=== PATIENT | female | born 1940 | race Caucasian/White ===

== ENCOUNTER → 2016-08-19 | Outpatient (REF) | payer MEDICARE, BC ==
[~2016-08-19] MED LIST: /ADVA50050; /CLOT10TR; /MOXI40TA; ALBU17IN2; BABY81CH; MUCINEX; PREDPOW10; SING10TA31; SYNT75TA; ZOMI5TAB
[2016-08-19 13:08] LABS: BASO # 0.1 K/mm3 (0.0-0.2); BASO % 0.7 % (0.0-1.0); EOS # 0.4 K/mm3 (0.0-0.50); LARGE UNSTAINED CELL # 0.2 K/mm3 (0.0-0.4); LARGE UNSTAINED CELL % 2.7 % (0.0-4.0); LYMPH # 2.5 K/mm3 (1.5-4.5); LYMPH % 28.1 % (24.0-44.0); MEAN CORPUSCULAR HEMOGLOBIN 35.6 pg (27.0-33.0); MEAN CORPUSCULAR HGB CONC 32.9 g/dl (32.0-36.5); MEAN CORPUSCULAR VOLUME 108.3 fl (80.0-96.0); MONO # 0.7 K/mm3 (0.0-0.8); MONO % 7.4 % (0.0-5.0); NEUTROPHILS # 5.1 K/mm3 (1.8-7.7); NEUTROPHILS % 57.1 % (36.0-66.0); PLATELET COUNT, AUTOMATED 372 k/mm3 (150-450); RED CELL DISTRIBUTION WIDTH 13.3 % (11.5-14.5); WHITE BLOOD COUNT 8.9 K/mm3 (4.0-10.0)
[2016-08-19 13:44] LABS: ALBUMIN 3.6 GM/DL (3.2-5.2); ALBUMIN/GLOBULIN RATIO 1.09 (1.00-1.93); ALKALINE PHOSPHATASE 20 U/L (45-117); ALT/SGPT 18 U/L (12-78); ANION GAP 8 MEQ/L (8-16); AST/SGOT 14 U/L (15-37); BILIRUBIN,TOTAL 0.4 MG/DL (0.2-1.0); BLOOD UREA NITROGEN 16 MG/DL (7-18); CALCIUM LEVEL 9.6 MG/DL (8.8-10.2); CARBON DIOXIDE LEVEL 28 MEQ/L (21-32); CHLORIDE LEVEL 107 MEQ/L (98-107); FERRITIN 99 NG/ML (8-252); FREE T4 1.08 NG/DL (0.76-1.46); GLOMERULAR FILTRATION RATE > 60.0 (>39); GLUCOSE, FASTING 89 MG/DL (83-110); PERCENT SATURATION 49.2 % (13.2-37.4); POTASSIUM SERUM 4.7 MEQ/L (3.5-5.1); SODIUM LEVEL 143 MEQ/L (136-145); TOTAL IRON BINDING CAPACITY 319 UG/DL (250-450); TOTAL PROTEIN 6.9 GM/DL (6.4-8.2)
== END ==
LOC: M SFHCPLAZ 10:34
PROVIDERS: ATTEND Physician Assistant Medical
DX: G25.81 Restless legs syndrome (principal); E03.9 Hypothyroidism, unspecified; R73.01 Impaired fasting glucose; Z79.82 Long term (current) use of aspirin; Z79.899 Other long term (current) drug therapy
CPT/HCPCS: 80053; 82728; 83550; 84439; 84443; 85025; G0463

== ENCOUNTER → 2016-10-31 | Outpatient (CLI) | payer MEDICARE, BC ==
--- NOTE | 2016-11-01 07:45 | REP ---
LUMBAR SPINE SERIES: Two views. HISTORY: Bilateral hip and low back pain. FINDINGS: AP and lateral views are compared with the September 27, 2014 prior radiographs. The patient is status post umbilical hernia repair. There is a mild dextroconvex curvature and advanced diffuse degenerative disc disease is seen throughout the lumbar spine radiographically unchanged from the 2015 prior study. There is osteoarthritic facet sclerosis and hypertrophy and L4-5 and L5-S1 bilaterally also unchanged. No subluxation is seen. No fracture or collapse is noted. No bony destructive lesion seen. Sacrum SI joints are intact. IMPRESSION: Advanced degenerative spondylosis change. Mild dextroconvex curvature. No acute bony abnormality. Signed by Jim Echeverria MD 11/01/2016 08:12 A
--- NOTE | 2016-11-01 07:46 | REP ---
AP PELVIS BILATERAL HIP STUDY FIVE VIEWS: HISTORY: Bilateral hip pain. FINDINGS: AP view of the pelvis shows an intact bony pelvic ring. Sacrum and SI joints are intact. Hip joint spaces are preserved. There are mild tendon insertion site spurs on the greater trochanters bilaterally. Pelvic phleboliths are noted. No other abnormality. IMPRESSION: Tendon insertion site spurring on the greater trochanters bilaterally may reflect chronic tendonitis. No acute bony abnormality. Signed by Jim Echeverria MD 11/01/2016 08:12 A
== END ==
LOC: M WUC 17:49
PROVIDERS: ATTEND Physician Assistant Medical
DX: M47.816 Spondylosis without myelopathy or radiculopathy, lumbar region (principal)
CPT/HCPCS: 72100; 73521; G0463

== ENCOUNTER → 2016-12-27 | Outpatient (REF) | payer MEDICARE, BC ==
[2016-12-27 16:15] LABS: VITAMIN B12 LEVEL 359 PG/ML (247-911)
[2016-12-27 16:19] LABS: FREE T4 0.83 NG/DL (0.76-1.46); TOTAL PROTEIN 7.2 GM/DL (6.4-8.2)
[2016-12-30 12:11] LABS: ALBUMIN 4.03 GM/DL (3.29-5.55); GAMMA GLOBULIN % 16.9 % (11.1-18.8)
[2016-12-31 10:23] LABS: PRETREATED FOLATE FOR RBCFOL 8.7 NG/ML
== END ==
LOC: M SFHCPLAZ 13:18
PROVIDERS: ATTEND Family Medicine
DX: E03.9 Hypothyroidism, unspecified (principal); R73.01 Impaired fasting glucose; E55.9 Vitamin D deficiency, unspecified; D75.89 Other specified diseases of blood and blood-forming organs

== ENCOUNTER 2017-07-06 14:00 | Inpatient (IN) | payer MEDICARE, BC ==
[2017-07-06 13:47] LABS: BASO # 0.1 10^3/uL (0.0-0.2); BASO % 0.5 % (0.0-1.0); EOS # 0.6 10^3/uL (0.0-0.50); EOS % 5.4 % (0.0-3.0); HEMATOCRIT 39.3 % (36.0-47.0); HEMOGLOBIN 12.9 g/dl (12.0-16.0); IMMATURE GRANULOCYTE % 0.3 % (0-3.0); LYMPH % 29.6 % (24.0-44.0); MEAN CORPUSCULAR HEMOGLOBIN 34.2 pg (27.0-33.0); MEAN CORPUSCULAR HGB CONC 32.8 g/dl (32.0-36.5); MEAN CORPUSCULAR VOLUME 104.2 fl (80.0-96.0); MONO # 1.1 10^3/uL (0.0-0.8); MONO % 10.8 % (0.0-5.0); NEUTROPHILS # 5.5 10^3/uL (1.8-7.7); NEUTROPHILS % 53.4 % (36.0-66.0); PLATELET COUNT, AUTOMATED 316 10^3/uL (150-450); RED BLOOD COUNT 3.77 10^6/uL (4.00-5.40); WHITE BLOOD COUNT 10.2 10^3/uL (4.0-10.0)
[2017-07-06 13:50] LABS: BEDSIDE GLUCOSE 91 MG/DL (83-110)
[2017-07-06 13:57] LABS: INR 0.94; PARTIAL THROMBOPLASTIN TIME 30.3 SECONDS (26.8-37.9); PROTHROMBIN TIME 12.6 SECONDS (12.4-14.5)
[~2017-07-06 14:00] MED LIST changes: -/ADVA50050; -/CLOT10TR; -/MOXI40TA; -ALBU17IN2; -BABY81CH; -MUCINEX; -PREDPOW10; -SING10TA31; -SYNT75TA; -ZOMI5TAB; +hydrALAZINE INJ 20 MG/ML VIAL As Ordered
[2017-07-06] MEDS ORDERED: ALTEPLASE 100MG INJ (J2997) As Ordered (14:09)
[2017-07-06] MEDS: hydrALAZINE INJ 20 MG/ML VIAL IV (14:11)
[2017-07-06 14:19] LABS: ANION GAP 6 MEQ/L (8-16); BLOOD UREA NITROGEN 17 MG/DL (7-18); CALCIUM LEVEL 9.5 MG/DL (8.8-10.2); CARBON DIOXIDE LEVEL 28 MEQ/L (21-32); CHLORIDE LEVEL 108 MEQ/L (98-107); CK-MB VALUE MASS < 1.0 NG/ML (<3.6); CPK CREATINE PHOSPHOKINASE 66 U/L (26-192); CREATININE FOR GFR 0.77 MG/DL (0.55-1.30); GLOMERULAR FILTRATION RATE > 60.0 (>39); GLUCOSE, FASTING 95 MG/DL (70-100); MB/CK RELATIVE INDEX 1.51 (< OR =4); SODIUM LEVEL 142 MEQ/L (136-145); TROPONIN I < 0.02 NG/ML (< 0.10)
[2017-07-06] MEDS: ALTEPLASE 100MG INJ (J2997) IV (14:19)
[2017-07-06] MEDS: DILUENT IV (14:23)
[2017-07-06] MEDS: ALTEPLASE RECOMBINANT IV (14:23)
[2017-07-06] MEDS ORDERED: ISOVUE-370 76% 100ML VIAL (Q9967) As Ordered (14:23)
[2017-07-06] MEDS: NS 1,000 ML IV ×2 (14:54→23:50)
[2017-07-06] MEDS ORDERED: LABETALOL HCL 100 MG/20 ML VIAL IV (17:30)
[2017-07-06] MEDS ORDERED: ADVAIR HFA 115/21MCG INHALER INH (17:30)
[2017-07-06] MEDS: ONDANSETRON 4MG/2ML VIAL (J2405) IV (18:00)
[2017-07-06] MEDS ORDERED: METOCLOPRAMIDE INJ 10MG/2ML VIAL (J2765) As Ordered (18:25)
[2017-07-06] MEDS: METOCLOPRAMIDE INJ 10MG/2ML VIAL (J2765) IV (18:30)
[2017-07-06] MEDS: ERYTHROMYCIN OPHTH OINT OD (21:06)
[2017-07-06] MEDS: ATORVASTATIN 20 MG TAB PO (21:10)
[2017-07-06] MEDS: LEVOTHYROXINE 50MCG TABLET (0.05MG) PO (21:10)
[2017-07-06] MEDS: MONTELUKAST 10 MG TAB PO (21:15)
[2017-07-06] MEDS: ACETAMINOPHEN TAB 650MG DOSE (2X325MG) PO (23:50)
[2017-07-07 00:41] LABS: CK-MB VALUE MASS < 1.0 NG/ML (<3.6); CPK CREATINE PHOSPHOKINASE 57 U/L (26-192); MB/CK RELATIVE INDEX 1.75 (< OR =4); TROPONIN I < 0.02 NG/ML (< 0.10)
[2017-07-07 04:26] LABS: HEMATOCRIT 37.1 % (36.0-47.0); HEMOGLOBIN 12.4 g/dl (12.0-16.0); MEAN CORPUSCULAR HEMOGLOBIN 33.7 pg (27.0-33.0); MEAN CORPUSCULAR HGB CONC 33.4 g/dl (32.0-36.5); MEAN CORPUSCULAR VOLUME 100.8 fl (80.0-96.0); PLATELET COUNT, AUTOMATED 318 10^3/uL (150-450); RED BLOOD COUNT 3.68 10^6/uL (4.00-5.40); RED CELL DISTRIBUTION WIDTH 12.9 % (11.5-14.5); WHITE BLOOD COUNT 9.9 10^3/uL (4.0-10.0)
[2017-07-07 04:43] LABS: ANION GAP 8 MEQ/L (8-16); BLOOD UREA NITROGEN 16 MG/DL (7-18); CALCIUM LEVEL 8.9 MG/DL (8.8-10.2); CARBON DIOXIDE LEVEL 23 MEQ/L (21-32); CHLORIDE LEVEL 112 MEQ/L (98-107); CREATININE FOR GFR 0.71 MG/DL (0.55-1.30); GLOMERULAR FILTRATION RATE > 60.0 (>39); GLUCOSE, FASTING 104 MG/DL (70-100); SODIUM LEVEL 143 MEQ/L (136-145)
[2017-07-07 09:58] LABS: CK-MB VALUE MASS < 1.0 NG/ML (<3.6); CPK CREATINE PHOSPHOKINASE 68 U/L (26-192); MB/CK RELATIVE INDEX 1.47 (< OR =4); TROPONIN I < 0.02 NG/ML (< 0.10)
[2017-07-07] MEDS: NS 1,000 ML IV ×2 (11:15→19:19)
[2017-07-07] MEDS: ACETAMINOPHEN TAB 650MG DOSE (2X325MG) PO (11:47)
[2017-07-07] MEDS: ONDANSETRON 4MG/2ML VIAL (J2405) IV ×2 (16:23→21:16)
[2017-07-07] MEDS ORDERED: traMADol 50 MG TAB PO (16:30)
[2017-07-07] MEDS: METOCLOPRAMIDE INJ 10MG/2ML VIAL (J2765) IV (17:08)
[2017-07-07] MEDS: traMADol 50 MG TAB PO (17:41)
[2017-07-07] MEDS ORDERED: NORCO, ANEXSIA 5/325MG TABLET (HYDROcodone/ACETAMINOPHEN) PO (20:30)
[2017-07-07] MEDS ORDERED: ASPIRIN 81 MG ENTERIC TAB PO (20:30)
[2017-07-07] MEDS: ZOLMitriptan TABLET 2.5MG PO (21:15)
[2017-07-07] MEDS: ATORVASTATIN 20 MG TAB PO (21:15)
[2017-07-07] MEDS: MONTELUKAST 10 MG TAB PO (21:15)
[2017-07-07] MEDS: LEVOTHYROXINE 50MCG TABLET (0.05MG) PO (21:15)
[2017-07-07] MEDS: diphenhydrAMINE INJ 50MG/ML VIAL (J1200) IV (21:16)
[2017-07-07] MEDS: ERYTHROMYCIN OPHTH OINT OD (21:17)
[2017-07-07] MEDS: MAG SULF 1GM/100ML (MAG RUN) 1 GM in APPROPRIATE DILUENT 1 EA IV (21:17)
[2017-07-07] MEDS: ASPIRIN ENTERIC 325 MG TAB PO (21:33)
[2017-07-08] MEDS: NS 1,000 ML IV (04:17)
[2017-07-08 04:43] LABS: HEMATOCRIT 36.6 % (36.0-47.0); HEMOGLOBIN 11.9 g/dl (12.0-16.0); MEAN CORPUSCULAR HEMOGLOBIN 33.8 pg (27.0-33.0); MEAN CORPUSCULAR HGB CONC 32.5 g/dl (32.0-36.5); PLATELET COUNT, AUTOMATED 279 10^3/uL (150-450); RED BLOOD COUNT 3.52 10^6/uL (4.00-5.40); RED CELL DISTRIBUTION WIDTH 13.2 % (11.5-14.5); WHITE BLOOD COUNT 9.7 10^3/uL (4.0-10.0)
[2017-07-08 05:18] LABS: ANION GAP 2 MEQ/L (8-16); BLOOD UREA NITROGEN 10 MG/DL (7-18); CALCIUM LEVEL 8.8 MG/DL (8.8-10.2); CARBON DIOXIDE LEVEL 27 MEQ/L (21-32); CHLORIDE LEVEL 115 MEQ/L (98-107); CREATININE FOR GFR 0.72 MG/DL (0.55-1.30); GLOMERULAR FILTRATION RATE > 60.0 (>39); GLUCOSE, FASTING 86 MG/DL (70-100); POTASSIUM SERUM 3.8 MEQ/L (3.5-5.1); SODIUM LEVEL 144 MEQ/L (136-145)
[2017-07-08] MEDS: ASPIRIN ENTERIC 325 MG TAB PO (08:37)
[2017-07-08] MEDS ORDERED: ASPIRIN 81 MG ENTERIC TAB PO (09:00)
== END 2017-07-08 16:47 | disposition home or self-care (01) | DRG 63 ==
LOC: M ED 14:00 → M ED INP 17:22 → M ICU 19:30
PROC: 3E03317 Introduction of Other Thrombolytic into Peripheral Vein, Percutaneous Approach (ICD-10-PCS; principal; 2017-07-06)
DX: I66.9 Occlusion and stenosis of unspecified cerebral artery (principal); E03.9 Hypothyroidism, unspecified; J44.9 Chronic obstructive pulmonary disease, unspecified; G43.909 Migraine, unspecified, not intractable, without status migrainosus; Z87.891 Personal history of nicotine dependence; Z79.82 Long term (current) use of aspirin; Z96.661 Presence of right artificial ankle joint; Z88.8 Allergy status to other drugs, medicaments and biological substances

== ENCOUNTER → 2017-08-08 | Outpatient (CLI) | payer MEDICARE, BC | LOC: M WUC 15:51 | DX: J18.9 Pneumonia, unspecified organism (principal) | CPT/HCPCS: 71046 ==

== ENCOUNTER → 2017-08-26 | Outpatient (REF) | payer MEDICARE, BC ==
[2017-08-26 11:48] LABS: BASO # 0.1 10^3/uL (0.0-0.2); BASO % 1.1 % (0.0-1.0); EOS # 0.7 10^3/uL (0.0-0.50); EOS % 9.5 % (0.0-3.0); HEMOGLOBIN 12.4 g/dl (12.0-15.5); IMMATURE GRANULOCYTE % 0.3 % (0-3.0); LYMPH # 2.5 10^3/uL (1.5-4.5); LYMPH % 34.3 % (24.0-44.0); MEAN CORPUSCULAR HEMOGLOBIN 34.3 pg (27.0-33.0); MEAN CORPUSCULAR HGB CONC 32.6 g/dl (32.0-36.5); MONO # 0.9 10^3/uL (0.0-0.8); MONO % 11.6 % (0.0-5.0); NEUTROPHILS # 3.2 10^3/uL (1.8-7.7); NEUTROPHILS % 43.2 % (36.0-66.0); PLATELET COUNT, AUTOMATED 319 10^3/uL (150-450); RED BLOOD COUNT 3.62 10^6/uL (4.00-5.40); WHITE BLOOD COUNT 7.4 10^3/uL (4.0-10.0)
[2017-08-26 12:08] LABS: VITAMIN B12 LEVEL 356 PG/ML (247-911)
[2017-08-26 12:10] LABS: ALBUMIN 3.5 GM/DL (3.2-5.2); ALBUMIN/GLOBULIN RATIO 0.97 (1.00-1.93); ALKALINE PHOSPHATASE 26 U/L (45-117); ALT/SGPT 15 U/L (12-78); ANION GAP 6 MEQ/L (8-16); AST/SGOT 14 U/L (7-37); BILIRUBIN,TOTAL 0.4 MG/DL (0.2-1.0); BLOOD UREA NITROGEN 21 MG/DL (7-18); C REACTIVE PROTEIN QUANTITATIV < 0.30 MG/DL (0.00-0.30); CALCIUM LEVEL 9.6 MG/DL (8.8-10.2); CARBON DIOXIDE LEVEL 28 MEQ/L (21-32); CHLORIDE LEVEL 110 MEQ/L (98-107); CHOLESTEROL LEVEL 136 MG/DL (<200); CHOLESTEROL RISK RATIO 2.428 (<5); CPK CREATINE PHOSPHOKINASE 48 U/L (26-192); CREATININE FOR GFR 0.82 MG/DL (0.55-1.30); FREE T4 0.82 NG/DL (0.76-1.46); GLOMERULAR FILTRATION RATE > 60.0 (>39); GLUCOSE, FASTING 87 MG/DL (70-100); HDL CHOLESTEROL 56 MG/DL (>40); LDL CHOLESTEROL 60.8 MG/DL (<100); NON-HDL-C 80 MG/DL; POTASSIUM SERUM 4.5 MEQ/L (3.5-5.1); SODIUM LEVEL 144 MEQ/L (136-145); TOTAL PROTEIN 7.1 GM/DL (6.4-8.2); TRIGLYCERIDES LEVEL 96 MG/DL (<150)
[2017-08-26 13:33] LABS: CONTROL LINE HPYORI INT CTR LINE PRESENT; H PYLORI QUALITATIVE IgG NEGATIVE (NEGATIVE)
== END ==
LOC: M SFHCPLAZ 08:53
DX: D75.89 Other specified diseases of blood and blood-forming organs (principal); R73.01 Impaired fasting glucose; E03.9 Hypothyroidism, unspecified; M47.816 Spondylosis without myelopathy or radiculopathy, lumbar region
CPT/HCPCS: 82550

== ENCOUNTER → 2017-09-16 | Outpatient (CLI) | payer MEDICARE, BC | LOC: M SMT 12:13 | DX: R91.8 Other nonspecific abnormal finding of lung field (principal) ==

== ENCOUNTER 2017-09-17 21:20 | Inpatient (IN) | payer MEDICARE, BC ==
[2017-09-17] MEDS: METOCLOPRAMIDE INJ 10MG/2ML VIAL (J2765) IV (22:15)
[2017-09-17] MEDS: IPRATROPIUM 0.5MG/ALBUTEROL 2.5MG INH SOL UD 3ML (DUONEB)(J7620) NEB ×3 (22:42→23:30)
[2017-09-17 23:29] LABS: BASO % 0.3 % (0.0-1.0); EOS % 0.1 % (0.0-3.0); HEMATOCRIT 40.5 % (36.0-47.0); HEMOGLOBIN 13.4 g/dl (12.0-15.5); IMMATURE GRANULOCYTE % 0.3 % (0-3.0); LYMPH % 27.7 % (24.0-44.0); MEAN CORPUSCULAR HEMOGLOBIN 33.8 pg (27.0-33.0); MEAN CORPUSCULAR HGB CONC 33.1 g/dl (32.0-36.5); MEAN CORPUSCULAR VOLUME 102.3 fl (80.0-96.0); MONO # 0.8 10^3/uL (0.0-0.8); NEUTROPHILS # 7.1 10^3/uL (1.8-7.7); NEUTROPHILS % 64.6 % (36.0-66.0); PLATELET COUNT, AUTOMATED 349 10^3/uL (150-450); RED BLOOD COUNT 3.96 10^6/uL (4.00-5.40); RED CELL DISTRIBUTION WIDTH 14.3 % (11.5-14.5); WHITE BLOOD COUNT 10.9 10^3/uL (4.0-10.0)
[2017-09-17 23:59] LABS: ANION GAP 9 MEQ/L (8-16); BLOOD UREA NITROGEN 14 MG/DL (7-18); CALCIUM LEVEL 9.4 MG/DL (8.8-10.2); CARBON DIOXIDE LEVEL 24 MEQ/L (21-32); CHLORIDE LEVEL 106 MEQ/L (98-107); CREATININE FOR GFR 0.83 MG/DL (0.55-1.30); GLOMERULAR FILTRATION RATE > 60.0 (>39); GLUCOSE, FASTING 153 MG/DL (70-100); POTASSIUM SERUM 3.2 MEQ/L (3.5-5.1); SODIUM LEVEL 139 MEQ/L (136-145)
[2017-09-18] MEDS: KETOROLAC 30 MG/ML VIAL (J1885) IV (00:05)
[2017-09-18] MEDS: POTASSIUM CHLORIDE 10 MEQ SR TABLET PO (00:56)
[2017-09-18 01:04] LABS: CK-MB VALUE MASS < 1.0 NG/ML (<3.6); CPK CREATINE PHOSPHOKINASE 40 U/L (26-192); TROPONIN I < 0.02 NG/ML (< 0.10)
[2017-09-18] MEDS: PIPERACILLIN/TAZOBACTAM SOD 3.375 GM in D5W MINI-BAG PLUS 50 ML IV (02:13)
[2017-09-18] MEDS: NS 1,000 ML IV (03:12)
[2017-09-18] MEDS: methylPREDNISolone INJ 125 MG/2 ML VIAL (J2930) IV ×2 (03:12→09:07)
[2017-09-18] MEDS: IPRATROPIUM 0.5MG/ALBUTEROL 2.5MG INH SOL UD 3ML (DUONEB)(J7620) NEB ×6 (03:15→22:49)
[2017-09-18] MEDS: ASPIRIN 325 MG TAB PO ×2 (03:46→21:11)
[2017-09-18] MEDS: NORTRIPTYLINE 25 MG CAP PO ×2 (03:47→21:10)
[2017-09-18] MEDS: MONTELUKAST 10 MG TAB PO ×2 (03:47→21:11)
[2017-09-18] MEDS: LEVOTHYROXINE 50MCG TABLET (0.05MG) PO ×2 (03:47→21:11)
[2017-09-18] MEDS: ATORVASTATIN 20 MG TAB PO ×2 (03:47→21:10)
[2017-09-18] MEDS: LevoFLOXacin IV 750 MG in APPROPRIATE DILUENT 1 EA IV (03:51)
[2017-09-18] MEDS: VITAMIN D 1,000 INTERNATIONAL UNITS TABLET PO (09:06)
[2017-09-18] MEDS: GABAPENTIN 300 MG CAP PO ×2 (09:06→21:11)
[2017-09-18] MEDS: PROPRANOLOL 10 MG TAB PO (09:06)
[2017-09-18] MEDS: PANTOPRAZOLE 40MG TAB (PROTONIX) PO (09:06)
[2017-09-18] MEDS: ENOXAPARIN 40 MG/0.4 ML SYRINGE (J1650) SC (09:07)
[2017-09-18] MEDS: ACETAMINOPHEN TAB 650MG DOSE (2X325MG) PO ×3 (09:08→21:18)
[2017-09-18 11:35] LABS: HEMATOCRIT 35.7 % (36.0-47.0); IMMATURE GRANULOCYTE % 0.3 % (0-3.0); LYMPH # 0.8 10^3/uL (1.5-4.5); LYMPH % 11.1 % (24.0-44.0); MEAN CORPUSCULAR HGB CONC 33.6 g/dl (32.0-36.5); MEAN CORPUSCULAR VOLUME 101.1 fl (80.0-96.0); MONO # 0.2 10^3/uL (0.0-0.8); NEUTROPHILS # 6.4 10^3/uL (1.8-7.7); NEUTROPHILS % 86.6 % (36.0-66.0); PLATELET COUNT, AUTOMATED 330 10^3/uL (150-450); RED BLOOD COUNT 3.53 10^6/uL (4.00-5.40); RED CELL DISTRIBUTION WIDTH 14.4 % (11.5-14.5); WHITE BLOOD COUNT 7.4 10^3/uL (4.0-10.0)
[2017-09-18 12:06] LABS: ALBUMIN 3.2 GM/DL (3.2-5.2); ALBUMIN/GLOBULIN RATIO 0.89 (1.00-1.93); ALKALINE PHOSPHATASE 17 U/L (45-117); ALT/SGPT 22 U/L (12-78); ANION GAP 6 MEQ/L (8-16); AST/SGOT 13 U/L (7-37); BILIRUBIN,TOTAL 0.2 MG/DL (0.2-1.0); BLOOD UREA NITROGEN 19 MG/DL (7-18); CALCIUM LEVEL 9.3 MG/DL (8.8-10.2); CARBON DIOXIDE LEVEL 25 MEQ/L (21-32); CHLORIDE LEVEL 110 MEQ/L (98-107); CREATININE FOR GFR 0.81 MG/DL (0.55-1.30); GLOMERULAR FILTRATION RATE > 60.0 (>39); GLUCOSE, FASTING 127 MG/DL (70-100); SODIUM LEVEL 141 MEQ/L (136-145); TOTAL PROTEIN 6.8 GM/DL (6.4-8.2)
[2017-09-18 12:12] LABS: POTASSIUM SERUM 5.2 MEQ/L (3.5-5.1)
[2017-09-18] MEDS ORDERED: methylPREDNISolone INJ 125 MG/2 ML VIAL (J2930) IV (17:00)
[2017-09-18] MEDS: methylPREDNISolone INJ 40 MG/1 ML VIAL (J2920) IV (21:10)
[2017-09-19 06:54] LABS: HEMATOCRIT 41.4 % (36.0-47.0); HEMOGLOBIN 13.6 g/dl (12.0-15.5); MEAN CORPUSCULAR HGB CONC 32.9 g/dl (32.0-36.5); MEAN CORPUSCULAR VOLUME 103.5 fl (80.0-96.0); PLATELET COUNT, AUTOMATED 378 10^3/uL (150-450); RED CELL DISTRIBUTION WIDTH 14.6 % (11.5-14.5); WHITE BLOOD COUNT 12.1 10^3/uL (4.0-10.0)
[2017-09-19] MEDS: IPRATROPIUM 0.5MG/ALBUTEROL 2.5MG INH SOL UD 3ML (DUONEB)(J7620) NEB ×5 (07:15→23:09)
[2017-09-19 07:22] LABS: ALBUMIN 3.6 GM/DL (3.2-5.2); ALBUMIN/GLOBULIN RATIO 0.78 (1.00-1.93); ALKALINE PHOSPHATASE 23 U/L (45-117); ALT/SGPT 23 U/L (12-78); ANION GAP 6 MEQ/L (8-16); AST/SGOT 17 U/L (7-37); BILIRUBIN,TOTAL 0.2 MG/DL (0.2-1.0); BLOOD UREA NITROGEN 22 MG/DL (7-18); CALCIUM LEVEL 9.9 MG/DL (8.8-10.2); CARBON DIOXIDE LEVEL 25 MEQ/L (21-32); CHLORIDE LEVEL 110 MEQ/L (98-107); GLOMERULAR FILTRATION RATE > 60.0 (>39); GLUCOSE, FASTING 125 MG/DL (70-100); SODIUM LEVEL 141 MEQ/L (136-145); TOTAL PROTEIN 8.2 GM/DL (6.4-8.2)
[2017-09-19 07:24] LABS: POTASSIUM SERUM 5.2 MEQ/L (3.5-5.1)
[2017-09-19] MEDS: PANTOPRAZOLE 40MG TAB (PROTONIX) PO (08:44)
[2017-09-19] MEDS: methylPREDNISolone INJ 40 MG/1 ML VIAL (J2920) IV ×2 (08:46→22:24)
[2017-09-19] MEDS: VITAMIN D 1,000 INTERNATIONAL UNITS TABLET PO (08:46)
[2017-09-19] MEDS: PROPRANOLOL 10 MG TAB PO (08:46)
[2017-09-19] MEDS: GABAPENTIN 300 MG CAP PO ×2 (08:46→22:23)
[2017-09-19] MEDS: ENOXAPARIN 40 MG/0.4 ML SYRINGE (J1650) SC (08:47)
[2017-09-19] MEDS: LevoFLOXacin IV 750 MG in APPROPRIATE DILUENT 1 EA IV (17:00)
[2017-09-19] MEDS: LEVOTHYROXINE 50MCG TABLET (0.05MG) PO (22:22)
[2017-09-19] MEDS: ASPIRIN 325 MG TAB PO (22:23)
[2017-09-19] MEDS: ATORVASTATIN 20 MG TAB PO (22:23)
[2017-09-19] MEDS: NORTRIPTYLINE 25 MG CAP PO (22:24)
[2017-09-19] MEDS: MONTELUKAST 10 MG TAB PO (22:24)
[2017-09-19] MEDS: ACETAMINOPHEN TAB 650MG DOSE (2X325MG) PO (22:38)
[2017-09-20] MEDS: IPRATROPIUM 0.5MG/ALBUTEROL 2.5MG INH SOL UD 3ML (DUONEB)(J7620) NEB ×5 (03:08→19:39)
[2017-09-20 06:30] LABS: HEMATOCRIT 36.3 % (36.0-47.0); HEMOGLOBIN 11.8 g/dl (12.0-15.5); MEAN CORPUSCULAR HEMOGLOBIN 33.6 pg (27.0-33.0); MEAN CORPUSCULAR HGB CONC 32.5 g/dl (32.0-36.5); MEAN CORPUSCULAR VOLUME 103.4 fl (80.0-96.0); PLATELET COUNT, AUTOMATED 338 10^3/uL (150-450); RED BLOOD COUNT 3.51 10^6/uL (4.00-5.40); RED CELL DISTRIBUTION WIDTH 14.5 % (11.5-14.5); WHITE BLOOD COUNT 7.7 10^3/uL (4.0-10.0)
[2017-09-20 06:37] LABS: ANION GAP 5 MEQ/L (8-16); BLOOD UREA NITROGEN 24 MG/DL (7-18); CALCIUM LEVEL 9.3 MG/DL (8.8-10.2); CARBON DIOXIDE LEVEL 26 MEQ/L (21-32); CHLORIDE LEVEL 112 MEQ/L (98-107); CREATININE FOR GFR 0.82 MG/DL (0.55-1.30); GLOMERULAR FILTRATION RATE > 60.0 (>39); GLUCOSE, FASTING 130 MG/DL (70-100); POTASSIUM SERUM 4.5 MEQ/L (3.5-5.1); SODIUM LEVEL 143 MEQ/L (136-145)
[2017-09-20] MEDS: PANTOPRAZOLE 40MG TAB (PROTONIX) PO (08:56)
[2017-09-20] MEDS: VITAMIN D 1,000 INTERNATIONAL UNITS TABLET PO (08:56)
[2017-09-20] MEDS: ENOXAPARIN 40 MG/0.4 ML SYRINGE (J1650) SC (08:57)
[2017-09-20] MEDS: methylPREDNISolone INJ 40 MG/1 ML VIAL (J2920) IV (08:57)
[2017-09-20] MEDS: PROPRANOLOL 10 MG TAB PO (08:57)
[2017-09-20] MEDS: GABAPENTIN 300 MG CAP PO ×2 (08:57→20:15)
[2017-09-20] MEDS: LevoFLOXacin 750 MG TABLET PO (17:32)
[2017-09-20] MEDS: ATORVASTATIN 20 MG TAB PO (20:15)
[2017-09-20] MEDS: MONTELUKAST 10 MG TAB PO (20:15)
[2017-09-20] MEDS: predniSONE 20 MG TAB PO (20:15)
[2017-09-20] MEDS: ASPIRIN 325 MG TAB PO (20:15)
[2017-09-20] MEDS: LEVOTHYROXINE 50MCG TABLET (0.05MG) PO (20:15)
[2017-09-20] MEDS: NORTRIPTYLINE 25 MG CAP PO (20:15)
[2017-09-20] MEDS: zolPIDEM TARTRATE 10MG TAB PO (23:41)
[2017-09-21] MEDS: IPRATROPIUM 0.5MG/ALBUTEROL 2.5MG INH SOL UD 3ML (DUONEB)(J7620) NEB ×7 (00:11→22:13)
[2017-09-21] MEDS: LevoFLOXacin 750 MG TABLET PO (05:28)
[2017-09-21 06:22] LABS: HEMATOCRIT 37.3 % (36.0-47.0); HEMOGLOBIN 12.4 g/dl (12.0-15.5); MEAN CORPUSCULAR HGB CONC 33.2 g/dl (32.0-36.5); MEAN CORPUSCULAR VOLUME 102.2 fl (80.0-96.0); PLATELET COUNT, AUTOMATED 355 10^3/uL (150-450); RED BLOOD COUNT 3.65 10^6/uL (4.00-5.40); RED CELL DISTRIBUTION WIDTH 14.3 % (11.5-14.5); WHITE BLOOD COUNT 8.1 10^3/uL (4.0-10.0)
[2017-09-21 06:42] LABS: ANION GAP 7 MEQ/L (8-16); BLOOD UREA NITROGEN 21 MG/DL (7-18); CALCIUM LEVEL 9.3 MG/DL (8.8-10.2); CARBON DIOXIDE LEVEL 25 MEQ/L (21-32); CHLORIDE LEVEL 109 MEQ/L (98-107); CREATININE FOR GFR 0.88 MG/DL (0.55-1.30); GLOMERULAR FILTRATION RATE > 60.0 (>39); GLUCOSE, FASTING 143 MG/DL (70-100); POTASSIUM SERUM 4.3 MEQ/L (3.5-5.1); SODIUM LEVEL 141 MEQ/L (136-145)
[2017-09-21] MEDS: VITAMIN D 1,000 INTERNATIONAL UNITS TABLET PO (08:45)
[2017-09-21] MEDS: PANTOPRAZOLE 40MG TAB (PROTONIX) PO (08:45)
[2017-09-21] MEDS: GABAPENTIN 300 MG CAP PO ×2 (08:46→20:08)
[2017-09-21] MEDS: predniSONE 20 MG TAB PO (08:46)
[2017-09-21] MEDS: PROPRANOLOL 10 MG TAB PO (08:46)
[2017-09-21] MEDS: ENOXAPARIN 40 MG/0.4 ML SYRINGE (J1650) SC (08:46)
[2017-09-21] MEDS: ASPIRIN 325 MG TAB PO (20:07)
[2017-09-21] MEDS: MONTELUKAST 10 MG TAB PO (20:08)
[2017-09-21] MEDS: ATORVASTATIN 20 MG TAB PO (20:08)
[2017-09-21] MEDS: NORTRIPTYLINE 25 MG CAP PO (20:08)
[2017-09-21] MEDS: LEVOTHYROXINE 50MCG TABLET (0.05MG) PO (20:08)
[2017-09-22] MEDS: zolPIDEM TARTRATE 10MG TAB PO (00:22)
[2017-09-22] MEDS: LevoFLOXacin 750 MG TABLET PO (05:55)
[2017-09-22 06:09] LABS: HEMOGLOBIN 12.4 g/dl (12.0-15.5); MEAN CORPUSCULAR HEMOGLOBIN 34.3 pg (27.0-33.0); MEAN CORPUSCULAR HGB CONC 33.5 g/dl (32.0-36.5); MEAN CORPUSCULAR VOLUME 102.2 fl (80.0-96.0); PLATELET COUNT, AUTOMATED 357 10^3/uL (150-450); RED BLOOD COUNT 3.62 10^6/uL (4.00-5.40); RED CELL DISTRIBUTION WIDTH 14.3 % (11.5-14.5); WHITE BLOOD COUNT 11.8 10^3/uL (4.0-10.0)
[2017-09-22 06:23] LABS: ANION GAP 3 MEQ/L (8-16); BLOOD UREA NITROGEN 24 MG/DL (7-18); CALCIUM LEVEL 9.2 MG/DL (8.8-10.2); CARBON DIOXIDE LEVEL 29 MEQ/L (21-32); CHLORIDE LEVEL 112 MEQ/L (98-107); CREATININE FOR GFR 0.88 MG/DL (0.55-1.30); GLOMERULAR FILTRATION RATE > 60.0 (>39); GLUCOSE, FASTING 109 MG/DL (70-100); POTASSIUM SERUM 3.9 MEQ/L (3.5-5.1); SODIUM LEVEL 144 MEQ/L (136-145)
[2017-09-22] MEDS: IPRATROPIUM 0.5MG/ALBUTEROL 2.5MG INH SOL UD 3ML (DUONEB)(J7620) NEB ×2 (07:28→11:25)
[2017-09-22] MEDS: GABAPENTIN 300 MG CAP PO (09:16)
[2017-09-22] MEDS: PROPRANOLOL 10 MG TAB PO (09:16)
[2017-09-22] MEDS: PANTOPRAZOLE 40MG TAB (PROTONIX) PO (09:16)
[2017-09-22] MEDS: predniSONE 20 MG TAB PO (09:16)
[2017-09-22] MEDS: VITAMIN D 1,000 INTERNATIONAL UNITS TABLET PO (09:17)
[2017-09-22] MEDS: ENOXAPARIN 40 MG/0.4 ML SYRINGE (J1650) SC (09:17)
== END 2017-09-22 12:40 | disposition home or self-care (01) | DRG 203 ==
LOC: M ED 21:20 → M ED INP 09-18 02:19 → M MSPAV 09-18 15:50
DX: J45.901 Unspecified asthma with (acute) exacerbation (principal); R09.02 Hypoxemia; E87.6 Hypokalemia; E78.5 Hyperlipidemia, unspecified; G43.909 Migraine, unspecified, not intractable, without status migrainosus; G47.33 Obstructive sleep apnea (adult) (pediatric); I10 Essential (primary) hypertension; G25.81 Restless legs syndrome; E03.9 Hypothyroidism, unspecified; Z86.73 Personal history of transient ischemic attack (TIA), and cerebral infarction without residual deficits; Z79.899 Other long term (current) drug therapy; Z88.8 Allergy status to other drugs, medicaments and biological substances; Z87.891 Personal history of nicotine dependence; Z96.669 Presence of unspecified artificial ankle joint; Z90.710 Acquired absence of both cervix and uterus; Z99.89 Dependence on other enabling machines and devices

== ENCOUNTER → 2017-09-29 | Outpatient (REF) | payer MEDICARE, BC ==
[2017-09-29 15:56] LABS: BASO % 0.2 % (0.0-1.0); EOS # 0.1 10^3/uL (0.0-0.50); EOS % 0.7 % (0.0-3.0); HEMATOCRIT 39.9 % (36.0-47.0); HEMOGLOBIN 13.2 g/dl (12.0-15.5); IMMATURE GRANULOCYTE % 1.2 % (0-3.0); LYMPH # 4.1 10^3/uL (1.5-4.5); LYMPH % 21.4 % (24.0-44.0); MEAN CORPUSCULAR HEMOGLOBIN 34.1 pg (27.0-33.0); MEAN CORPUSCULAR HGB CONC 33.1 g/dl (32.0-36.5); MEAN CORPUSCULAR VOLUME 103.1 fl (80.0-96.0); MONO # 1.7 10^3/uL (0.0-0.8); NEUTROPHILS # 13.1 10^3/uL (1.8-7.7); NEUTROPHILS % 67.5 % (36.0-66.0); PLATELET COUNT, AUTOMATED 432 10^3/uL (150-450); RED BLOOD COUNT 3.87 10^6/uL (4.00-5.40); RED CELL DISTRIBUTION WIDTH 14.9 % (11.5-14.5); WHITE BLOOD COUNT 19.3 10^3/uL (4.0-10.0)
[2017-09-29 16:21] LABS: ALBUMIN 3.1 GM/DL (3.2-5.2); ALBUMIN/GLOBULIN RATIO 0.91 (1.00-1.93); ALKALINE PHOSPHATASE 36 U/L (45-117); ALT/SGPT 21 U/L (12-78); ANION GAP 10 MEQ/L (8-16); AST/SGOT 7 U/L (7-37); BILIRUBIN,TOTAL 0.4 MG/DL (0.2-1.0); BLOOD UREA NITROGEN 27 MG/DL (7-18); CALCIUM LEVEL 9.2 MG/DL (8.8-10.2); CARBON DIOXIDE LEVEL 28 MEQ/L (21-32); CHLORIDE LEVEL 106 MEQ/L (98-107); CREATININE FOR GFR 0.97 MG/DL (0.55-1.30); GLOMERULAR FILTRATION RATE 59.1 (>39); GLUCOSE, FASTING 115 MG/DL (70-100); MAGNESIUM LEVEL 2.8 MG/DL (1.8-2.4); SODIUM LEVEL 144 MEQ/L (136-145); TOTAL PROTEIN 6.5 GM/DL (6.4-8.2)
[2017-09-29 16:27] LABS: ESTIMATED AVERAGE GLUCOSE 117 MG/DL (60-110); HEMOGLOBIN A1c 5.7 %; VITAMIN B12 LEVEL 570 PG/ML (247-911)
== END ==
LOC: M SFHCPLAZ 13:08
DX: D75.89 Other specified diseases of blood and blood-forming organs (principal); R73.01 Impaired fasting glucose
CPT/HCPCS: 83525

== ENCOUNTER → 2017-10-06 | Outpatient (REF) | payer MEDICARE, BC ==
[2017-10-06 13:31] LABS: BASO % 0.2 % (0.0-1.0); EOS # 0.4 10^3/uL (0.0-0.50); EOS % 3.4 % (0.0-3.0); HEMOGLOBIN 12.4 g/dl (12.0-15.5); IMMATURE GRANULOCYTE % 0.5 % (0-3.0); LYMPH # 3.1 10^3/uL (1.5-4.5); LYMPH % 27.9 % (24.0-44.0); MEAN CORPUSCULAR HEMOGLOBIN 34.2 pg (27.0-33.0); MEAN CORPUSCULAR HGB CONC 32.6 g/dl (32.0-36.5); MEAN CORPUSCULAR VOLUME 104.7 fl (80.0-96.0); MONO # 1.1 10^3/uL (0.0-0.8); MONO % 9.7 % (0.0-5.0); NEUTROPHILS # 6.4 10^3/uL (1.8-7.7); NEUTROPHILS % 58.3 % (36.0-66.0); PLATELET COUNT, AUTOMATED 349 10^3/uL (150-450); RED BLOOD COUNT 3.63 10^6/uL (4.00-5.40); RED CELL DISTRIBUTION WIDTH 15.9 % (11.5-14.5); WHITE BLOOD COUNT 10.9 10^3/uL (4.0-10.0)
== END ==
LOC: M SFHCPLAZ 12:13
DX: J44.1 Chronic obstructive pulmonary disease with (acute) exacerbation (principal)
CPT/HCPCS: 85025

== ENCOUNTER → 2018-01-14 | Outpatient (CLI) | payer MEDICARE, BC | LOC: M SMT 08:54 | DX: M50.31 Other cervical disc degeneration, high cervical region (principal); M50.322 Other cervical disc degeneration at C5-C6 level; M50.323 Other cervical disc degeneration at C6-C7 level; M50.33 Other cervical disc degeneration, cervicothoracic region | CPT/HCPCS: 72052 ==

== ENCOUNTER → 2018-01-15 | Outpatient (REF) | payer MEDICARE, BC ==
[2018-01-15 16:36] LABS: GLOMERULAR FILTRATION RATE > 60.0 (>39)
[2018-01-15 16:36] LABS: BLOOD UREA NITROGEN 21 MG/DL (7-18)
== END ==
LOC: M LABDRAWP 16:11
DX: N18.9 Chronic kidney disease, unspecified (principal)
CPT/HCPCS: 82565

== ENCOUNTER 2018-01-23 21:44 | Emergency (ER) | payer MEDICARE, BC ==
[2018-01-23] MEDS: NORCO, ANEXSIA 5/325MG TABLET (HYDROcodone/ACETAMINOPHEN) PO (22:37)
== END 2018-01-24 00:03 | disposition home or self-care (01) ==
LOC: M ED 01-24 00:03
DX: S16.1XXA Strain of muscle, fascia and tendon at neck level, initial encounter (principal); M47.812 Spondylosis without myelopathy or radiculopathy, cervical region; X58.XXXA Exposure to other specified factors, initial encounter; Y92.89 Other specified places as the place of occurrence of the external cause; E78.9 Disorder of lipoprotein metabolism, unspecified; G47.33 Obstructive sleep apnea (adult) (pediatric); E07.9 Disorder of thyroid, unspecified; Z86.73 Personal history of transient ischemic attack (TIA), and cerebral infarction without residual deficits; Z88.8 Allergy status to other drugs, medicaments and biological substances; Z79.899 Other long term (current) drug therapy
CPT/HCPCS: 70450

== ENCOUNTER → 2018-02-02 | Outpatient (CLI) | payer MEDICARE, BC | LOC: M RAD 08:14 | DX: E04.2 Nontoxic multinodular goiter (principal) | CPT/HCPCS: 76536 ==

== ENCOUNTER → 2018-02-06 | Outpatient (CLI) | payer MEDICARE, BC | LOC: M RAD 16:16 | DX: M54.2 Cervicalgia (principal) | CPT/HCPCS: 72141 ==

== ENCOUNTER 2018-10-05 09:30 | Emergency (ER) | payer MEDICARE, BC ==
[~2018-10-05] VITALS: Ht 157.5 cm; Wt 60.9 kg
[~2018-10-05 09:30] MED LIST changes: +/CLOT10TR; +ADV250INH INH; +ADVA1AER2; +ALBU17IN2 INH; +ALBU83IN INH; +AMOX500C PO; +AMOX500T2 PO; +ASPI-1 PO; +ASPI-222 PO; +ASPI81TA26 PO; +ATOR1TAB21 PO; +ATOR40TA75 PO; +AUGM875T28 PO; +AVEL1TAB2; +BABY81CH; +ERYT1OIN26 OD; +FLUO0.0114 EXT; +GABA-843 PO; +HYDR-3715 PO; +IBUP1TAB7 PO; +KETO2SHA9 TOP; +LEVA750T7 PO; +MELO7.5T7; +MUCINEX; +NATU400T PO; +NORT25CA2 PO; +OLOP0.2S OU; +PANT40TA3 PO; +PRED20TA PO; +PREDPOW10; +PROP10TA56 PO; +REST0.05 OU; +SING10TA31 PO; +SYNT50TA PO; +SYNT75TA; +VITA-121 PO; +ZOLM2.5T PO; +ZOLP10TA2 PO; +ZOMI5TAB; -hydrALAZINE INJ 20 MG/ML VIAL As Ordered
--- NOTE | 2018-10-05 10:51 | REP ---
Clinical: Trauma. Fall. Technique: Frontal view of the pelvis with neutral and frog lateral views of the bilateral hips. Findings: Moderate generalized age-related arthritic changes to the pelvis and bilateral hips noted. No acute fracture or dislocation. Impression: Arthritic changes. No acute fracture or dislocation. Electronically Signed by Herminio Graf MD 10/05/2018 10:43 A
--- NOTE | 2018-10-05 10:58 | REP ---
Left elbow two views : There is no fracture or dislocation. Mineralization and joint spaces are normal. There are no calcifications or foreign bodies. Impression: Negative left elbow . Electronically Signed by Leonard Krishnan MD 10/05/2018 10:50 A
--- NOTE | 2018-10-05 10:58 | REP ---
Clinical: Trauma. Fall. Technique: Three views of the sacrum and coccyx. Findings: Age-related degenerative changes are appreciated. Sacrum and coccyx appear intact without acute fracture or injury. Impression: No acute sacrococcygeal injury appreciated. Electronically Signed by Herminio Graf MD 10/05/2018 10:49 A
[2018-10-05 11:22] VITALS: BP 124/66
== END 2018-10-05 11:24 | disposition home or self-care (01) ==
LOC: M ED 09:30
DX: S50.02XA Contusion of left elbow, initial encounter (principal); S30.0XXA Contusion of lower back and pelvis, initial encounter; W10.8XXA Fall (on) (from) other stairs and steps, initial encounter; Y92.098 Other place in other non-institutional residence as the place of occurrence of the external cause; I10 Essential (primary) hypertension; E78.5 Hyperlipidemia, unspecified; J44.9 Chronic obstructive pulmonary disease, unspecified; J45.909 Unspecified asthma, uncomplicated; M54.9 Dorsalgia, unspecified; E03.9 Hypothyroidism, unspecified; G43.909 Migraine, unspecified, not intractable, without status migrainosus; Z86.73 Personal history of transient ischemic attack (TIA), and cerebral infarction without residual deficits; Z79.02 Long term (current) use of antithrombotics/antiplatelets

== ENCOUNTER 2018-11-18 06:31 | Emergency (ER) | payer MEDICARE, BC ==
[~2018-11-18] VITALS: Ht 157.5 cm; Wt 61.4 kg
[2018-11-18] MEDS ORDERED: ADACEL/BOOSTRIX VACCINE (DIPHTH/PERTUSS/ACELL/TETANUS)0.5ML SYR (90715) IM ONE (07:30)
--- NOTE | 2018-11-18 07:37 | REPVR ---
EXAM: CT Head Without Contrast EXAM DATE/TIME: 11/18/2018 6:42 AM CLINICAL HISTORY: 78 years old, female; Injury or trauma; Fall; Initial encounter; Concussion / head injury; Additional info: Fall on blood thinners TECHNIQUE: Imaging protocol: Computed tomography images of the head without contrast. Radiation optimization: All CT scans at this facility use at least one of these dose optimization techniques: automated exposure control; mA and/or kV adjustment per patient size (includes targeted exams where dose is matched to clinical indication); or iterative reconstruction. COMPARISON: CT Head without contrast 01/23/2018 10:34 PM FINDINGS: Brain: See Ventricles Finding. Ventricles: There is age related cerebral atrophy with secondary ventricular dilatation. Again seen is a 1.1 cm extra-axial calcific density at the vertex stable since the prior exam. Small focal chronic encephalomalacia seen in the right cerebellum, unchanged since the prior exam. There is mild patchy white matter hypoattenuation without mass effect. Bones/joints: Unremarkable. No acute fracture. Sinuses: Visualized sinuses are unremarkable. No fluid levels. Mastoid air cells: Visualized mastoid air cells are well aerated. No mastoid effusion. Soft tissues: Unremarkable. IMPRESSION: 1. No CT evidence of intracranial hemorrhage, mass effect or midline shift. 2. Grossly unchanged since the prior study of 01/23/2018. Electronically signed by: Jovanni Murillo On 11/18/2018 07:37:22 AM
--- NOTE | 2018-11-18 07:43 | REPVR ---
EXAM: CT Cervical Spine Without Contrast EXAM DATE/TIME: 11/18/2018 6:45 AM CLINICAL HISTORY: 78 years old, female; Injury or trauma; Fall; Initial encounter; Concussion /head injury; Additional info: Fall, neck pain TECHNIQUE: Imaging protocol: Computed tomography images of the cervical spine without contrast. Coronal and sagittal reformatted images were created and reviewed. Radiation optimization: All CT scans at this facility use at least one of these dose optimization techniques: automated exposure control; mA and/or kV adjustment per patient size (includes targeted exams where dose is matched to clinical indication); or iterative reconstruction. COMPARISON: CT Spine,cervical w/o contrast 01/23/2018 10:34 PM FINDINGS: Vertebrae: There are erosive changes of the base of the dens on the left best appreciated on coronal image 20. Discs/Spinal canal/Neural foramina: There is multilevel cervical spine facet arthrosis. Soft tissues: Unremarkable. Lungs: Lung apices are normal. Other findings: There is atlantodens productive changes. IMPRESSION: 1. No CT evidence of traumatic cervical spine injury. 2. Atlantodens productive changes with erosive changes at the base of the odontoid process on the left with minimal widening of the atlantodens interval. This is a new finding since the prior exam. Findings could be secondary to pannus formation however of underlying etiologies cannot be excluded. Findings are unlikely to be secondary to trauma. Correlation with MRI with contrast may be obtained for further evaluation. Electronically signed by: Jovanni Murillo On 11/18/2018 07:43:28 AM
[2018-11-18 09:11] VITALS: BP 142/89
--- NOTE | 2018-11-18 12:34 | ED PDOC ---
Post-Departure Follow-Up dr ortega faxed formal report of ct spine for fu Stanislav Peralta MD Nov 18, 2018 12:34
== END 2018-11-18 09:12 | disposition home or self-care (01) ==
LOC: M ED 06:31
DX: S01.01XA Laceration without foreign body of scalp, initial encounter (principal); W19.XXXA Unspecified fall, initial encounter; Y92.098 Other place in other non-institutional residence as the place of occurrence of the external cause; J44.9 Chronic obstructive pulmonary disease, unspecified; E78.5 Hyperlipidemia, unspecified; E07.9 Disorder of thyroid, unspecified; Z86.73 Personal history of transient ischemic attack (TIA), and cerebral infarction without residual deficits; Z87.891 Personal history of nicotine dependence; Z88.8 Allergy status to other drugs, medicaments and biological substances; Z79.899 Other long term (current) drug therapy; Z79.51 Long term (current) use of inhaled steroids; Z79.82 Long term (current) use of aspirin

== ENCOUNTER → 2018-11-30 | Outpatient (CLI) | payer MEDICARE, BC ==
[~2018-11-30] MED LIST changes: -ASPI-222 PO; +ASPI-527 PO; +COLA100C5 PO; +D3 A1000 PO; +DULC10SU2 PR; +MIRA3350 PO; +MONT10TA2 PO; +PLAV1TAB2 PO; +PROV108A INH; +VITA400C53 PO; -ZOLM2.5T PO; +ZOLM2.5T20 PO
[2018-11-30 13:39] LABS: BASO # 0.1 10^3/uL (0.0-0.2); BASO % 0.5 % (0.0-1.0); EOS # 0.6 10^3/uL (0.0-0.50); HEMATOCRIT 39.3 % (36.0-47.0); HEMOGLOBIN 12.7 g/dl (12.0-15.5); LYMPH # 2.1 10^3/uL (1.5-4.5); MEAN CORPUSCULAR HEMOGLOBIN 34.5 pg (27.0-33.0); MEAN CORPUSCULAR HGB CONC 32.3 g/dl (32.0-36.5); MEAN CORPUSCULAR VOLUME 106.8 fl (80.0-96.0); MONO # 1.2 10^3/uL (0.0-0.8); NEUTROPHILS # 7.1 10^3/uL (1.8-7.7); NEUTROPHILS % 64.2 % (36.0-66.0); PLATELET COUNT, AUTOMATED 454 10^3/uL (150-450); RED BLOOD COUNT 3.68 10^6/uL (4.00-5.40)
[2018-11-30 13:49] LABS: ALBUMIN 3.7 GM/DL (3.2-5.2); ALT/SGPT 17 U/L (12-78); BILIRUBIN,TOTAL 0.6 MG/DL (0.2-1.0); BLOOD UREA NITROGEN 17 MG/DL (7-18); CALCIUM LEVEL 10.8 MG/DL (8.8-10.2); CARBON DIOXIDE LEVEL 28 MEQ/L (21-32); CHLORIDE LEVEL 108 MEQ/L (98-107); CREATININE FOR GFR 0.82 MG/DL (0.55-1.30); GLOMERULAR FILTRATION RATE > 60.0 (>39); GLUCOSE, FASTING 101 MG/DL (70-100); POTASSIUM SERUM 4.9 MEQ/L (3.5-5.1); SODIUM LEVEL 142 MEQ/L (136-145); TOTAL PROTEIN 7.6 GM/DL (6.4-8.2)
--- NOTE | 2018-11-30 18:32 | REP ---
REASON: History of bronchitis. COMPARISON: 09/16/2017. Mild basilar fibrotic changes are status quo. The heart is not enlarged. No definite acute patchy parenchymal opacities or pleural effusions have developed. The pleural angles are again seen to be sharp. Chronic changes are seen involving the imaged spine status quo. IMPRESSION:Stable appearing chronic changes. Electronically Signed by Yovani Martinez DO 12/01/2018 11:23 A
== END ==
LOC: M SMT 10:44
PROVIDERS: ATTEND Physician Assistant Medical
DX: J40 Bronchitis, not specified as acute or chronic (principal)
CPT/HCPCS: 36415; 71046; 80053; 85025; G0463

== ENCOUNTER → 2018-12-07 | Outpatient (CLI) | payer MEDICARE, BC ==
[~2018-12-07] MED LIST changes: -COLA100C5 PO; -D3 A1000 PO; -DULC10SU2 PR; -MIRA3350 PO; -MONT10TA2 PO; -PLAV1TAB2 PO; -PROV108A INH; -VITA400C53 PO; +ZOLM2.5T PO; -ZOLM2.5T20 PO
--- NOTE | 2018-12-08 12:12 | REP ---
AP pelvis: The pelvis is slightly oblique. No pelvic fractures are identified. Sacroiliac and hip articulations are unremarkable. There are calcifications in the pelvis inferiorly, nonspecific, ureteral versus phleboliths. There are tears in the visualized lower abdomen compatible with abdominal wall mesh. Impression: No pelvic fracture. Right hip two views : There is no fracture or dislocation. Mineralization and joint spaces are normal. There are no calcifications or foreign bodies. Impression: Negative right hip. Left hip two views : There is no fracture or dislocation. Mineralization and joint spaces are normal. There are no calcifications or foreign bodies. Impression: Negative Left hip . Electronically Signed by Leonard Krishnan MD 12/07/2018 11:31 A
== END ==
LOC: M SMT 10:29
PROVIDERS: ATTEND Physician Assistant Medical
DX: T14.8XXA Other injury of unspecified body region, initial encounter (principal); Y92.9 Unspecified place or not applicable
CPT/HCPCS: 73502; G0463

== ENCOUNTER → 2018-12-18 | Outpatient (CLI) | payer MEDICARE, BC ==
--- NOTE | 2018-12-18 16:34 | REP ---
MRI brain without and with IV contrast: History: Patient with history of falls. Comparison CT study is from November 18, 2018. Technique: Axial and sagittal imaging planes are utilized for T1 and T2-weighted scans. Sequences include spin-echo, fast spin echo, FLAIR, and diffusion weighted sequences. MRI findings: There is generalized volume loss as seen on CT. There is evidence of an old lacunar infarct in the right inferior cerebellar hemisphere, unchanged. There are small vessel atherosclerotic changes in the periventricular white matter bilaterally. There is no evidence to suggest acute ischemia on diffusion weighted scans. No extra-axial fluid collection, mass or midline shift is observed. Craniocervical junction and upper cervical cord are normal in appearance. There is no MR evidence of significant paranasal sinus disease. No intraorbital abnormality is seen. Impression: Generalized volume loss. Old right cerebellar lacunar infarct. Small vessel atherosclerotic changes. No acute intracranial lesion. Electronically Signed by Jim Echeverria MD 12/18/2018 04:46 P
--- NOTE | 2018-12-18 16:55 | REP ---
MRI cervical spine without and with IV contrast: History: Falls. Comparison cervical spine CT study November 18, 2018. Technique: Sagittal and axial T1 and T2-weighted scans are acquired in the usual fashion with and without fat saturation. Sequences include spin echo, turbo spin-echo, and STIR imaging sequences. The contrast enhancement dose is 12 ml of intravenous ProHance. MRI findings: Cervical vertebral body heights are preserved. Alignment is normal. There is some contrast enhancement in and about the atlantoaxial articulation anteriorly where CT study showed erosion of the dens and the adjacent left anterior arch of C1. The erosions themselves are less optimally visualized with MR than CT, but there is enhancing and edematous tissue here consistent with an inflammatory process. There is narrowing of the left-sided C1-C2 facet joint associated with this and this may be inflammatory arthropathy affecting the facet. There is abnormal signal intensity on either side of this narrowed facet. There is contrast enhancement associated with this site of the facet joint as well. There is no evidence of compression of the spinal medullary junction. Craniocervical junction is unremarkable without spinal stenosis. Axial and sagittal images at the C2-3 level demonstrate minimal central disc bulging. At C3-C4, there is mild diffuse disc bulging effacing the ventral subarachnoid space. There is mild ligamentum flavum hypertrophy. Canal size is mildly narrowed. Uncovertebral spurring is present bilaterally, mild in degree. At C4-C5, there is mild diffuse disc bulging. Facet hypertrophy is present, left greater than right. No central canal stenosis is seen. No neural foraminal encroachment. At C5-C6, there is mild facet hypertrophy. No other significant finding. At C6-C7, there is mild central disc bulging. The C7-T1 level shows mild central disc bulging. 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 Erosive changes are seen here as noted on CT. No spinal cord compression is seen at this level. There is mild central canal stenosis at C3-4. Electronically Signed by Jim Echeverria MD 12/21/2018 07:53 A
== END ==
LOC: M PLARAD 13:23
PROVIDERS: ATTEND Physician Assistant Medical
DX: Z91.81 History of falling (principal); M50.221 Other cervical disc displacement at C4-C5 level; M50.223 Other cervical disc displacement at C6-C7 level; M50.23 Other cervical disc displacement, cervicothoracic region; M48.02 Spinal stenosis, cervical region; Z86.73 Personal history of transient ischemic attack (TIA), and cerebral infarction without residual deficits; I67.2 Cerebral atherosclerosis

== ENCOUNTER 2019-01-07 13:20 | Outpatient (RCR) | payer MEDICARE, BC | END 2019-01-11 | disposition home or self-care (01) | LOC: M PT 13:20 | PROVIDERS: ATTEND Physician Assistant Medical | DX: Z51.89 Encounter for other specified aftercare (principal); R27.0 Ataxia, unspecified; M50.30 Other cervical disc degeneration, unspecified cervical region ==

== ENCOUNTER → 2019-02-11 | Outpatient (RCR) | payer MEDICARE, BC ==
[~2019-02-11] MED LIST changes: -ZOLM2.5T PO; +ZOLM2.5T20 PO
== END ==
LOC: M PT 01-13 11:31
PROVIDERS: ATTEND Physician Assistant Medical
DX: Z51.89 Encounter for other specified aftercare (principal); R27.0 Ataxia, unspecified; M50.30 Other cervical disc degeneration, unspecified cervical region

== ENCOUNTER → 2019-02-18 | Outpatient (REF) | payer MEDICARE, BC ==
[~2019-02-18] MED LIST changes: +PLAV1TAB2 PO
[2019-02-18 13:42] LABS: BASO # 0.1 10^3/uL (0.0-0.2); BASO % 0.7 % (0.0-1.0); EOS # 0.5 10^3/uL (0.0-0.5); EOS % 4.8 % (0.0-3.0); HEMATOCRIT 42.9 % (36.0-47.0); HEMOGLOBIN 13.8 g/dl (12.0-15.5); LYMPH # 2.4 10^3/uL (1.5-5.0); LYMPH % 24.1 % (24.0-44.0); MEAN CORPUSCULAR HEMOGLOBIN 34.8 pg (27.0-33.0); MEAN CORPUSCULAR HGB CONC 32.2 g/dl (32.0-36.5); MEAN CORPUSCULAR VOLUME 108.1 fl (80.0-96.0); MONO # 0.9 10^3/uL (0.0-0.8); MONO % 8.7 % (0.0-5.0); NEUTROPHILS # 6.1 10^3/uL (1.5-8.5); NEUTROPHILS % 61.5 % (36.0-66.0); PLATELET COUNT, AUTOMATED 365 10^3/uL (150-450); RED BLOOD COUNT 3.97 10^6/uL (4.00-5.40); WHITE BLOOD COUNT 9.9 10^3/uL (4.0-10.0)
[2019-02-18 14:03] LABS: HEMOGLOBIN A1c 5.6 %
[2019-02-18 14:14] LABS: ALBUMIN 3.6 GM/DL (3.2-5.2); ALT/SGPT 15 U/L (12-78); BILIRUBIN,TOTAL 0.5 MG/DL (0.2-1.0); BLOOD UREA NITROGEN 24 MG/DL (7-18); C REACTIVE PROTEIN QUANTITATIV < 0.30 MG/DL (0.00-0.30); CARBON DIOXIDE LEVEL 27 MEQ/L (21-32); CHLORIDE LEVEL 110 MEQ/L (98-107); CHOLESTEROL LEVEL 121 MG/DL (<200); CHOLESTEROL RISK RATIO 1.779 (<5); CREATININE FOR GFR 0.84 MG/DL (0.55-1.30); FREE T4 0.97 NG/DL (0.76-1.46); GLOMERULAR FILTRATION RATE > 60.0 (>32); GLUCOSE, FASTING 92 MG/DL (70-100); HDL CHOLESTEROL 68 MG/DL (>40); LDL CHOLESTEROL 40 MG/DL (<100); NON-HDL-C 53 MG/DL; POTASSIUM SERUM 4.6 MEQ/L (3.5-5.1); RHEUMATOID FACTOR QUANT 41.9 IU/ML (<15.0); SODIUM LEVEL 142 MEQ/L (136-145); TOTAL PROTEIN 7.3 GM/DL (6.4-8.2); TRIGLYCERIDES LEVEL 66 MG/DL (<150)
[2019-02-18 14:15] LABS: TOTAL 25(OH) VITAMIN D 48.2 NG/ML (30.0-100.0)
[2019-02-18 14:21] LABS: VITAMIN B12 LEVEL 1661 PG/ML (247-911)
[2019-02-18 14:22] LABS: ERYTHROCYTE SEDIMENTATION RATE 14 mm/hr (0-30)
[2019-02-19 11:25] LABS: PTH INTACT 50.3 PG/ML (18.5-88.0)
[2019-02-20 00:08] LABS: ANA (HEP2) Negative (.); CYCLIC CITRULLINATED PEPTIDE > 250 units (0-19)
[2019-02-22 13:07] LABS: ALBUMIN 4.12 GM/DL (3.29-5.55); ALBUMIN % 56.4 % (55.8-66.1); ALPHA-1-GLOBULIN % 3.7 % (2.9-4.9); ALPHA-1-GLOBULINS 0.27 GM/DL (0.17-0.41); BETA-1-GLOBULINS % 6.7 % (4.7-7.2); BETA-2-GLOBULINS % 6.2 % (3.2-6.5)
[2019-02-22 13:08] LABS: ALPHA-2-GLOBULINS 0.73 GM/DL (0.42-0.99); BETA-1-GLOBULINS 0.49 GM/DL (0.28-0.60); BETA-2-GLOBULINS 0.45 GM/DL (0.19-0.55); GAMMA GLOBULINS 1.24 GM/DL (0.65-1.58)
== END ==
LOC: M SFHCPLAZ 11:51
PROVIDERS: ATTEND Family Medicine
DX: E03.9 Hypothyroidism, unspecified (principal); E55.9 Vitamin D deficiency, unspecified; R73.01 Impaired fasting glucose; E53.8 Deficiency of other specified B group vitamins; E78.2 Mixed hyperlipidemia; M47.22 Other spondylosis with radiculopathy, cervical region
CPT/HCPCS: 36415; 80053; 80061; 82306; 82607; 83036; 83970; 84165; 84439; 84443; 85025; 85046; 85652; 86038; 86140; 86200; 86431; 90682; G0008; G0463

== ENCOUNTER 2019-02-19 07:04 | Emergency (ER) | payer MEDICARE, BC ==
[~2019-02-19] VITALS: Ht 157.5 cm; Wt 63.6 kg
[~2019-02-19 07:04] MED LIST changes: -PLAV1TAB2 PO
--- NOTE | 2019-02-19 07:35 | REPVR ---
PROCEDURE INFORMATION: Exam: CT Head Without Contrast Exam date and time: 02/19/2019 7:10 AM Clinical history: 79 years old, female; Injury or trauma; Fall; Initial encounter; Concussion / head injury; Consciousness not specified TECHNIQUE: Imaging protocol: Computed tomography of the head without contrast. Radiation optimization: All CT scans at this facility use at least one of these dose optimization techniques: automated exposure control; mA and/or kV adjustment per patient size (includes targeted exams where dose is matched to clinical indication); or iterative reconstruction. COMPARISON: CT Head without contrast 11/18/2018 6:47 AM FINDINGS: Brain: There is mild patchy white matter hypoattenuation with no mass effect. Ventricles: There is mild age-related cerebral atrophy with secondary ventricular dilatation. There is a small area of encephalomalacia in the right cerebellum. Bones/joints: There is right vertex soft tissue swelling with no underlying skull fracture. Sinuses: Visualized sinuses are unremarkable. No fluid levels. Mastoid air cells: Visualized mastoid air cells are well aerated. Soft tissues: Unremarkable. IMPRESSION: 1. High right frontal/right vertex soft tissue swelling with no underlying skull fracture, intracranial hemorrhage, mass effect or midline shift. 2. Mild age-related cerebral atrophy with mild chronic microangiopathic changes. Small focal encephalomalacia in the right cerebellum, unchanged. Electronically signed by: Jovanni Murillo On 02/19/2019 07:34:52 AM
[2019-02-19] MEDS ORDERED: ACETAMINOPHEN 325 MG TAB PO ONE (08:00)
[2019-02-19 08:56] VITALS: BP 146/86
[2019-02-20] MEDS ORDERED: PLAV1TAB2 PO (15:43)
== END 2019-02-19 09:09 | disposition home or self-care (01) ==
LOC: M ED 07:04
DX: S09.90XA Unspecified injury of head, initial encounter (principal); S00.03XA Contusion of scalp, initial encounter; W01.10XA Fall on same level from slipping, tripping and stumbling with subsequent striking against unspecified object, initial encounter; Y92.238 Other place in hospital as the place of occurrence of the external cause; Y93.9 Activity, unspecified; Y99.9 Unspecified external cause status; M47.22 Other spondylosis with radiculopathy, cervical region; R27.0 Ataxia, unspecified; Z87.891 Personal history of nicotine dependence; I10 Essential (primary) hypertension; E78.00 Pure hypercholesterolemia, unspecified; J45.909 Unspecified asthma, uncomplicated; G47.30 Sleep apnea, unspecified; E03.9 Hypothyroidism, unspecified; M54.9 Dorsalgia, unspecified; Z79.899 Other long term (current) drug therapy; Z88.8 Allergy status to other drugs, medicaments and biological substances

== ENCOUNTER → 2019-02-19 | Outpatient (CLI) | payer MEDICARE, BC ==
--- NOTE | 2019-02-19 10:11 | REP ---
CT cervical spine: 02/19/2019. Indication: Neck pain. Ataxia. Comparison: 11/18/2018. Technique: Unenhanced axial images of the cervical spine were obtained with coronal and sagittal reconstructions provided. Findings: There is no acute fracture, subluxation or dislocation. There is straightening of the cervical lordosis. No erosive osseous lesions are present except for arthritic sequelae of the atlantoaxial joint. There are no areas of severe spinal canal narrowing. Left TMJ arthritic sequelae are redemonstrated. Multilevel spondylosis is present without significant neural foraminal narrowing detected. Impression: No acute osseous injury of the cervical spine. Electronically Signed by Cleveland Hayes DO 02/19/2019 10:02 A
--- NOTE | 2019-02-19 10:12 | REP ---
Seven views cervical spine: 02/19/2019. Indication: Neck pain. Ataxia. Comparison: CT spine complete of the same day. Findings: There is no instability demonstrated on the flexion/extension views. No additional information is obtained by this technique compared to the CT study. Impression: No instability. Electronically Signed by Cleveland Hayes DO 02/19/2019 10:04 A
== END ==
LOC: M RAD 09:17
PROVIDERS: ATTEND Family Medicine
DX: M47.22 Other spondylosis with radiculopathy, cervical region (principal); R27.0 Ataxia, unspecified

== ENCOUNTER 2019-02-20 15:33 | Emergency (ER) | payer MEDICARE, BC ==
[~2019-02-20] VITALS: Ht 157.5 cm; Wt 65.2 kg
[2019-02-20] MEDS ORDERED: PLAV1TAB2 PO (15:43)
[2019-02-20] MEDS ORDERED: ONDANSETRON 4MG/2ML VIAL (J2405) IV ONE (16:30)
--- NOTE | 2019-02-20 17:16 | REP ---
CT of the brain without IV contrast: Comparisons are 02/19/2019, 11/18/2018 and 07/22/2017. There is no subdural or epidural hematoma. There is no intraparenchymal or subarachnoid hemorrhage. There is no edema, mass effect or midline shift. The scalp contusion at the vertex on the right identified on 02/19/2019 has significantly improved. The visualized paranasal sinuses and mastoid air cells are clear. There is a small chronic infarct in the right cerebellar hemisphere, unchanged from all prior studies. Impression: There is no hemorrhage, acute infarct or mass. There is a chronic small infarct in the right cerebellar hemisphere, unchanged from all prior studies. The scalp contusion at the vertex on the right has significantly improved from 02/19/2017. Electronically Signed by Leonadr Krishnan MD 02/20/2019 05:07 P
[2019-02-20] MEDS ORDERED: METOCLOPRAMIDE INJ 10MG/2ML VIAL (J2765) IV ONE (17:45)
[2019-02-20] MEDS ORDERED: ACETAMINOPHEN 500 MG TAB PO ONE (17:45)
[2019-02-20 18:41] VITALS: BP 138/94
[2019-02-20] MEDS ORDERED: MORPHINE 2 MG/ML 1ML VIAL (J2270) IV ONE (18:45)
== END 2019-02-20 20:10 | disposition home or self-care (01) ==
LOC: M ED 15:33
DX: F07.81 Postconcussional syndrome (principal); I10 Essential (primary) hypertension; R27.0 Ataxia, unspecified; G47.30 Sleep apnea, unspecified; J45.909 Unspecified asthma, uncomplicated; J44.9 Chronic obstructive pulmonary disease, unspecified; Z86.73 Personal history of transient ischemic attack (TIA), and cerebral infarction without residual deficits; E07.9 Disorder of thyroid, unspecified; Z79.02 Long term (current) use of antithrombotics/antiplatelets; Z79.899 Other long term (current) drug therapy; Z88.8 Allergy status to other drugs, medicaments and biological substances
CPT/HCPCS: 70450; 96374; 96375; 99284; J2270; J2405; J2765

== ENCOUNTER 2019-03-21 22:24 | Observation (INO) | payer MEDICARE, BC ==
[~2019-03-21] VITALS: Ht 157.5 cm; Wt 66.0 kg
[~2019-03-21 22:24] MED LIST changes: +PLAV1TAB2 PO
[2019-03-21] MEDS ORDERED: NS 500 ML IV ONE (23:00)
[2019-03-21] MEDS ORDERED: MORPHINE 4 MG/ML 1ML VIAL/SYRINGE (J2270) IV ONE (23:00)
[2019-03-21] MEDS ORDERED: NS 1,000 ML IV ONE (23:00)
[2019-03-21 23:18] LABS: BASO % 0.6 % (0.0-1.0); EOS # 0.3 10^3/uL (0.0-0.5); HEMATOCRIT 40.8 % (36.0-47.0); HEMOGLOBIN 13.2 g/dl (12.0-15.5); LYMPH # 2.4 10^3/uL (1.5-5.0); LYMPH % 35.1 % (24.0-44.0); MEAN CORPUSCULAR HEMOGLOBIN 34.4 pg (27.0-33.0); MEAN CORPUSCULAR HGB CONC 32.4 g/dl (32.0-36.5); MEAN CORPUSCULAR VOLUME 106.3 fl (80.0-96.0); MONO # 0.9 10^3/uL (0.0-0.8); MONO % 13.1 % (0.0-5.0); NEUTROPHILS # 3.1 10^3/uL (1.5-8.5); NEUTROPHILS % 46.1 % (36.0-66.0); PLATELET COUNT, AUTOMATED 323 10^3/uL (150-450); RED BLOOD COUNT 3.84 10^6/uL (4.00-5.40); WHITE BLOOD COUNT 6.8 10^3/uL (4.0-10.0)
[2019-03-21] MEDS ORDERED: VITA400C53 PO (23:21)
[2019-03-21] MEDS ORDERED: PROV108A INH (23:21)
[2019-03-21] MEDS ORDERED: MONT10TA2 PO (23:21)
[2019-03-21] MEDS ORDERED: D3 A1000 PO (23:23)
--- NOTE | 2019-03-21 23:26 | REPVR ---
PROCEDURE INFORMATION: Exam: CT Head Without Contrast Exam date and time: 03/21/2019 10:36 PM Age: 79 years old Clinical history: Injury or trauma; Fall; Initial encounter; Concussion / head injury; Additional info: Neuro symptoms TECHNIQUE: Imaging protocol: Computed tomography of the head without contrast. Radiation optimization: All CT scans at this facility use at least one of these dose optimization techniques: automated exposure control; mA and/or kV adjustment per patient size (includes targeted exams where dose is matched to clinical indication); or iterative reconstruction. COMPARISON: CT Head without contrast 2019-02-20 16:13 FINDINGS: Brain: Multiple chronic basal ganglia lacunar infarcts. Diffuse moderate cerebral age related volume loss. Moderate patchy low attenuation in the white matter compatible with moderate chronic small vessel ischemic disease. No midline shift, mass, fluid collection, or evidence of hemorrhage. Small right frontal cortical infarct. Multiple chronic cerebellar lacunar infarcts. Ventricles: Ventricular enlargement proportional to volume loss. Bones/joints: Unremarkable. No acute fracture. Sinuses: Visualized sinuses are unremarkable. No fluid levels. Mastoid air cells: Visualized mastoid air cells are well aerated. Soft tissues: Unremarkable. IMPRESSION: Moderate involutional changes, no acute intracranial abnormality. Electronically signed by: Drew Aguilar On 03/21/2019 23:26:32 PM
--- NOTE | 2019-03-21 23:28 | REPVR ---
PROCEDURE INFORMATION: Exam: CT Cervical Spine Without Contrast Exam date and time: 03/21/2019 10:36 PM Age: 79 years old Clinical history: Injury or trauma; Fall; Initial encounter; Blunt trauma; Additional info: Fall, on blood thinner TECHNIQUE: Imaging protocol: Computed tomography images of the cervical spine without contrast. Radiation optimization: All CT scans at this facility use at least one of these dose optimization techniques: automated exposure control; mA and/or kV adjustment per patient size (includes targeted exams where dose is matched to clinical indication); or iterative reconstruction. COMPARISON: CT Spine,cervical w/o contrast 2019-02-19 09:36 FINDINGS: Vertebrae: Severe left C1-C2 facet joint arthropathy. Straightening of the normal cervical lordotic curvature. Normal vertebral body heights and alignments. No fractures. Discs/Spinal canal/Neural foramina: Diffuse degenerative disc space loss with degenerative disc osteophyte complexes, facet arthropathy, and ligamentum flavum thickening causes up to moderate spinal and foraminal stenosis greatest at C3-C5. Soft tissues: Unremarkable. Lungs: Lung apices are normal. IMPRESSION: No acute fracture/subluxation. Electronically signed by: Drew Aguilar On 03/21/2019 23:28:08 PM
[2019-03-21 23:47] LABS: CALCIUM LEVEL 9.4 MG/DL (8.8-10.2); CREATININE FOR GFR 1.03 MG/DL (0.55-1.30); GLOMERULAR FILTRATION RATE 54.9 (>32); POTASSIUM SERUM 4.4 MEQ/L (3.5-5.1)
--- NOTE | 2019-03-22 00:39 | HPEPDOC ---
General Date of Admission 03/21/19 Date of Service: Mar 21, 2019 Primary Care Physician: Steven Santos M.D. Attending Physician: Andrew Higgins MD Chief Complaint The patient is a 79-year-old female admitted with a reason for visit of S/S Stroke. Exam Limitations: Clinical conditions Timing/Duration: This evening Severity: Mild Associated Symptoms: Mechanical fall, Other (vision changed, room was orange directly followng her fall) History of Present Illness 79 year- old elderly female arrives to [facility] ED via EMS with her with complaints of vision changes following her fall in her this evening at approximately 1730 while she was busy in her kitchen. Patient cannot remember entirely how she fell down but suspects she may have tripped over her rug in the kitchen, however she reports remembering the room looked like it was painted orange. She has significant medical history bilateral cataracts with extractions, corneal scratch, migraine headaches, obstructive sleep apnea, reporting she does not currently use BiPAP, CPAP or supplement oxygen at home, osteoarthritis, essential hypertension, chronic constipation, hypothyroidism, chronic anemia, urinary stress incontinence, hyperlipidemia, asthma, intermittent, past medical history of pneumonia, CVA June 2017, hernia repair, right knee replacement, and right ankle fracture with repair. . Home Medications Scheduled Aspirin (Aspirin EC) 325 Mg Tablet.dr, 325 MG PO DAILY Atorvastatin Calcium (Atorvastatin Calcium) 40 Mg Tab, 40 MG PO QHS, (Reported) Cholecalciferol (Vitamin D3) (Vitamin D3) 1,000 Unit Tab.chew, 1,000 UNIT PO DAILY, (Reported) Clopidogrel Bisulfate (Plavix) 75 Mg Tablet, 75 MG PO QHS, (Reported) Levothyroxine Sodium (Synthroid) 50 Mcg Tab, 50 MCG PO QHS, (Reported) Montelukast Sodium (Montelukast Sodium) 10 Mg Tablet, 10 MG PO QHS, (Reported) Nortriptyline HCl (Nortriptyline HCl) 25 Mg Cap, 25 MG PO QHS, (Reported) Propranolol HCl (Propranolol HCl) 10 Mg Tab, 10 MG PO DAILY, (Reported) Vitamin E (Vitamin E) 400 Unit Capsule, 400 UNIT PO DAILY, (Reported) Scheduled PRN Albuterol Sulfate (Proventil Hfa) 6.7 Gm Hfa.aer.ad, 2 PUFF INH QID PRN for WHEEZING, (Reported) Allergies Coded Allergies: prednisone (Verified Allergy, Unknown, 10/05/18) ropinirole (Verified Allergy, Unknown, 10/05/18) Past Medical History Medical History See HPI Surgical History Hysterectomy, hernia repairs, right total knee replacement Family History Significant Family History: Hypertension Social History * Smoker: Denies Alcohol: Denies Drugs: prescription drugs Recent Travel/Sick Contacts: Denies: Recent travel, Recent sick contacts Psychosocial History: No pertinent psych hx A-FIB/CHADSVASC A-FIB History Current/History of A-Fib/PAF?: No Review of Systems Constitutional: Reports: Weakness Eyes: Reports: Vision change ENT: Reports: Head Aches Endocrine: Reports: Other Endocrine Sx (thyroid); Denies: Polydipsia, Polyphagia, Polyuria, Heat Intolerance, Cold Intolerance Musculoskeletal: Reports: Neck Pain, Back Pain Neurological: Reports: Confusion Psych: Reports: Other Psych Physical Examination General Exam: Positive: Alert, Cooperative, Mild Distress Eye Exam: Positive: PERRLA, Conjunctiva & lids normal ENT Exam: Positive: Atraumatic, Mucous membr. moist/pink, Pharynx Normal, Tongue Midline, Nares Patent Neck Exam: Positive: Supple, +2 carotid pulse wo bruit Chest Exam: Positive: Clear to auscultation, Normal air movement Heart Exam: Positive: Rate Normal, Regular Rhythm, Normal S1, Normal S2 Telemetry: Positive: No significant arrhythmia Abdomen Exam: Positive: Normal bowel sounds, Soft Extremity Exam: Positive: Edema (right elbow and knee), Tenderness (right elbow and knee) Skin Exam: Positive: Other skin issue (abrasion, right elbow with dry blood under Band-Aid) Neuro Exam: Positive: Other (oriented 3, with intermittent confusion; bilateral lower leg strength 4 out of 5 against resistance. Speech slurred, minimally no facial drooping,) Psych Exam: Positive: Other (anxious, worried with labile mood, flat affect) Vital Signs Vital Signs Date Time Temp Pulse Resp B/P (MAP) Pulse Ox O2 Delivery O2 Flow Rate FiO2 03/21/19 22:25 98.1 78 18 158/94 (115) 93 Room Air Laboratory Data Labs 24H Laboratory Tests 2 03/21/19 23:12: Immature Granulocyte % (Auto) 0.1, Neutrophils (%) (Auto) 46.1, Lymphocytes (%) (Auto) 35.1, Monocytes (%) (Auto) 13.1H, Eosinophils (%) (Auto) 5.0H, Basophils (%) (Auto) 0.6, Neutrophils # (Auto) 3.1, Lymphocytes # (Auto) 2.4, Monocytes # (Auto) 0.9H, Eosinophils # (Auto) 0.3, Basophils # (Auto) 0.0, Nucleated Red Blood Cells % (auto) 0.0 CBC/BMP Laboratory Tests 03/21/19 23:12 RAD Interpretation STUDY: CT head without contrast Rad Actions: Report Reviewed (Brain: Multiple chronic basal ganglia lacunar infarcts. Moderate involutional changes, no acute intracranial abnormality.), Wet Read Reviewed, Films Reviewed Problems (1) TIA (transient ischemic attack) Status: Acute Response to Treatment: Uncontrolled Discussed With: Nurse, Patient Problem Specific Plan: Repeat Labs Problem Text: 79 year- old elderly female arrives to [facility] ED via EMS with her with complaints of vision changes following her fall in her this evening at approximately 1730 while she was busy in her kitchen. Patient cannot remember entirely how she fell down but suspects she may have tripped over her rug in the kitchen, however she reports remembering the room looked like it was painted orange. TIAacute Admit to [facility] observation unit. Frequent neuro checks every 4 hours Baseline EKG and chest x-ray. Recheck labs: CBC with differential, CMP, PT/INR, and troponin, hemoglobin A1c IV hydration with normal saline 80 mL an hour. Stroke workup: ASA 325 mg EC x [address] head without IV contrast: Small right frontal cortical infarct, no acute intracranial abnormality. Multiple chronic basal ganglia lacunar infarcts with diffuse cerebral H volume loss. No midline shift, mass, fluid collection or hemorrhage. Personally review, but [employer] hospitalist: CT cervical spine without IV contrast completed: Diffuse degenerative disc space loss; no acute fracture or subluxation Continuous pulse ox with telemetry. (Monitor patient for arrhythmia, rule out A. fib as cause of event). Aspirin 325 mg daily. TTE-? Aspiration precautions-swallow fluids without choking at bedside Fall precautions Head of bed > 30 degrees for aspiration prevention and aspiration precautions PT, OT consult manage needed. Social work consult manage placed CVA, oldchronic Patient on Plavix 75 mg by mouth daily home medication. Hold Essential hypertensionchronic Continue taking propranolol 10 mg by mouth twice a day. Systolic blood pressure goal range 142-160, diastolic 90-96 (Initial BP's 158/94 and 154/106 do not drop SBP more than 10% in 24-48 hours of event-permissive HTN .). Dyslipidemia.Chronic Check fasting lipid panel Continue atorvastatin 40 mg by mouth daily at bedtime Hypothyroidismchronic Check TSH. Continue home medication with thyroxine 50 g by mouth daily on empty stomach. Anemia of chronic diseasechronic Continue vitamin D 400 mg daily by mouth, vitamin D3 1000 IUs daily by mouth Migrainechronic Continue taking nortriptyline 25 mg by mouth daily at bedtime Asthma, intermittent with seasonal allergiesChronic Continue albuterol sulfate inhaler 2 puffs as needed every 4-6 hours for shortness of breath, wheezing, cough Continue Singulair 10 mg by mouth daily at bedtime PPT:Protonix DR 40 mg twice a day Prognosis: Good. DVT prophylaxis: SCDs bilateral lower extremities/JANINE Hose, heparin 5000 IUs every 8 hourshold for 24 hours due to TIA and history of CVA. Discharge: Pending Plan / VTE VTE Prophylaxis Ordered?: Yes VTE Exclusion Mechanical Proph: N/A:VTE Prophy Ordered VTE Exclusion Pharmacological: Bleeding Risk Plan IVF: Initiate Diet: Make NPO Activity: Bedrest Diagnostics: Check Labs, Repeat Labs in AM, CT, Repeat EKG Anticipated Discharge: Home (Pending) SHAKIR BRUNNER Mar 21, 2019 23:52 STEPHEN SMITH MD Mar 22, 2019 06:33
[2019-03-22] MEDS ORDERED: ALBUTEROL 90 MCG/ACT 8GM HFA INHALER INH PRN (00:45)
[2019-03-22] MEDS ORDERED: ISOVUE-370 76% 100ML VIAL (Q9967) As Ordered ONE (01:15)
--- NOTE | 2019-03-22 02:19 | REPVR ---
PROCEDURE INFORMATION: Exam: CT Angiography Neck With Contrast Exam date and time: 03/22/2019 1:25 AM Age: 79 years old Clinical history: Dizziness and giddiness; Additional info: TIA TECHNIQUE: Imaging protocol: Computed tomography angiography of the neck with intravenous contrast. 3D rendering: MIP and 3D reconstructed images were created and reviewed. Radiation optimization: All CT scans at this facility use at least one of these dose optimization techniques: automated exposure control; mA and/or kV adjustment per patient size (includes targeted exams where dose is matched to clinical indication); or iterative reconstruction. Contrast material: ISOVUE 370; Contrast volume: 100 ml; Contrast route: IV; COMPARISON: CT ANGIO NECK 07/06/2017 3:32 PM FINDINGS: VASCULATURE: Right common carotid artery: Unremarkable. No stenosis. No dissection or occlusion. Right internal carotid artery: Unremarkable extracranial segment. No stenosis. No dissection or occlusion. Right external carotid artery: Unremarkable. No occlusion or stenosis of the origin. Right vertebral artery: Unremarkable. No stenosis. No dissection or occlusion. Left common carotid artery: Unremarkable. No stenosis. No dissection or occlusion. Left internal carotid artery: Unremarkable extracranial segment. No stenosis. No dissection or occlusion. Left external carotid artery: Unremarkable. No occlusion or stenosis of the origin. Left vertebral artery: Unremarkable. No stenosis. No dissection or occlusion. NECK: Bones/joints: Advanced degenerative spondylosis in the cervical spine. Soft tissues: Normal. No significant soft tissue swelling. IMPRESSION: 1. Normal CTA. No significant stenosis, aneurysm, or vascular occlusion. 2. Advanced degenerative spondylosis in the cervical spine. COMMENT: Reference per NASCET criteria for degree of stenosis: Mild: less than 50% stenosis. Moderate: 50-69% stenosis. Severe: 70-94% stenosis. Near occlusion: 95-99% stenosis. Electronically signed by: Sriram Portillo On 03/22/2019 02:19:26 AM
--- NOTE | 2019-03-22 02:24 | REPVR ---
PROCEDURE INFORMATION: Exam: CT Angiography Head With Contrast Exam date and time: 03/22/2019 1:25 AM Age: 79 years old Clinical history: Dizziness and giddiness; Additional info: TIA TECHNIQUE: Imaging protocol: Computed tomography angiography of the head with intravenous contrast. 3D rendering: MIP and 3D reconstructed images were created and reviewed. Radiation optimization: All CT scans at this facility use at least one of these dose optimization techniques: automated exposure control; mA and/or kV adjustment per patient size (includes targeted exams where dose is matched to clinical indication); or iterative reconstruction. Contrast material: ISOVUE 370; Contrast volume: 100 ml; Contrast route: IV; COMPARISON: CT ANGIO HEAD 07/06/2017 3:32 PM FINDINGS: Right internal carotid artery: Unremarkable. Intracranial segment is patent with no significant stenosis. No aneurysm. Right anterior cerebral artery: Unremarkable. No occlusion or significant stenosis. No aneurysm. Right middle cerebral artery: Unremarkable. No occlusion or significant stenosis. No aneurysm. Right posterior cerebral artery: Unremarkable. No occlusion or significant stenosis. No aneurysm. Right vertebral artery: Unremarkable. No occlusion or significant stenosis. No aneurysm. Left internal carotid artery: Unremarkable. Intracranial segment is patent with no significant stenosis. No aneurysm. Left anterior cerebral artery: Unremarkable. No occlusion or significant stenosis. No aneurysm. Left middle cerebral artery: Unremarkable. No occlusion or significant stenosis. No aneurysm. Left posterior cerebral artery: Unremarkable. No occlusion or significant stenosis. No aneurysm. Left vertebral artery: Unremarkable. No occlusion or significant stenosis. No aneurysm. Basilar artery: Unremarkable. No occlusion or significant stenosis. No aneurysm. IMPRESSION: No acute findings. Normal CTA. No significant stenosis, aneurysm, or vascular occlusion. Electronically signed by: Sriram Portillo On 03/22/2019 02:24:32 AM
[2019-03-22] MEDS: ASPIRIN ENTERIC 325 MG TAB PO SCH (03:15)
[2019-03-22 03:52] LABS: BASO # 0.1 10^3/uL (0.0-0.2); BASO % 0.8 % (0.0-1.0); EOS # 0.3 10^3/uL (0.0-0.5); EOS % 5.5 % (0.0-3.0); HEMOGLOBIN 12.6 g/dl (12.0-15.5); LYMPH # 2.4 10^3/uL (1.5-5.0); MEAN CORPUSCULAR HEMOGLOBIN 34.5 pg (27.0-33.0); MEAN CORPUSCULAR HGB CONC 32.3 g/dl (32.0-36.5); MEAN CORPUSCULAR VOLUME 106.8 fl (80.0-96.0); MONO # 0.8 10^3/uL (0.0-0.8); MONO % 12.5 % (0.0-5.0); NEUTROPHILS # 2.7 10^3/uL (1.5-8.5); PLATELET COUNT, AUTOMATED 302 10^3/uL (150-450); RED BLOOD COUNT 3.65 10^6/uL (4.00-5.40); WHITE BLOOD COUNT 6.2 10^3/uL (4.0-10.0)
[2019-03-22 04:03] LABS: INR 1.05; PROTHROMBIN TIME 13.4 SECONDS (11.8-14.0)
[2019-03-22 04:05] LABS: D-DIMER QUANT 870.18 ng/ml (<500)
[2019-03-22 04:07] LABS: CHOLESTEROL RISK RATIO 2.118 (<5); THYROID STIMULATING HORMONE 6.8 uIU/ML (0.358-3.740)
[2019-03-22 04:10] LABS: HEMOGLOBIN A1c 6.1 %
[2019-03-22 04:21] LABS: CHOLESTEROL LEVEL 118 MG/DL (<200); HDL CHOLESTEROL 57 MG/DL (>40); LDL CHOLESTEROL 50 MG/DL (<100); NON-HDL-C 61 MG/DL; TRIGLYCERIDES LEVEL 57 MG/DL (<150); TROPONIN I < 0.02 NG/ML (< 0.10)
[2019-03-22 06:00] VITALS: BP 120/80
[2019-03-22] MEDS: HEPARIN SOD (PORCINE) 5000 UNITS/ML VIAL SC SCH ×3 (06:53→20:35)
[2019-03-22] MEDS: NS 1,000 ML IV SCH ×2 (06:53→20:27)
[2019-03-22] MEDS: VITAMIN E 400 INTERNATIONAL UNITS CAP PO SCH (08:43)
[2019-03-22] MEDS: VITAMIN D 1,000 INTERNATIONAL UNITS TABLET PO SCH (08:43)
[2019-03-22] MEDS: PANTOPRAZOLE 40MG TAB (PROTONIX) PO SCH ×2 (08:43→20:32)
[2019-03-22] MEDS: PROPRANOLOL 10 MG TAB PO SCH (08:46)
--- NOTE | 2019-03-22 10:14 | IPNPDOC ---
Subjective Date Seen The patient was seen on 03/22/19. Subjective Chief Complaint/HPI fall Events since last encounter Admitted for fall at home. W/u negative. PT eval is pending. Tele unremarkable. Patient admits to balance difficulty at home and uses walker. Was not using walker when she fell. no LOC. Constitutional: Denies: Chills, Fever, Night Sweats Skin: Denies: Rash, Lesions, Breakdown Pulmonary: Denies: Dyspnea, Cough Cardiovascular: Denies: Chest Pain, Palpitations, Orthopnea, Paroxysmal Noc. Dyspnea, Lt Headedness Gastrointestinal: Denies: Nausea, Vomiting, Abdominal Pain, Diarrhea, C onstipation Genitourinary: Denies: Dysuria, Frequency, Incontinence, Retention Neurological: Denies: Weakness, Numbness, Change in speech, Confusion Psych: Reports: Mood Normal; Denies: Depression, Memory Issues Objective Physical Examination General Exam: Positive: Alert, Cooperative, Mild Distress Eye Exam: Positive: PERRLA, Conjunctiva & lids normal, EOMI ENT Exam: Positive: Atraumatic, Mucous membr. moist/pink, Pharynx Normal, Tongue Midline, Nares Patent Neck Exam: Positive: Supple, +2 carotid pulse wo bruit Chest Exam: Positive: Clear to auscultation, Normal air movement Heart Exam: Positive: Rate Normal, Regular Rhythm, Normal S1, Normal S2 Telemetry: Positive: No significant arrhythmia Abdomen Exam: Positive: Normal bowel sounds, Soft Extremity Exam: Positive: Tenderness (right elbow and knee) Skin Exam: Positive: Other skin issue (abrasion, right elbow with dry blood under Band-Aid) Neuro Exam: Positive: Normal Speech, Sensation Intact Psych Exam: Positive: Other (anxious, worried with labile mood, flat affect) Assessment /Plan Problems (1) Non-hemorrhagic cerebrovascular accident (CVA) Status: Acute Response to Treatment: Progressing Discussed With: Nurse, Patient Problem Specific Plan: Monitor Clinically, Repeat Labs Problem Text: prior hx of CVA. Resume home dosing of plavix. monitor. PT eval. (2) Atlanto-axial instability Status: Chronic Problem Text: patient has collars to use for comfort. Neurosurgery consult placed by PCP. (3) Ataxia Status: Chronic Problem Text: chronic problem. has walker at home. Hx of recurrent falls at home. PT eval today. (4) HTN (hypertension) Status: Chronic (5) FIDEL treated with BiPAP Status: Chronic (6) Stroke aborted by administration of thrombolytic agent Status: Chronic (7) Hypothyroid Status: Chronic (8) RLS (restless legs syndrome) Status: Chronic (9) Asthma Status: Chronic Plan/VTE VTE Prophylaxis Ordered?: Yes VTE Exclusion Mechanical Proph: N/A:VTE Prophy Ordered Plan IVF: Initiate Diet: Make NPO Activity: Bedrest Diagnostics: Check Labs, Repeat Labs in AM, CT, Repeat EKG Anticipated Discharge: Home (Pending) VS, I&O, 24H, Fishbone Vital Signs/I&O Vital Signs Date Time Temp Pulse Resp B/P (MAP) Pulse Ox O2 Delivery O2 Flow Rate FiO2 03/22/19 08:46 93 116/81 03/22/19 06:05 18 95 03/22/19 06:00 98.6 Room Air I&O- Last 24 Hours up to 6 AM 03/22/19 06:00 Intake Total 500 ml Output Total 0 ml Balance 500 ml Laboratory Data 24H LABS Laboratory Tests 2 03/21/19 23:12: Immature Granulocyte % (Auto) 0.1, Neutrophils (%) (Auto) 46.1, Lymphocytes (%) (Auto) 35.1, Monocytes (%) (Auto) 13.1H, Eosinophils (%) (Auto) 5.0H, Basophils (%) (Auto) 0.6, Neutrophils # (Auto) 3.1, Lymphocytes # (Auto) 2.4, Monocytes # (Auto) 0.9H, Eosinophils # (Auto) 0.3, Basophils # (Auto) 0.0, Nucleated Red Blood Cells % (auto) 0.0, Anion Gap 5L, Glomerular Filtration Rate 54.9, Calcium Level 9.4, Triglycerides Level 81, Total Cholesterol 125, LDL Cholesterol 50, Non-HDL Cholesterol (LDL + VLDL) 66, Total HDL Cholesterol 59, Cholesterol/HDL Ratio 2.118, Thyroid Stimulating Hormone (TSH) 6.800H 03/22/19 03:40: Immature Granulocyte % (Auto) 0.2, Neutrophils (%) (Auto) 43.0, Lymphocytes (%) (Auto) 38.0, Monocytes (%) (Auto) 12.5H, Eosinophils (%) (Auto) 5.5H, Basophils (%) (Auto) 0.8, Neutrophils # (Auto) 2.7, Lymphocytes # (Auto) 2.4, Monocytes # (Auto) 0.8, Eosinophils # (Auto) 0.3, Basophils # (Auto) 0.1, Nucleated Red Blood Cells % (auto) 0.0, Triglycerides Level 57, Total Cholesterol 118, LDL Cholesterol 50, Non-HDL Cholesterol (LDL + VLDL) 61, Total HDL Cholesterol 57, Cholesterol/HDL Ratio 2.070, Thyroid Stimulating Hormone (TSH) 4.660H, Prothrombin Time 13.4, Prothromb Time International Ratio 1.05, D-Dimer, Quantitative 870.18H, Estimated Mean Plasma Glucose 128H, Hemoglobin A1c 6.1, Troponin I < 0.02 CBC/BMP Laboratory Tests 03/21/19 23:12 03/22/19 03:40 Marilu Joyce [facility] Mar 22, 2019 10:14
--- NOTE | 2019-03-22 13:33 | REP ---
MRI brain: New 03/22/2019. Indication: Stroke. Comparison: 07/23/2017. Technique: Multiplanar short and long TR sequences of the brain were obtained without IV Gadolinium. Findings: There are no areas of restricted diffusion to suggest an acute infarction. There is no intracranial mass effect, hydrocephalus or significant hemorrhage. Image quality is degraded by patient motion. There are multiple areas of elevated white matter T2 signal throughout the cerebral hemispheres bilaterally. Small right greater than left chronic cerebellar infarctions are present. The large intracranial flow voids are unremarkable. The midline structures, and craniocervical junction are also unremarkable. Impression: No acute intracranial process. Small chronic cerebellar infarctions. Volume loss and sequelae of chronic microangiopathic ischemic disease. Electronically Signed by Cleveland Hayes DO 03/22/2019 01:25 P
[2019-03-22 14:00] VITALS: BP 143/92
--- NOTE | 2019-03-22 16:46 | ECGEPIP ---
[facility] - ED Test Date: 2019-03-21 Pat Name: PRISCILA MASON Department: Room: [place] [address] Gender: Female Designated Broker: edy : [id number] Requested By: ANUJ WILLOUGHBY Order Number: [id number] Reading MD: Nancy Brock Measurements Intervals [place] Rate: 64 P: 42 IN: 172 QRS: -10 QRSD: 97 T: 114 QT: 342 QTc: 353 Interpretive Statements SINUS RHYTHM NONSPECIFIC ST & T-WAVE ABNORMALITY Electronically Signed on 03-22-2019 16:46:12 EST by Nancy Brock
[2019-03-22] MEDS ORDERED: ATORVASTATIN 20 MG TAB PO SCH (21:00)
[2019-03-22] MEDS ORDERED: ACETAMINOPHEN TAB 650MG DOSE (2X325MG) PO PRN (21:00)
[2019-03-22] MEDS ORDERED: MONTELUKAST 10 MG TAB PO SCH (21:00)
[2019-03-22] MEDS ORDERED: CLOPIDOGREL 75 MG TAB PO SCH (21:00)
[2019-03-22] MEDS ORDERED: LEVOTHYROXINE 50MCG TABLET (0.05MG) PO SCH (21:00)
[2019-03-22] MEDS ORDERED: NORTRIPTYLINE 25 MG CAP PO SCH (21:00)
[2019-03-22 22:00] VITALS: BP 122/85
[2019-03-23] MEDS: HEPARIN SOD (PORCINE) 5000 UNITS/ML VIAL SC SCH ×2 (05:26→14:00)
[2019-03-23 06:00] VITALS: BP 118/84
[2019-03-23 06:23] LABS: HEMATOCRIT 36.4 % (36.0-47.0); HEMOGLOBIN 11.7 g/dl (12.0-15.5); MEAN CORPUSCULAR HEMOGLOBIN 34.7 pg (27.0-33.0); MEAN CORPUSCULAR HGB CONC 32.1 g/dl (32.0-36.5); PLATELET COUNT, AUTOMATED 274 10^3/uL (150-450); RED BLOOD COUNT 3.37 10^6/uL (4.00-5.40); WHITE BLOOD COUNT 6.8 10^3/uL (4.0-10.0)
[2019-03-23 06:43] LABS: BLOOD UREA NITROGEN 16 MG/DL (7-18); CALCIUM LEVEL 8.8 MG/DL (8.8-10.2); CARBON DIOXIDE LEVEL 26 MEQ/L (21-32); CHLORIDE LEVEL 114 MEQ/L (98-107); CREATININE FOR GFR 0.79 MG/DL (0.55-1.30); GLOMERULAR FILTRATION RATE > 60.0 (>32); GLUCOSE, FASTING 95 MG/DL (70-100); MAGNESIUM LEVEL 2.1 MG/DL (1.8-2.4); SODIUM LEVEL 144 MEQ/L (136-145)
[2019-03-23] MEDS: NS 1,000 ML IV SCH (07:56)
[2019-03-23] MEDS: VITAMIN E 400 INTERNATIONAL UNITS CAP PO SCH (07:58)
[2019-03-23] MEDS: ASPIRIN ENTERIC 325 MG TAB PO SCH (07:58)
[2019-03-23] MEDS: VITAMIN D 1,000 INTERNATIONAL UNITS TABLET PO SCH (07:58)
[2019-03-23 08:00] VITALS: BP 159/97
[2019-03-23] MEDS: PROPRANOLOL 10 MG TAB PO SCH (08:00)
[2019-03-23] MEDS: PANTOPRAZOLE 40MG TAB (PROTONIX) PO SCH (08:01)
[2019-03-23 09:30] VITALS: BP 144/91
[2019-03-23] MEDS ORDERED: ASPI-527 PO (11:56)
--- NOTE | 2019-03-23 11:58 | IPNPDOC ---
Subjective Date Seen The patient was seen on 03/23/19. Subjective Chief Complaint/HPI Feels well. No further visual disturbances No focal deficits Passed PT - needs outpatient PT Constitutional: Denies: Chills, Fever Pulmonary: Denies: Dyspnea, Cough Cardiovascular: Denies: Chest Pain, Palpitations Gastrointestinal: Denies: Nausea, Vomiting, Abdominal Pain, Diarrhea, Constipation Neurological: Denies: Weakness, Numbness, Change in speech, Confusion, Seizures, Other Symptoms Objective Physical Examination General Exam: Positive: Alert, Cooperative, No Acute Distress Eye Exam: Positive: PERRLA, EOMI ENT Exam: Positive: Atraumatic, Mucous membr. moist/pink, Pharynx Normal, Tongue Midline, Nares Patent Neck Exam: Positive: Supple Chest Exam: Positive: Clear to auscultation, Normal air movement Heart Exam: Positive: Rate Normal, Regular Rhythm Telemetry: Positive: No significant arrhythmia Abdomen Exam: Positive: Normal bowel sounds, Soft Extremity Exam: Positive: Tenderness (right elbow and knee) Skin Exam: Positive: Other skin issue Neuro Exam: Positive: Normal Speech, Strength at 5/5 X4 ext, Sensation Intact, Other (Finger to nose intact) Psych Exam: Positive: Mental status NL, Mood NL, Oriented x 3 Assessment /Plan Problems (1) Non-hemorrhagic cerebrovascular accident (CVA) Status: Acute Response to Treatment: Progressing Discussed With: Nurse, Patient Problem Specific Plan: Monitor Clinically, Repeat Labs Problem Text: 03/23 - No acute findings on imaging Has prior h/o CVA cont Plavix ASA 325 mg added MRI brain - No acute intracranial process Small chronic cerebellar infarctions. Volume loss and sequelae of chronic microangiopathic ischemic disease. CT angio brain: No acute findings. Normal CTA. No significant stenosis, aneurysm, or vascular occlusion. CTA neck: Normal CTA. No significant stenosis, aneurysm, or vascular occlusion. 2. Advanced degenerative spondylosis in the cervical spine. . (2) Atlanto-axial instability Status: Chronic Problem Text: patient has collars to use for comfort. Await Neurosurgery as outpatient Outpatient PT ordered Rolling Walker script given (3) Ataxia Status: Chronic Problem Text: chronic problem. has walker at home. Hx of recurrent falls at home. PT eval today. (4) HTN (hypertension) Status: Chronic Response to Treatment: Stable (5) FIDEL treated with BiPAP Status: Chronic (6) Stroke aborted by administration of thrombolytic agent Status: Chronic (7) Hypothyroid Status: Chronic (8) RLS (restless legs syndrome) Status: Chronic (9) Asthma Status: Chronic Plan/VTE VTE Prophylaxis Ordered?: Yes VTE Exclusion Mechanical Proph: N/A:VTE Prophy Ordered Plan IVF: Initiate Diet: Make NPO Activity: Bedrest Diagnostics: Check Labs, Repeat Labs in AM, CT, Repeat EKG Anticipated Discharge: Home (Pending) Disposition safe for d/c home per PT VS, I&O, 24H, Fishbone Vital Signs/I&O Vital Signs Date Time Temp Pulse Resp B/P (MAP) Pulse Ox O2 Delivery O2 Flow Rate FiO2 03/23/19 09:30 98.7 68 16 144/91 (108) 95 Room Air I&O- Last 24 Hours up to 6 AM 03/23/19 05:59 Intake Total 2900 ml Output Total 0 ml Balance 2900 ml Laboratory Data 24H LABS Laboratory Tests 2 03/23/19 06:07: Nucleated Red Blood Cells % (auto) 0.0, Anion Gap 4L, Glomerular Filtration Rate > 60.0, Calcium Level 8.8, Magnesium Level 2.1 CBC/BMP Laboratory Tests 03/23/19 06:07 FIGUEROA CASTRO PA-C Mar 23, 2019 11:58
== END 2019-03-23 15:06 | disposition home or self-care (01) ==
LOC: M ED 22:24 → M ED INP 22:25 → M MSPAV 03-22 06:16
PROVIDERS: ADMIT Internal Medicine; ATTEND Family Medicine
DX: I61.9 Nontraumatic intracerebral hemorrhage, unspecified (principal); M53.2X1 Spinal instabilities, occipito-atlanto-axial region; I10 Essential (primary) hypertension; G47.33 Obstructive sleep apnea (adult) (pediatric); E03.9 Hypothyroidism, unspecified; G25.81 Restless legs syndrome; J45.909 Unspecified asthma, uncomplicated; E78.49 Other hyperlipidemia; Z79.82 Long term (current) use of aspirin; Z79.899 Other long term (current) drug therapy; Z88.8 Allergy status to other drugs, medicaments and biological substances
CPT/HCPCS: 36415; 70450; 70496; 70498; 70551; 72125; 80048; 80061; 83036; 83735; 84443; 84484; 85025; 85027; 85379; 85610; 92610; 93005; 96360; 96361; 97116; 97161; 97530; 99285; G0378; Q9967

== ENCOUNTER 2019-04-29 10:16 | Emergency (ER) | payer MEDICARE, BC ==
[~2019-04-29] VITALS: Ht 157.5 cm; Wt 66.5 kg
[~2019-04-29 10:16] MED LIST changes: +D3 A1000 PO; +MONT10TA2 PO; +PROV108A INH; +VITA400C53 PO
[2019-04-29] MEDS ORDERED: ACETAMINOPHEN 325 MG TAB PO ONE (10:45)
[2019-04-29 11:12] LABS: BASO # 0.1 10^3/uL (0.0-0.2); BASO % 0.5 % (0.0-1.0); EOS # 0.2 10^3/uL (0.0-0.5); HEMATOCRIT 43.6 % (36.0-47.0); HEMOGLOBIN 13.8 g/dl (12.0-15.5); LYMPH # 1.7 10^3/uL (1.5-5.0); LYMPH % 16.3 % (24.0-44.0); MEAN CORPUSCULAR HEMOGLOBIN 33.5 pg (27.0-33.0); MEAN CORPUSCULAR HGB CONC 31.7 g/dl (32.0-36.5); MEAN CORPUSCULAR VOLUME 105.8 fl (80.0-96.0); MONO # 0.8 10^3/uL (0.0-0.8); MONO % 7.4 % (0.0-5.0); NEUTROPHILS # 7.4 10^3/uL (1.5-8.5); NEUTROPHILS % 73.5 % (36.0-66.0); PLATELET COUNT, AUTOMATED 375 10^3/uL (150-450); RED BLOOD COUNT 4.12 10^6/uL (4.00-5.40); WHITE BLOOD COUNT 10.1 10^3/uL (4.0-10.0)
--- NOTE | 2019-04-29 11:14 | REP ---
KUB: Single view. History: Constipation. Findings: Supine abdomen view demonstrates ventral hernia repair sutures in the central abdomen. Bowel gas pattern is normal. There are degenerative spondylosis changes in the lumbar spine. Phleboliths are noted in the pelvis. There is a well-circumscribed rounded density in the right upper quadrant which may be a renal cyst. A 4.7 cm cyst was described in the upper pole of the right kidney on ultrasound from December 11, 2017. Psoas margins and flank stripes are intact. No mass organomegaly is seen. Impression: Normal bowel gas pattern. Hernia repair clips. Degenerative spondylosis. Electronically Signed by Jim Echeverria MD 04/29/2019 11:06 A
[2019-04-29 11:33] LABS: BLOOD UREA NITROGEN 16 MG/DL (7-18); CALCIUM LEVEL 9.8 MG/DL (8.8-10.2); CARBON DIOXIDE LEVEL 27 MEQ/L (21-32); CHLORIDE LEVEL 109 MEQ/L (98-107); CREATININE FOR GFR 0.78 MG/DL (0.55-1.30); GLOMERULAR FILTRATION RATE > 60.0 (>32); GLUCOSE, FASTING 100 MG/DL (70-100); POTASSIUM SERUM 4.2 MEQ/L (3.5-5.1); SODIUM LEVEL 142 MEQ/L (136-145)
[2019-04-29] MEDS ORDERED: BISACODYL 10 MG SUPP PR ONE (11:45)
[2019-04-29 12:20] LABS: BILIRUBIN, URINE MANUAL NEGATIVE (NEGATIVE); GLUCOSE, URINE (UA) MANUAL NEGATIVE (NEGATIVE); KETONE, URINE MANUAL NEGATIVE (NEGATIVE); UROBILINOGEN, URINE MANUAL NORMAL (NORMAL)
[2019-04-29 12:28] LABS: RBC, URINE NONE SEEN /hpf (0-3); SQUAMOUS EPITHELIAL CELL URINE 0 /hpf (SMALL AMT)
[2019-04-29] MEDS ORDERED: DULC10SU2 PR (12:28)
[2019-04-29] MEDS ORDERED: MIRA3350 PO (12:28)
[2019-04-29] MEDS ORDERED: COLA100C5 PO (12:28)
[2019-04-29 12:29] LABS: BACTERIA, URINE LARGE AMOUNT; HYALINE CAST, URINE NONE SEEN /lpf (0-1)
[2019-04-29 12:46] VITALS: BP 140/89
== END 2019-04-29 12:48 | disposition home or self-care (01) ==
LOC: M ED 10:16
DX: K59.00 Constipation, unspecified (principal); R51 Headache; E86.0 Dehydration; Z86.73 Personal history of transient ischemic attack (TIA), and cerebral infarction without residual deficits; E78.00 Pure hypercholesterolemia, unspecified; I10 Essential (primary) hypertension; J45.909 Unspecified asthma, uncomplicated; G47.30 Sleep apnea, unspecified; Z87.01 Personal history of pneumonia (recurrent); E03.9 Hypothyroidism, unspecified; M54.9 Dorsalgia, unspecified; D75.9 Disease of blood and blood-forming organs, unspecified; M47.9 Spondylosis, unspecified; Z79.82 Long term (current) use of aspirin; Z79.899 Other long term (current) drug therapy; Z88.8 Allergy status to other drugs, medicaments and biological substances

== ENCOUNTER → 2020-01-28 | Outpatient (CLI) | payer MEDICARE, BC ==
[~2020-01-28] MED LIST changes: +COLA100C5 PO; +DULC10SU2 PR; -ERYT1OIN26 OD; +ERYT5OIN25 OD; +KETO2SHA8 TOP; -KETO2SHA9 TOP; +MIRA3350 PO; -MONT10TA2 PO; +MONT10TA4 PO; +PANT40TA29 PO; -PANT40TA3 PO
--- NOTE | 2020-01-28 13:39 | REPPI ---
INDICATION: M25.559 HIP PAIN. Right hip pain. COMPARISON: Comparison radiographs are from December 07, 2018.. TECHNIQUE: AP view of the pelvis and AP and frogleg views of the right hip were obtained. FINDINGS: There are surgical sutures in the anterior abdominal wall. Bowel gas pattern is unremarkable with moderate stool. Bony pelvic ring is intact. There is mild diffuse osteopenia. Sacrum and SI joints are intact. There is minimal spurring at the symphysis pubis. There is mild bilateral superior acetabular spurring. Greater trochanteric spurring is noted bilaterally as well unchanged from December 07, 2018. No erosive changes are seen. Periarticular soft tissues are unremarkable. IMPRESSION: Diffuse osteopenia. Mild osteoarthritis. Trauma tendon insertion sites spurring on the greater trochanter. Findings unchanged from December 07, 2018. <Electronically signed by Oswaldo Echeverria > 01/28/20 [id number]
--- NOTE | 2020-01-28 13:47 | REPPI ---
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 FINDINGS: Early advanced facet arthropathy at the C1-C2 articulation includes elements of osteophytosis, chondrocalcinosis, subchondral heterogeneity and joint space narrowing. Moderate to early advanced degenerative changes noted throughout the remainder of the cervical spine primarily involving C6-7 and C7-T1 including endplate sclerosis, marginal spurring, and disc space narrowing. Alignment and lordosis maintained. No acute fracture/compression injury or subluxation. Posterior elements and spinous processes are intact. Neural foramen are grossly patent. IMPRESSION: Moderate multilevel degenerative spondylosis with focal early advanced degenerative changes at C1-C2 and C6-T1. <Electronically signed by Herminio Graf > 01/28/20 [id number]
--- NOTE | 2020-01-28 13:49 | REPPI ---
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 COMPARISON: None. TECHNIQUE: Two frontal radiographs of the thoracic and lumbar spine FINDINGS: Advanced multilevel degenerative changes are suggested throughout the thoracic and lumbosacral spine including osteophytosis, endplate sclerosis/heterogeneity, and disc space narrowing. 13 degrees of chronic dextroconvex scoliosis through the lumbar spine centered at L2-3 is suggested based on current exam although evaluation is somewhat limited due to positioning and technique. IMPRESSION: Cannot exclude chronic dextroconvex scoliosis through the lumbar spine. Advanced multilevel degenerative spondylosis of the thoracic and lumbosacral spine. <Electronically signed by Herminio Graf > 01/28/20 [id number]
--- NOTE | 2020-01-28 13:53 | REPPI ---
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 TECHNIQUE: AP, lateral, bilateral oblique, and coned-down views. FINDINGS: Advanced multilevel degenerative disc osteophyte complexes are appreciated including chronic dextroconvex scoliosis. No acute fracture/compression injury or subluxation. IMPRESSION: Advanced multilevel degenerative spondylosis. No acute fracture/compression injury or subluxation. <Electronically signed by Herminio Graf > 01/28/20 [id number]
== END ==
LOC: M PLAIMG 12:51
PROVIDERS: ATTEND Physician Assistant Medical
DX: M85.88 Other specified disorders of bone density and structure, other site (principal); M16.11 Unilateral primary osteoarthritis, right hip; M47.22 Other spondylosis with radiculopathy, cervical region; M51.34 Other intervertebral disc degeneration, thoracic region; M51.37 Other intervertebral disc degeneration, lumbosacral region; M50.323 Other cervical disc degeneration at C6-C7 level; M50.33 Other cervical disc degeneration, cervicothoracic region; M25.551 Pain in right hip

== ENCOUNTER 2020-02-09 13:05 | Outpatient (RCR) | payer MEDICARE, BC | END 2020-02-12 | LOC: M PT 13:05 | PROVIDERS: ATTEND Physician Assistant Medical | DX: M54.5 Low back pain (principal); M25.559 Pain in unspecified hip; M47.816 Spondylosis without myelopathy or radiculopathy, lumbar region ==

== ENCOUNTER 2020-03-06 13:45 | Outpatient (RCR) | payer MEDICARE, BC ==
[~2020-03-06 13:45] MED LIST changes: -MONT10TA4 PO; +MONT5TAB2 PO
== END 2020-03-13 ==
LOC: M PT 13:45
PROVIDERS: ATTEND Physician Assistant Medical
DX: M54.5 Low back pain (principal); M25.559 Pain in unspecified hip; M47.816 Spondylosis without myelopathy or radiculopathy, lumbar region

== ENCOUNTER → 2020-03-20 | Outpatient (REF) | payer MEDICARE, BC | LOC: M SFHCPLAZ 09:48 | PROVIDERS: ATTEND Physician Assistant | DX: M54.5 Low back pain (principal); Z79.899 Other long term (current) drug therapy ==

== ENCOUNTER → 2020-03-28 | Outpatient (REF) | payer MEDICARE, BC ==
[2020-03-28 17:39] LABS: BASO # 0.1 10^3/uL (0.0-0.2); BASO % 0.5 % (0.0-1.0); EOS # 0.3 10^3/uL (0.0-0.5); EOS % 3.2 % (0.0-3.0); HEMATOCRIT 42.1 % (36.0-47.0); HEMOGLOBIN 13.4 g/dl (12.0-15.5); LYMPH # 3.2 10^3/uL (1.5-5.0); LYMPH % 33.2 % (24.0-44.0); MEAN CORPUSCULAR HEMOGLOBIN 32.8 pg (27.0-33.0); MEAN CORPUSCULAR HGB CONC 31.8 g/dl (32.0-36.5); MEAN CORPUSCULAR VOLUME 103.2 fl (80.0-96.0); MONO # 0.8 10^3/uL (0.0-0.8); MONO % 8.9 % (0.0-5.0); NEUTROPHILS # 5.1 10^3/uL (1.5-8.5); PLATELET COUNT, AUTOMATED 346 10^3/uL (150-450); RED BLOOD COUNT 4.08 10^6/uL (4.00-5.40); WHITE BLOOD COUNT 9.5 10^3/uL (4.0-10.0)
[2020-03-28 17:58] LABS: CREATININE,RANDOM URINE 56.1 MG/DL
[2020-03-28 18:07] LABS: ALBUMIN 3.8 GM/DL (3.2-5.2); ALT/SGPT 34 U/L (12-78); BILIRUBIN,TOTAL 0.4 MG/DL (0.2-1.0); BLOOD UREA NITROGEN 15 MG/DL (7-18); CALCIUM LEVEL 10.9 MG/DL (8.8-10.2); CARBON DIOXIDE LEVEL 30 MEQ/L (21-32); CHLORIDE LEVEL 108 MEQ/L (98-107); CHOLESTEROL LEVEL 134 MG/DL (<200); CHOLESTEROL RISK RATIO 2.061 (<5); CREATININE FOR GFR 0.76 MG/DL (0.55-1.30); FREE T4 0.99 NG/DL (0.76-1.46); GLOMERULAR FILTRATION RATE > 60.0 (>32); GLUCOSE, FASTING 86 MG/DL (70-100); HDL CHOLESTEROL 65 MG/DL (>40); LDL CHOLESTEROL 51 MG/DL (<100); NON-HDL-C 69 MG/DL; PTH INTACT 40.3 PG/ML (18.5-88.0); SODIUM LEVEL 141 MEQ/L (136-145); TOTAL PROTEIN 7.6 GM/DL (6.4-8.2); TRIGLYCERIDES LEVEL 89 MG/DL (<150)
[2020-03-28 18:11] LABS: ERYTHROCYTE SEDIMENTATION RATE 10 mm/hr (0-30)
[2020-03-28 18:39] LABS: HEMOGLOBIN A1c 5.5 %
== END ==
LOC: M SFHCPLAZ 14:42
PROVIDERS: ATTEND Family Medicine
DX: M06.9 Rheumatoid arthritis, unspecified (principal); E03.9 Hypothyroidism, unspecified; E55.9 Vitamin D deficiency, unspecified; R73.01 Impaired fasting glucose
CPT/HCPCS: 36415; 80053; 80061; 82306; 82570; 83036; 83525; 83970; 84156; 84439; 84443; 85025; 85652; 86140; 96372; G0463; J1040

== ENCOUNTER → 2020-04-05 | Outpatient (CLI) | payer MEDICARE, BC ==
--- NOTE | 2020-04-05 11:40 | REPMRS ---
Patient History The patient states she has not had a clinical breast exam in over a year. Family history of breast cancer at age 65 in sister. Taking unspecified hormones for 6 months. 3D TOMOSYNTHESIS WAS PERFORMED. [facility] lifetime risk for breast cancer is 1.8%. Volpara breast density b. Digital Woman Screen Mammo: April 05, 2020 - Exam #: [id number] Bilateral CC and MLO view(s) were taken. Technologist: Argelia Roberts, Technologist Prior study comparison: February 07, 2017, digital woman screen mammo performed at [facility]. February 09, 2010, digital bilateral screening mammo performed at [facility]. FINDINGS: There are scattered fibroglandular densities. There has been no change in the appearance of the mammogram from the prior studies. There is a mild amount of residual fibroglandular tissue which is fairly symmetric. There is no interval development of dominant mass, architectural distortion, or clustered microcalcification suggestive of malignancy. Assessment: BI-RADS/ACR category 1 mammogram. Negative Mammogram. Recommendation Routine screening mammogram in 1 year (for women over age 40). This mammogram was interpreted with the aid of an FDA-approved computer-aided dectection system. Electronically Signed By: Leonard Maciel MD 04/05/20 0639
== END ==
LOC: M WHC 09:08
PROVIDERS: ATTEND Family Medicine
DX: Z12.31 Encounter for screening mammogram for malignant neoplasm of breast (principal); Z80.3 Family history of malignant neoplasm of breast; Z92.29 Personal history of other drug therapy

== ENCOUNTER → 2020-04-18 | Outpatient (CLI) | payer MEDICARE, BC ==
--- NOTE | 2020-04-18 12:31 | REP ---
INDICATION: RENAL CYST. COMPARISON: 12/11/2017. TECHNIQUE: Real-time sonographic evaluation of the kidneys is performed. FINDINGS: Renal cortical echogenicity pattern is normal bilaterally and contours are smooth. There is no hydronephrosis bilaterally. Multiple bilateral cysts are again noted. A cyst in the upper pole the right kidney has mildly increased in size currently measuring 5.3 x 5.7 x 5.1 cm. Two dominant cysts in the right lower pole measure 4.5 x 2.9 x 3.8 cm and 2.4 x 1.9 x 2.5 cm. A cyst in the mid left kidney has slightly increased in size measuring 1.9 cm in diameter. Two new cysts are seen, 1 in the upper pole measuring 1.9 x 1.7 x 2.1 cm and in the lower pole 2.2 x 2.0 x 2.1 cm. The right kidney measures 11.6 x 4.7 x 5.6 cm. Left renal dimensions are 10.4 x 4.1 x 5.4 cm. Urinary bladder is empty and is not evaluated. IMPRESSION: Bilateral renal cysts. <Electronically signed by Leonard Maciel > 04/18/20 [id number]
== END ==
LOC: M RAD 11:20
PROVIDERS: ATTEND Family Medicine
DX: N28.1 Cyst of kidney, acquired (principal)

== ENCOUNTER 2020-05-11 12:57 | Outpatient (RCR) | payer MEDICARE, BC ==
[~2020-05-11 12:57] MED LIST changes: +GABA-282 PO; -GABA-843 PO
== END 2020-05-14 ==
LOC: M PT 12:57
PROVIDERS: ATTEND Nurse Practitioner Family
DX: M47.816 Spondylosis without myelopathy or radiculopathy, lumbar region (principal)

== ENCOUNTER 2020-06-08 13:00 | Outpatient (RCR) | payer MEDICARE, BC ==
[~2020-06-08 13:00] MED LIST changes: +MONT10TA10 PO; -MONT5TAB2 PO
== END 2020-06-11 ==
LOC: M PT 13:00
PROVIDERS: ATTEND Nurse Practitioner Family
DX: M47.816 Spondylosis without myelopathy or radiculopathy, lumbar region (principal)

== ENCOUNTER 2020-07-11 12:57 | Outpatient (RCR) | payer MEDICARE, BC | END 2020-07-12 | LOC: M PT 12:57 | PROVIDERS: ATTEND Family Medicine | DX: R27.0 Ataxia, unspecified (principal) ==

== ENCOUNTER 2020-08-08 13:00 | Outpatient (RCR) | payer MEDICARE, BC ==
[2020-08-09] MEDS ORDERED: OMEP40CA97 PO (14:09)
[2020-08-09] MEDS ORDERED: SUCR1TA PO (14:09)
== END 2020-08-11 ==
LOC: M PT 13:00
PROVIDERS: ATTEND Family Medicine
DX: R27.0 Ataxia, unspecified (principal)

== ENCOUNTER 2020-08-16 11:53 | Outpatient (RCR) | payer MEDICARE, BC ==
[~2020-08-16 11:53] MED LIST changes: +OMEP40CA97 PO; +SUCR1TA PO
== END 2020-09-11 ==
LOC: M PT 11:53
PROVIDERS: ATTEND Family Medicine
DX: R27.0 Ataxia, unspecified (principal)

== ENCOUNTER → 2020-08-21 | Outpatient (CLI) | payer MEDICARE, BC ==
--- NOTE | 2020-08-21 16:54 | REPPI ---
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 COMPARISON: None TECHNIQUE: Five views FINDINGS: There is no evidence of an acute fracture or destructive osseous lesion, however, the bones are demineralized degenerative changes seen involving the left shoulder IMPRESSION: No acute abnormality is identified. The exam is limited. <Electronically signed by Yovani Martinez > 08/21/20 1638
--- NOTE | 2020-08-21 17:01 | REPPI ---
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 COMPARISON: Multiple the latest PA and lateral exam of 11/30/2018 TECHNIQUE: PA and lateral FINDINGS: The superior mediastinal structures are midline. The cardiac silhouette is unremarkable in size, shape, and position. There are bibasilar opacities suggestive of basilar fibrotic change increased slightly from the prior PA view of the chest of 11/30/2018. Lung huber are otherwise clear. The osseous structures stable. IMPRESSION: Findings in the lung bases as described above. There is no definite evidence of acute cardiopulmonary disease. <Electronically signed by Yovani Martinez > 08/21/20 2343
== END ==
LOC: M PLAIMG 15:55
PROVIDERS: ATTEND Family Medicine
DX: G58.0 Intercostal neuropathy (principal)

== ENCOUNTER → 2020-08-28 | Outpatient (REF) | payer MEDICARE, BC ==
[2020-08-28 15:59] LABS: HEMOGLOBIN A1c 5.7 %
[2020-08-28 16:11] LABS: ALBUMIN 3.6 GM/DL (3.2-5.2); BLOOD UREA NITROGEN 15 MG/DL (7-18); CALCIUM LEVEL 10.5 MG/DL (8.8-10.2); CARBON DIOXIDE LEVEL 30 MEQ/L (21-32); CHLORIDE LEVEL 109 MEQ/L (98-107); CHOLESTEROL LEVEL 120 MG/DL (<200); CHOLESTEROL RISK RATIO 1.967 (<5); CREATININE FOR GFR 0.94 MG/DL (0.55-1.30); GLOMERULAR FILTRATION RATE > 60.0 (>32); GLUCOSE, FASTING 124 MG/DL (70-100); HDL CHOLESTEROL 61 MG/DL (>40); LDL CHOLESTEROL 46 MG/DL (<100); NON-HDL-C 59 MG/DL; PHOSPHORUS LEVEL 3.8 MG/DL (2.5-4.9); POTASSIUM SERUM 3.8 MEQ/L (3.5-5.1); SODIUM LEVEL 143 MEQ/L (136-145); TOTAL PROTEIN 7.1 GM/DL (6.4-8.2); TRIGLYCERIDES LEVEL 66 MG/DL (<150)
[2020-08-28 16:23] LABS: PTH INTACT 27.7 PG/ML (18.5-88.0); TOTAL 25(OH) VITAMIN D 44.7 NG/ML (30.0-100.0)
[2020-08-29 13:21] LABS: ALBUMIN % 55.8 % (55.8-66.1)
[2020-08-29 13:22] LABS: ALBUMIN 3.96 GM/DL (3.29-5.55); ALPHA-1-GLOBULIN % 3.9 % (2.9-4.9); ALPHA-1-GLOBULINS 0.28 GM/DL (0.17-0.41); ALPHA-2-GLOBULINS 0.79 GM/DL (0.42-0.99); ALPHA-2-GLOBULINS % 11.1 % (7.1-11.8); BETA-1-GLOBULINS 0.47 GM/DL (0.28-0.60); BETA-1-GLOBULINS % 6.6 % (4.7-7.2); BETA-2-GLOBULINS 0.45 GM/DL (0.19-0.55); BETA-2-GLOBULINS % 6.4 % (3.2-6.5); GAMMA GLOBULIN % 16.2 % (11.1-18.8); GAMMA GLOBULINS 1.15 GM/DL (0.65-1.58)
== END ==
LOC: M PLALAB 15:10
PROVIDERS: ATTEND Family Medicine
DX: E55.9 Vitamin D deficiency, unspecified (principal); R73.01 Impaired fasting glucose

== ENCOUNTER → 2020-09-21 | Outpatient (CLI) | payer MEDICARE, BC ==
[~2020-09-21] MED LIST changes: +PROHANCE 279.3MG/ML 15ML VIAL As Ordered ONE
--- NOTE | 2020-09-21 10:01 | REP ---
INDICATION: RENAL CYST. COMPARISON: CT 08/09/2020. TECHNIQUE: Multiple sequences obtained in the axial coronal planes prior to and following the intravenous administration of 13 mL ProHance. FINDINGS: There is layering sludge or stones in the dependent gallbladder. There is no gallbladder wall thickening or edema. Liver, spleen, adrenals and pancreas are unremarkable. There is no biliary duct or pancreatic duct dilatation. There are multiple benign bilateral renal cysts. The largest are in the right kidney, a nonenhancing cyst in the upper pole of the right kidney measures approximately 6.3 cm in maximum diameter. The dense cyst previously identified in the lower pole the left kidney on the prior CT scan is visualized. This shows no suspicious internal enhancement and is consistent with a mildly hemorrhagic or proteinaceous cyst. IMPRESSION: Benign bilateral renal cysts. No suspicious renal mass. <Electronically signed by Leonard Maciel > 09/21/20 0957
== END ==
LOC: M RAD 07:20
PROVIDERS: ATTEND Family Medicine
DX: N28.1 Cyst of kidney, acquired (principal)
CPT/HCPCS: 74183; A9576

== ENCOUNTER 2020-10-08 19:12 | Emergency (ER) | payer MEDICARE, BC ==
[~2020-10-08] VITALS: Ht 157.5 cm; Wt 65.0 kg
[~2020-10-08 19:12] MED LIST changes: -OLOP0.2S OU; +OLOP2.5D7 OU; +OMEP40CA4 PO; -OMEP40CA97 PO; -PROHANCE 279.3MG/ML 15ML VIAL As Ordered ONE
[2020-10-08] MEDS ORDERED: IRBE75TA4 PO (19:26)
[2020-10-08] MEDS ORDERED: ADV500INH INH (19:26)
--- NOTE | 2020-10-08 19:48 | REPVR ---
PROCEDURE INFORMATION: Exam: CT Head Without Contrast Exam date and time: 10/08/2020 7:27 PM Age: 80 years old Clinical indication: Injury or trauma; Fall; Blunt trauma (contusions or hematomas); Additional info: Head injury TECHNIQUE: Imaging protocol: Computed tomography of the head without contrast. Radiation optimization: All CT scans at this facility use at least one of these dose optimization techniques: automated exposure control; mA and/or kV adjustment per patient size (includes targeted exams where dose is matched to clinical indication); or iterative reconstruction. COMPARISON: MRI-Brain without Contrast 03/22/2019 12:34 PM FINDINGS: Brain: There is dtya-hs-grfvzrjo parenchymal volume loss. White matter changes are demonstrated in the subcortical, centrum semiovale and periventricular white matter consistent with chronic age related small vessel ischemic changes. Cerebral ventricles: The degree of ventricular dilatation is normal for age and/or degree of atrophy present. Paranasal sinuses: See "Nasal cavity" finding. Mastoid air cells: Visualized mastoid air cells are well aerated. Bones/joints: Unremarkable. No acute fracture. Soft tissues: Left posterior parietal soft tissue hematoma/laceration. Nasal cavity: Inflammatory changes demonstrated in the right nasal cavity. Inflammatory changes demonstrated in the right ethmoid sinus. IMPRESSION: 1. There is ymoi-es-tagpllzm parenchymal volume loss. White matter changes are demonstrated in the subcortical, centrum semiovale and periventricular white matter consistent with chronic age related small vessel ischemic changes. 2. The degree of ventricular dilatation is normal for age and/or degree of atrophy present. 3. Left posterior parietal soft tissue hematoma/laceration. No skull fracture. 4. No acute intracranial findings. Electronically signed by: Keith Alvarez On 10/08/2020 19:47:58 PM
--- NOTE | 2020-10-08 19:51 | REPVR ---
PROCEDURE INFORMATION: Exam: CT Cervical Spine Without Contrast Exam date and time: 10/08/2020 7:27 PM Age: 80 years old Clinical indication: Injury or trauma; Fall; Blunt trauma; Additional info: Head injury TECHNIQUE: Imaging protocol: Computed tomography images of the cervical spine without contrast. Radiation optimization: All CT scans at this facility use at least one of these dose optimization techniques: automated exposure control; mA and/or kV adjustment per patient size (includes targeted exams where dose is matched to clinical indication); or iterative reconstruction. COMPARISON: CT Spine,cervical w/o contrast 03/21/2019 10:29 PM FINDINGS: Bones/joints: No acute fracture. Normal alignment. Discs/Spinal canal/Neural foramina: There are degenerative changes demonstrated in the atlantoaxial joint at C1-C2 with osteophytes and joint space narrowing. The transverse ligament is normal. Moderate foraminal stenosis on the right at C2, severe foraminal stenosis on the right and mild foraminal stenosis on the left at C3, mild foraminal stenosis on the left at C4, multilevel bilateral facet joint arthropathy. Multilevel disc osteophyte complexes without cord impingement. Lungs: Lung apices are normal. Soft tissues: See "Discs/Spinal canal/Neural foramina" finding. IMPRESSION: Degenerative spondylosis. No acute findings. Electronically signed by: Keith Alvarez On 10/08/2020 19:51:17 PM
--- NOTE | 2020-10-08 19:54 | REPVR ---
PROCEDURE INFORMATION: Exam: CT Maxillofacial Without Contrast Exam date and time: 10/08/2020 7:27 PM Age: 80 years old Clinical indication: Injury or trauma; Fall; Blunt trauma (contusions or hematomas); Nose; Additional info: Head injury TECHNIQUE: Imaging protocol: Computed tomography images of the face without contrast. Radiation optimization: All CT scans at this facility use at least one of these dose optimization techniques: automated exposure control; mA and/or kV adjustment per patient size (includes targeted exams where dose is matched to clinical indication); or iterative reconstruction. COMPARISON: MRI-Brain without Contrast 03/22/2019 12:34 PM FINDINGS: Orbital cavity: Orbits are normal. Globes are unremarkable. Bones/joints: No acute fracture. Paranasal sinuses: Inflammatory changes in the right maxillary sinus. Soft tissues: Marked edema and hematomas of the upper lip likely posttraumatic. IMPRESSION: Marked edema and hematomas of the upper lip likely posttraumatic. No fracture. Electronically signed by: Keith Alvarez On 10/08/2020 19:53:39 PM
--- NOTE | 2020-10-08 19:58 | REP ---
INDICATION: trauma COMPARISON: None. TECHNIQUE: Single AP view of the pelvis. FINDINGS: Age-related osteopenia and moderate arthritic degenerative changes are appreciated. There is no evidence for acute fracture or dislocation. IMPRESSION: No evidence for acute fracture or dislocation. <Electronically signed by Herminio Graf > 10/08/201953
--- NOTE | 2020-10-08 19:59 | REP ---
INDICATION: trauma COMPARISON: 08/21/2020 TECHNIQUE: Portable AP view of the chest FINDINGS: The mediastinum and cardiac silhouette are stable and within normal limits for portable technique. The lung huber demonstrate chronic appearing changes without focal consolidation/contusion. Trace basilar atelectasis cannot be excluded. No pneumothorax. No obvious effusion. Skeletal structures are intact. IMPRESSION: No obvious consolidation/contusion or effusion. <Electronically signed by Herminio Graf > 10/08/201954
[2020-10-08] MEDS ORDERED: BOOSTRIX/ADACEL VACCINE (DIPHTH/PERTUSS/ACELL/TETANUS) 0.5ML SYR IM ONE (20:00)
[2020-10-08] MEDS ORDERED: MORPHINE 2 MG/ML 1ML VIAL (J2270) IV ONE (20:00)
--- NOTE | 2020-10-08 20:29 | REPVR ---
PROCEDURE INFORMATION: Exam: XR Left Hand Exam date and time: 10/08/2020 7:56 PM Age: 80 years old Clinical indication: Pain; Hand; Left; Additional info: Pain S/P fall TECHNIQUE: Imaging protocol: XR Left hand. Views: 3 or more views. COMPARISON: NM Elbow, Ap, Lat 10/05/2018 10:38 AM FINDINGS: Bones/joints: Marked degenerative changes in the interphalangeal joints, triscaphe joint, and radiocarpal joints. Osteoporosis. Soft tissues: Normal. IMPRESSION: No acute findings. Electronically signed by: Keith Alvarez On 10/08/2020 20:28:38 PM
[2020-10-08] MEDS ORDERED: BENZOIN TINCTURE 60ML BTL TOP ONE (20:45)
[2020-10-08] MEDS ORDERED: MORPHINE 4 MG/ML 1ML VIAL/SYRINGE (J2270) IV ONE (21:05)
[2020-10-08] MEDS ORDERED: ONDANSETRON 4MG/2ML VIAL IV ONE (21:35)
[2020-10-08] MEDS ORDERED: LIDOCAINE 1% MDV 20ML VIAL IM ONE (21:40)
[2020-10-09] VITALS: BP 137/79
== END 2020-10-09 00:14 | disposition home or self-care (01) ==
LOC: M ED 19:12
DX: S01.511A Laceration without foreign body of lip, initial encounter (principal); S61.412A Laceration without foreign body of left hand, initial encounter; W01.10XA Fall on same level from slipping, tripping and stumbling with subsequent striking against unspecified object, initial encounter; Y92.009 Unspecified place in unspecified non-institutional (private) residence as the place of occurrence of the external cause; Y93.89 Activity, other specified; Y99.9 Unspecified external cause status; Z86.73 Personal history of transient ischemic attack (TIA), and cerebral infarction without residual deficits; M47.812 Spondylosis without myelopathy or radiculopathy, cervical region; Z79.899 Other long term (current) drug therapy; Z88.8 Allergy status to other drugs, medicaments and biological substances
CPT/HCPCS: 12011; 70450; 70486; 71045; 72125; 72170; 73130; 90471; 90715; 96374; 96375; 96376; 99285; J2270; J2405

== ENCOUNTER → 2020-10-19 | Outpatient (CLI) | payer MEDICARE, BC ==
[~2020-10-19] MED LIST changes: +ADV500INH INH; +IRBE75TA4 PO
--- NOTE | 2020-10-19 11:45 | REP ---
INDICATION: M53.2X1 C SPINE INSTILBILITY W/ PAIN. History states and atlantoaxial instability. COMPARISON: Comparison CT study is from October 08, 2020. A more remote prior CT study of the cervical spine is reviewed from November 18, 2018.. TECHNIQUE: Helical scanning is acquired and overlapping 2 mm high resolution axial images were generated and reviewed at bone and soft tissue window settings. Coronal and sagittal multiplanar re-formations images are generated. FINDINGS: Cervical vertebral body heights are preserved. No bony destructive lesion is seen. No fracture or collapse is noted. There is minimal 1-2 mm anterior subluxation of 3 on 4 unchanged from prior studies. Alignment is otherwise normal. There is osteoarthritis in the articulation between the dens and anterior arch of C1. This is unchanged as well from multiple prior studies. There is osteoarthritic facet disease bilaterally in the mid cervical spine most pronounced on the left at C1-2 and on the right at C 2 3 and C3-4. There is a minimal levoconvex curve in the cervical spine on the coronal multiplanar re-formation images. Axial and sagittal images at C2-3 show no evidence of disc protrusion. Facet hypertrophy is noted bilaterally. There is mild right-sided C2-3 neural foraminal narrowing due to facet hypertrophy. At C3-4, there is posterior osteophytic ridging. Right-sided uncovertebral spurring and mild right-sided neural foraminal narrowing are noted unchanged from the comparison study. At C4-C5, there is moderate osteoarthritic facet hypertrophy left greater than right. No other finding. At C5-C6 there is facet hypertrophy noted bilaterally. No neural foraminal narrowing is seen. The C6-7 level is unremarkable except for some mild facet hypertrophy changes. C7-T1 level shows no abnormality. No extra vertebral abnormality is observed. IMPRESSION: Advanced diffuse osteoarthritic facet disease in the cervical spine. 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 Stable minimal 1-2 mm C3-4 degenerative anterolisthesis.. <Electronically signed by Oswaldo Echeverria > 10/19/20 1661
== END ==
LOC: M PLAIMG 10:19
PROVIDERS: ATTEND Physician Assistant Medical
DX: M53.2X1 Spinal instabilities, occipito-atlanto-axial region (principal); M47.812 Spondylosis without myelopathy or radiculopathy, cervical region; M50.31 Other cervical disc degeneration, high cervical region; M50.321 Other cervical disc degeneration at C4-C5 level; M50.322 Other cervical disc degeneration at C5-C6 level; M50.323 Other cervical disc degeneration at C6-C7 level

== ENCOUNTER → 2020-12-11 | Outpatient (CLI) | payer MEDICARE, BC ==
[2020-12-11 15:07] LABS: BASO # 0.1 10^3/uL (0.0-0.2); BASO % 0.8 % (0.0-1.0); EOS # 0.4 10^3/uL (0.0-0.5); EOS % 4.8 % (0.0-3.0); HEMATOCRIT 42.1 % (36.0-47.0); HEMOGLOBIN 13.9 g/dl (12.0-15.5); LYMPH # 2.6 10^3/uL (1.5-5.0); LYMPH % 33.6 % (24.0-44.0); MEAN CORPUSCULAR HEMOGLOBIN 33.7 pg (27.0-33.0); MEAN CORPUSCULAR VOLUME 102.2 fl (80.0-96.0); MONO # 0.9 10^3/uL (0.0-0.8); NEUTROPHILS # 3.9 10^3/uL (1.5-8.5); NEUTROPHILS % 49.7 % (36.0-66.0); PLATELET COUNT, AUTOMATED 368 10^3/uL (150-450); RED BLOOD COUNT 4.12 10^6/uL (4.00-5.40); WHITE BLOOD COUNT 7.8 10^3/uL (4.0-10.0)
[2020-12-11 15:48] LABS: ALBUMIN 3.5 GM/DL (3.2-5.2); ALT/SGPT 25 U/L (12-78); BILIRUBIN,TOTAL 0.5 MG/DL (0.2-1.0); BLOOD UREA NITROGEN 13 MG/DL (7-18); CALCIUM LEVEL 10.1 MG/DL (8.8-10.2); CARBON DIOXIDE LEVEL 26 MEQ/L (21-32); CHLORIDE LEVEL 108 MEQ/L (98-107); CREATININE FOR GFR 0.77 MG/DL (0.55-1.30); FREE T4 1.07 NG/DL (0.76-1.46); GLOMERULAR FILTRATION RATE > 60.0 (>32); GLUCOSE, FASTING 90 MG/DL (70-100); NT-PRO BNP 111 PG/ML (<450); POTASSIUM SERUM 4.7 MEQ/L (3.5-5.1); SODIUM LEVEL 140 MEQ/L (136-145); TOTAL 25(OH) VITAMIN D 49.4 NG/ML (30.0-100.0)
== END ==
LOC: M PLALAB 11:17
PROVIDERS: ATTEND Physician Assistant
DX: R73.01 Impaired fasting glucose (principal); E78.2 Mixed hyperlipidemia; I10 Essential (primary) hypertension

== ENCOUNTER → 2020-12-12 | Outpatient (CLI) | payer MEDICARE, BC ==
--- NOTE | 2020-12-12 14:28 | REP ---
INDICATION: SPONDYLOSIS W/O MYELOPATHY OR RADICULOPATHY, LUMBAR REGION. COMPARISON: 01/28/2020. TECHNIQUE: Six views lumbosacral spine. FINDINGS: There is no compression fracture. There is minor retrolisthesis of L1 on L2 and L2 on L3. There is moderate diffuse spurring. There is moderate disc space narrowing and subchondral sclerosis at L1-2 through L4-5. There is diffuse sclerosis and spurring at the posterior facet joints. The posterior elements are intact. There is slight curvature toward the right. IMPRESSION: Moderate diffuse degenerative changes. No compression fracture. <Electronically signed by Leonard Maciel > 12/12/20 [id number]
--- NOTE | 2020-12-12 14:29 | REP ---
INDICATION: SPONDYLOSIS W/O MYELOPATHY OR RADICULOPATHY, LUMBAR REGION. COMPARISON: None. TECHNIQUE: Three views sacroiliac joints. FINDINGS: I see no evidence of acute fracture or dislocation. I do not visualize significant arthritic change at the sacroiliac joints. IMPRESSION: Unremarkable exam sacroiliac joints. <Electronically signed by Leonard Maciel > 12/12/20 [id number]
== END ==
LOC: M PLAIMG 13:20
PROVIDERS: ATTEND Family Medicine
DX: M47.816 Spondylosis without myelopathy or radiculopathy, lumbar region (principal)
CPT/HCPCS: 72110; 72202; G0463

== ENCOUNTER → 2020-12-25 | Outpatient (CLI) | payer MEDICARE, BC ==
[2020-12-25 16:03] LABS: ALBUMIN 3.2 GM/DL (3.2-5.2); ALT/SGPT 21 U/L (12-78); BILIRUBIN,TOTAL 0.2 MG/DL (0.2-1.0); BLOOD UREA NITROGEN 21 MG/DL (7-18); CALCIUM LEVEL 10.1 MG/DL (8.8-10.2); CARBON DIOXIDE LEVEL 28 MEQ/L (21-32); CHLORIDE LEVEL 108 MEQ/L (98-107); CREATININE FOR GFR 0.92 MG/DL (0.55-1.30); GLOMERULAR FILTRATION RATE > 60.0 (>32); GLUCOSE, FASTING 101 MG/DL (70-100); NT-PRO BNP 74 PG/ML (<450); POTASSIUM SERUM 4.3 MEQ/L (3.5-5.1); SODIUM LEVEL 143 MEQ/L (136-145); TOTAL PROTEIN 6.9 GM/DL (6.4-8.2)
[2020-12-25 16:08] LABS: TOTAL 25(OH) VITAMIN D 50.4 NG/ML (30.0-100.0)
[2020-12-25 16:09] LABS: PTH INTACT 64.6 PG/ML (18.5-88.0)
[2020-12-25 17:39] LABS: HEMOGLOBIN A1c 5.6 %
== END ==
LOC: M PLALAB 13:48
PROVIDERS: ATTEND Family Medicine
DX: E55.9 Vitamin D deficiency, unspecified (principal); Z79.899 Other long term (current) drug therapy; I63.9 Cerebral infarction, unspecified

== ENCOUNTER → 2021-02-06 | Outpatient (CLI) | payer MEDICARE, BC ==
--- NOTE | 2021-02-06 17:33 | REPVR ---
PROCEDURE INFORMATION: Exam: MR Lumbar Spine Without Contrast Exam date and time: 02/06/2021 2:30 PM Age: 81 years old Clinical indication: Low back pain; Additional info: Djd lumbar TECHNIQUE: Imaging protocol: Multiplanar magnetic resonance images of the lumbar spine without intravenous contrast. COMPARISON: CR Spine. Lumbosacral, complete 12/12/2020 2:13 PM FINDINGS: Vertebral body heights are maintained. No abnormal marrow signal. Stepwise 0.3 cm retrolisthesis of L1 on L2 and L2 on L3. No cord compression. No abnormal cord signal. Conus medullaris terminates at the L1 level. Paravertebral soft tissues are unremarkable. Partially visualized bilateral T2 hyperintense renal cysts. L1-L2: Combination of retrolisthesis, broad-based disc bulge, and facet hypertrophy cause mild right and [id number] left foraminal narrowing. No significant canal narrowing. L2-L3: Combination of retrolisthesis, broad-based disc bulge, and facet hypertrophy cause mild right and chcd-ff-[place] left foraminal narrowing. No significant canal narrowing. L3-L4: Broad-based disc bulge and facet hypertrophy cause mild canal narrowing and mild bilateral foraminal narrowing. L4-L5: Broad-based disc bulge and facet hypertrophy cause canq-ax-glfwqcut bilateral foraminal narrowing. No significant canal narrowing. L5-S1: Broad-based disc bulge and facet hypertrophy cause mild canal narrowing with effacement of the right lateral recess. Mild to moderate bilateral foraminal narrowing. IMPRESSION: Multilevel spondylotic changes of the lumbar spine, as detailed above. Electronically signed by: Andrew Bergeron On 02/06/2021 17:32:51 PM
== END ==
LOC: M PLAIMG 13:29
PROVIDERS: ATTEND Family Medicine
DX: M47.816 Spondylosis without myelopathy or radiculopathy, lumbar region (principal); M51.26 Other intervertebral disc displacement, lumbar region

== ENCOUNTER 2021-02-09 23:21 | Emergency (ER) | payer MEDICARE, BC ==
--- OUTSIDE RECORDS SUMMARY | 2021-02-09 23:26 | CCD ---
Author Author [facility] Syst ems Organization [facility] ems Address Unknown Phone Unavailable Care Team Providers Care Photocopying Equipment Mechanic Name Role Phone Steven Santos Unavailable PROBLEMS Type Condition ICD9-CM Code [id number] Code Onset Dates Condition S tatus W/U Status Risk SNOMED Code Notes Problem DJD (degenerative joint disease), cervical M50.30 Active confirmed 41986058 Problem Chronic obstructive pulmonary disease J44.9 Ac tive confirmed 95781170 Problem Insomnia, unspecified type G47.00 Active confirmed 949356206 Problem Allergic rhinitis, unspecifi ed allergic rhinitis trigger, unspecified rhinitis seasonality J30.9 Active confirmed 85059363 Problem Macrocytosis without anemia D75.89 Active confirmed 221575492 Problem Migraine without aura and without status migrain osus, not intractable G43.009 Active confirmed 496843341 Problem Constipation, chronic K59.09 Active confirmed 753840894 Problem 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 Active confirmed 475784938 Problem Breast cancer screening Z12.39 Active confirmed 561566090 Problem Cervical spondylosis M47.812 Active confirmed 147614825 Problem Vitamin D deficiency E55.9 Active confirmed 10525403 Problem Renal cyst N28.1 Active confirmed 39556864 Problem Colon cancer screening Z12.11 Active confirmed 638742447 Problem COPD exacerbation J44.1 Active confirmed 19 3993873 Problem Mixed hyperlipidemia E78.2 Active confirmed 214010491 Problem Chronic obstructive pulmonary disease with acute exacerbat ion J44.1 Active confirmed 162477206 Problem Asthma, mild persistent J45.30 Active confirmed 049467083 Problem Rosacea L71.9 Active confirmed 403290629 Problem FIDEL (obstructive sleep apnea) G47.33 Active confirm ed 79625216 Problem Thyroid nodule E04.1 Active confirmed 81550 5005 Problem DJD (degenerative joint disease), lumbar M47.816 Active confirmed 221400871 Problem Hypertension, essential I10 Active confirmed 76670252 Problem Osteoarthritis of knees, 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 Activ e confirmed 997300435 Problem Spondylosis of cervical region without myelopath y or radiculopathy M47.812 Active confirmed 251465261 Problem Hypothyroidism E03.9 Active confirmed 25538 008 Problem Cervical spondylosis with radiculopathy M47.22 Active confirmed 598739876 Problem Osteoporosis M81.0 Active confirmed 0444018 6 Problem Hematoma T14.8XXA Active confirmed 913400205 Problem Fall, subsequent encounter W19.XXXD Active confirme d 1812561 Problem Ataxia R27.0 Active confirmed 04171445 Problem Bilateral sacroiliitis M46.1 Active confirmed 06048683561550158 Problem Xerostomia R68.2 Active confirmed 49170064 Problem Coccydynia M53.3 Active confirmed 35474730 Problem B12 deficiency E53.8 Active confirmed 53381 4004 Problem Personal history of tobacco use Z87.891 Active confirmed 8237772009964 Problem Ischemic stroke I63.9 Active confirmed 4225 18489 Problem Sciatica, left side M54.32 Active confirmed 35196980 Problem Sciatica, right side M54.31 Active confirmed 35173382887352036 Problem Impaired fasting glucose R73.01 Active confirmed 612330044 Problem Chronic rheumatic arthritis M06.9 Active confirmed 72373416 Problem 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 Active confirmed 697917184 ALLERGIES Allergen (clinical drug ingredient) Drug/Non Drug Allergy do cumented on EMR Reaction Allergy Type Onset Date Status tiotropium Spiriva HandiHaler(NDC Code:[address]-67) Urina ry retention Drug Allergy Active Requip headaches Drug Allergy Active celecoxib Celebrex(NDC Code:[address]-82) affects motor a ctivities Drug Allergy Active ENCOUNTERS from 1940 to 2021-01-26 Encounter Location Date Provider Diagnosis [facility] [address] [facility] [phone] [place] [address] 14 Jan, 2021 Steven Santos IMMUNIZATIONS Vaccine Route Administration Date Status Depo-Medrol 80mg Methylprednisolone Acetate IM Intramuscular Mar 28, 2020 Administered Toradol 60mg/2mL Ketorolac IM Intramuscular September 05, 2016 Admi nistered Influenza 18 yrs & older Flublok IM Intramuscular Feb 18, 2019 Administered Depo-Medrol 80mg Methylprednisolone Acetate Unknown November 02, 2015 Administered Depo-Medrol 80mg Methylprednisolone Acetate IM Intramuscular May 03, 2016 Administered Depo-Medrol 80mg Methylprednisolone Acetate IM Intramuscular May 07, 2016 Administered Influenza 6mo & up Fluzone IM Intramuscular Jan 26, 2010 Admi nistered Influenza (High Dose 65 & up) IM Intramuscular 2017 A dministered Influenza (High Dose 65 & up) IM Intramuscular Jan 05, 2016 A dministered Influenza (High Dose 65 & up) IM Intramuscular Jan 16, 2015 A dministered Zoster 0.65mL Zostavax IM Intramuscular Jan 22, 2016 Administ ered Pneumococcal Adult 0.5mL Pneumovax 23 Unknown Feb 04 20 Administered TDAP 0.5mL (Boostrix) IM Intramuscular June 25, 2017 Administe red Pneumococcal 0.5mL Prevnar 13 IM Intramuscular July 05, 2015 A dministered Influenza 6mo & up Fluzone IM Intramuscular Jan 15, 2013 Admi nistered SOCIAL HISTORY Tobacco Use: Social History Observation Description Date Details (start date - stop date) Never Smoker Sex Assigned At : Social History Observation Description Sex Assigned At Unknown Education: Question Answer Notes Level of Education: High School Audit Question Answer Notes Total Score: 0 Interpretation: Alcohol Education Language: Question Answer Notes Languages spoken: Maori Restorationism: Question Answer Notes Restorationism 21 Christian Sexual Hx: Question Answer Notes Had sex in the last 12 months (vaginal, oral, or anal)? Yes Have you ever had an STD? No with Men only Use protection? No Drug and Alcohol Question Answer Notes Total Score: 0 Interpretation: No problems reported Alcohol Screening: Question Answer Notes Did you have a drink containing alcohol in the past year? Ye s Points 1 Interpretation Negative How often did you have six or more drinks on one occas ion in the past year? Never (0 points) How many drinks did you have on a typica l day when you were drinking in the past year? 1 or 2 (0 points) How often did you have a drink containing alcohol in t he past year? Monthly or less (1 point) Tobacco Use: Question Answer Notes Are you a: never smoker REASON FOR REFERRAL No Information VITAL SIGNS No information MEDICATIONS Medication SIG (Take, Route, Frequency, Duration) Notes Start Da te End Date Status Cyanocobalamin 100 MCG 1 tablet Orally Once a day for 90 day(s) Active Ventolin HFA 108 (90 Base) MCG/ACT 2 puffs as needed I nhalation every 4 hrs for 90 day(s) Active Irbesartan 75 MG 1 tablet Orally every morning for 90 day(s) Active Atorvastatin Calcium 40 MG 1 tablet Orally Once a day for 90 day(s) Active Advair Diskus 500-50 MCG/DOSE 1 Inhalation Twice a day for 90 day(s) Active Flector 1.3 % 1 patch Externally Twice a day for 30 Days Active APAP 325 MG 1-2 tablet as needed Orally bid for 90 day(s) Active Ketoconazole 2 % as directed Externally daily -leave on scalp and forehead x 5 minutes for 30 day(s) Active May Have - as directed-hard cervical co llar & soft cervical collar topically Daily at all times while not supine, soft collar for resting Active Levalbuterol HCl 1.25 MG/3ML 3 ml Inhalation every 8 h rs prn dyspnea for 90 day(s) Active Levothyroxine Sodium 75 MCG 1 tablet on an empty stoma ch in the morning Orally Once a day for 90 day(s) Active Cholecalciferol 25 MCG (1000 UT) 1 capsule Orally Once a day for 90 day(s) Dec, Active Vitamin E 400 UNIT 1 capsule Orally Once a day for 30 day(s) Active Sennosides-Docusate Sodium 8.6-50 MG 1 cap Orally bid for 90 day(s) Active Gabapentin 100 MG 1 capsule Orally tid for 90 day(s) Active Clopidogrel Bisulfate 75 MG 1 tablet Orally Once a day for 90 day(s) Active predniSONE 5 MG () 6 tabs po x 1 day, then 5, 4 , 3, 2, 1, then stop Orally Daily with food for 6 days Dec, Activ e Propranolol HCl 10 MG 1 tablet Orally Once a day for 90 day(s) Active Montelukast Sodium 10 MG 1 tablet Orally at bedtime for 90 day(s) Active PROCEDURES No Information RESULTS No Results REASON FOR VISIT low back pain MEDICAL (GENERAL) HISTORY Type Description Date Medical History asthma, moderate persistent- December 2009 PFTs with borderline air trapping and mild airway resistance otherwise normal/04/2016 CXR hyperinflation/PAH Medical History hypothyroidism Medical History FIDEL/PLMS-palliated on BiPAP 03/[address] Shaina Cortes Medical History mild diastolic dysfunction o therwise normal TTE 02/18 Antecol//low risk stress echo, to 5.3 METS, LVEF 60%-[facility] Medical History constipation, chronic Medical History restless leg syndrome Medical History impaired fasting glucose Medical History migraine headaches, common t ype-flared 08/2013 p head trauma- 09/10/13 MRI/MRA brain c mild strophy Medical History nephrolithiasis, right x1 seen by October 13 CT Medical History cervical spondylosis-ML c gr mayra 1 anterolithesis C3/4, C4/5, C5/6 s spinal stenosis by 01/2018 CT Medical History lumbar spondylosi/mild dextroscolosis Medical History ho possible threatened CVA a borted (NIH SS 3 prior to tpa (2 dysarthria/1 language aphasia-NO concomitant DAVIS, came on rising from table)) by tpa vs complex migraine 06/2017/01/26/18 MRI/MRA head, MRA neck incidentally detected 5 mm L cerebellar suabcute CVA and poor visulization of proximal L vertebral art Medical History grade 1 diastolic dysfunction by 06/2017 TTE-[facility] Medical History B hip mild OA by 01/28/20 XR Medical History +CCP >250, +RF 42 (< 15), -Andie 02/18/19 Surgical History vaginal hysterectomy c bladd er suspension surgery-Dr. Baptiste-[place] 09/15/2010 Surgical History left foot surgery 05/2014 Surgical History s/p Lumbar DJD surgery in [place] 2 007-8 Surgical History Total R)knee replacement 07/06/2018 Hospitalization History threatened CVA aborted by tP A vs complex migraine-07/06 and 07/07 MRI brain NAD, but received tpa, TTE grade [address] Dr[address] Aniyah butler + VPA and nortrip 07/06- Hospitalization History large RLL PN by CT chest (?H AP)/asthma exacerbation-rxed c Zosyn, then Augmentin, BCX x 2 NG, RP-, CT AP NAD, MRI brain NAD 07/22- Hospitalization History RLL PN 09/18-03/01 Hospitalization History Knee surgery 07/06/2018 Hospitalization History visual change ("everything a ppeared orange", resolved in ~24H) p mechanical fall DOA: MRI chronic , -CTA neck/head 03/21-01/30 Goals Section No Information Health Concerns No Information MEDICAL EQUIPMENT No Information MENTAL STATUS No Information FUNCTIONAL STATUS No Information ASSESSMENTS No Information PLAN OF TREATMENT Medication Medication Name Sig Start Date Stop Date Levalbuterol HCl 1.25 MG/3ML 3 ml Inhalation every 8 h rs prn dyspnea for 90 day(s) predniSONE 5 MG (21) 6 tabs po x 1 day, then 5, 4 , 3, 2, 1, then stop Orally Daily with food for 6 days Dec, May Have - as directed-hard cervical co llar & soft cervical collar topically Daily at all times while not supine, soft collar for resting Ketoconazole 2 % as directed Externally daily -leave on scalp and forehead x 5 minutes for 30 day(s) Levothyroxine Sodium 75 MCG 1 tablet on an empty stoma ch in the morning Orally Once a day for 90 day(s) Irbesartan 75 MG 1 tablet Orally every morning for 90 day(s) Cholecalciferol 25 MCG (1000 UT) 1 capsule Orally Once a day for 90 day(s) Dec, Advair Diskus 500-50 MCG/DOSE 1 Inhalation Twice a day for 90 da y(s) APAP 325 MG 1-2 tablet as needed Orally bid for 90 day(s) Propranolol HCl 10 MG 1 tablet Orally Once a day for 90 day(s) Flector 1.3 % 1 patch Externally Twice a day for 30 Days Atorvastatin Calcium 40 MG 1 tablet Orally Once a day for 90 day (s) Gabapentin 100 MG 1 capsule Orally tid for 90 day(s) Clopidogrel Bisulfate 75 MG 1 tablet Orally Once a day for 90 da y(s) Montelukast Sodium 10 MG 1 tablet Orally at bedtime for 90 day(s ) Sennosides-Docusate Sodium 8.6-50 MG 1 cap Orally bid for 90 day (s) Cyanocobalamin 100 MCG 1 tablet Orally Once a day for 90 day(s) Ventolin HFA 108 (90 Base) MCG/ACT 2 puffs as needed I nhalation every 4 hrs for 90 day(s) Next Appt Details Provider Name:Tete Wiggins, 11:30:00 AM, [address] [facility] [phone], [place], [address], Provider Name:Steven Santos, 2021-05-04 1 0:15:00 AM, [address] [place] [address], , [place], [address], Insurance Providers Payer Name Payer Address Payer Phone Insured Name Patient Relati onship to Insured Coverage Start Date Coverage End Date MEDICARE Part A and B [address] [place] [id number] PRISCILA MASON BCBS [place] [facility] PPO [phone] [facility] [place] [address] PRISCILA MASON self
--- OUTSIDE RECORDS SUMMARY | 2021-02-09 23:26 | CCD ---
Author Author [facility] Syst ems Organization [facility] ems Address Unknown Phone Unavailable Care Team Providers Care Cabinet Builder Name Role Phone Tete Wiggins Unavailable PROBLEMS Type Condition ICD9-CM Code [id number] Code Onset Dates Condition S tatus W/U Status Risk SNOMED Code Notes Problem DJD (degenerative joint disease), cervical M50.30 Active confirmed 22462329 Problem Chronic obstructive pulmonary disease J44.9 Ac tive confirmed 23231881 Problem Insomnia, unspecified type G47.00 Active confirmed 502178819 Problem Allergic rhinitis, unspecifi ed allergic rhinitis trigger, unspecified rhinitis seasonality J30.9 Active confirmed 10032267 Problem Macrocytosis without anemia D75.89 Active confirmed 347608223 Problem Migraine without aura and without status migrain osus, not intractable G43.009 Active confirmed 594361191 Problem Constipation, chronic K59.09 Active confirmed 919489224 Problem 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 Active confirmed 028369068 Problem Breast cancer screening Z12.39 Active confirmed 366651257 Problem Cervical spondylosis M47.812 Active confirmed 729104343 Problem Vitamin D deficiency E55.9 Active confirmed 62883402 Problem Renal cyst N28.1 Active confirmed 83351548 Problem Colon cancer screening Z12.11 Active confirmed 114073980 Problem COPD exacerbation J44.1 Active confirmed 19 1155113 Problem Mixed hyperlipidemia E78.2 Active confirmed 393751348 Problem Chronic obstructive pulmonary disease with acute exacerbat ion J44.1 Active confirmed 877675603 Problem Asthma, mild persistent J45.30 Active confirmed 986651690 Problem Rosacea L71.9 Active confirmed 011878421 Problem FIDEL (obstructive sleep apnea) G47.33 Active confirm ed 38645346 Problem Thyroid nodule E04.1 Active confirmed 21089 5005 Problem DJD (degenerative joint disease), lumbar M47.816 Active confirmed 697623615 Problem Hypertension, essential I10 Active confirmed 55201887 Problem Osteoarthritis of knees, 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 Activ e confirmed 344869868 Problem Spondylosis of cervical region without myelopath y or radiculopathy M47.812 Active confirmed 620935452 Problem Hypothyroidism E03.9 Active confirmed 61851 008 Problem Cervical spondylosis with radiculopathy M47.22 Active confirmed 189424003 Problem Osteoporosis M81.0 Active confirmed 2150176 6 Problem Hematoma T14.8XXA Active confirmed 405795347 Problem Fall, subsequent encounter W19.XXXD Active confirme d 4900378 Problem Ataxia R27.0 Active confirmed 91954151 Problem Bilateral sacroiliitis M46.1 Active confirmed 57450596764988050 Problem Xerostomia R68.2 Active confirmed 15142983 Problem Coccydynia M53.3 Active confirmed 81833413 Problem B12 deficiency E53.8 Active confirmed 48865 4004 Problem Personal history of tobacco use Z87.891 Active confirmed 3224785577151 Problem Ischemic stroke I63.9 Active confirmed 4225 31010 Problem Sciatica, left side M54.32 Active confirmed 57590121 Problem Sciatica, right side M54.31 Active confirmed 74997069428292206 Problem Impaired fasting glucose R73.01 Active confirmed 682081259 Problem Chronic rheumatic arthritis M06.9 Active confirmed 39884229 Problem 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 Active confirmed 030594701 ALLERGIES Allergen (clinical drug ingredient) Drug/Non Drug Allergy do cumented on EMR Reaction Allergy Type Onset Date Status tiotropium Spiriva HandiHaler(NDC Code:[address]-88) Urina ry retention Drug Allergy Active Requip headaches Drug Allergy Active celecoxib Celebrex(NDC Code:[address]-96) affects motor a ctivities Drug Allergy Active ENCOUNTERS from 1940 to 2021-02-01 Encounter Location Date Provider Diagnosis [address] [phone] [place] [address] Jan, Tete Servage IMMUNIZATIONS Vaccine Route Administration Date Status Depo-Medrol [...] Education Language: Question Answer Notes Languages spoken: Kyrgyz Jew: Question Answer Notes Jew 20 Amish Sexual Hx: Question Answer Notes Had sex [...] Notes Start Da te End Date Status APAP 325 MG 1-2 tablet as needed Orally bid for 90 day(s) Not-Taking Propranolol HCl 10 MG 1 tablet Orally Once a day for 90 day(s) Active Gabapentin 100 MG 1 capsule Orally tid for 90 day(s) Active Irbesartan 75 MG 1 tablet Orally every morning for 90 day(s) Active Flector 1.3 % 1 patch Externally Twice a day for 30 Days Active Atorvastatin Calcium 40 MG 1 tablet Orally Once a day for 90 day(s) Active Clopidogrel Bisulfate 75 MG 1 tablet Orally Once a day for 90 day(s) Active Cholecalciferol 25 MCG (1000 UT) 1 capsule Orally Once a day for 90 day(s) Dec, Active Advair Diskus 500-50 MCG/DOSE 1 Inhalation Twice a day for 90 day(s) Active Ketoconazole 2 % as directed Externally daily -leave on scalp and forehead x 5 minutes for 30 day(s) Active Levothyroxine Sodium 75 MCG 1 tablet on an empty stoma ch in the morning Orally Once a day for 90 day(s) Not-Oscar ing Vitamin E 400 UNIT 1 capsule Orally Once a day for 30 day(s) Active Levalbuterol HCl 1.25 MG/3ML 3 ml Inhalation every 8 h rs prn dyspnea for 90 day(s) Not-Taking Cyanocobalamin 100 MCG 1 tablet Orally Once a day for 90 day(s) Active May Have - as directed-hard cervical co llar & soft cervical collar topically Daily at all times while not supine, soft collar for resting Active Ventolin HFA 108 (90 Base) MCG/ACT 2 puffs as needed I nhalation every 4 hrs for 90 day(s) Active Montelukast Sodium 10 MG 1 tablet Orally at bedtime for 90 day(s) Active Sennosides-Docusate Sodium 8.6-50 MG 1 cap Orally bid for 90 day(s) Active PROCEDURES No Information RESULTS No Results REASON FOR VISIT mri spine MEDICAL (GENERAL) HISTORY Type Description Date Medical History asthma, moderate persistent- December 2009 PFTs with borderline air trapping and mild airway resistance otherwise normal/04/2016 CXR hyperinflation/PAH Medical History hypothyroidism Medical History FIDEL/PLMS-palliated on BiPAP 03/[address] Shaina Cortes Medical History mild diastolic dysfunction o therwise normal TTE 02/18 Antecol//low risk stress echo, to 5.3 METS, LVEF 60%-[facility] Medical History constipation, chronic Medical History restless [...] History grade 1 diastolic dysfunction by 06/2017 TTE-[facility] Medical History B hip mild OA by 01/28/20 XR Medical History +CCP >250, +RF 42 (< 15), -Andie 02/18/19 Surgical History vaginal hysterectomy c bladd er suspension surgery-Dr. Baptiste-[place] 09/15/2010 Surgical History left foot surgery 05/2014 [...] Medication Name Sig Start Date Stop Date Gabapentin 100 MG 1 capsule Orally tid for 90 day(s) Flector 1.3 % 1 patch Externally Twice a day for 30 Days Next Appt Details Provider Name:Steven Santos, 2021-05-04 1 0:15:00 AM, [address] [facility], , [place], [address], Insurance Providers Payer Name Payer Address Payer Phone Insured Name Patient Relati onship to Insured Coverage Start Date Coverage End Date MEDICARE Part A and B [address] [facility] [id number] [phone] PRISCILA MASON BCBS [place] [facility] PPO [phone] [facility] [place] [address] PRISCILA MASON
--- OUTSIDE RECORDS SUMMARY | 2021-02-09 23:26 | CCD ---
Author Author [facility] Organization [facility] Address Unknown Phone Unavailable Care Team Providers Care Dowel Maker Name Role Phone Steven Santos Unavailable PROBLEMS Type Condition ICD9-CM Code MSN87-IF Code Onset Dates Condition S tatus W/U Status Risk SNOMED Code Notes Problem DJD (degenerative joint disease), cervical M50.30 Active confirmed 20147041 Problem Chronic obstructive pulmonary disease J44.9 Ac tive confirmed 64323077 Problem Insomnia, unspecified type G47.00 Active confirmed 239488635 Problem Allergic rhinitis, unspecifi ed allergic rhinitis trigger, unspecified rhinitis seasonality J30.9 Active confirmed 69832821 Problem Macrocytosis without anemia D75.89 Active confirmed 344426379 Problem Migraine without aura and without status migrain osus, not intractable G43.009 Active confirmed 668131471 Problem Constipation, chronic K59.09 Active confirmed 503762910 Problem 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 Active confirmed 353106416 Problem Breast cancer screening Z12.39 Active confirmed 010873459 Problem Cervical spondylosis M47.812 Active confirmed 926525108 Problem Vitamin D deficiency E55.9 Active confirmed 88962763 Problem Renal cyst N28.1 Active confirmed 65568462 Problem Colon cancer screening Z12.11 Active confirmed 757888250 Problem COPD exacerbation J44.1 Active confirmed 19 9571521 Problem Mixed hyperlipidemia E78.2 Active confirmed 921852199 Problem Chronic obstructive pulmonary disease with acute exacerbat ion J44.1 Active confirmed 967742701 Problem Asthma, mild persistent J45.30 Active confirmed 396761272 Problem Rosacea L71.9 Active confirmed 810332692 Problem FIDEL (obstructive sleep apnea) G47.33 Active confirm ed 87942378 Problem Thyroid nodule E04.1 Active confirmed 56666 5005 Problem DJD (degenerative joint disease), lumbar M47.816 Active confirmed 110336521 Problem Hypertension, essential I10 Active confirmed 96988872 Problem Osteoarthritis of knees, 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 Activ e confirmed 270887894 Problem Spondylosis of cervical region without myelopath y or radiculopathy M47.812 Active confirmed 035746508 Problem Hypothyroidism E03.9 Active confirmed 50918 008 Problem Cervical spondylosis with radiculopathy M47.22 Active confirmed 223689304 Problem Osteoporosis M81.0 Active confirmed 7284373 6 Problem Hematoma T14.8XXA Active confirmed 473636577 Problem Fall, subsequent encounter W19.XXXD Active confirme d 0797420 Problem Ataxia R27.0 Active confirmed 43361975 Problem Bilateral sacroiliitis M46.1 Active confirmed 27607105919690062 Problem Xerostomia R68.2 Active confirmed 21950739 Problem Coccydynia M53.3 Active confirmed 26909716 Problem B12 deficiency E53.8 Active confirmed 40764 4004 Problem Personal history of tobacco use Z87.891 Active confirmed 5369863084225 Problem Ischemic stroke I63.9 Active confirmed 4225 69100 Problem Sciatica, left side M54.32 Active confirmed 18586985 Problem Sciatica, right side M54.31 Active confirmed 10784132989160848 Problem Impaired fasting glucose R73.01 Active confirmed 269259979 Problem Chronic rheumatic arthritis M06.9 Active confirmed 26241547 Problem 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 Active confirmed 001124754 ALLERGIES Allergen (clinical drug ingredient) Drug/Non Drug Allergy do cumented on EMR Reaction Allergy Type Onset Date Status tiotropium Spiriva HandiHaler(NDC Code:[address]-86) Urina ry retention Drug Allergy Active Requip headaches Drug Allergy Active celecoxib Celebrex(NDC Code:[address]-97) affects motor a ctivities Drug Allergy Active ENCOUNTERS from 1940 to 2021-01-25 Encounter Location Date Provider Diagnosis [id number] [facility] [phone] [place] [address] Dec, Steven Santos DJD (degenerative joint dise ase), lumbar M47.816 ; Bilateral sacroiliitis M46.1 ; Osteoporosis M81.0 ; Non compliance w medication regimen Z91.14 ; Vitamin D deficiency E55.9 ; Constipation, chronic K59.09 ; 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 ; Renal cyst N28.1 ; Chronic rheumatic arthritis M06.9 ; Cervical spondylosis with radiculopathy M47.22 ; Ataxia R27.0 ; Asthma, mild persistent J45.30 ; Hypothyroidism E03.9 ; 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 ; Insomnia, unspecified type G47.00 ; Ischemic stroke I63.9 ; Thyroid nodule E04.1 ; Hypertension, essential I10 ; Tinea B35.9 ; B12 deficiency E53.8 ; Macrocy tosis without anemia D75.89 ; Osteoarthritis of knees, 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 ; Mixed hyperlipidemia E78.2 ; Migraine without aura and without status migrainosus, not intractable G43.009 ; Chronic obstructive pulmonary disease J44.9 ; Xerostomia R68.2 ; Colon cancer screening Z12.11 ; Breast cancer screening Z12.39 ; FIDEL (obstructive sleep apnea) G47.33 ; Impaired fasting glucose R73.01 and Personal history of tobacco use Z87.891 IMMUNIZATIONS Vaccine Route Administration Date Status Influenza (High Dose 65 & up) IM Intramuscular 2017 A dministered Influenza 18 yrs & older Flublok IM Intramuscular Feb 18, 2019 Administered Depo-Medrol 80mg Methylprednisolone Acetate IM Intramuscular Mar 28, 2020 Administered Depo-Medrol 80mg Methylprednisolone Acetate IM Intramuscular May 03, 2016 Administered Depo-Medrol 80mg Methylprednisolone Acetate IM Intramuscular May 07, 2016 Administered Toradol 60mg/2mL Ketorolac IM Intramuscular September 05, 2016 Admi nistered Influenza 6mo & up Fluzone IM Intramuscular Jan 26, 2010 Admi nistered Influenza (High Dose 65 & up) IM Intramuscular Jan 05, 2016 A dministered Depo-Medrol 80mg Methylprednisolone Acetate Unknown November 02, 2015 Administered Influenza (High Dose 65 & up) IM [...] Education Language: Question Answer Notes Languages spoken: Luxembourgish Uatsdin: Question Answer Notes Uatsdin 21 Hoahaoism Sexual Hx: Question Answer Notes Had sex [...] REASON FOR REFERRAL No Information VITAL SIGNS Weight 139 lbs Dec, Weight-kg 63.05 kg Dec, Height 62 in Dec, BMI 25.42 kg/m2 Dec, Heart Rate 77 /min Dec, Respiratory Rate 20 /min Dec, Temperature 99.0 degrees Fahrenheit Dec, Oximetry 95% Dec, Blood pressure systolic 124 mm Hg Dec, Blood pressure diastolic 68 mm Hg Dec, MEDICATIONS Medication SIG (Take, Route, Frequency, Duration) [...] at bedtime for 90 day(s) Active PROCEDURES from 1940 to 2021-01-25 Procedure Date Ordered Result Body Site Medication: Depo-Medrol 80mg IM (Methylprednisolone Acetate) 04-22-20 N/A RESULTS No Results REASON FOR VISIT buttocks pain shooting down her legs MEDICAL (GENERAL) HISTORY Type Description Date Medical History asthma, moderate persistent- December 2009 PFTs with borderline air trapping and mild airway resistance otherwise normal/04/2016 CXR hyperinflation/PAH Medical History hypothyroidism Medical History FIDEL/PLMS-palliated on BiPAP 03/[address] Shaina Cortes Medical History mild diastolic dysfunction o therwise normal TTE 02/18 Antecol//low risk stress echo, to 5.3 METS, [facility] [place] Medical History constipation, chronic Medical History restless [...] History grade 1 diastolic dysfunction by 06/2017 TTE-[facility] Medical History B hip mild OA by 01/28/20 XR Medical History +CCP >250, +RF 42 (< 15), -Andie 02/18/19 Surgical History vaginal hysterectomy c bladd er suspension surgery-Dr. Baptiste-[place] 09/15/2010 Surgical History left foot surgery 05/2014 [...] No Information FUNCTIONAL STATUS No Information ASSESSMENTS Encounter Date Diagnosis Assessment Notes Treatment Notes Treatm ent Clinical Notes Dec, DJD (degenerative joint disease), lumbar (ICD-10 - M47.816) C: MRI, PT vs LESI (+CCP >250, +RF 42 (<15), -Andie 02/18/19) 01/25/21 TE from px, given persistent "severe" radic pain; rochelle 100 TID to 200 TID and scheduled MRI 01/02/21 + DM 80 then 30/6D taper (sent to [facility] to strt 01/03), + inge 100 TID c cb update 01/0612/25/20 CRP/ESR 0.3/17), B27P 12/12/20 c/o ~3M B SIJ px (states present to some degree since 20s p skiing accident), using Flector patch c relief 12/12/20 SIJ/LS XR: SIJ WNL, mod DSN L1-5, s lithesis/compression 05/08/20 px requested repeat [facility] PT trial 03/28/20 10D acute on chronic R>>L paralumbar c sensory radic to buttock; therefore, DM 90 x 1then pred 60/6D, inge 100 TID and HC 2.5-5 TID prn (c dc tram) c update cb in 3D Contingency: MRI LS, LESI as below 02/08-03/10/20 [facility] PT s improvement 03/07/20 SS referrd to [facility] repeat LESI 01/28/20 LS spine XR: advanced ML spond s fx/sublux 11/2015 increased to 200/200/100 c improvement; then patient weaned self to 200 qhs 10/12/15 SS added gabapentin 100 TID c improved symptoms 01/2015 added Ultram 50 QD prn given has helped in past and would be safer than high-dose NSAID No improvement c LESI x 3 in [place] nor PT 11/2014 - H pylori Ab Dec, Bilateral sacroiliitis (ICD-10 - M46.1) as per lumbar spondyl Dec, Osteoporosis (ICD-10 - M81.0) Repeat BMD 01/2018 BMD 0/-0.5/5.7 c -0.3/-2.7/17% change c/w 09/2008 (but marked improvement c/w 02/2013; therefore, 01/2016 held Fosamax 70) 02/2013 -1.7/-2.8/4.9-done in [place], but no treatment started, therefore 10/2013 Tom started Fosamax 70 Dec, Non compliance w medication regimen (ICD-10 - Z9 1.14) 12/12/20 patient decided to receive ONLY from [facility]; called [facility] to dc account 12/11/20 49, 10.1, 41; Ca/D 600/400 BID STOPPED (was taking from Anish Nowak-who was ALSO giving her clopid 75, vit C B complex through [facility]-had dropped [facility] dated 3D prior on floor in exam room)-states had been getting meds from myself from [facility] and Anish Abreu from [facility] (unknown to me) Dec, Vitamin D deficiency (ICD-10 - E55.9) 3 servings dietary Ca daily, baseline Ca high 9s, favor mild 1HPT 12/25/20 50, 10.1, 65; ergo, D3 2K to 1K 12/11/20 49, 10.1, 41; Ca/D 600/400 BID STOPPED (was taking from Anish Nowak-who was ALSO giving her clopid 75, vit C B complex through [facility]-had dropped [facility] dated 3D prior on floor in exam room) 08/28/20 SPEP WNL, sIFE s MCB 08/09/20 sCa 9.9 03/28/20 37, 10.9, 40 on D3 2K; ergo, stopped Ca sup 11/2015 vitamin D 45, 8.9, PTH 71 on D3 2K Dec, Constipation, chronic (ICD-10 - K59.09) Stable on sen/doc BID 08/21/20 doc 100 BID prn to doc/sen BID Dec, 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 08/21/20 + Lidoderm patch prn; but i would not cover; ergo, + Flector patch q12H prn Dec, Renal cyst (ICD-10 - N28.1) no repeat imaging required 09/21/20 <RI ABD s/c: multiple benign B renal cysts, largest R 63 mm 08/09/20 CT AP L lower pole 20 mm dense nodule; ergo, check MRI abd s/c as recommended 04/18/20 B renal US: R upper to 53/57/51; L mid cyst to 19, 2 new upper , lower 11/2017 stable by renal US 11/2015 B renal US stable B renal cysts c/w 09/2014Dec, Chronic rheumatic arthritis (ICD-10 - M06.9) No active synovitis 02/2019 + RF 42 (<15), + CCP >250, -Andie 02/2019 CRP <0.3 Dec, Cervical spondylosis with radiculopathy (ICD-10 - M47.22) favor 2 cervicogenic DAVIS 10/19/20 CT cervical s: stable c/w 11/18/18, minimal C34 2 mm anterolith 04/02/19 Dr. Su [facility] felt "no compression", felt arm/leg pain "not from neck" and dc cervical collar, +PT c PRN RTO 01/28/20 cervical c F/E XR: stable cw 02/19/19 mod ML, focal early advanced C12, C6T1 s lithesis 02/18/19 given persistent L high cervical pain s weakness/numbness; checked inflammatory ferraro (which was cw inactive RA) and repeat CT neck s/c NOW and referred to Dr. Haynes, [facility] for opinion-apt 04/02/19 02/19/19 CT cerv and FE xray: s severe SS nor significant NFN and s instability 12/18/18 cervical MRI s/c: contrast enhancement at atlantoaxial articulation (11/18/18 CT cervical spine: dens and adjacent L C1 anterior arch erosion c narrowing of C1/2 FJ s cord compression, mild C3/4 CCS) 12/2018 no benefit c PT [facility] x 6W 01/31/19 no benefit c L C2-6 medial FB nor PATITO x 2-[facility] Dec, Ataxia (ICD-10 - R27.0) c recurrent falls obvious concern 2 AA instability 12/21/18 48h Holter unremarkable x runs SVT, longest 12 beats at 165-Slezka 12/18/18 MRI brain NAD, old R cerebellar lacunar, mod SVC/volume loss 12/09/18 BLE NCS/EMG: B length dependent sens peripheral neuropathy s radic/myopathy-Dr. 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 Yola Lopez dc asa 325, kept on clopid 75 01/26/18 MRI/MRA head, MRA neck 5 mm L cerebellar suabcute CVA and poor visulization of proximal L vertebral art (done for routine fu by Dr. Dill-[facility]) on asa 325; therefore, changed to clopid 75/asa 81 07/23/17, 07/21/17, 07/07/17 MRI brain no acute CVA, diffuse strophy, old R cerebellar lacunar CVA 06/2017 as per MH, ? threatened CVA aborted by tpa ([facility] SS: 3 prior to tpa: 2 dysarthria/1 language aphasia-NO concomitant DAVIS, came on rising from table) vs complex migraine; + atorva 40 and asa 81 to 325 07/06/17 CTA brain/neck no aneurysm/stenosis, small posterior L parietal meningioma stable since 2013Dec, Thyroid nodule (ICD-10 - E04.1) 01/23/18 CT C spine c incidental L 13 mm nodule Dec, Hypertension, essential (ICD-10 - I10) Stable on irbe 75 qAM 08/09/20 17/0.9, 4.3 favor elevated 2 cervical pain (chronic baseline BP 110-120s/70s) Dec, Tinea (ICD-10 - B35.9) Stable on keto 2% sh QD prn flares favor SD-stable on keto shampoo MWF 08/2017 2W entire scalp, headache; therefore, ketocon shampoo c DS oil recheck 2W c improvement Contingency: pulse terbinafine 250 QD x 7D, then q7D x2-3M Dec, B12 deficiency (ICD-10 - E53.8) hgb as per macro 02/2019 1661 on 500; therefore, decreased to 100 08/2017 356; therefore, + 500 QD 12/2016 RBC folate 453 Dec, Macrocytosis without anemia (ICD-10 - D75.89) 08/09/20 13.7, 104, 7.12, 324K 02/2019 13.8, 108, 9.9, 365K, r38/1.4 B12/folate as per B12 08/28/20 SPEP WNL, sIFE s MCB Dec, Osteoarthritis of knees, bilateral (ICD-10 - M17 .0) Stable on aceto 500 BID 01/27/18 will need to postpone upcoming TKR given recent CVA 08/2017 per patient request (daily instability and pain), referred to Dr. Senthil De La Fuente TKR-apt 09/09/17 Dec, Mixed hyperlipidemia (ICD-10 - E78.2) 08/2017 61/56/96, 48, <0.3 on atorva 40 07/2017 atorva 40 started p 06/2017 admission c hemiplegic migraine vs "threatened CVA" TSH as per hypo Dec, Migraine without aura and wi thout status migrainosus, not intractable (ICD-10 - G43.009) Stable on pro 10 QD px 07/2017 as per MH, ? threatened CVA aborted by tpa vs complex migraine; + atorva 40 and asa [address] Leo Anne + propranolol 10 BID, NT 25 QHS and loaded Depacon 1000 mg IV x 1 09/05/16 acute common migraine-patient requesting med for abortive rx-gave Toradol 30 IM X 1 Dec, Chronic obstructive pulmonary disease (ICD-10 - J44.9) Stable on Advair 500, monte 10 QHS 07/2017 flare c large RLL PN seen by 07/23/17 and improved 08/08/17 CXR Dec, Xerostomia (ICD-10 - R68.2) Stable on current regimen 08/2016 decrease inge 200 qhs to 100 qhs no benefit c clotrimazole juan QID x 5D Dec, Colon cancer screening (ICD-10 - Z12.11) Patient refuses screening endoscopy 10/2015 patient now remits to screening colonoscopy; therefore, referred to [facility], but patient then refused Dec, Breast cancer screening (ICD-10 - Z12.39) 03/2020 B C1 mammogram Dec, FIDEL (obstructive sleep apnea) (ICD-10 - G47.33) Encouraged compliance c BIPAP 25/01 follows with [facility] 07/15/16 Dec, Impaired fasting glucose (ICD-10 - R73.01) 08/28/20 5.7 09/2017 5.7 12/2016 6.0 11/2015 A1C 5.7 08/2017 WILD/creatinine 19 Dec, Personal history of tobacco use (ICD-10 - Z87.89 1) Encouraged to stay off PLAN OF TREATMENT Medication Medication Name Sig Start Date Stop Date Levalbuterol HCl 1.25 MG/3ML 3 ml Inhalation every 8 h rs prn dyspnea for 90 day(s) predniSONE 5 MG () 6 tabs po [...] nhalation every 4 hrs for 90 day(s) Treatment Notes Assessment Notes Clinical Notes Atlantoaxial instability as per cervical spon, ataxia Hypothyroidism 08/21/20 1.2, 1.111/2 019 1.1, 1.08/2017 3.3, 0. 3.7, 0. 3.2, 1.1 Ischemic stroke No recurrent symptom s on clopid 7512/18/18 MRI brain NAD, old R cerebellar lacunar, mod SVC/volume loss11/23/18 Dr. Yola Lopez dc asa 325, kept on clopid MRI/MRA head, MRA neck 5 mm L cerebellar suabcute CVA and poor visulization of proximal L vertebral art (done for routine fu by Dr. Dill-[facility]) on asa 325; therefore, changed to clopid 75/asa 8107/23/17, 07/21/17, 07/07/17 MRI brain no acute CVA, diffuse strophy, old R cerebellar lacunar CVA3/2017 as per , ? threatened CVA aborted by tpa ([facility] SS: 3 prior to tpa: 2 dysarthria/1 language aphasia-NO concomitant DAVIS, came on rising from table) vs complex migraine; + atorva 40 and asa 81 to CTA brain/neck no aneurysm/stenosis, small posterior L parietal meningioma stable since 2013 Insomnia, unspecified type Stable on cur rent regimen prn zolpidem 10 ~2x qW08/2016 increased zolpidem 5 to 10 given 5 ineffective Hypertension, essential Stable on irbe 7 5 qAM08/09/20 17/0.9, 4.3favor elevated 2 cervical pain (chronic baseline BP 110-120s/70s) Thyroid nodule 01/23/18 CT C spine c incidental L 13 mm nodule B12 deficiency hgb as per macro02/13 019 1661 on 500; therefore, decreased to 1005/2017 356; therefore, + 500 QD12/2016 RBC folate 453 Tinea Stable on keto 2% sh QD prn flaresfavor SD-stable on keto shampoo MW 2W entire scalp, headache; therefore, ketocon shampoo c DS oil recheck 2W c improvementContingency: pulse terbinafine 250 QD x 7D, then q7D x2-3M Personal history of tobacco use Encourag ed to stay off Asthma, mild persistent rx as per COPD Ataxia c recurrent fallsobv ious concern 2 AA instability12/21/18 48h Holter unremarkable x runs SVT, longest 12 beats at 165-Slezka12/18/18 MRI brain NAD, old R cerebellar lacunar, mod SVC/volume loss12/09/18 BLE NCS/EMG: B length dependent sens peripheral neuropathy s radic/myopathy-Dr. Pancho Lopez Chronic obstructive pulmonary disease St able on Advair 500, monte 10 QHS07/2017 flare c large RLL PN seen by 07/23/17 and improved 08/08/17 CXR DJD (degenerative joint disease), lumbar C: MRI, PT vs LESI (+CCP >250, +RF 42 (<15), -Andie 02/18/19)01/25/21 TE from px, given persistent "severe" radic pain; rochelle 100 TID to 200 TID and scheduled MRI01/02/21 + DM 80 then 30/6D taper (sent to [facility] to strt 01/03), + inge 100 TID c cb update / CRP/ESR 0.3/17), B27P12/12/20 c/o ~3M B SIJ px (states present to some degree since 20s p skiing accident), using Flector patch c relief12/12/20 SIJ/LS XR: SIJ WNL, mod DSN L1-5, s lithesis/compression05/08/20 px requested repeat [facility] PT trial03/28/20 10D acute on chronic R>>L paralumbar c sensory radic to buttock; therefore, DM 90 x 1then pred 60/6D, inge 100 TID and HC 2.5-5 TID prn (c dc tram) c update cb in 3DContingency: MRI LS, LESI as below02/08-03/10/20 [facility] PT s spremrjreen62/24/20 SS referrd to [facility] repeat LESI1 LS spine XR: advanced ML spond s fx/sublux11/2015 increased to 200/200/100 c improvement; then patient weaned self to 200 qhs10/12/15 SS added gabapentin 100 TID c improved onmmpxkj30/2015 added Ultram 50 QD prn given has helped in past and would be safer than high-dose NSAIDNo improvement c LESI x 3 in [place] nor PT11/2014 - H pylori Ab Migraine without aura and without status migrainosus, not in tractable Stable on pro 10 QD px07/2017 as per , ? threatened CVA aborted by tpa vs complex migraine; + atorva 40 and asa [address] Bailey Neuro + propranolol 10 BID, NT 25 QHS and loaded Depacon 1000 mg IV x acute common migraine-patient requesting med for abortive rx-gave Toradol 30 IM X 1 Bilateral sacroiliitis as per lumbar spo ndyl Colon cancer screening Patient refuses s creening endoscopy10/2015 patient now remits to screening colonoscopy; therefore, referred to [facility], but patient then refused Osteoporosis Repeat BMD 2015 BMD 0/-0.5/5.7 c -0.3/-2.7/17% change c/w 09/2008 (but marked improvement c/w 02/2013; therefore, 01/2016 held Fosamax 70)02/2013 -1.7/-2.8/4.9-done in [place], but no treatment started, therefore 10/2013 Tom started Fosamax 70 Xerostomia Stable on current re gimen08/2016 decrease inge 200 qhs to 100 qhsno benefit c clotrimazole juan QID x 5D Non compliance w medication regimen 12/12 patient decided to receive ONLY from [facility]; called [facility] to dc account12/11/20 49, 10.1, 41; Ca/D 600/400 BID STOPPED (was taking from Anish Nowak-who was ALSO giving her clopid 75, vit C B comple x through [facility]-had dropped [facility] dated 3D prior on floor in exam room)- states had been getting meds from myself from [facility] and Anish Abreu from [facility] (unknown to me) FIDEL (obstructive sleep apnea) Encouraged compliance c BIPAP 25/01follows with [facility] 07/15/16 Vitamin D deficiency 3 servings dietary Ca daily, baseline Ca high 9s, favor mild 1HPT12/25/20 50, 10.1, 65; ergo, D3 2K to 1K12/11/20 49, 10.1, 41; Ca/D 600/400 BID STOPPED (was taking from Anish Nowak-who was ALSO giving her clopid 75, vit C B complex through [facility]-had dropped [facility] dated 3D prior on floor in exam room)08/28/20 SPEP WNBruna Dwyer MC08/09/20 sCa 9.912/ 37, 10.9, 40 on D3 2K; ergo, stopped Ca sup11/2015 vitamin D 45, 8.9, PTH 71 on D3 2K Breast cancer screening 03/2020 B C1 ahsan mogram Constipation, chronic Stable on sen/doc BID08/21/20 doc 100 BID prn to doc/sen BID Intercostal neuropathy recurrent L C67 a nterior08/21/20 + Lidoderm patch prn; but i would not cover; ergo, + Flector patch q12H prn Impaired fasting glucose 08/28/20 5.76/20 18 5. 6.11/2015 A1C 5. 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 Senthil Conn R TKR-apt 09/09/17 Renal cyst no repeat imaging re quired09/21/20 <RI ABD s/c: multiple benign B renal cysts, largest R 63 mm08/09/20 CT AP L lower pole 20 mm dense nodule; ergo, check MRI abd s/c as recommended04/18/20 B renal US: R upper to 53/57/51; L mid cyst to 19, 2 new upper , lower / stable by renal US11/2015 B renal US stable B renal cysts c/w 09/2014 Chronic rheumatic arthritis No active sy gozwayv81/2019 + RF 42 (<15), + CCP >250, -iANA02/2019 CRP <0.3 Cervical spondylosis with radiculopathy favor 2 cervicogenic HA10/19/20 CT cervical s: stable c/w 11/18/18, minimal C34 2 mm uvjcfhxzmf06/20/19 Dr. Su [facility] felt "no compression", felt arm/leg pain "not from neck" and dc cervical collar, +PT c PRN RTO1 cervical c F/E XR: stable cw 02/19/19 mod ML, focal early advanced C12, C6T1 s kcadavwz15/7/19 given persistent L high cervical pain s weakness/numbness; checked inflammatory ferraro (which was cw inactive RA) and repeat CT neck s/c NOW and referred to Dr. Haynes [facility] for opinion-apt 04/02/1911/8/19 CT cerv and FE xray: s severe SS nor significant NFN and s instability12/18/18 cervical MRI s/c: contrast enhancement at atlantoaxial articulation (11/18/18 CT cervical spine: dens and adjacent L C1 anterior arch erosion c narrowing of C1/2 FJ s cord compression, mild C3/4 CCS)12/2018 no benefit c PT [facility] x 6W01/31/19 no benefit c L C2-6 medial FB nor PATITO x 2-[facility] Treatment Notes Test Name Order Date [facility] MRI Spine, L.S. without con 2021-01-02 Next Appt Details Reason: Provider Name:Tete Wiggins, 11:30:00 AM, [address] [facility], , [place], [address], Provider Name:Steven Santos, 2021-05-04 1 0:15:00 AM, [address] [facility], , [place], [address], Insurance Providers Payer Name Payer Address Payer Phone Insured Name Patient Relati onship to Insured Coverage Start Date Coverage End Date MEDICARE Part A and B [address] [facility] [id number] [phone] PRISCILA MASON BCBS [place] [facility] PPO [phone] [facility] [place] [address] PRISCILA MASON
--- OUTSIDE RECORDS SUMMARY | 2021-02-09 23:26 | CCD ---
Author Author [facility] Organization [facility] em[facility] Address Unknown Phone Unavailable Care Team Providers Care Tram Inspector Name Role Phone Tete Wiggins Unavailable PROBLEMS Type Condition ICD9-CM Code [id number] Code Onset Dates Condition S tatus W/U Status Risk SNOMED Code Notes Problem DJD (degenerative joint disease), cervical M50.30 Active confirmed 03405576 Problem Chronic obstructive pulmonary disease J44.9 Ac tive confirmed 53058725 Problem Insomnia, unspecified type G47.00 Active confirmed 221426668 Problem Allergic rhinitis, unspecifi ed allergic rhinitis trigger, unspecified rhinitis seasonality J30.9 Active confirmed 02075202 Problem Macrocytosis without anemia D75.89 Active confirmed 787183550 Problem Migraine without aura and without status migrain osus, not intractable G43.009 Active confirmed 154598249 Problem Constipation, chronic K59.09 Active confirmed 491769708 Problem 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 Active confirmed 358301757 Problem Breast cancer screening Z12.39 Active confirmed 283663912 Problem Cervical spondylosis M47.812 Active confirmed 196627152 Problem Vitamin D deficiency E55.9 Active confirmed 22701043 Problem Renal cyst N28.1 Active confirmed 02570309 Problem Colon cancer screening Z12.11 Active confirmed 342694313 Problem COPD exacerbation J44.1 Active confirmed 19 8141856 Problem Mixed hyperlipidemia E78.2 Active confirmed 538750953 Problem Chronic obstructive pulmonary disease with acute exacerbat ion J44.1 Active confirmed 940686631 Problem Asthma, mild persistent J45.30 Active confirmed 270709977 Problem Rosacea L71.9 Active confirmed 267149176 Problem FIDEL (obstructive sleep apnea) G47.33 Active confirm ed 23650512 Problem Thyroid nodule E04.1 Active confirmed 52774 5005 Problem DJD (degenerative joint disease), lumbar M47.816 Active confirmed 419100222 Problem Hypertension, essential I10 Active confirmed 17083260 Problem Osteoarthritis of knees, 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 Activ e confirmed 903597445 Problem Spondylosis of cervical region without myelopath y or radiculopathy M47.812 Active confirmed 182077392 Problem Hypothyroidism E03.9 Active confirmed 59947 008 Problem Cervical spondylosis with radiculopathy M47.22 Active confirmed 075378825 Problem Osteoporosis M81.0 Active confirmed 5659114 6 Problem Hematoma T14.8XXA Active confirmed 351778508 Problem Fall, subsequent encounter W19.XXXD Active confirme d 0131288 Problem Ataxia R27.0 Active confirmed 41139895 Problem Bilateral sacroiliitis M46.1 Active confirmed 02463921200903565 Problem Xerostomia R68.2 Active confirmed 23729638 Problem Coccydynia M53.3 Active confirmed 87157136 Problem B12 deficiency E53.8 Active confirmed 93434 4004 Problem Personal history of tobacco use Z87.891 Active confirmed 1868954561152 Problem Ischemic stroke I63.9 Active confirmed 4225 92864 Problem Sciatica, left side M54.32 Active confirmed 72995991 Problem Sciatica, right side M54.31 Active confirmed 24264647127306644 Problem Impaired fasting glucose R73.01 Active confirmed 123010077 Problem Chronic rheumatic arthritis M06.9 Active confirmed 23824398 Problem 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 Active confirmed 859519947 ALLERGIES Allergen (clinical drug ingredient) Drug/Non Drug Allergy do cumented on EMR Reaction Allergy Type Onset Date Status tiotropium Spiriva HandiHaler(NDC Code:[address]-58) Urina ry retention Drug Allergy Active Requip headaches Drug Allergy Active celecoxib Celebrex(NDC Code:[address]-90) affects motor a ctivities Drug Allergy Active ENCOUNTERS from 1940 to 2021-02-01 Encounter Location Date Provider Diagnosis [place] [address] [facility] [phone] [place] [address] 18 Jan, 2021 Tete Servage 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 and DJD (degenerative joint disease), lumbar M47.816 IMMUNIZATIONS Vaccine Route Administration Date Status Depo-Medrol [...] Adult 0.5mL Pneumovax 23 Unknown Feb 04 Administered TDAP 0.5mL (Boostrix) IM Intramuscular June [...] Education Language: Question Answer Notes Languages spoken: East Timorese Buddhist: Question Answer Notes Buddhist 21 Hindu Sexual Hx: Question Answer Notes Had sex [...] FOR REFERRAL No Information VITAL SIGNS Weight 145 lbs Jan, Weight-kg 65.77 kg Jan, Height 62 in Jan, BMI 26.52 kg/m2 Jan, Heart Rate 71 /min Jan, Respiratory Rate 20 /min Jan, Temperature 98.8 degrees Fahrenheit Jan, Oximetry 98 Jan, Blood pressure systolic 120 mm Hg Jan, Blood pressure diastolic 72 mm Hg Jan, MEDICATIONS Medication SIG (Take, Route, Frequency, Duration) [...] Information RESULTS No Results REASON FOR VISIT chronic back pain MEDICAL (GENERAL) HISTORY Type Description Date Medical History asthma, moderate persistent- December 2009 PFTs with borderline air trapping and mild airway resistance otherwise normal/04/2016 CXR hyperinflation/PAH Medical History hypothyroidism Medical History FIDEL/PLMS-palliated on BiPAP 03/[address] Shaina Cortes Medical History mild diastolic dysfunction o therwise normal TTE 02/18 Antecol//low risk stress echo, to 5.3 METS, LVEF 60%-Stevan Medical History constipation, chronic Medical History restless [...] History grade 1 diastolic dysfunction by 06/2017 TTE-Rc Medical History B hip mild OA by 01/28/20 XR Medical History +CCP >250, +RF 42 (< 15), -Andie 02/18/19 Surgical History vaginal hysterectomy c bladd er suspension surgery-Dr. Baptiste-[place] 09/15/2010 Surgical History left foot surgery 05/2014 [...] Notes Treatment Notes Treatm ent Clinical Notes Jan, Intercostal neuropathy (ICD-10 - G58.0) pt states they work well Jan, DJD (degenerative joint disease), lumbar (ICD-10 - M47.816) clarified dose with pt she is going to take 2 tablets 3 times a day, continue to use her heating pad, and will arrange to have the MRI order completed. She has a follow-up with Dr. Santos already scheduled PLAN OF TREATMENT Medication Medication Name Sig Start Date Stop Date Gabapentin 100 MG 1 capsule Orally tid for 90 day(s) Flector 1.3 % 1 patch Externally Twice a day for 30 Days Treatment Notes Assessment Notes Clinical Notes Intercostal neuropathy pt states they wo rk well DJD (degenerative joint disease), lumbar clarified dose with pt she is going to take 2 tablets 3 times a day, continue to use her heating pad, and will arrange to have the MRI order completed. She has a follow-up with Dr. Santos already scheduled Next Appt Details Dr. Santos as scheduled Reason: Provider Name:Steven Santos, 2021-05-04 1 0:15:00 AM, [address] [facility], , [place], [address], Insurance Providers Payer Name Payer Address Payer Phone Insured Name Patient Relati onship to Insured Coverage Start Date Coverage End Date BCBS [place] [facility] PPO [phone] [facility] Listar [facility] [place] [address] PRISCILA MASON MEDICARE Part A and B [address] [facility] [address] [phone] PRISCILA MASON self
--- OUTSIDE RECORDS SUMMARY | 2021-02-09 23:27 | CCD ---
Author Author [facility] Organization [facility] ems Address Unknown Phone Unavailable Care Team Providers Care Ict Support Engineer Name Role Phone Steven Santos Unavailable PROBLEMS Type Condition ICD9-CM Code SAZ23-ZI Code Onset Dates Condition S tatus W/U Status Risk SNOMED Code Notes Problem DJD (degenerative joint disease), cervical M50.30 Active confirmed 98790308 Problem Chronic obstructive pulmonary disease J44.9 Ac tive confirmed 34059105 Problem Insomnia, unspecified type G47.00 Active confirmed 872131657 Problem Allergic rhinitis, unspecifi ed allergic rhinitis trigger, unspecified rhinitis seasonality J30.9 Active confirmed 01239875 Problem Macrocytosis without anemia D75.89 Active confirmed 558266563 Problem Migraine without aura and without status migrain osus, not intractable G43.009 Active confirmed 776880556 Problem Constipation, chronic K59.09 Active confirmed 038673333 Problem 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 Active confirmed 925679004 Problem Breast cancer screening Z12.39 Active confirmed 884879656 Problem Cervical spondylosis M47.812 Active confirmed 628485841 Problem Vitamin D deficiency E55.9 Active confirmed 31732249 Problem Renal cyst N28.1 Active confirmed 64439759 Problem Colon cancer screening Z12.11 Active confirmed 606130494 Problem COPD exacerbation J44.1 Active confirmed 19 4972835 Problem Mixed hyperlipidemia E78.2 Active confirmed 143070711 Problem Chronic obstructive pulmonary disease with acute exacerbat ion J44.1 Active confirmed 361130324 Problem Asthma, mild persistent J45.30 Active confirmed 259600678 Problem Rosacea L71.9 Active confirmed 583543603 Problem FIDEL (obstructive sleep apnea) G47.33 Active confirm ed 10463904 Problem Thyroid nodule E04.1 Active confirmed 65955 5005 Problem DJD (degenerative joint disease), lumbar M47.816 Active confirmed 292521682 Problem Hypertension, essential I10 Active confirmed 48642710 Problem Osteoarthritis of knees, 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 Activ e confirmed 964150744 Problem Spondylosis of cervical region without myelopath y or radiculopathy M47.812 Active confirmed 040610567 Problem Hypothyroidism E03.9 Active confirmed 68614 008 Problem Cervical spondylosis with radiculopathy M47.22 Active confirmed 233029687 Problem Osteoporosis M81.0 Active confirmed 3493505 6 Problem Hematoma T14.8XXA Active confirmed 118963779 Problem Fall, subsequent encounter W19.XXXD Active confirme d 1409382 Problem Ataxia R27.0 Active confirmed 77644202 Problem Bilateral sacroiliitis M46.1 Active confirmed 25394768367304986 Problem Xerostomia R68.2 Active confirmed 83557244 Problem Coccydynia M53.3 Active confirmed 53142765 Problem B12 deficiency E53.8 Active confirmed 92512 4004 Problem Personal history of tobacco use Z87.891 Active confirmed 7884888611082 Problem Ischemic stroke I63.9 Active confirmed 4225 18003 Problem Sciatica, left side M54.32 Active confirmed 26852322 Problem Sciatica, right side M54.31 Active confirmed 49431379603329211 Problem Impaired fasting glucose R73.01 Active confirmed 047181217 Problem Chronic rheumatic arthritis M06.9 Active confirmed 21400758 Problem 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 Active confirmed 178952395 ALLERGIES Allergen (clinical drug ingredient) Drug/Non Drug Allergy do cumented on EMR Reaction Allergy Type Onset Date Status tiotropium Spiriva HandiHaler(NDC Code:[address]-24) Urina ry retention Drug Allergy Active Requip headaches Drug Allergy Active celecoxib Celebrex(NDC Code:[address]-49) affects motor a ctivities Drug Allergy Active ENCOUNTERS from 1940 to 2020-12-26 Encounter Location Date Provider Diagnosis [facility] [address] [facility] [phone] [place] [address] 10 Dec, 2020 Steven Santos IMMUNIZATIONS Vaccine Route Administration Date Status Toradol 60mg/2mL Ketorolac IM Intramuscular September 05, 2016 Admi nistered Influenza 18 yrs & older Flublok IM Intramuscular Feb 18, 2019 Administered Depo-Medrol 80mg Methylprednisolone Acetate IM Intramuscular Mar 28, 2020 Administered Depo-Medrol 80mg Methylprednisolone Acetate Unknown November [...] Education Language: Question Answer Notes Languages spoken: Uzbek Yarsani: Question Answer Notes Yarsani 21 Jewish Sexual Hx: Question Answer Notes Had sex [...] Once a day for 90 day(s) Active Propranolol HCl 10 MG 1 tablet Orally Once a day for 90 day(s) Active [facility] Vitamin D 2000 UNIT 1 tab Orally qd for 90 day(s) Active Atorvastatin Calcium 40 MG 1 tablet Orally Once a day for 90 day(s) Active Advair Diskus 500-50 MCG/DOSE 1 Inhalation Twice a day for 90 day(s) Active Ventolin HFA 108 (90 Base) MCG/ACT 2 puffs as needed I nhalation every 4 hrs for 90 day(s) Active Montelukast Sodium 10 MG 1 tablet Orally at bedtime for 90 day(s) Active Gabapentin 100 MG 1 capsule Orally tid for 30 day(s) Active Sennosides-Docusate Sodium 8.6-50 MG 1 cap Orally bid for 90 day(s) Active Flector 1.3 % 1 patch Externally Twice a day for 30 Days Active Ketoconazole 2 % as directed Externally daily -leave on scalp and forehead x 5 minutes for 30 day(s) Active APAP 325 MG 1-2 tablet as needed Orally bid for 90 day(s) Active Levalbuterol HCl 1.25 MG/3ML 3 ml Inhalation every 8 h rs prn dyspnea for 90 day(s) Active Triamcinolone Acetonide 0.1 % 1 application to oral le geovani mouth Twice a day for 14 days Oct, Active Irbesartan 75 MG 1 tablet Orally every morning for 90 day(s) Active May Have - as directed-hard cervical co llar & soft cervical collar topically Daily at all times while not supine, soft collar for resting Active Levothyroxine Sodium 75 MCG 1 tablet on an empty stoma ch in the morning Orally Once a day for 90 day(s) Active PROCEDURES No Information RESULTS No Results REASON FOR VISIT xray results MEDICAL (GENERAL) HISTORY Type Description Date Medical History asthma, moderate persistent- December 2009 PFTs with borderline air trapping and mild airway resistance otherwise normal/04/2016 CXR hyperinflation/PAH Medical History hypothyroidism Medical History FIDEL/PLMS-palliated on BiPAP 03/[address] Shaina Cortes Medical History mild diastolic dysfunction o therwise normal TTE 02/18 Antecol//low risk stress echo, to 5.3 METS, LVEF 60%-[facility] Medical History insomnia Medical History restless leg syndrome Medical History impaired fasting glucose Medical History migraine headaches, common t ype-flared 08/2013 p head trauma- 09/10/13 MRI/MRA brain c mild strophy Medical History nephrolithiasis, right x1 seen by October 13 CT Medical History cervical spondylosis-ML c gr mayra 1 anterolithesis C3/4, C4/5, C5/6 s spinal stenosis by 01/2018 CT Medical History lumbar DJD-advanced ML DJD m ild dextroconvex curvature by 10/2016 xray Medical History ho possible threatened CVA a borted (NIH SS 3 prior to tpa (2 dysarthria/1 language aphasia-NO concomitant DAVIS, came on rising from table)) by tpa vs complex migraine 06/2017/01/26/18 MRI/MRA head, MRA neck incidentally detected 5 mm L cerebellar suabcute CVA and poor visulization of proximal L vertebral art Medical History grade 1 diastolic dysfunction by 06/2017 TTE-[facility] Medical History B hip mild OA by 01/28/20 XR Medical History +CCP >250, +RF 42 (<15), -Andie 02/18/19 Surgical History vaginal hysterectomy c bladd er suspension surgery-Dr. Baptiste-[place] 09/15/2010 Surgical History left foot surgery 05/2014 [...] 100 MG 1 capsule Orally tid for 30 day(s) Irbesartan 75 MG 1 tablet Orally every morning for 90 day(s) Montelukast Sodium 10 MG 1 tablet Orally at bedtime for 90 day(s ) Ventolin HFA 108 (90 Base) MCG/ACT 2 puffs as needed I nhalation every 4 hrs for 90 day(s) Flector 1.3 % 1 patch Externally Twice a day for 30 Days Propranolol HCl 10 MG 1 tablet Orally Once a day for 90 day(s) [facility] Vitamin D 2000 UNIT 1 tab Orally qd for 90 day(s) Atorvastatin Calcium 40 MG 1 tablet Orally Once a day for 90 day (s) Ketoconazole 2 % as directed Externally daily -leave on scalp and forehead x 5 minutes for 30 day(s) Advair Diskus 500-50 MCG/DOSE 1 Inhalation Twice a day for 90 da y(s) Levalbuterol HCl 1.25 MG/3ML 3 ml Inhalation every 8 h rs prn dyspnea for 90 day(s) May Have - as directed-hard cervical co llar & soft cervical collar topically Daily at all times while not supine, soft collar for resting Sennosides-Docusate Sodium 8.6-50 MG 1 cap Orally bid for 90 day (s) Levothyroxine Sodium 75 MCG 1 tablet on an empty stoma ch in the morning Orally Once a day for 90 day(s) APAP 325 MG 1-2 tablet as needed Orally bid for 90 day(s) Cyanocobalamin 100 MCG 1 tablet Orally Once a day for 90 day(s) Clopidogrel Bisulfate 75 MG 1 tablet Orally Once a day for 90 da y(s) Next Appt Details Provider Name:Steven Santos, 2021-05-04 1 0:15:00 AM, [address] [facility], , [place], [address], Insurance Providers Payer Name Payer Address Payer Phone Insured Name Patient Relati onship to Insured Coverage Start Date Coverage End Date MEDICARE Part A and B [facility] [address] [facility] [phone] PRISCILA MASON BCBS [place] [facility] PPO [phone] [facility] [place] [id number] PRISCILA MASON
--- OUTSIDE RECORDS SUMMARY | 2021-02-09 23:27 | CCD ---
Author Author [facility] Syst ems Organization [facility] ems Address Unknown Phone Unavailable Care Team Providers Care Cashier And Waiter/Waitress Name Role Phone Steven Santos Unavailable PROBLEMS Type Condition ICD9-CM Code ZDX96-FI Code Onset Dates Condition S tatus W/U Status Risk SNOMED Code Notes Problem DJD (degenerative joint disease), cervical M50.30 Active confirmed 52848949 Problem Chronic obstructive pulmonary disease J44.9 Ac tive confirmed 67627864 Problem Insomnia, unspecified type G47.00 Active confirmed 973282204 Problem Allergic rhinitis, unspecifi ed allergic rhinitis trigger, unspecified rhinitis seasonality J30.9 Active confirmed 08938303 Problem Macrocytosis without anemia D75.89 Active confirmed 599466040 Problem Migraine without aura and without status migrain osus, not intractable G43.009 Active confirmed 669258032 Problem Constipation, chronic K59.09 Active confirmed 130524715 Problem 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 Active confirmed 791529441 Problem Breast cancer screening Z12.39 Active confirmed 795188747 Problem Cervical spondylosis M47.812 Active confirmed 255000654 Problem Vitamin D deficiency E55.9 Active confirmed 90537573 Problem Renal cyst N28.1 Active confirmed 57325811 Problem Colon cancer screening Z12.11 Active confirmed 932348459 Problem COPD exacerbation J44.1 Active confirmed 19 9788741 Problem Mixed hyperlipidemia E78.2 Active confirmed 730358750 Problem Chronic obstructive pulmonary disease with acute exacerbat ion J44.1 Active confirmed 736950065 Problem Asthma, mild persistent J45.30 Active confirmed 291442703 Problem Rosacea L71.9 Active confirmed 257107328 Problem FIDEL (obstructive sleep apnea) G47.33 Active confirm ed 43647625 Problem Thyroid nodule E04.1 Active confirmed 72086 5005 Problem DJD (degenerative joint disease), lumbar M47.816 Active confirmed 078223766 Problem Hypertension, essential I10 Active confirmed 51337688 Problem Osteoarthritis of knees, 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 Activ e confirmed 873619307 Problem Spondylosis of cervical region without myelopath y or radiculopathy M47.812 Active confirmed 653594070 Problem Hypothyroidism E03.9 Active confirmed 09743 008 Problem Cervical spondylosis with radiculopathy M47.22 Active confirmed 695781787 Problem Osteoporosis M81.0 Active confirmed 1701145 6 Problem Hematoma T14.8XXA Active confirmed 165328472 Problem Fall, subsequent encounter W19.XXXD Active confirme d 5630825 Problem Ataxia R27.0 Active confirmed 99338768 Problem Bilateral sacroiliitis M46.1 Active confirmed 55404862757396924 Problem Xerostomia R68.2 Active confirmed 91273169 Problem Coccydynia M53.3 Active confirmed 83301550 Problem B12 deficiency E53.8 Active confirmed 33534 4004 Problem Personal history of tobacco use Z87.891 Active confirmed 9013952299151 Problem Ischemic stroke I63.9 Active confirmed 4225 56948 Problem Sciatica, left side M54.32 Active confirmed 73812425 Problem Sciatica, right side M54.31 Active confirmed 95350450711704080 Problem Impaired fasting glucose R73.01 Active confirmed 128561878 Problem Chronic rheumatic arthritis M06.9 Active confirmed 02321620 Problem 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 Active confirmed 170631503 ALLERGIES Allergen (clinical drug ingredient) Drug/Non Drug Allergy do cumented on EMR Reaction Allergy Type Onset Date Status tiotropium Spiriva HandiHaler(NDC Code:[address]-11) Urina ry retention Drug Allergy Active Requip headaches Drug Allergy Active celecoxib Celebrex(NDC Code:[address]-15) affects motor a ctivities Drug Allergy Active ENCOUNTERS from 1940 to 2021-01-04 Encounter Location Date Provider Diagnosis [facility] [address] [phone] [place] [address] Dec, Steven Santos DJD (degenerative joint dise [...] Z87.891 IMMUNIZATIONS Vaccine Route Administration Date Status Toradol [...] Education Language: Question Answer Notes Languages spoken: Bulgarian Voodoo: Question Answer Notes Voodoo 21 [employer] Sexual Hx: Question Answer Notes Had sex [...] Notes Start Da te End Date Status Ventolin HFA 108 (90 Base) MCG/ACT 2 puffs as needed I nhalation every 4 hrs for 90 day(s) Active Montelukast Sodium 10 MG 1 tablet Orally at bedtime for 90 day(s) Active Advair Diskus 500-50 MCG/DOSE 1 Inhalation Twice a day for 90 day(s) Active Levothyroxine Sodium 75 MCG 1 tablet on an empty stoma ch in the morning Orally Once a day for 90 day(s) Active Cyanocobalamin 100 MCG 1 tablet Orally Once a day for 90 day(s) Active Vitamin E 400 UNIT 1 capsule Orally Once a day for 30 day(s) Active Irbesartan 75 MG 1 tablet Orally every morning for 90 day(s) Active May Have - as directed-hard cervical co llar & soft cervical collar topically Daily at all times while not supine, soft collar for resting Active predniSONE 5 MG () 6 tabs po x 1 day, then 5, 4 , 3, 2, 1, then stop Orally Daily with food for 6 days Dec, Activ e Ketoconazole 2 % as directed Externally daily -leave on scalp and forehead x 5 minutes for 30 day(s) Active APAP 325 MG 1-2 tablet as needed Orally bid for 90 day(s) Active Flector 1.3 % 1 patch Externally Twice a day for 30 Days Active Propranolol HCl 10 MG 1 tablet Orally Once a day for 90 day(s) Active Sennosides-Docusate Sodium 8.6-50 MG 1 cap Orally bid for 90 day(s) Active Cholecalciferol 25 MCG (1000 UT) 1 capsule Orally Once a day for 90 day(s) Dec, Active Clopidogrel Bisulfate 75 MG 1 tablet Orally Once a day for 90 day(s) Active Levalbuterol HCl 1.25 MG/3ML 3 ml Inhalation every 8 h rs prn dyspnea for 90 day(s) Active Atorvastatin Calcium 40 MG 1 tablet Orally Once a day for 90 day(s) Active Gabapentin 100 MG 1 capsule Orally tid for 90 day(s) Active PROCEDURES from 1940 to 2021-01-04 Procedure Date Ordered Result Body Site Medication: [...] risk stress echo, to 5.3 METS, LVEF 60%-[facility] Medical History constipation, chronic Medical History restless [...] grade 1 diastolic dysfunction by 06/2017 TTE-[facility] Medical History B hip mild OA by 01/28/20 XR Medical History +CCP >250, +RF 42 (< 15), -Andie 02/18/19 Surgical History vaginal hysterectomy c bladd er suspension surgery-Dr. Baptiste-[place] 09/15/2010 Surgical History left foot surgery 05/2014 [...] (+CCP >250, +RF 42 (<15), -Andie 02/18/19) 01/02/21 + DM 80 then 30/6D taper (sent to [facility] to strt 01/03), + inge 100 TID c cb update 01/0612/25/20 CRP/ESR 0.3/), B27P 12/12/20 c/o ~3M B SIJ px (states present to some degree since 20s p skiing accident), using Flector patch c relief 12/12/20 SIJ/LS XR: SIJ WNL, mod DSN L1-5, s lithesis/compression 05/08/20 px requested repeat [facility] PT trial 03/28/20 10D acute on chronic R>>L paralumbar c sensory radic to buttock; therefore, DM 90 x 1then pred 60/6D, inge 100 TID and HC 2.5-5 TID prn (c dc tram) c update cb in 3D Contingency: MRI LS, LESI as below 02/08-03/10/20 [facility] PT s improvement 03/07/20 SS referrd [...] No improvement c LESI x 3 in [place] nor PT 11/2014 - H pylori Ab Dec, Bilateral sacroiliitis (ICD-10 - M46.1) as per lumbar spondyl Dec, Osteoporosis (ICD-10 - M81.0) Repeat BMD 01/2018 BMD 0/-0.5/5.7 c -0.3/-2.7/17% change c/w 09/2008 (but marked improvement c/w 02/2013; therefore, 01/2016 held Fosamax 70) 02/2013 -1.7/-2.8/4.9-done in [place], but no treatment started, therefore 10/2013 Tom started Fosamax 70 Dec, Non compliance w medication regimen (ICD-10 - Z9 1.14) 12/12/20 patient decided to receive ONLY from [facility]; called [facility] to dc account 12/11/20 49, 10.1, 41; Ca/D 600/400 BID STOPPED (was taking from Anish Nowak-who was ALSO giving her clopid 75, vit C B complex through [facility]-had dropped [facility] dated 3D prior on floor in exam room)-states had been getting meds from myself from [facility] and Anish Abreu from [facility] (unknown [...] C34 2 mm anterolith [facility] "[facility]", felt arm/leg pain "not from neck" and dc cervical collar, +PT c PRN RTO 01/28/20 cervical c F/E XR: stable cw 02/19/19 mod ML, focal early advanced C12, C6T1 s lithesis 02/18/19 given persistent L high cervical pain s weakness/numbness; checked inflammatory ferraro (which was cw inactive RA) and repeat CT neck s/c NOW and referred to Dr. Haynes, [facility] for opinion-apt 04/02/19 02/19/19 CT cerv and [...] art (done for routine fu by Dr. 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 threatened CVA aborted [...] to Dr. Senthil Conn R TKR-apt 09/09/17 Dec, Mixed hyperlipidemia (ICD-10 - [...] remits to screening colonoscopy; therefore, referred to [facility], but patient then refused Dec, Breast cancer [...] Medication Name Sig Start Date Stop Date Ketoconazole 2 % as directed Externally daily -leave on scalp and forehead x 5 minutes for 30 day(s) Levalbuterol HCl 1.25 MG/3ML 3 ml Inhalation [...] while not supine, soft collar for resting APAP 325 MG 1-2 tablet as needed Orally bid for 90 day(s) Advair Diskus 500-50 MCG/DOSE 1 Inhalation Twice a day for 90 da y(s) Flector 1.3 % 1 patch Externally Twice a day for 30 Days Cyanocobalamin 100 MCG 1 tablet Orally Once a day for 90 day(s) Irbesartan 75 MG 1 tablet Orally every morning for 90 day(s) Atorvastatin Calcium 40 MG 1 tablet Orally Once a day for 90 day (s) Propranolol HCl 10 MG 1 tablet Orally Once a day for 90 day(s) Levothyroxine Sodium 75 MCG 1 tablet on an empty stoma ch in the morning Orally Once a day for 90 day(s) Cholecalciferol 25 MCG (1000 UT) 1 capsule Orally Once a day for 90 day(s) Dec, Clopidogrel Bisulfate 75 MG 1 tablet Orally Once a day for 90 da y(s) Gabapentin 100 MG 1 capsule Orally tid for 90 day(s) Sennosides-Docusate Sodium 8.6-50 MG 1 cap Orally bid for 90 day (s) Ventolin HFA 108 (90 Base) MCG/ACT 2 puffs as needed I nhalation every 4 hrs for 90 day(s) Montelukast Sodium 10 MG 1 tablet Orally at bedtime for 90 day(s ) Treatment Notes Assessment Notes Clinical Notes Atlantoaxial [...] art (done for routine fu by Dr. Dill[facility]) on asa 325; therefore, changed to clopid [...] 019 1661 on 500; therefore, decreased to 1005 356; therefore, + 500 QD12/2016 RBC folate [...] LESI (+CCP >250, +RF 42 (<15), -Andie 02/18/19)01/02/21 + DM 80 then 30/6D taper (sent to [facility] to strt 01/03), + inge 100 TID c cb update CRP/ESR 0.3/17), B27P12/12/20 c/o ~3M B SIJ px (states present to some degree since 20s p skiing accident), using Flector patch c relief12/12/20 SIJ/LS XR: SIJ WNL, mod DSN L1-5, s lithesis/compression05/08/20 px requested repeat [facility] PT trial03/28/20 10D acute on chronic R>>L paralumbar c sensory radic to buttock; therefore, DM 90 x 1then pred 60/6D, inge 100 TID and HC 2.5-5 TID prn (c dc tram) c update cb in 3DContingency: MRI LS, LESI as below02/08-03/10/20 [facility] PT s xboxpvbjdfn57/24/20 SS referrd to [facility] repeat LESI1 LS spine XR: advanced ML spond s fx/sublux11/2015 increased to 200/200/100 c improvement; then patient weaned self to 200 qhs10/12/15 SS added gabapentin 100 TID c improved aunvgcsy53/2015 added Ultram 50 QD prn given has helped in past and would be safer than high-dose NSAIDNo improvement c LESI x 3 in [place] nor PT11/2014 - H pylori Ab Migraine [...] therefore, 01/2016 held Fosamax 70)02/2013 -1.7/-2.8/4.9-done in [place], but no treatment started, therefore 10/2013 Tom started Fosamax 70 Xerostomia Stable on current re gimen08/2016 decrease inge 200 qhs to 100 qhsno benefit c clotrimazole juan QID x 5D Non compliance w medication regimen 12/12 patient decided to receive ONLY from [facility]; called [facility] to dc account12/11/20 49, 10.1, 41; Ca/D 600/400 BID STOPPED (was taking from Anish Nowak-who was ALSO giving her clopid 75, vit C B comple x through [facility]-had dropped [facility] dated 3D prior on floor in exam room)- states had been getting meds from myself from [facility] and Anish Abreu from [facility] (unknown [...] prior on floor in exam room)08/28/20 SPEP Bruna CHAIREZ MCB4 sCa 9.912/ 37, 10.9, 40 on D3 [...] 9.9, 365K, r38/1.4B12/folate as per B1208/28/20 SPEP WNL, Bruna hernandez MCB Mixed hyperlipidemia 08/2017 61/56/96, 48 , <0.3 on atorva atorva 40 started p 06/2017 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 Su [facility] felt "no compression", felt arm/leg pain "not from neck" and dc cervical collar, +PT c PRN RTO1 cervical c F/E XR: stable cw 02/19/19 mod ML, focal early advanced C12, C6T1 s ooixupwi74/7/19 given persistent L high cervical pain s weakness/numbness; checked inflammatory ferraro (which was cw inactive RA) and repeat CT neck s/c NOW and referred to Dr. Haynes, [facility] for opinion-apt 04/02/1911/8/19 CT cerv and FE [...] C2-6 medial FB nor PATITO x 2-[facility] Next Appt Details Reason: Provider Name:Steven Santos, 2021-05-04 1 0:15:00 AM, [address], , [place], [address], Insurance Providers Payer Name Payer Address Payer Phone Insured Name Patient Relati onship to Insured Coverage Start Date Coverage End Date BCBS UTIYARON MURILLO PPO [phone] [place] [id number] PRISCILA MASON MEDICARE Part A and B [address] [place] [address] [phone] PRISCILA MASON self
--- OUTSIDE RECORDS SUMMARY | 2021-02-09 23:27 | CCD ---
Author Author [facility] Syst ems Organization [facility] ems Address Unknown Phone Unavailable Care Team Providers Care Wind Development Director Name Role Phone Steven Santos Unavailable PROBLEMS Type Condition ICD9-CM Code UPU91-AP Code Onset Dates Condition S tatus W/U Status Risk SNOMED Code Notes Problem DJD (degenerative joint disease), cervical M50.30 Active confirmed 88014610 Problem Chronic obstructive pulmonary disease J44.9 Ac tive confirmed 34857839 Problem Insomnia, unspecified type G47.00 Active confirmed 191271984 Problem Allergic rhinitis, unspecifi ed allergic rhinitis trigger, unspecified rhinitis seasonality J30.9 Active confirmed 54133722 Problem Macrocytosis without anemia D75.89 Active confirmed 078703351 Problem Migraine without aura and without status migrain osus, not intractable G43.009 Active confirmed 266042620 Problem Constipation, chronic K59.09 Active confirmed 983066169 Problem 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 Active confirmed 693481659 Problem Breast cancer screening Z12.39 Active confirmed 027213111 Problem Cervical spondylosis M47.812 Active confirmed 238041722 Problem Vitamin D deficiency E55.9 Active confirmed 09643238 Problem Renal cyst N28.1 Active confirmed 63824445 Problem Colon cancer screening Z12.11 Active confirmed 689157180 Problem COPD exacerbation J44.1 Active confirmed 19 4664815 Problem Mixed hyperlipidemia E78.2 Active confirmed 246313612 Problem Chronic obstructive pulmonary disease with acute exacerbat ion J44.1 Active confirmed 216479857 Problem Asthma, mild persistent J45.30 Active confirmed 359605110 Problem Rosacea L71.9 Active confirmed 893361575 Problem FIDEL (obstructive sleep apnea) G47.33 Active confirm ed 81561444 Problem Thyroid nodule E04.1 Active confirmed 10957 5005 Problem DJD (degenerative joint disease), lumbar M47.816 Active confirmed 643443945 Problem Hypertension, essential I10 Active confirmed 55125193 Problem Osteoarthritis of knees, 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 Activ e confirmed 137108530 Problem Spondylosis of cervical region without myelopath y or radiculopathy M47.812 Active confirmed 062146116 Problem Hypothyroidism E03.9 Active confirmed 00323 008 Problem Cervical spondylosis with radiculopathy M47.22 Active confirmed 948603795 Problem Osteoporosis M81.0 Active confirmed 4982327 6 Problem Hematoma T14.8XXA Active confirmed 236009070 Problem Fall, subsequent encounter W19.XXXD Active confirme d 3005668 Problem Ataxia R27.0 Active confirmed 75706016 Problem Bilateral sacroiliitis M46.1 Active confirmed 40031121665029676 Problem Xerostomia R68.2 Active confirmed 26625436 Problem Coccydynia M53.3 Active confirmed 68267381 Problem B12 deficiency E53.8 Active confirmed 56105 4004 Problem Personal history of tobacco use Z87.891 Active confirmed 4163441823695 Problem Ischemic stroke I63.9 Active confirmed 4225 78107 Problem Sciatica, left side M54.32 Active confirmed 79653285 Problem Sciatica, right side M54.31 Active confirmed 39261124883866299 Problem Impaired fasting glucose R73.01 Active confirmed 756477252 Problem Chronic rheumatic arthritis M06.9 Active confirmed 07942850 Problem 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 Active confirmed 388645267 ALLERGIES Allergen (clinical drug ingredient) Drug/Non Drug Allergy do cumented on EMR Reaction Allergy Type Onset Date Status tiotropium Spiriva HandiHaler(NDC Code:[address]-69) Urina ry retention Drug Allergy Active Requip headaches Drug Allergy Active celecoxib Celebrex(NDC Code:[address]-79) affects motor a ctivities Drug Allergy Active ENCOUNTERS from 1940 to 2021-01-04 Encounter Location Date Provider Diagnosis [facility] [address] [phone] [place] [address] Dec, Steven Santos IMMUNIZATIONS Vaccine Route Administration Date [...] Education Language: Question Answer Notes Languages spoken: Georgian Synagogue: Question Answer Notes Synagogue 21 [employer] Sexual Hx: Question Answer Notes Had sex [...] Orally tid for 90 day(s) Active PROCEDURES No Information RESULTS No Results REASON FOR VISIT Vitamin D? MEDICAL (GENERAL) HISTORY Type Description Date Medical History asthma, moderate persistent- December 2009 PFTs with borderline air trapping and mild airway resistance otherwise normal/04/2016 CXR hyperinflation/PAH Medical History hypothyroidism Medical History FIDEL/PLMS-palliated on BiPAP 03/[address] Shaina Cortes Medical History mild diastolic dysfunction o therwise normal TTE 02/18 Antecol//low risk stress echo, to 5.3 METS, LVEF 60%-[facility] Medical History constipation, chronic Medical [...] History grade 1 diastolic dysfunction by 06/2017 TTE-[facility] Medical History B hip mild OA by 01/28/20 XR Medical History +CCP >250, +RF 42 (< 15), -Andie 02/18/19 Surgical History vaginal hysterectomy c bladd er suspension surgery-Dr. Baptiste-[place] 09/15/2010 Surgical History left foot surgery 05/2014 [...] Orally at bedtime for 90 day(s ) Next Appt Details Provider Name:Steven Santos, 2021-05-04 1 0:15:00 AM, [address], , [place], [address], Insurance Providers Payer Name Payer Address Payer Phone Insured Name Patient Relati onship to Insured Coverage Start Date Coverage End Date MEDICARE Part A and B [address] [facility] [phone] MAS[address] [place] [facility] [id number] [facility] [place] [address] PRISCILA MASON
--- OUTSIDE RECORDS SUMMARY | 2021-02-09 23:27 | CCD ---
Author Author [facility] ems Organization [facility] ems Address Unknown Phone Unavailable Care Team Providers Care Coach Tour Driver Name Role Phone Steven Santos Unavailable PROBLEMS Type Condition ICD9-CM Code [id number] Code Onset Dates Condition S tatus W/U Status Risk SNOMED Code Notes Problem DJD (degenerative joint disease), cervical M50.30 Active confirmed 33943452 Problem Chronic obstructive pulmonary disease J44.9 Ac tive confirmed 10181303 Problem Insomnia, unspecified type G47.00 Active confirmed 550067915 Problem Allergic rhinitis, unspecifi ed allergic rhinitis trigger, unspecified rhinitis seasonality J30.9 Active confirmed 43770913 Problem Macrocytosis without anemia D75.89 Active confirmed 561663858 Problem Migraine without aura and without status migrain osus, not intractable G43.009 Active confirmed 063242317 Problem Constipation, chronic K59.09 Active confirmed 739762977 Problem 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 Active confirmed 168915161 Problem Breast cancer screening Z12.39 Active confirmed 017951865 Problem Cervical spondylosis M47.812 Active confirmed 864397306 Problem Vitamin D deficiency E55.9 Active confirmed 82002911 Problem Renal cyst N28.1 Active confirmed 62413707 Problem Colon cancer screening Z12.11 Active confirmed 375441339 Problem COPD exacerbation J44.1 Active confirmed 19 7467553 Problem Mixed hyperlipidemia E78.2 Active confirmed 558651627 Problem Chronic obstructive pulmonary disease with acute exacerbat ion J44.1 Active confirmed 893236456 Problem Asthma, mild persistent J45.30 Active confirmed 577589345 Problem Rosacea L71.9 Active confirmed 718948864 Problem FIDEL (obstructive sleep apnea) G47.33 Active confirm ed 52206208 Problem Thyroid nodule E04.1 Active confirmed 92972 5005 Problem DJD (degenerative joint disease), lumbar M47.816 Active confirmed 141186111 Problem Hypertension, essential I10 Active confirmed 59194689 Problem Osteoarthritis of knees, 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 Activ e confirmed 357832815 Problem Spondylosis of cervical region without myelopath y or radiculopathy M47.812 Active confirmed 965919659 Problem Hypothyroidism E03.9 Active confirmed 41424 008 Problem Cervical spondylosis with radiculopathy M47.22 Active confirmed 788337407 Problem Osteoporosis M81.0 Active confirmed 0151284 6 Problem Hematoma T14.8XXA Active confirmed 321082995 Problem Fall, subsequent encounter W19.XXXD Active confirme d 4296320 Problem Ataxia R27.0 Active confirmed 29158997 Problem Bilateral sacroiliitis M46.1 Active confirmed 95156034919112809 Problem Xerostomia R68.2 Active confirmed 24460667 Problem Coccydynia M53.3 Active confirmed 10206560 Problem B12 deficiency E53.8 Active confirmed 67461 4004 Problem Personal history of tobacco use Z87.891 Active confirmed 0061190667353 Problem Ischemic stroke I63.9 Active confirmed 4225 70563 Problem Sciatica, left side M54.32 Active confirmed 29422566 Problem Sciatica, right side M54.31 Active confirmed 55675444936758800 Problem Impaired fasting glucose R73.01 Active confirmed 840639139 Problem Chronic rheumatic arthritis M06.9 Active confirmed 59057110 Problem 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 Active confirmed 938397657 ALLERGIES Allergen (clinical drug ingredient) Drug/Non Drug Allergy do cumented on EMR Reaction Allergy Type Onset Date Status tiotropium Spiriva HandiHaler(NDC Code:[address]-97) Urina ry retention Drug Allergy Active Requip headaches Drug Allergy Active celecoxib Celebrex(NDC Code:[address]-46) affects motor a ctivities Drug Allergy Active ENCOUNTERS from 1940 to 2020-12-28 Encounter Location Date Provider Diagnosis [facility] [address] [facility] [phone] [place] [address] 14 Dec, 2020 Steven Santos IMMUNIZATIONS Vaccine Route [...] Education Language: Question Answer Notes Languages spoken: Azeri Church: Question Answer Notes Church 21 Nondenominational Sexual Hx: Question Answer Notes Had sex [...] risk stress echo, to 5.3 METS, LVEF 60%-[facility] Medical History insomnia Medical History restless [...] History grade 1 diastolic dysfunction by 06/2017 TTE-[facility] Medical History B hip mild OA by 01/28/20 XR Medical History +CCP >250, +RF 42 (<15), -Andie 02/18/19 Surgical History vaginal hysterectomy c bl[place] er suspension surgery-Dr. Baptiste-[place] 09/15/2010 Surgical History left foot surgery 05/2014 [...] y(s) Next Appt Details Provider Name:Steven Santos, 2021-01-02 0 9:15:00 AM, [address] [place] [address] , [place], [address], Provider Name:Steven Santos, 2021-05-04 1 0:15:00 AM, [address] [place] [address] , [place], [address], Insurance Providers Payer Name Payer Address Payer Phone Insured Name Patient Relati onship to Insured Coverage Start Date Coverage End Date MEDICARE Part A and B [address] [facility] [phone] PRISCILA MASON BCBS [place] [facility] PPO [phone] [facility] [place] [address] PRISCILA MASON self
--- OUTSIDE RECORDS SUMMARY | 2021-02-09 23:27 | CCD ---
Author Author [facility] ems Organization [facility] ems Address Unknown Phone Unavailable Care Team Providers Care Events Intern Name Role Phone Steven Santos Unavailable PROBLEMS Type Condition ICD9-CM Code [id number] Code Onset Dates Condition S tatus W/U Status Risk SNOMED Code Notes Problem DJD (degenerative joint disease), cervical M50.30 Active confirmed 69118010 Problem Chronic obstructive pulmonary disease J44.9 Ac tive confirmed 83895168 Problem Insomnia, unspecified type G47.00 Active confirmed 118729219 Problem Allergic rhinitis, unspecifi ed allergic rhinitis trigger, unspecified rhinitis seasonality J30.9 Active confirmed 83649608 Problem Macrocytosis without anemia D75.89 Active confirmed 494036501 Problem Migraine without aura and without status migrain osus, not intractable G43.009 Active confirmed 404136070 Problem Constipation, chronic K59.09 Active confirmed 348478684 Problem 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 Active confirmed 262226984 Problem Breast cancer screening Z12.39 Active confirmed 751921285 Problem Cervical spondylosis M47.812 Active confirmed 490165480 Problem Vitamin D deficiency E55.9 Active confirmed 95201424 Problem Renal cyst N28.1 Active confirmed 91091048 Problem Colon cancer screening Z12.11 Active confirmed 012281218 Problem COPD exacerbation J44.1 Active confirmed 19 7253157 Problem Mixed hyperlipidemia E78.2 Active confirmed 755598544 Problem Chronic obstructive pulmonary disease with acute exacerbat ion J44.1 Active confirmed 229439171 Problem Asthma, mild persistent J45.30 Active confirmed 696560009 Problem Rosacea L71.9 Active confirmed 532154396 Problem FIDEL (obstructive sleep apnea) G47.33 Active confirm ed 73719504 Problem Thyroid nodule E04.1 Active confirmed 63054 5005 Problem DJD (degenerative joint disease), lumbar M47.816 Active confirmed 034938949 Problem Hypertension, essential I10 Active confirmed 30267642 Problem Osteoarthritis of knees, 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 Activ e confirmed 241142683 Problem Spondylosis of cervical region without myelopath y or radiculopathy M47.812 Active confirmed 033938285 Problem Hypothyroidism E03.9 Active confirmed 65451 008 Problem Cervical spondylosis with radiculopathy M47.22 Active confirmed 158168271 Problem Osteoporosis M81.0 Active confirmed 2987432 6 Problem Hematoma T14.8XXA Active confirmed 903437791 Problem Fall, subsequent encounter W19.XXXD Active confirme d 7604763 Problem Ataxia R27.0 Active confirmed 57737145 Problem Bilateral sacroiliitis M46.1 Active confirmed 37833335667205145 Problem Xerostomia R68.2 Active confirmed 22244179 Problem Coccydynia M53.3 Active confirmed 23036509 Problem B12 deficiency E53.8 Active confirmed 99467 4004 Problem Personal history of tobacco use Z87.891 Active confirmed 5066744762379 Problem Ischemic stroke I63.9 Active confirmed 4225 48824 Problem Sciatica, left side M54.32 Active confirmed 27975356 Problem Sciatica, right side M54.31 Active confirmed 91703465759153391 Problem Impaired fasting glucose R73.01 Active confirmed 384975127 Problem Chronic rheumatic arthritis M06.9 Active confirmed 58825507 Problem 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 Active confirmed 049567593 ALLERGIES Allergen (clinical drug ingredient) Drug/Non Drug Allergy do cumented on EMR Reaction Allergy Type Onset Date Status tiotropium Spiriva HandiHaler(NDC Code:[address]-14) Urina ry retention Drug Allergy Active Requip headaches Drug Allergy Active celecoxib Celebrex(NDC Code:[address]-09) affects motor a ctivities Drug Allergy Active ENCOUNTERS from 1940 to 2021-01-18 Encounter Location Date Provider Diagnosis [facility] [address] [facility] [phone] [place] [address] Dec, Steven Santos IMMUNIZATIONS Vaccine Route Administration [...] Education Language: Question Answer Notes Languages spoken: Yi Sabianism: Question Answer Notes Sabianism 21 Jehovah'S [employer] Sexual Hx: Question Answer Notes Had sex [...] Information RESULTS No Results REASON FOR VISIT FYI MEDICAL (GENERAL) HISTORY Type Description Date Medical [...] History grade 1 diastolic dysfunction by 06/2017 TTE-[facility] Medical History B hip mild OA by 01/28/20 XR Medical History +CCP >250, +RF 42 (< 15), -Andie 02/18/19 Surgical History vaginal hysterectomy c bladd er suspension surgery-Dr. Baptiste-[place] 09/15/2010 Surgical History left foot surgery 05/2014 [...] Name:Steven Santos, 2021-05-04 1 0:15:00 AM, [address] [facility], , [place], [address], Insurance Providers Payer Name Payer Address Payer Phone Insured Name Patient Relati onship to Insured Coverage Start Date Coverage End Date MEDICARE Part A and B [facility] [id number] [facility] [phone] PRISCILA MASON BCBS [place] [facility] [id number] [place] [address] PRISCILA MASON
--- OUTSIDE RECORDS SUMMARY | 2021-02-09 23:27 | CCD ---
Author Author [facility] ems Organization [facility] ems Address Unknown Phone Unavailable Care Team Providers Care Clerk Television Production Name Role Phone Steven Santos Unavailable PROBLEMS Type Condition ICD9-CM Code [id number] Code Onset Dates Condition S tatus W/U Status Risk SNOMED Code Notes Problem DJD (degenerative joint disease), cervical M50.30 Active confirmed 47491501 Problem Chronic obstructive pulmonary disease J44.9 Ac tive confirmed 12161083 Problem Insomnia, unspecified type G47.00 Active confirmed 420013308 Problem Allergic rhinitis, unspecifi ed allergic rhinitis trigger, unspecified rhinitis seasonality J30.9 Active confirmed 65922949 Problem Macrocytosis without anemia D75.89 Active confirmed 845525850 Problem Migraine without aura and without status migrain osus, not intractable G43.009 Active confirmed 633357336 Problem Constipation, chronic K59.09 Active confirmed 685514048 Problem 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 Active confirmed 626946185 Problem Breast cancer screening Z12.39 Active confirmed 156929180 Problem Cervical spondylosis M47.812 Active confirmed 893279568 Problem Vitamin D deficiency E55.9 Active confirmed 77745083 Problem Renal cyst N28.1 Active confirmed 90944971 Problem Colon cancer screening Z12.11 Active confirmed 854009971 Problem COPD exacerbation J44.1 Active confirmed 19 8174030 Problem Mixed hyperlipidemia E78.2 Active confirmed 608538095 Problem Chronic obstructive pulmonary disease with acute exacerbat ion J44.1 Active confirmed 761116356 Problem Asthma, mild persistent J45.30 Active confirmed 390190316 Problem Rosacea L71.9 Active confirmed 155940193 Problem FIDEL (obstructive sleep apnea) G47.33 Active confirm ed 81979452 Problem Thyroid nodule E04.1 Active confirmed 67192 5005 Problem DJD (degenerative joint disease), lumbar M47.816 Active confirmed 485678293 Problem Hypertension, essential I10 Active confirmed 84320756 Problem Osteoarthritis of knees, 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 Activ e confirmed 031013508 Problem Spondylosis of cervical region without myelopath y or radiculopathy M47.812 Active confirmed 529192289 Problem Hypothyroidism E03.9 Active confirmed 73375 008 Problem Cervical spondylosis with radiculopathy M47.22 Active confirmed 755632815 Problem Osteoporosis M81.0 Active confirmed 3145336 6 Problem Hematoma T14.8XXA Active confirmed 061020865 Problem Fall, subsequent encounter W19.XXXD Active confirme d 7136668 Problem Ataxia R27.0 Active confirmed 53972184 Problem Bilateral sacroiliitis M46.1 Active confirmed 92142026935425835 Problem Xerostomia R68.2 Active confirmed 96507301 Problem Coccydynia M53.3 Active confirmed 98911678 Problem B12 deficiency E53.8 Active confirmed 58017 4004 Problem Personal history of tobacco use Z87.891 Active confirmed 9906893508297 Problem Ischemic stroke I63.9 Active confirmed 4225 71156 Problem Sciatica, left side M54.32 Active confirmed 80278261 Problem Sciatica, right side M54.31 Active confirmed 99668715101506384 Problem Impaired fasting glucose R73.01 Active confirmed 019077128 Problem Chronic rheumatic arthritis M06.9 Active confirmed 80880441 Problem 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 Active confirmed 879058753 ALLERGIES Allergen (clinical drug ingredient) Drug/Non Drug Allergy do cumented on EMR Reaction Allergy Type Onset Date Status tiotropium Spiriva HandiHaler(NDC Code:[address]-70) Urina ry retention Drug Allergy Active Requip headaches Drug Allergy Active celecoxib Celebrex(NDC Code:[address]-25) affects motor a ctivities Drug Allergy Active ENCOUNTERS from 1940 to 2020-12-12 Encounter Location Date Provider Diagnosis [place] [address] [facility] [phone] [place] [address] Nov, Steven Santos IMMUNIZATIONS Vaccine Route Administration Date Status Toradol 60mg/2mL Ketorolac IM Intramuscular September 05, 2016 Admi nistered Influenza 18 yrs & older Flublok IM Intramuscular Feb 18, 2019 Administered Depo-Medrol 80mg Methylprednisolone Acetate IM Intramuscular Mar 28, 2020 Administered Depo-Medrol 80mg Methylprednisolone Acetate IM Intramuscular May 03, 2016 Administered Depo-Medrol 80mg Methylprednisolone Acetate IM Intramuscular May 07, 2016 Administered Influenza (High Dose 65 & up) IM Intramuscular 2017 A dministered Influenza 6mo & up Fluzone IM Intramuscular Jan 26, 2010 Admi nistered Zoster 0.65mL Zostavax IM Intramuscular Jan 22, 2016 Administ ered Influenza (High Dose 65 & up) IM Intramuscular Jan 05, 2016 A dministered Depo-Medrol 80mg Methylprednisolone Acetate Unknown November 02, 2015 Administered Influenza (High Dose 65 & up) IM Intramuscular Jan 16, 2015 A dministered Pneumococcal Adult 0.5mL Pneumovax 23 Unknown Feb [...] Education Language: Question Answer Notes Languages spoken: Spanish Mormonism: Question Answer Notes Mormonism 21 Muslim Sexual Hx: Question Answer Notes Had sex [...] Information RESULTS No Results REASON FOR VISIT No Information MEDICAL (GENERAL) HISTORY Type Description Date Medical History asthma, moderate persistent- December 2009 PFTs with borderline air trapping and mild airway resistance otherwise normal/04/2016 CXR hyperinflation/PAH Medical History hypothyroidism Medical History FIDEL/PLMS-palliated on BiPAP 03/[address] Shaina Cortes Medical History mild diastolic dysfunction o therwise normal TTE 02/18 Antecol//low risk stress echo, to 5.3 METS, LVEF 60%-[facility] Medical History insomnia Medical History restless [...] History grade 1 diastolic dysfunction by 06/2017 [facility]TE-[facility] Medical History B hip mild OA by 01/28/20 XR Medical History +CCP >250, +RF 42 (<15), -Andie 02/18/19 Surgical History vaginal hysterectomy c bladd er suspension surgery-Dr. Baptiste-[place] 09/15/2010 Surgical History left foot surgery 05/2014 [...] Name:Steven Santos, 2021-05-04 1 0:15:00 AM, [address] [facility], , [place], [address], Insurance Providers Payer Name Payer Address Payer Phone Insured Name Patient Relati onship to Insured Coverage Start Date Coverage End Date BCCYNDEE MURILLO PPO [phone] [facility] [employer]PharmaceuticalsMA BUSINESS [place]NE M[address]UD [id number] PRISCILA MASON MEDICARE Part A and B [address] [facility] [id number] PRISCILA MASON self
--- OUTSIDE RECORDS SUMMARY | 2021-02-09 23:27 | CCD ---
Author Author [facility] Organization [facility] Address Unknown Phone Unavailable Care Team Providers Care Production Solderer Name Role Phone Marilin Weaver Unavailable PROBLEMS Type Condition ICD9-CM Code [id number] Code Onset Dates Condition S tatus W/U Status Risk SNOMED Code Notes Problem Colon cancer screening Z12.11 Active confirmed 849430678 Problem DJD (degenerative joint disease), cervical M50.30 Active confirmed 02167953 Problem Renal cyst N28.1 Active confirmed 99935094 Problem Chronic obstructive pulmonary disease J44.9 Ac tive confirmed 13527283 Problem Insomnia, unspecified type G47.00 Active confirmed 288403098 Problem Allergic rhinitis, unspecifi ed allergic rhinitis trigger, unspecified rhinitis seasonality J30.9 Active confirmed 76137838 Problem Macrocytosis without anemia D75.89 Active confirmed 998375609 Problem Spondylosis of cervical region without myelopath y or radiculopathy M47.812 Active confirmed 589729496 Problem Hypothyroidism E03.9 Active confirmed 88575 008 Problem Cervical spondylosis with radiculopathy M47.22 Active confirmed 892770210 Problem Osteoporosis M81.0 Active confirmed 4028444 6 Problem Breast cancer screening Z12.39 Active confirmed 987623918 Problem Vitamin D deficiency E55.9 Active confirmed 44630720 Problem Ischemic stroke I63.9 Active confirmed 4225 83950 Problem Xerostomia R68.2 Active confirmed 41714738 Problem COPD exacerbation J44.1 Active confirmed 19 8898447 Problem Impaired fasting glucose R73.01 Active confirmed 169355537 Problem Mixed hyperlipidemia E78.2 Active confirmed 345093794 Problem Personal history of tobacco use Z87.891 Active confirmed 0711784240809 Problem Chronic obstructive pulmonary disease with acute exacerbat ion J44.1 Active confirmed 471289884 Problem Asthma, mild persistent J45.30 Active confirmed 392575133 Problem Rosacea L71.9 Active confirmed 629019729 Problem FIDEL (obstructive sleep apnea) G47.33 Active confirm ed 27316005 Problem Thyroid nodule E04.1 Active confirmed 84585 5005 Problem DJD (degenerative joint disease), lumbar M47.816 Active confirmed 962547993 Problem Hypertension, essential I10 Active confirmed 34413325 Problem Osteoarthritis of knees, 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 Activ e confirmed 855231650 Problem Cervical spondylosis M47.812 Active confirmed 499779467 Problem 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 Active confirmed 775217673 Problem Hematoma T14.8XXA Active confirmed 942933596 Problem Chronic rheumatic arthritis M06.9 Active confirmed 67176315 Problem Migraine without aura and without status migrain osus, not intractable G43.009 Active confirmed 236203522 Problem 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 Active confirmed 427184080 Problem Constipation, chronic K59.09 Active confirmed 266149971 Problem B12 deficiency E53.8 Active confirmed 49506 4004 Problem Fall, subsequent encounter W19.XXXD Active confirme d 9281781 Problem Ataxia R27.0 Active confirmed 51053521 Problem Sciatica, left side M54.32 Active confirmed 61919874 Problem Sciatica, right side M54.31 Active confirmed [id number] ALLERGIES Allergen (clinical drug ingredient) Drug/Non Drug Allergy do cumented on EMR Reaction Allergy Type Onset Date Status tiotropium Spiriva HandiHaler(NDC Code:[address]-90) Urina ry retention Drug Allergy Active Requip headaches Drug Allergy Active celecoxib Celebrex(NDC Code:[address]-34) affects motor a ctivities Drug Allergy Active ENCOUNTERS from 1940 to 2020-11-14 Encounter Location Date Provider Diagnosis [address] [phone] [place] [address] Oct, Marilin Kevinworth Swelling of left wrist M25.4 32 ; Skin tear of left hand without complication, subsequent encounter S61.412D ; Tear of frenulum of upper lip, subsequent encounter S01.511D ; Fall, subsequent encounter W19.XXXD ; 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 and Oral ulcer K12.1 IMMUNIZATIONS Vaccine Route Administration Date Status Toradol [...] Education Language: Question Answer Notes Languages spoken: Burundian Islam: Question Answer Notes Islam 21 Mormon Sexual Hx: Question Answer Notes Had sex [...] FOR REFERRAL No Information VITAL SIGNS Weight 141 lbs Oct, Height 62 in Oct, BMI 25.79 kg/m2 Oct, Heart Rate 71 /min Oct, Respiratory Rate 18 /min Oct, Temperature 98.0 degrees Fahrenheit Oct, Oximetry 94 Oct, Blood pressure systolic 124 mm Hg Oct, Blood pressure diastolic 78 mm Hg Oct, MEDICATIONS Medication SIG (Take, Route, Frequency, Duration) Notes Start Da te End Date Status Gabapentin 100 MG 1 capsule Orally tid for 30 day(s) Active Advair Diskus 500-50 MCG/DOSE 1 Inhalation Twice a day Active Cyanocobalamin 100 MCG 1 tablet Orally Once a day for 90 day(s) Active Ventolin HFA 108 (90 Base) MCG/ACT 2 puffs as needed Inhalation armani ry 4 hrs Active Atorvastatin Calcium 40 MG 1 tablet Orally Once a day for 90 day(s) Active Levalbuterol HCl 1.25 MG/3ML 3 ml Inhalation every 8 hrs prn dyspnea Active Propranolol HCl 10 MG 1 tablet Orally Once a day for 90 day(s) Active APAP 325 MG 1-2 tablet as needed Orally bid Not-Taking Irbesartan 75 MG 1 tablet Orally every morning for 90 day(s) Active Montelukast Sodium 10 MG 1 tablet Orally at bedtime for 90 day(s) Active Bisacodyl 5 MG 1 tablet as needed Orally Once a day for 30 day( s) Sep, Not-Taking [facility] Vitamin D 2000 UNIT 1 tab Orally qd Active Levothyroxine Sodium 75 MCG 1 tablet on an empty stoma ch in the morning Orally Once a day for 90 day(s) Active May Have - as directed-hard cervical co llar & soft cervical collar topically Daily at all times while not supine, soft collar for resting Not-Taking Triamcinolone Acetonide 0.1 % 1 application to oral le geovani mouth Twice a day for 14 days Oct, Active Clopidogrel Bisulfate 75 MG 1 tablet Orally Once a day for 90 day(s) Active Ketoconazole 2 % as directed Externally daily -leave on scalp and forehead x 5 minutes for 30 day(s) Active PROCEDURES No Information RESULTS Component Value Reference Range [facility] Spine,cervical w/o contrast Reviewed date:10/19/2020 13:15:12 Interpretation: Performing Lab:[facility],[address] [place]], ,[place] [address] REASON FOR VISIT 1 WK MEDICAL (GENERAL) HISTORY Type Description Date Medical History asthma, moderate persistent- December 2009 PFTs with borderline air trapping and mild airway resistance otherwise normal/04/2016 CXR hyperinflation/PAH Medical History hypothyroidism Medical History FIDEL/PLMS-palliated on BiPAP 03/[address] Shaina Cortes Medical History mild diastolic dysfunction o therwise normal TTE 02/18 Antecol//low risk stress echo, to 5.3 METS, LVEF 60%-R[facility] Medical History insomnia Medical History restless leg [...] History grade 1 diastolic dysfunction by 06/2017 TTE-[facility] Medical History B hip mild OA by 01/28/20 XR Surgical History vaginal hysterectomy c [place] suspension surgery-Dr. Baptiste-[place] 09/15/2010 Surgical History left foot surgery 05/2014 Surgical History s/p Lumbar DJD surgery in [place] 2 007-8 Surgical History Total R)knee replacement 07/06/2018 Hospitalization History threatened CVA aborted by tP A vs complex migraine-07/06 and 07/07 MRI brain NAD, but received tpa, TTE grade 1 carrie, Dr. Dill + VPA and nortrip 07/06- Hospitalization History [...] Notes Treatment Notes Treatm ent Clinical Notes Oct, Swelling of left wrist (ICD-10 - M25.432) Almost resolved, cont ice, elevation prn Oct, Skin tear of left hand witho ut complication, subsequent encounter (ICD-10 - S61.412D) Redressed c mepilex Oct, Tear of frenulum of upper li p, subsequent encounter (ICD-10 - S01.511D) Cont.'d ice, f/u c Dentist again, last sutures removed, hematoma resolving well, edema also. Small area central upper lip escar removed added 1- pack of 3 antibiotic ointment advised vaseline until heals 09/2020 CT of Maxillofacial-hematoma s fracture Oct, Fall, subsequent encounter (ICD-10 - W19.XXXD) Scalp sores are healed 09/[address] - for bleed Oct, Atlantoaxial instability (ICD-10 - M53.2X1) Will check c Spine not done in ED, for stabliity, cont. neck brace use Oct, Oral ulcer (ICD-10 - K12.1) Now visible large upper gum ulcer 2cm W x 1cmH x 2mm Deep may need debridement will have pt. return to dentist since swelling has resolved enough to evaluate this & debride Oct, Other 35" h&p, chart review, prep, exam, suture removal, dressing removal & reapplication to hand, plan orders, education PLAN OF TREATMENT Medication Medication Name Sig Start Date Stop Date Triamcinolone Acetonide 0.1 % 1 application to oral le geovani mouth Twice a day for 14 days Oct, Treatment Notes Assessment Notes Clinical Notes Swelling of left wrist Almost resolved, cont ice, elevation prn Skin tear of left hand without complication, subsequent enco unter Redressed c mepilex Tear of frenulum of upper lip, subsequent encounter Cont.'d ice, f/u c Dentist again, last sutures removed, hematoma resolving well, edema also. Small area central upper lip escar removed added 1- pack of 3 antibiotic ointment advised vaseline until heal CT of Maxillofacial-hematoma s fracture Fall, subsequent encounter Scalp sores a re healed09/[address] - for bleed Atlantoaxial instability Will check c Sp ine not done in ED, for stabliity, cont. neck brace use Oral ulcer Now visible large up per gum ulcer 2cm W x 1cmH x 2mm Deep may need debridement will have pt. return to dentist since swelling has resolved enough to evaluate this & debride Treatment Notes Test Name Order Date Medication: Triple Antibiotic packets (neomycin/bacitr acin/polymyxinb) ointment 2020-10-18 Next Appt Details 1 Week c SS Reason: Provider Name:Steven Santos, 2020-12-26 0 3:00:00 PM, [address] [facility], , [place], [address], Insurance Providers Payer Name Payer Address Payer Phone Insured Name Patient Relati onship to Insured Coverage Start Date Coverage End Date MEDICARE Part A and B [facility] [address] [place] [phone] PRISCILA MASON BCBS [place] [facility] PPO [phone] [facility] [place] [address] PRISCILA MASON
--- OUTSIDE RECORDS SUMMARY | 2021-02-09 23:27 | CCD ---
Author Author [facility] Organization [facility] Address Unknown Phone Unavailable Care Team Providers Care Pneumatic Jacketer Name Role Phone Steven Santos Unavailable PROBLEMS Type Condition ICD9-CM Code HGJ01-TO Code Onset Dates Condition S tatus W/U Status Risk SNOMED Code Notes Problem DJD (degenerative joint disease), cervical M50.30 Active confirmed 76620026 Problem Chronic obstructive pulmonary disease J44.9 Ac tive confirmed 64888567 Problem Insomnia, unspecified type G47.00 Active confirmed 326458195 Problem Allergic rhinitis, unspecifi ed allergic rhinitis trigger, unspecified rhinitis seasonality J30.9 Active confirmed 78886647 Problem Macrocytosis without anemia D75.89 Active confirmed 716510041 Problem Migraine without aura and without status migrain osus, not intractable G43.009 Active confirmed 827265150 Problem Constipation, chronic K59.09 Active confirmed 654628227 Problem 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 Active confirmed 085811294 Problem Breast cancer screening Z12.39 Active confirmed 533911959 Problem Cervical spondylosis M47.812 Active confirmed 456652687 Problem Vitamin D deficiency E55.9 Active confirmed 10006443 Problem Renal cyst N28.1 Active confirmed 36119625 Problem Colon cancer screening Z12.11 Active confirmed 774244669 Problem COPD exacerbation J44.1 Active confirmed 19 8836236 Problem Mixed hyperlipidemia E78.2 Active confirmed 552857578 Problem Chronic obstructive pulmonary disease with acute exacerbat ion J44.1 Active confirmed 158805250 Problem Asthma, mild persistent J45.30 Active confirmed 963326793 Problem Rosacea L71.9 Active confirmed 429720794 Problem FIDEL (obstructive sleep apnea) G47.33 Active confirm ed 45994549 Problem Thyroid nodule E04.1 Active confirmed 66569 5005 Problem DJD (degenerative joint disease), lumbar M47.816 Active confirmed 996747343 Problem Hypertension, essential I10 Active confirmed 90841605 Problem Osteoarthritis of knees, 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 Activ e confirmed 361979307 Problem Spondylosis of cervical region without myelopath y or radiculopathy M47.812 Active confirmed 223564688 Problem Hypothyroidism E03.9 Active confirmed 77276 008 Problem Cervical spondylosis with radiculopathy M47.22 Active confirmed 394553896 Problem Osteoporosis M81.0 Active confirmed 3786218 6 Problem Hematoma T14.8XXA Active confirmed 390779486 Problem Fall, subsequent encounter W19.XXXD Active confirme d 3257156 Problem Ataxia R27.0 Active confirmed 06309378 Problem Bilateral sacroiliitis M46.1 Active confirmed 02128777548905794 Problem Xerostomia R68.2 Active confirmed 36419575 Problem Coccydynia M53.3 Active confirmed 73601624 Problem B12 deficiency E53.8 Active confirmed 70813 4004 Problem Personal history of tobacco use Z87.891 Active confirmed 3806680617032 Problem Ischemic stroke I63.9 Active confirmed 4225 52118 Problem Sciatica, left side M54.32 Active confirmed 54122904 Problem Sciatica, right side M54.31 Active confirmed 69321744029490580 Problem Impaired fasting glucose R73.01 Active confirmed 660348701 Problem Chronic rheumatic arthritis M06.9 Active confirmed 32826556 Problem 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 Active confirmed 241318258 ALLERGIES Allergen (clinical drug ingredient) Drug/Non Drug Allergy do cumented on EMR Reaction Allergy Type Onset Date Status tiotropium Spiriva HandiHaler(NDC Code:[address]-33) Urina ry retention Drug Allergy Active Requip headaches Drug Allergy Active celecoxib Celebrex(NDC Code:[address]-03) affects motor a ctivities Drug Allergy Active ENCOUNTERS from 1940 to 2021-01-24 Encounter Location Date Provider Diagnosis [facility] [address] [facility] [phone] [place] [address] Jan, Steven Tom 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 and DJD (degenerative joint disease), lumbar M47.816 IMMUNIZATIONS Vaccine Route Administration Date Status Toradol [...] Education Language: Question Answer Notes Languages spoken: Brazilian Adventism: Question Answer Notes Adventism 21 Yarsani Sexual Hx: Question Answer Notes Had sex [...] Twice a day for 90 day(s) Active Atorvastatin Calcium 40 MG 1 tablet Orally Once a day for 90 day(s) Active Cyanocobalamin 100 MCG 1 tablet Orally Once a day for 90 day(s) Active Flector 1.3 % 1 patch Externally Twice a day for 30 Days Active Irbesartan 75 MG 1 tablet Orally every morning for 90 day(s) Active May Have - as directed-hard cervical co llar & soft cervical collar topically Daily at all times while not supine, soft collar for resting Active predniSONE 5 MG (21) 6 tabs po [...] Once a day for 30 day(s) Active Clopidogrel Bisulfate 75 MG 1 tablet Orally Once a day for 90 day(s) Active Gabapentin 100 MG 1 capsule Orally tid for 90 day(s) Active APAP 325 MG 1-2 tablet as needed Orally bid for 90 day(s) Active Levalbuterol HCl 1.25 MG/3ML 3 ml Inhalation every 8 h rs prn dyspnea for 90 day(s) Active Propranolol HCl 10 MG 1 tablet Orally Once a day for 90 day(s) Active Sennosides-Docusate Sodium 8.6-50 MG 1 cap Orally bid for 90 day(s) Active PROCEDURES No Information RESULTS No Results REASON FOR VISIT refill. MEDICAL (GENERAL) HISTORY Type Description Date Medical History asthma, moderate persistent- December 2009 PFTs with borderline air trapping and mild airway resistance otherwise normal/04/2016 CXR hyperinflation/PAH Medical History hypothyroidism Medical History FIDEL/PLMS-palliated on BiPAP 03/[address] Shaina Cortes Medical History mild diastolic dysfunction o therwise normal TTE 02/18 Antecol//low risk stress echo, to 5.3 METS, LVEF 60%-[facility] Medical History constipation, chronic Medical History restless [...] from table)) by tpa vs complex migraine 06/2017////01/26/18 MRI/MRA head, MRA neck incidentally detected 5 mm L cerebellar suabcute CVA and poor visulization of proximal L vertebral art Medical History grade 1 diastolic dysfunction by 06/2017 [address] Medical History B hip mild OA by [...] Notes Jan, Intercostal neuropathy (ICD-10 - G58.0) Jan, DJD (degenerative joint disease), lumbar (ICD-10 - M47.816) PLAN OF TREATMENT Medication Medication Name Sig [...] while not supine, soft collar for resting Levothyroxine Sodium 75 MCG 1 tablet on an empty stoma ch in the morning Orally Once a day for 90 day(s) Advair Diskus 500-50 MCG/DOSE 1 Inhalation Twice a day for 90 da y(s) Cholecalciferol 25 MCG (1000 UT) 1 capsule Orally Once a day for 90 day(s) Dec, Cyanocobalamin 100 MCG 1 tablet Orally Once a day for 90 day(s) Irbesartan 75 MG 1 tablet Orally every morning for 90 day(s) Propranolol HCl 10 MG 1 tablet Orally Once a day for 90 day(s) Flector 1.3 % 1 patch Externally Twice a day for 30 Days Atorvastatin Calcium 40 MG 1 tablet Orally Once a day for 90 day (s) Gabapentin 100 MG 1 capsule Orally tid for 90 day(s) APAP 325 MG 1-2 tablet as needed Orally bid for 90 day(s) Sennosides-Docusate Sodium 8.6-50 MG 1 cap Orally bid for 90 day (s) Clopidogrel Bisulfate 75 MG 1 tablet Orally Once a day for 90 da y(s) Ventolin HFA 108 (90 Base) MCG/ACT 2 puffs as needed I nhalation every 4 hrs for 90 day(s) Montelukast Sodium 10 MG 1 tablet Orally at bedtime for 90 day(s ) Next Appt Details Provider Name:Steven Santos, 2021-05-04 1 0:15:00 AM, [address] [facility], , [place], [address], Insurance Providers Payer Name Payer Address Payer Phone Insured Name Patient Relati onship to Insured Coverage Start Date Coverage End Date BCBS [place] PPO [phone] [facility] [place] [address] PRISCILA MASON MEDICARE Part A and B [address] [place] [phone] PRISCILA MASON
--- OUTSIDE RECORDS SUMMARY | 2021-02-09 23:27 | CCD ---
Author Author [facility] Organization [facility] ems Address Unknown Phone Unavailable Care Team Providers [facility] Name Role Phone Steven Santos Unavailable PROBLEMS Type Condition ICD9-CM Code ZQU27-GS Code Onset Dates Condition S tatus W/U Status Risk SNOMED Code Notes Problem DJD (degenerative joint disease), cervical M50.30 Active confirmed 97546817 Problem Chronic obstructive pulmonary disease J44.9 Ac tive confirmed 00432200 Problem Insomnia, unspecified type G47.00 Active confirmed 723941120 Problem Allergic rhinitis, unspecifi ed allergic rhinitis trigger, unspecified rhinitis seasonality J30.9 Active confirmed 45498242 Problem Macrocytosis without anemia D75.89 Active confirmed 117685921 Problem Migraine without aura and without status migrain osus, not intractable G43.009 Active confirmed 408588048 Problem Constipation, chronic K59.09 Active confirmed 841878788 Problem 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 Active confirmed 658703621 Problem Breast cancer screening Z12.39 Active confirmed 259593867 Problem Cervical spondylosis M47.812 Active confirmed 281975753 Problem Vitamin D deficiency E55.9 Active confirmed 81310636 Problem Renal cyst N28.1 Active confirmed 79604585 Problem Colon cancer screening Z12.11 Active confirmed 008569442 Problem COPD exacerbation J44.1 Active confirmed 19 8328781 Problem Mixed hyperlipidemia E78.2 Active confirmed 979950719 Problem Chronic obstructive pulmonary disease with acute exacerbat ion J44.1 Active confirmed 569513205 Problem Asthma, mild persistent J45.30 Active confirmed 971367250 Problem Rosacea L71.9 Active confirmed 398997638 Problem FIDEL (obstructive sleep apnea) G47.33 Active confirm ed 00816482 Problem Thyroid nodule E04.1 Active confirmed 04260 5005 Problem DJD (degenerative joint disease), lumbar M47.816 Active confirmed 538553371 Problem Hypertension, essential I10 Active confirmed 54358955 Problem Osteoarthritis of knees, 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 Activ e confirmed 618075446 Problem Spondylosis of cervical region without myelopath y or radiculopathy M47.812 Active confirmed 311995681 Problem Hypothyroidism E03.9 Active confirmed 22410 008 Problem Cervical spondylosis with radiculopathy M47.22 Active confirmed 285393172 Problem Osteoporosis M81.0 Active confirmed 9466469 6 Problem Hematoma T14.8XXA Active confirmed 429026855 Problem Fall, subsequent encounter W19.XXXD Active confirme d 9789960 Problem Ataxia R27.0 Active confirmed 80707541 Problem Bilateral sacroiliitis M46.1 Active confirmed 37429920305026753 Problem Xerostomia R68.2 Active confirmed 33467470 Problem Coccydynia M53.3 Active confirmed 23503341 Problem B12 deficiency E53.8 Active confirmed 25981 4004 Problem Personal history of tobacco use Z87.891 Active confirmed 2945367267316 Problem Ischemic stroke I63.9 Active confirmed 4225 18494 Problem Sciatica, left side M54.32 Active confirmed 61750314 Problem Sciatica, right side M54.31 Active confirmed 32064086267138143 Problem Impaired fasting glucose R73.01 Active confirmed 475334368 Problem Chronic rheumatic arthritis M06.9 Active confirmed 84912816 Problem 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 Active confirmed 850797037 ALLERGIES Allergen (clinical drug ingredient) Drug/Non Drug Allergy do cumented on EMR Reaction Allergy Type Onset Date Status tiotropium Spiriva HandiHaler(NDC Code:[address]-45) Urina ry retention Drug Allergy Active Requip headaches Drug Allergy Active celecoxib Celebrex(NDC Code:[address]-48) affects motor a ctivities Drug Allergy Active ENCOUNTERS from 1940 to 2020-12-16 Encounter Location Date Provider Diagnosis [place] [id number] [facility] [phone] [place] [address] Nov, Steven Santos DJD (degenerative joint dise ase), [...] Education Language: Question Answer Notes Languages spoken: Chinese Pentecostal: Question Answer Notes Pentec[employer]al 21 Advent Sexual Hx: Question Answer Notes Had sex [...] FOR REFERRAL No Information VITAL SIGNS Weight 139.8 lbs Nov, Weight-kg 63.41 kg Nov, Height 62 in Nov, BMI 25.57 kg/m2 Nov, Heart Rate 78 /min Nov, Respiratory Rate 18 /min Nov, Temperature 98.3 degrees Fahrenheit Nov, Oximetry 94% Nov, Blood pressure systolic 122 mm Hg Nov, Blood pressure diastolic 82 mm Hg Nov, MEDICATIONS Medication SIG (Take, Route, Frequency, Duration) [...] Information RESULTS No Results REASON FOR VISIT 4 M, BW 1 Week Prior MEDICAL (GENERAL) HISTORY Type Description Date Medical History asthma, moderate persistent- December 2009 PFTs with borderline air trapping and mild airway resistance otherwise normal/04/2016 CXR hyperinflation/PAH Medical History hypothyroidism Medical History FIDEL/PLMS-palliated on BiPAP 03/[address] Shaina Cortes Medical History mild diastolic dysfunction o therwise normal TTE 02/18 Antecol//low risk stress echo, to 5.3 METS, LVEF 60%-Sleka Medical History insomnia Medical History restless leg [...] from table)) by tpa vs complex migraine 06/2017//01/26/18 MRI/MRA head, MRA neck incidentally detected 5 mm L cerebellar suabcute CVA and poor visulization of proximal L vertebral art Medical History grade 1 diastolic dysfunction by 06/2017 TTE-Rc Medical History B hip mild OA by 01/28/20 XR Medical History +CCP >250, +RF 42 (<15), -Andie 02/18/19 Surgical History vaginal hysterectomy c bladd er suspension surgery-Dr. Baptiste-[place] 09/15/2010 Surgical History left foot surgery 05/2014 [...] Notes Treatment Notes Treatm ent Clinical Notes Nov, DJD (degenerative joint disease), lumbar (ICD-10 - M47.816) C: pred taper, PT, GCI +CCP >250, +RF 42 (<15), -Andie 02/18/19 12/12/20 c/o ~3M B SIJ px (states present to some degree since 20S p skiing accident), using Flector patch c relief 05/08/20 px requested repeat [facility] PT trial 03/28/20 10D acute on chronic R>>L paralumbar c sensory radic to buttock; therefore, DM 90 x 1then pred 60/6D, inge 100 TID and HC 2.5-5 TID prn (c dc tram) c update cb in 3D Contingency: MRI LS, LESI as below 02/08-03/10/20 [facility] PT s improvement 03/07/20 SS referrd to [facility] tc repeat LESI 01/28/20 LS spine XR: advanced ML spond s fx/sublux 11/2015 increased to 200/200/100 c improvement; then patient weaned self to 200 qhs 10/12/15 SS added gabapentin 100 TID c improved symptoms 01/2015 added Ultram 50 QD prn given has helped in past and would be safer than high-dose NSAID No improvement c LESI x 3 in [place] nor PT 11/2014 - H pylori Ab Nov, Bilateral sacroiliitis (ICD-10 - M46.1) as per lumbar spondyl Nov, Osteoporosis (ICD-10 - M81.0) Repeat BMD 01/2018 BMD 0/-0.5/5.7 c -0.3/-2.7/17% change c/w 09/2008 (but marked improvement c/w 02/2013; therefore, 01/2016 held Fosamax 70) 02/2013 -1.7/-2.8/4.9-done in [place], but no treatment started, therefore 10/2013 Tom started Fosamax 70 Nov, Non compliance w medication regimen (ICD-10 - Z9 1.14) 12/12/20 patient decided to receive ONLY from [facility]; called [facility] to dc account 12/11/20 49, 10.1, 41; Ca/D 600/400 BID STOPPED (was taking from Anish Nowak-who was ALSO giving her clopid 75, vit C B complex through [facility]-had dropped [facility] dated 3D prior on floor in exam room)-states had been getting meds from myself from [facility] and Anish Abreu from [facility] (unknown to me) Nov, Vitamin D deficiency (ICD-10 - E55.9) 3 servings dietary Ca daily baseline Ca high 9s 12/11/20 49, 10.1, 41; Ca/D 600/400 BID [...] 45, 8.9, PTH 71 on D3 2K Nov, Constipation, chronic (ICD-10 - K59.09) 08/21/20 doc 100 BID prn to doc/sen BID Nov, 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 Su [facility] NS felt "no compression", felt arm/leg pain "not from neck" and dc cervical collar, +PT c PRN RTO 01/28/20 cervical c F/E XR: stable cw 02/19/19 mod ML, focal early advanced C12, C6T1 s lithesis 02/18/19 given persistent L high cervical pain s weakness/numbness; checked inflammatory ferraro (which was cw inactive RA) and repeat CT neck s/c NOW and referred to Dr. Haynes, [facility] for opinion-apt 04/02/19 02/19/19 CT [...] C2-6 medial FB nor PATITO x 2-[facility] Nov, Ataxia (ICD-10 - R27.0) c recurrent falls obvious concern 2 AA instability 12/21/18 48h Holter unremarkable x runs SVT, longest 12 beats at 165-Slezka 12/18/18 MRI brain NAD, old R cerebellar lacunar, mod SVC/volume loss 12/09/18 BLE NCS/EMG: B length dependent sens peripheral neuropathy s radic/myopathy-Dr. 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 Yola Lopez dc asa 325, kept on clopid 75 01/26/18 MRI/MRA head, MRA neck 5 mm L cerebellar suabcute CVA and poor visulization of proximal L vertebral art (done for routine fu by Dr. Dill-[facility]) on asa 325; therefore, changed to clopid [...] small posterior L parietal meningioma stable since 2013Nov, Thyroid nodule (ICD-10 - E04.1) 01/23/18 CT C spine c incidental L 13 mm nodule Nov, Hypertension, essential (ICD-10 - I10) Stable on irbe 75 qAM 08/09/20 17/0.9, 4.3 favor elevated 2 cervical pain (chronic baseline BP 110-120s/70s) Nov, Tinea (ICD-10 - B35.9) Stable on keto 2% sh QD prn flares favor SD-stable on keto shampoo MWF 08/2017 2W entire scalp, headache; therefore, ketocon shampoo c DS oil recheck 2W c improvement Contingency: pulse terbinafine 250 QD x 7D, then q7D x2-3M Nov, B12 deficiency (ICD-10 - E53.8) hgb as per macro 02/2019 1661 on 500; therefore, decreased to 100 08/2017 356; therefore, + 500 QD 12/2016 RBC folate 453 Nov, Macrocytosis without anemia (ICD-10 - D75.89) 08/09/20 13.7, 104, 7.12, 324K 02/2019 13.8, 108, 9.9, 365K, r38/1.4 B12/folate as per B12 08/28/20 SPEP WNL, sIFE s MCB Nov, Osteoarthritis of knees, bilateral (ICD-10 - M17 .0) Stable on aceto 500 BID 01/27/18 will need to postpone upcoming TKR given recent CVA 08/2017 per patient request (daily instability and pain), referred to Dr. 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" TSH as per hypo Nov, Migraine without aura and wi thout status [...] abortive rx-gave Toradol 30 IM X 1 Nov, Chronic obstructive pulmonary disease (ICD-10 - J44.9) Stable on Advair 500, monte 10 QHS 07/2017 flare c large RLL PN seen by 07/23/17 and improved 08/08/17 CXR Nov, Xerostomia (ICD-10 - R68.2) Stable on current regimen 08/2016 decrease inge 200 qhs to 100 qhs no benefit c clotrimazole juan QID x 5D Nov, Colon cancer screening (ICD-10 - Z12.11) Patient refuses screening endoscopy 10/2015 patient now remits to screening colonoscopy; therefore, referred to [facility], but patient then refused Nov, Breast cancer screening (ICD-10 - Z12.39) 03/2020 B C1 mammogram Nov, FIDEL (obstructive sleep apnea) (ICD-10 - G47.33) Encouraged compliance c BIPAP 25/01 follows with [facility] 07/15/16 Nov, Impaired fasting glucose (ICD-10 - R73.01) 08/28/20 5.7 09/2017 5.7 12/2016 6.0 11/2015 A1C 5.7 08/2017 WILD/creatinine 19 Nov, Personal history of tobacco use (ICD-10 - [...] Once a day for 90 da y(s) Treatment Notes Assessment Notes Clinical Notes Atlantoaxial [...] art (done for routine fu by Dr. Dill-[facility]) on asa 325; therefore, changed to clopid 75/asa 814/03/01, 07/21/17, 07/07/17 MRI brain no acute CVA, diffuse strophy, old R cerebellar lacunar CVA3 as per , ? threatened CVA aborted [...] CXR DJD (degenerative joint disease), lumbar C: pred taper, PT, GCI+CCP >250, +RF 42 (<15), -Andie 02/18// c/o ~3M B SIJ px (states present to some degree since 20S p skiing accident), using Flector patch c relief05/08/20 px requested repeat [facility] PT trial03/28/20 10D acute on chronic R>>L paralumbar c sensory radic to buttock; therefore, DM 90 x 1then pred 60/6D, inge 100 TID and HC 2.5-5 TID prn (c dc tram) c update cb in 3DContingency: MRI LS, LESI as below02/08- 03/10/20 [facility] PT s panvqhfolow59/24/20 SS referrd to [facility] tc repeat LESI1 LS spine XR: advanced ML spond s fx/sublux11/2015 increased to 200/200/100 c improvement; then patient weaned self to 200 qhs10/12/15 SS added gabapentin 100 TID c improved xysavqru08/2015 added Ultram 50 QD prn given has helped in past and would be safer than high-dose NSAIDNo improvement c LESI x 3 in [place] nor PT11/2014 - H pylori Ab Migraine [...] therefore, 01/2016 held Fosamax 70)02/2013 -1.7/-2.8/4.9-done in [place], but no treatment started, therefore 10/2013 Tom started Fosamax 70 Xerostomia Stable on current re gimen08/2016 decrease inge 200 qhs to 100 qhsno benefit c clotrimazole juan QID x 5D Non compliance w medication regimen 12/12 patient decided to receive ONLY from [facility]; called [facility] to dc account12/11/20 49, 10.1, 41; Ca/D 600/400 BID STOPPED (was taking from Anish Nowak-who was ALSO giving her clopid 75, vit C B comple x through [facility]-had dropped [facility] dated 3D prior on floor in exam room)- states had been getting meds from myself from [facility] and Anish Abreu from [facility] (unknown to me) FIDEL (obstructive sleep apnea) Encouraged compliance c BIPAP 25/01follows with [facility] 07/15/16 Vitamin D deficiency 3 servings dietary Ca dailybaseline Ca high 9s12/11/20 49, 10.1, 41; Ca/D 600/400 BID STOPPED (was taking from Anish Nowak-who was ALSO giving her clopid 75, vit C B complex through [facility]-had dropped [facility] dated 3D prior on floor in exam room)08/28/20 SPEP WNL, sIFE s MC08/09/20 sCa 9.912/ 37, 10.9, 40 on D3 2K; ergo, stopped Ca sup11/2015 vitamin D 45, 8.9, PTH 71 on D3 2K Breast cancer screening 03/2020 B C1 ahsan mogram Constipation, chronic 08/21/20 doc 100 BI D prn to doc/sen BID Intercostal neuropathy recurrent L C67 a nterior08/21/20 + Lidoderm patch prn; but i would not cover; ergo, + Flector patch q12H prn Impaired fasting glucose 08/28/20 5.76/20 18 5. 6.11/2015 A1C 5. WILD/creatinine 19 Macrocytosis without anemia 08/09/20 13.7 , 104, 7.12, 324K11/2018 13.8, 108, 9.9, 365K, r38/1.4B12/folate as per B125/17/21 SPEP WNL, sIFE s MCB Mixed hyperlipidemia 08/2017 61/56/96, 48 , [...] 09/2014 Chronic rheumatic arthritis No active sy /2019 + RF 42 (<15), + CCP >250, -iANA02/2019 CRP <0.3 Cervical spondylosis with radiculopathy favor 2 cervicogenic HA10/19/20 CT cervical s: stable c/w 11/18/18, minimal C34 2 mm rxodqbbbnd02/20/19 Dr. Su [facility] MARKUS felt "no compression", felt arm/leg pain "not from neck" and dc cervical collar, +PT c PRN RTO1 cervical c F/E XR: stable cw 02/19/19 mod ML, focal early advanced C12, C6T1 s sobkncxc72/7/19 given persistent L high cervical pain s weakness/numbness; checked inflammatory ferraro (which was cw inactive RA) and repeat CT neck s/c NOW and referred to Dr. Haynes [facility] for opinion-apt 04/02/1911 CT cerv and FE xray: s severe [...] 2-[facility]olla Treatment Notes Test Name Order Date X ray : Spines, lumbar complete 2020-12-12 PLZ SI JOINTS 2020-12-12 Future Test Test Name Order Date C REACTIVE PROTEIN QUANTITATIV (At [facility]) 20210413 ERYTHROCYTE SEDIMENTATION RATE [id number] ELBA TITER & PATTERN [id number] CYCLIC CITRULLINATED PEPTIDE 20210413 HLA-B27 20210413 Dexa, Full Body 77767523 PTH INTACT 06013678 VITAMIN D 25-HYDROXY [id number] NT-PRO BNP [id number] HEMOGLOBIN A1c 11320902 INSULIN LEVEL [id number] WW Fortunato Screening Bilateral (Ultrasound if Indicated ) (3D Mammo) [id number] Comprehensive Metabolic Profile (CMP) 20210314 Next Appt Details 4M, BW 4W Reason: Provider Name:Steven Santos, 2021-05-04 1 0:15:00 AM, [address] [facility], , [place], [address], Insurance Providers Payer Name Payer Address Payer Phone Insured Name Patient Relati onship to Insured Coverage Start Date Coverage End Date BCBS GISELLE MURILLO PPO [phone] [facility] [employer] [place] [facility] [address] PRISCILA [place] MEDICARE Part A and B [address] [address] [phone] PRISCILA [place]ON
--- OUTSIDE RECORDS SUMMARY | 2021-02-09 23:28 | CCD ---
Author Author [facility] Organization [facility] Address Unknown Phone Unavailable Support Name Relationship Address Phone UNRULY OSHEA Next Of Kin Unknown Unavailable RADHA RODAS Next Of Kin [address] [place] [phone] [place]A Next Of Kin [address] [place] [address] UE Next Of Kin Unknown Unavailable RE Next Of Kin Unknown ADELINA AMBROCIO Next Of Kin [address] [place] [address] GENOVEVA MASON Next Of Kin [address] [place] [address] Didier Ambrocio ECON [address] [place] [address] [phone] RADHA RODAS ECON [address] [place] [address] Re-disclosure Warning The records that you are about to access may contain information from federally-assisted alcohol or drug abuse programs. If such information is present, then the following federally mandated warning applies: This information has been disclosed to you from records protected by federal confidentiality rules (42 CFR part 2). The federal rules prohibit you from making any further disclosure of this information unless further disclosure is expressly permitted by the written consent of the person to whom it pertains or as otherwise permitted by 42 CFR part 2. A general authorization for the release of medical or other information is NOT sufficient for this purpose. The Federal rules restrict any use of the information to criminally investigate or prosecute any alcohol or drug abuse patient.The records that you are about to access may contain highly sensitive health information, the redisclosure of which is protected by Article 27-F of the [facility] Public Health law. If you continue you may have access to information: Regarding HIV / AIDS; Provided by facilities licensed or operated by the [facility] Office of Mental Health; or Provided by the [facility] Office for People With Developmental Disabilities. If such information is present, then the following [facility] mandated warning applies: This information has been disclosed to you from confidential records which are protected by state law. State law prohibits you from making any further disclosure of this information without the specific written consent of the person to whom it pertains, or as otherwise permitted by law. Any unauthorized further disclosure in violation of state law may result in a fine or group home sentence or both. A general authorization for the release of medical or other information is NOT sufficient authorization for further disc losure. Family History Family Member Name Family Member Gender Family Member Status Date o f Status Description Data Source(s) Unknown Unknown Problem MEDENT ([facility]) Unknown Male Problem MEDENT ([facility] () [facility] Female Problem MEDENT ([facility]) Unknown Female Problem MEDENT ([facility]) Unknown Female Problem MEDENT ([facility]) Unknown Female Problem MEDENT ([facility] ) Encounters Encounter Providers Location Date Indications Data Source(s ) Unknown [address] [facility], [facility] [address] 01/30/2021 12:00:00 AM EDT eCW1 ([facility]) Office Visit, Est Pt., Level 3 PC [address] [place] [address] 01/29/2021 12:00:00 AM EDT eCW1 ([facility]) Unknown [address] [facility] [address] 01/25/2021 12:00:00 AM EDT eCW1 ([facility]) Unknown [address] [facility] [address] 01/23/2021 12:00:00 AM EDT eCW1 ([facility]) Unknown [address] [facility] [place] [address] 01/11/2021 12:00:00 AM EDT eCW1 ([facility]) Outpatient [address] [facility] [address] 01/02/2021 12:00:00 AM EDT eCW1 ([facility]) Unknown [address] [facility] [address] 01/02/2021 12:00:00 AM EDT eCW1 ([facility]) Unknown [address] [facility] [address] 12/26/2020 12:00:00 AM EDT eCW1 ([facility]) Unknown [address] [facility] [address] 12/22/2020 12:00:00 AM EDT eCW1 ([facility]) Outpatient [address] [facility] [address] 12/12/2020 12:00:00 AM EDT eCW1 ([facility]) Unknown [address] [facility] [address] 12/12/2020 12:00:00 AM EDT eCW1 ([facility]) Outpatient [address] [facility] [address] 10/31/2020 12:00:00 AM EDT eCW1 ([facility]) Outpatient [address] [facility] [address] 10/24/2020 12:00:00 AM EDT eCW1 ([facility]) Unknown [address] [facility] [address] 10/19/2020 12:00:00 AM EDT eCW1 ([facility]) Outpatient [address] [facility] [address] 10/18/2020 12:00:00 AM EDT eCW1 ([facility]) Outpatient [address] [facility] [address] 10/10/2020 12:00:00 AM EDT eCW1 ([facility]) Unknown [address] [facility] [address] 10/10/2020 12:00:00 AM EDT eCW1 ([facility]) Outpatient [address] [facility] [address] 09/04/2020 12:00:00 AM EDT eCW1 ([facility]) Unknown [address] [facility] [address] 08/22/2020 12:00:00 AM EDT eCW1 ([facility]) Unknown [address] [facility] [address] 08/21/2020 12:00:00 AM EDT eCW1 ([facility]) Outpatient [address] [facility] [address] 08/21/2020 12:00:00 AM EDT eCW1 ([facility]) Outpatient [address] [facility] [address] 08/08/2020 12:00:00 AM EDT eCW1 ([facility]) Unknown [address] [facility] [address] 06/30/2020 12:00:00 AM EDT eCW1 ([facility]) Unknown [address] [facility] [address] 06/20/2020 12:00:00 AM EST eCW1 ([facility]) Unknown [address] [facility] [address] 06/01/2020 12:00:00 AM EST eCW1 ([facility]) Unknown [address] [facility] [address] 05/02/2020 12:00:00 AM EST eCW1 ([facility]) Unknown [address] [facility] [address] 04/26/2020 12:00:00 AM EST eCW1 ([facility]) Unknown [address] [facility] [address] 04/25/2020 12:00:00 AM EST eCW1 ([facility]) Unknown [address] [facility] [address] 04/13/2020 12:00:00 AM EST eCW1 ([facility]) Office Visit, Est Pt., Level 3 PC [address] [place] [address] 04/05/2020 12:00:00 AM EST eCW1 ([facility]) Unknown [address] [facility] [place] [address] 04/04/2020 12:00:00 AM EST eCW1 ([facility]) Unknown [address] [facility] [address] 03/31/2020 12:00:00 AM EST eCW1 ([facility]) Unknown [address] [facility] [place] [address] 03/31/2020 12:00:00 AM EST eCW1 ([facility]) Unknown [address] [facility] [place] [address] 03/30/2020 12:00:00 AM EST eCW1 ([facility]) Outpatient [address] [facility] [address] 03/28/2020 12:00:00 AM EST eCW1 ([facility]) Unknown [address] [facility] [place] [address] 03/24/2020 12:00:00 AM EST eCW1 ([facility]) Office Visit, Est Pt., Level 3 PC [address] [place] [address] 03/20/2020 12:00:00 AM EST eCW1 ([facility]) Unknown [address] [facility] [place] [address] 03/20/2020 12:00:00 AM EST eCW1 ([facility]) Outpatient [address] [facility] [place] [address] 03/07/2020 12:00:00 AM EST eCW1 ([facility]) Unknown [address] [facility] [place] [address] 02/29/2020 12:00:00 AM EST eCW1 ([facility]) Outpatient [address] [facility] [address] 02/14/2020 12:00:00 AM EST eCW1 ([facility]) Unknown [address] [facility] [address] 02/07/2020 12:00:00 AM EDT eCW1 ([facility]) Office Visit, Est Pt., Level 3 PC [address] [place] [address] 01/28/2020 12:00:00 AM EDT eCW1 ([facility]) Unknown [address] [facility] [address] 01/24/2020 12:00:00 AM EDT eCW1 ([facility]) Immunizations Vaccine Date Status Description Data Source(s) COVID-19 VACCINE Pfizer 06/19/2020 12:00:00 AM EST completed [facility] Vaccine Series Complete: YESThis Data wa s Submitted to [facility]. COVID-19 VACCINE Pfizer 05/29/2020 12:00:00 AM EST completed [facility] Vaccine Series Complete: NOThis Data was Submitted to [facility]. 03/28/2020 05:27:00 PM EST completed e CW1 ([facility]) 03/28/2020 05:27:00 PM EST completed e CW1 ([facility]) 03/28/2020 05:27:00 PM EST completed e CW1 ([facility]) 03/28/2020 05:27:00 PM EST completed e CW1 ([facility]) 03/28/2020 05:27:00 PM EST completed e CW1 ([facility]) 03/28/2020 05:27:00 PM EST completed e CW1 ([facility]) 03/28/2020 05:27:00 PM EST completed e CW1 ([facility]) 03/28/2020 05:27:00 PM EST completed e CW1 ([facility]) 03/28/2020 05:27:00 PM EST completed e CW1 ([facility]) 03/28/2020 05:27:00 PM EST completed e CW1 ([facility]) 03/28/2020 05:27:00 PM EST completed e CW1 ([facility]) 03/28/2020 05:27:00 PM EST completed e CW1 ([facility]) 03/28/2020 05:27:00 PM EST completed e CW1 ([facility]) 03/28/2020 05:27:00 PM EST completed e CW1 ([facility]) 03/28/2020 05:27:00 PM EST completed e CW1 ([facility]) 03/28/2020 05:27:00 PM EST completed e CW1 ([facility]) 03/28/2020 05:27:00 PM EST completed e CW1 ([facility]) 03/28/2020 05:27:00 PM EST completed e CW1 ([facility]) 03/28/2020 05:27:00 PM EST completed e CW1 ([facility]) 03/28/2020 05:27:00 PM EST completed e CW1 ([facility]) 03/28/2020 05:27:00 PM EST completed e CW1 ([facility]) 03/28/2020 05:27:00 PM EST completed e CW1 ([facility]) 03/28/2020 05:27:00 PM EST completed e CW1 ([facility]) 03/28/2020 05:27:00 PM EST completed e CW1 ([facility]) 03/28/2020 05:27:00 PM EST completed e CW1 ([facility]) 03/28/2020 05:27:00 PM EST completed e CW1 ([facility]) 03/28/2020 05:27:00 PM EST completed e CW1 ([facility]) 03/28/2020 05:27:00 PM EST completed e CW1 ([facility]) 03/28/2020 05:27:00 PM EST completed e CW1 ([facility]) 03/28/2020 05:27:00 PM EST completed e CW1 ([facility]) 03/28/2020 05:27:00 PM EST completed e CW1 ([facility]) 03/28/2020 05:27:00 PM EST completed e CW1 ([facility]) 03/28/2020 05:27:00 PM EST completed e CW1 ([facility]) 03/28/2020 05:27:00 PM EST completed e CW1 ([facility]) 03/28/2020 05:27:00 PM EST completed e CW1 ([facility]) 03/28/2020 05:27:00 PM EST completed e CW1 ([facility]) 03/28/2020 05:27:00 PM EST completed e CW1 ([facility]) pneumococcal polysaccharide PPV23 02/05/2020 01:59:00 PM EDT comple sarita eCW1 ([facility]) pneumococcal polysaccharide PPV23 02/05/2020 01:59:00 PM EDT comple sarita eCW1 ([facility]) pneumococcal polysaccharide PPV23 02/05/2020 01:59:00 PM EDT comple sarita eCW1 ([facility]) pneumococcal polysaccharide PPV23 02/05/2020 01:59:00 PM EDT comple sarita eCW1 ([facility]) pneumococcal polysaccharide PPV23 02/05/2020 01:59:00 PM EDT comple sarita eCW1 ([facility]) pneumococcal polysaccharide PPV23 02/05/2020 01:59:00 PM EDT comple sarita eCW1 ([facility]) pneumococcal polysaccharide PPV23 02/05/2020 01:59:00 PM EDT comple sarita eCW1 ([facility]) pneumococcal polysaccharide PPV23 02/05/2020 01:59:00 PM EDT comple sarita eCW1 ([facility]) pneumococcal polysaccharide PPV23 02/05/2020 01:59:00 PM EDT comple sarita eCW1 ([facility]) pneumococcal polysaccharide PPV23 02/05/2020 01:59:00 PM EDT comple sarita eCW1 ([facility]) pneumococcal polysaccharide PPV23 02/05/2020 01:59:00 PM EDT comple sarita eCW1 ([facility]) pneumococcal polysaccharide PPV23 02/05/2020 01:59:00 PM EDT comple sarita eCW1 ([facility]) pneumococcal polysaccharide PPV23 02/05/2020 01:59:00 PM EDT comple sarita eCW1 ([facility]) pneumococcal polysaccharide PPV23 02/05/2020 01:59:00 PM EDT comple sarita eCW1 ([facility]) pneumococcal polysaccharide PPV23 02/05/2020 01:59:00 PM EDT comple sarita eCW1 ([facility]) pneumococcal polysaccharide PPV23 02/05/2020 01:59:00 PM EDT comple sarita eCW1 ([facility]) pneumococcal polysaccharide PPV23 02/05/2020 01:59:00 PM EDT comple sarita eCW1 ([facility]) pneumococcal polysaccharide PPV23 02/05/2020 01:59:00 PM EDT comple sarita eCW1 ([facility]) pneumococcal polysaccharide PPV23 02/05/2020 01:59:00 PM EDT comple sarita eCW1 ([facility]) pneumococcal polysaccharide PPV23 02/05/2020 01:59:00 PM EDT comple sarita eCW1 ([facility]) pneumococcal polysaccharide PPV23 02/05/2020 01:59:00 PM EDT comple sarita eCW1 ([facility]) pneumococcal polysaccharide PPV23 02/05/2020 01:59:00 PM EDT comple sariat eCW1 ([facility]) pneumococcal polysaccharide PPV23 02/05/2020 01:59:00 PM EDT comple sarita eCW1 ([facility]) pneumococcal polysaccharide PPV23 02/05/2020 01:59:00 PM EDT comple sarita eCW1 ([facility]) pneumococcal polysaccharide PPV23 02/05/2020 01:59:00 PM EDT comple sarita eCW1 ([facility]) pneumococcal polysaccharide PPV23 02/05/2020 01:59:00 PM EDT comple sarita eCW1 ([facility]) pneumococcal polysaccharide PPV23 02/05/2020 01:59:00 PM EDT comple sarita eCW1 ([facility]) pneumococcal polysaccharide PPV23 02/05/2020 01:59:00 PM EDT comple sarita eCW1 ([facility]) pneumococcal polysaccharide PPV23 02/05/2020 01:59:00 PM EDT comple sarita eCW1 ([facility]) pneumococcal polysaccharide PPV23 02/05/2020 01:59:00 PM EDT comple sarita eCW1 ([facility]) pneumococcal polysaccharide PPV23 02/05/2020 01:59:00 PM EDT comple sarita eCW1 ([facility]) pneumococcal polysaccharide PPV23 02/05/2020 01:59:00 PM EDT comple sarita eCW1 ([facility]) pneumococcal polysaccharide PPV23 02/05/2020 01:59:00 PM EDT comple sarita eCW1 ([facility]) pneumococcal polysaccharide PPV23 02/05/2020 01:59:00 PM EDT comple sarita eCW1 ([facility]) pneumococcal polysaccharide PPV23 02/05/2020 01:59:00 PM EDT comple sarita eCW1 ([facility]) pneumococcal polysaccharide PPV23 02/05/2020 01:59:00 PM EDT comple sarita eCW1 ([facility]) pneumococcal polysaccharide PPV23 02/05/2020 01:59:00 PM EDT comple sarita eCW1 ([facility]) pneumococcal polysaccharide PPV23 02/05/2020 01:59:00 PM EDT comple sarita eCW1 ([facility]) pneumococcal polysaccharide PPV23 02/05/2020 01:59:00 PM EDT comple sarita eCW1 ([facility]) pneumococcal polysaccharide PPV23 02/05/2020 01:59:00 PM EDT comple sarita eCW1 ([facility]) pneumococcal polysaccharide PPV23 02/05/2020 01:59:00 PM EDT comple sarita eCW1 ([facility]) pneumococcal polysaccharide PPV23 02/05/2020 01:59:00 PM EDT comple sarita eCW1 ([facility]) pneumococcal polysaccharide PPV23 02/05/2020 01:59:00 PM EDT comple sarita eCW1 ([facility]) Medications Medication Brand Name Start Date Product Form Dose Route Admi nistrative Instructions Pharmacy Instructions Status Indications Reaction Description Data Source(s) Cholecalciferol 25 MCG (1000 UT) UNK 01/02/2021 12:00:00 AM ED T 1.0 {capsule} active Cholecalciferol 25 M CG (1000 UT) [facility] ([facility]) Cholecalciferol 25 MCG (1000 UT) UNK 01/02/2021 12:00:00 AM ED T 1.0 {capsule} active Cholecalciferol 25 M CG (1000 UT) [facility] ([facility]) predniSONE 5 MG (21) predniSONE 5 MG (21) 01/02/2021 12:00:00 AM EDT active predniSONE 5 MG (21) [facility] ([facility]) predniSONE 5 MG (21) predniSONE 5 MG (21) 01/02/2021 12:00:00 AM EDT active predniSONE 5 MG (21) [facility] ([facility]) Cholecalciferol 25 MCG (1000 UT) [facility] 01/02/2021 12:00:00 AM ED T 1.0 {capsule} active Cholecalciferol 25 M CG (1000 UT) [facility] ([facility]) predniSONE 5 MG (21) predniSONE 5 MG (21) 01/02/2021 12:00:00 AM EDT active predniSONE 5 MG (21) [facility] ([facility]) predniSONE 5 MG (21) predniSONE 5 MG (21) 01/02/2021 12:00:00 AM EDT active predniSONE 5 MG (21) [facility] ([facility]) Cholecalciferol 25 MCG (1000 UT) UNK 01/02/2021 12:00:00 AM ED T 1.0 {capsule} active Cholecalciferol 25 M CG (1000 UT) [facility] ([facility]) Cholecalciferol 25 MCG (1000 UT) UNK 01/02/2021 12:00:00 AM ED T 1.0 {capsule} active Cholecalciferol 25 M CG (1000 UT) [facility] ([facility]) Cholecalciferol 25 MCG (1000 UT) UNK 01/02/2021 12:00:00 AM ED T 1.0 {capsule} active Cholecalciferol 25 M CG (1000 UT) [facility] ([facility]) predniSONE 5 MG (21) predniSONE 5 MG (21) 01/02/2021 12:00:00 AM EDT active predniSONE 5 MG (21) eCW1 ([facility]) predniSONE 5 MG (21) predniSONE 5 MG (21) 01/02/2021 12:00:00 AM EDT active predniSONE 5 MG (21) eCW1 ([facility]) Cholecalciferol 25 MCG (1000 UT) UNK 01/02/2021 12:00:00 AM ED T 1.0 {capsule} active Cholecalciferol 25 M CG (1000 UT) eCW1 ([facility]) Cholecalciferol 25 MCG (1000 UT) UNK 01/02/2021 12:00:00 AM ED T 1.0 {capsule} active Cholecalciferol 25 M CG (1000 UT) eCW1 ([facility]) Triamcinolone Acetonide 0.001 MG/MG Oral Paste Triamci nolone Acetonide 0.1 % Triamcinolone Acetonide 0.1 % 10/31/2020 12:00:00 AM EDT active Triamcinolone Acetonide 0.1 % eCW1 ([facility]) Triamcinolone Acetonide 0.001 MG/MG Oral Paste Triamci nolone Acetonide 0.1 % Triamcinolone Acetonide 0.1 % 10/31/2020 12:00:00 AM EDT active Triamcinolone Acetonide 0.1 % eCW1 ([facility]) Triamcinolone Acetonide 0.001 MG/MG Oral Paste Triamci nolone Acetonide 0.1 % Triamcinolone Acetonide 0.1 % 10/31/2020 12:00:00 AM EDT active Triamcinolone Acetonide 0.1 % eCW1 ([facility]) Triamcinolone Acetonide 0.001 MG/MG Oral Paste Triamci nolone Acetonide 0.1 % Triamcinolone Acetonide 0.1 % 10/31/2020 12:00:00 AM EDT active Triamcinolone Acetonide 0.1 % eCW1 ([facility]) Triamcinolone Acetonide 0.001 MG/MG Oral Paste Triamci nolone Acetonide 0.1 % Triamcinolone Acetonide 0.1 % 10/31/2020 12:00:00 AM EDT active Triamcinolone Acetonide 0.1 % eCW1 ([facility]) Triamcinolone Acetonide 0.001 MG/MG Oral Paste Triamci nolone Acetonide 0.1 % Triamcinolone Acetonide 0.1 % 10/31/2020 12:00:00 AM EDT active Triamcinolone Acetonide 0.1 % eCW1 ([facility]) Bisacodyl 5 MG UNK 10/10/2020 12:00:00 AM EDT 1.0 {tablet_as _needed} active Bisacodyl 5 MG eCW1 ([facility]) Bisacodyl 5 MG UNK 10/10/2020 12:00:00 AM EDT 1.0 {tablet_as _needed} suspended Bisacodyl 5 MG eCW1 ([facility]) Bisacodyl 5 MG UNK 10/10/2020 12:00:00 AM EDT 1.0 {tablet_as _needed} suspended Bisacodyl 5 MG eCW1 ([facility]) Bisacodyl 5 MG UNK 10/10/2020 12:00:00 AM EDT 1.0 {tablet_as _needed} active Bisacodyl 5 MG eCW1 ([facility]) Bisacodyl 5 MG UNK 10/10/2020 12:00:00 AM EDT 1.0 {tablet_as _needed} active Bisacodyl 5 MG eCW1 ([facility]) Bisacodyl 5 MG UNK 10/10/2020 12:00:00 AM EDT 1.0 {tablet_as _needed} active Bisacodyl 5 MG eCW1 ([facility]) 12 HR diclofenac epolamine 15 MG/HR Transdermal Patch [Flector] Flector 1.3 % Flector 1.3 % 08/22/2020 12:00:00 AM EDT 1.0 {patch} active Flector 1.3 % eCW1 ([facility]) 12 HR diclofenac epolamine 15 MG/HR Transdermal Patch [Flector] Flector 1.3 % Flector 1.3 % 08/22/2020 12:00:00 AM EDT 1.0 {patch} active Flector 1.3 % eCW1 ([facility]) 12 HR diclofenac epolamine 15 MG/HR Transdermal Patch [Flector] Flector 1.3 % Flector 1.3 % 08/22/2020 12:00:00 AM EDT 1.0 {patch} active Flector 1.3 % eCW1 ([facility]) 12 HR diclofenac epolamine 15 MG/HR Transdermal Patch [Flector] Flector 1.3 % Flector 1.3 % 08/22/2020 12:00:00 AM EDT 1.0 {patch} active Flector 1.3 % eCW1 ([facility]) Sennosides-Docusate Sodium 8.6-50 MG UNK 08/21/2020 12:00:00 AM EDT active Sennosides-Docusate Sodium 8.6-5 0 MG eCW1 ([facility]) Sennosides-Docusate Sodium 8.6-50 MG UNK 08/21/2020 12:00:00 AM EDT active Sennosides-Docusate Sodium 8.6-5 0 MG eCW1 ([facility]) Sennosides-Docusate Sodium 8.6-50 MG UNK 08/21/2020 12:00:00 AM EDT active Sennosides-Docusate Sodium 8.6-5 0 MG eCW1 ([facility]) Sennosides-Docusate Sodium 8.6-50 MG UNK 08/21/2020 12:00:00 AM EDT active Sennosides-Docusate Sodium 8.6-5 0 MG eCW1 ([facility]) Senna-Docusate Sodium 8.6-50 MG Senna-Docusate Sodium 8.6-50 MG 03/31/2020 12:00:00 AM EST 1.0 {tablet} active Se nna-Docusate Sodium 8.6-50 MG eCW1 ([facility]) Senna-Docusate Sodium 8.6-50 MG Senna-Docusate Sodium 8.6-50 MG 03/31/2020 12:00:00 AM EST 1.0 {tablet} active Se nna-Docusate Sodium 8.6-50 MG eCW1 ([facility]) Bisacodyl 10 MG Rectal Suppository [Dulcolax] Dulcolax 10 MG Dulcolax 10 MG 03/31/2020 12:00:00 AM EST 1.0 {suppository_as_needed} active Dulcolax 10 MG eCW1 ([facility]) Docusate Sodium 50 MG / sennosides, MCC 8.6 MG Oral Tablet Senna-Docusate Sodium 8.6-50 MG Senna-Docusate Sodium 8.6-50 MG 03/31/2020 12:00:00 AM EST 1.0 {tablet} active Senna-Docusate Sodium 8 .6-50 MG eCW1 ([facility]) Bisacodyl 10 MG Rectal Suppository [Dulcolax] Dulcolax 10 MG Dulcolax 10 MG 03/31/2020 12:00:00 AM EST 1.0 {suppository_as_needed} active Dulcolax 10 MG eCW1 ([facility]) Docusate Sodium 50 MG / sennosides, MCC 8.6 MG Oral Tablet Senna-Docusate Sodium 8.6-50 MG Senna-Docusate Sodium 8.6-50 MG 03/31/2020 12:00:00 AM EST 1.0 {tablet} active Senna-Docusate Sodium 8 .6-50 MG eCW1 ([facility]) Senna-Docusate Sodium 8.6-50 MG Senna-Docusate Sodium 8.6-50 MG 03/31/2020 12:00:00 AM EST 1.0 {tablet} active Se nna-Docusate Sodium 8.6-50 MG eCW1 ([facility]) Senna-Docusate Sodium 8.6-50 MG Senna-Docusate Sodium 8.6-50 MG 03/31/2020 12:00:00 AM EST 1.0 {tablet} active Se nna-Docusate Sodium 8.6-50 MG eCW1 ([facility]) Senna-Docusate Sodium 8.6-50 MG Senna-Docusate Sodium 8.6-50 MG 03/31/2020 12:00:00 AM EST 1.0 {tablet} active Se nna-Docusate Sodium 8.6-50 MG eCW1 ([facility]) Bisacodyl 10 MG Rectal Suppository [Dulcolax] Dulcolax 10 MG Dulcolax 10 MG 03/31/2020 12:00:00 AM EST 1.0 {suppository_as_needed} active Dulcolax 10 MG eCW1 ([facility]) Bisacodyl 10 MG Rectal Suppository [Dulcolax] Dulcolax 10 MG Dulcolax 10 MG 03/31/2020 12:00:00 AM EST 1.0 {suppository_as_needed} active Dulcolax 10 MG eCW1 ([facility]) Senna-Docusate Sodium 8.6-50 MG Senna-Docusate Sodium 8.6-50 MG 03/31/2020 12:00:00 AM EST 1.0 {tablet} active Se nna-Docusate Sodium 8.6-50 MG eCW1 ([facility]) Senna-Docusate Sodium 8.6-50 MG Senna-Docusate Sodium 8.6-50 MG 03/31/2020 12:00:00 AM EST 1.0 {tablet} active Se nna-Docusate Sodium 8.6-50 MG eCW1 ([facility]) Bisacodyl 10 MG Rectal Suppository [Dulcolax] Dulcolax 10 MG Dulcolax 10 MG 03/31/2020 12:00:00 AM EST 1.0 {suppository_as_needed} active Dulcolax 10 MG eCW1 ([facility]) Bisacodyl 10 MG Rectal Suppository [Dulcolax] Dulcolax 10 MG Dulcolax 10 MG 03/31/2020 12:00:00 AM EST 1.0 {suppository_as_needed} active Dulcolax 10 MG eCW1 ([facility]) Docusate Sodium 50 MG / sennosides, MCC 8.6 MG Oral Tablet Senna-Docusate Sodium 8.6-50 MG Senna-Docusate Sodium 8.6-50 MG 03/31/2020 12:00:00 AM EST 1.0 {tablet} active Senna-Docusate Sodium 8 .6-50 MG eCW1 ([facility]) Senna-Docusate Sodium 8.6-50 MG Senna-Docusate Sodium 8.6-50 MG 03/31/2020 12:00:00 AM EST 1.0 {tablet} active Se nna-Docusate Sodium 8.6-50 MG eCW1 ([facility]) Bisacodyl 10 MG Rectal Suppository [Dulcolax] Dulcolax 10 MG Dulcolax 10 MG 03/31/2020 12:00:00 AM EST 1.0 {suppository_as_needed} active Dulcolax 10 MG eCW1 ([facility]) Senna-Docusate Sodium 8.6-50 MG Senna-Docusate Sodium 8.6-50 MG 03/31/2020 12:00:00 AM EST 1.0 {tablet} active Se nna-Docusate Sodium 8.6-50 MG eCW1 ([facility]) Bisacodyl 10 MG Rectal Suppository [Dulcolax] Dulcolax 10 MG Dulcolax 10 MG 03/31/2020 12:00:00 AM EST 1.0 {suppository_as_needed} active Dulcolax 10 MG eCW1 ([facility]) Bisacodyl 10 MG Rectal Suppository [Dulcolax] Dulcolax 10 MG Dulcolax 10 MG 03/31/2020 12:00:00 AM EST 1.0 {suppository_as_needed} active Dulcolax 10 MG eCW1 ([facility]) Bisacodyl 10 MG Rectal Suppository [Dulcolax] Dulcolax 10 MG Dulcolax 10 MG 03/31/2020 12:00:00 AM EST 1.0 {suppository_as_needed} active Dulcolax 10 MG eCW1 ([facility]) Docusate Sodium 50 MG / sennosides, MCC 8.6 MG Oral Tablet Senna-Docusate Sodium 8.6-50 MG Senna-Docusate Sodium 8.6-50 MG 03/31/2020 12:00:00 AM EST 1.0 {tablet} active Senna-Docusate Sodium 8 .6-50 MG eCW1 ([facility]) Bisacodyl 10 MG Rectal Suppository [Dulcolax] Dulcolax 10 MG Dulcolax 10 MG 03/31/2020 12:00:00 AM EST 1.0 {suppository_as_needed} active Dulcolax 10 MG eCW1 ([facility]) Bisacodyl 10 MG Rectal Suppository [Dulcolax] Dulcolax 10 MG Dulcolax 10 MG 03/31/2020 12:00:00 AM EST 1.0 {suppository_as_needed} active Dulcolax 10 MG eCW1 ([facility]) Bisacodyl 10 MG Rectal Suppository [Dulcolax] Dulcolax 10 MG Dulcolax 10 MG 03/31/2020 12:00:00 AM EST 1.0 {suppository_as_needed} active Dulcolax 10 MG eCW1 ([facility]) PredniSONE 5 MG (21) PredniSONE 5 MG (21) 03/28/2020 12:00:00 AM EST active PredniSONE 5 MG (21) eCW1 ([facility]) Acetaminophen 325 MG / Hydrocodone Glenny trate 5 MG Oral Tablet [[place]] Hanover 5- 325 MG Hanover 5-325 MG 03/28/2020 12:00:00 AM EST a ctive [place] 5- 325 MG eCW1 ([facility]) PredniSONE 5 MG (21) PredniSONE 5 MG (21) 03/28/2020 12:00:00 AM EST active PredniSONE 5 MG (21) eCW1 ([facility]) Acetaminophen 325 MG / Hydrocodone Glenny trate 5 MG Oral Tablet [[place]] [place] 5- 325 MG Han[place] 5-325 MG 03/28/2020 12:00:00 AM EST a ctive [place] 5- 325 MG eCW1 ([facility]) PredniSONE 5 MG (21) PredniSONE 5 MG (21) 03/28/2020 12:00:00 AM EST active PredniSONE 5 MG (21) eCW1 ([facility]) PredniSONE 5 MG (21) PredniSONE 5 MG (21) 03/28/2020 12:00:00 AM EST active PredniSONE 5 MG (21) eCW1 ([facility]) Acetaminophen 325 MG / Hydrocodone Glenny trate 5 MG Oral Tablet [[place]] [place] 5- 325 MG [place] 5-325 MG 03/28/2020 12:00:00 AM EST a ctive [place] 5- 325 MG eCW1 ([facility]) PredniSONE 5 MG (21) PredniSONE 5 MG (21) 03/28/2020 12:00:00 AM EST active PredniSONE 5 MG (21) eCW1 ([facility]) PredniSONE 5 MG (21) PredniSONE 5 MG (21) 03/28/2020 12:00:00 AM EST active PredniSONE 5 MG (21) eCW1 ([facility]) PredniSONE 5 MG (21) PredniSONE 5 MG (21) 03/28/2020 12:00:00 AM EST active PredniSONE 5 MG (21) eCW1 ([facility]) PredniSONE 5 MG (21) PredniSONE 5 MG (21) 03/28/2020 12:00:00 AM EST active PredniSONE 5 MG (21) eCW1 ([facility]) PredniSONE 5 MG (21) PredniSONE 5 MG (21) 03/28/2020 12:00:00 AM EST active PredniSONE 5 MG (21) eCW1 ([facility]) PredniSONE 5 MG (21) PredniSONE 5 MG (21) 03/28/2020 12:00:00 AM EST active PredniSONE 5 MG (21) eCW1 ([facility]) PredniSONE 5 MG (21) PredniSONE 5 MG (21) 03/28/2020 12:00:00 AM EST active PredniSONE 5 MG (21) eCW1 ([facility]) Acetaminophen 325 MG / Hydrocodone Glenny trate 5 MG Oral Tablet [[place]] [place] 5- 325 MG [place] 5-325 MG 03/28/2020 12:00:00 AM EST a ctive [place] 5- 325 MG eCW1 ([facility]) Acetaminophen 325 MG / Hydrocodone Glenny trate 5 MG Oral Tablet [[place]] [place] 5- 325 MG [place] 5-325 MG 03/28/2020 12:00:00 AM EST a ctive [place] 5- 325 MG eCW1 ([facility]) PredniSONE 5 MG (21) PredniSONE 5 MG (21) 03/28/2020 12:00:00 AM EST active PredniSONE 5 MG (21) eCW1 ([facility]) PredniSONE 5 MG (21) PredniSONE 5 MG (21) 03/28/2020 12:00:00 AM EST active PredniSONE 5 MG (21) eCW1 ([facility]) PredniSONE 5 MG (21) PredniSONE 5 MG (21) 03/28/2020 12:00:00 AM EST active PredniSONE 5 MG (21) eCW1 ([facility]) tramadol hydrochloride 50 MG Oral Tablet Tramadol HCl 50 MG Tramadol HCl 50 MG 03/24/2020 12:00:00 AM EST 1.0 {tablet_as_needed} active Tramadol HCl 50 MG eCW1 ([facility]) tramadol hydrochloride 50 MG Oral Tablet Tramadol HCl 50 MG Tramadol HCl 50 MG 03/24/2020 12:00:00 AM EST 1.0 {tablet_as_needed} active Tramadol HCl 50 MG eCW1 ([facility]) Cephalexin 500 MG Oral Capsule [Keflex] Keflex 500 MG Keflex 500 MG 03/20/2020 12:00:00 AM EST 1.0 {capsule} active K eflex 500 MG eCW1 ([facility]) Cephalexin 500 MG Oral Capsule [Keflex] Keflex 500 MG Keflex 500 MG 03/20/2020 12:00:00 AM EST 1.0 {capsule} active K eflex 500 MG eCW1 ([facility]) Cephalexin 500 MG Oral Capsule [Keflex] Keflex 500 MG Keflex 500 MG 03/20/2020 12:00:00 AM EST 1.0 {capsule} active K eflex 500 MG eCW1 ([facility]) Cephalexin 500 MG Oral Capsule [Keflex] Keflex 500 MG Keflex 500 MG 03/20/2020 12:00:00 AM EST 1.0 {capsule} active K eflex 500 MG eCW1 ([facility]) Insurance Providers Payer name Policy type / Coverage type Policy ID Covered republican ID Covered republican's relationship to chan Policy Chan Plan Information Bso Jeremy GRANDA Yoy,[place],ZFP Medigap Part B [id number] Self X [id number] Bso Jeremy GRANDA,Shahnaz,[place],ZFP Medigap Part B [id number] Self MEDICARE A [id number] Self [id number] A [id number] A MEDICARE A [id number] Self [id number] MEDICARE [id number] SP [id number] A BCBS [place] 080/580 [id number] SP [id number] [place] 190/690 [id number] SP [id number] [place]/307 [id number] SP [id number] EXCELLUS C [id number] Self [id number] [place]/307 [id number] SP [id number] [place] 302/307 [id number] SP [id number] [place] 190/690 [id number] SP [id number] BCBS [place] 080/580 [id number] SP [id number] [place] Primary [id number] Self 1 [id number] [place] Primary [id number] Self 1 [id number] [place] Medig[place] Part B [id number] Self Medicare [place] Primary [id number] Self Medicare [place] Primary [id number] Self 1 [id number] [place] Primary [id number] Self 1 [id number] [facility] Part B [id number] Self L [id number] ANS-Medicare Part B [id number] ANSI-Commercial [id number] ANSI-Medicare Part B [id number] ANSI-Commercial [id number] ANSI-Commercial [id number] ANSI-Medicare Part B [id number] ANSI-Medicare Part B [id number] ANSI-Commercial [id number]-[id number] ANSI-Commercial [id number] ANSI-Medicare Part B [id number] BC/BS [facility] Part B [id number] Self [id number] Medicare Part B Medicare Primary [id number] Self [id number] ANSI-Commercial [id number] ANSI-Medicare Part B [id number] ANSI-Commercial [id number]-gw37-[id number]-wk59-[id number] ANSI-Medicare Part B [id number] ANSI-Commercial [id number]-95s5-[id number] ofk56900-ny7h-80l7-[id number] ANSI-Medicare Part B [id number] ANSI-Medicare Part B [id number] ANSI-Commercial [id number]-l7pk-[id number] [id number]-r0wz-[id number] ANSI-Medicare Part B [id number] ANSI-Commercial y24b78re-8149-6xlq-l44z-21yux55kqa7b q31c91th-2264-0cvx-i68v-28qqv16wze5f ANSI-Commercial [id number]-gh8n-11fq-[id number] [id number]-ji5s-90yx-or68-6z3lv8i3k467 ANSI-Medicare Part B [id number] ANSI-Commercial [id number]-yaf7-[id number] s3v3t828-38zk-09m6-bhq7-[id number] ANSI-Medicare Part B [id number] ANSI-Commercial [id number]-[id number]-8i5r-8020-j7j8-[id number] ANSI-Medicare Part B [id number]-[id number] ANSI-Medicare Part B [id number] ANSI-Commercial [id number]-r553-v3x72c118g79 [id number]-k578-[id number] ANSI-Commercial 521xr0up-3153-9l22-g6d5-16749f2aw1ab 608gb8ur-6350-7z01-v0w7-61160g9dh8pq ANSI-Medicare Part B [id number] ANSI-Medicare Part B [id number] ANSI-Commercial 3pho0710-c05l-990c-u1cn-s529j4mfbe19 0eaf5565-g96r-231r-p3xc-w034e6uwok16 ANSI-Medicare Part B [id number] ANSI-Commercial [id number]-s03m-[id number] [id number]-o23l-[id number] ANSI-Medicare Part B [id number] ANSI-Commercial 83nm71k3-5648-76k3-usdu-p3sw41488t6n 24nx48f5-0650-00f7-fmcu-c3mv36145v0y ANSI-Medicare Part B [id number] ANSI-Commercial s391e1g3-70v8-6h54-9f1s-2g801x2iu5p5 s868e0n7-50y3-3g37-4n6y-7f728y1rw4j8 ANSI-Medicare Part B [id number] ANSI-Commercial [id number]-[id number] [id number]-[id number] ANSI-Commercial 5e1gn715-5o12-8974-0906-2379dtf24n62 [id number] ANSI-Medicare Part B [id number] [place]/307 [id number] SP [id number] BCBS [place] 080/580 [id number] SP [id number] Medicare - [facility] Medicare Primary [id number] Self 1 [id number] [employer] BCBS Medigap Part B [id number] Self L [id number] BCBS/Blue Card Medigap Part B [id number] Self [id number] Medicare Natl Gov't Servi Medicare Primary [id number] Self [id number] [employer] C [id number] S [id number] MEDICARE [id number] SP [id number] A Medicare - [facility] Medicare Primary [id number] Self 1 [id number] [place] 302/307 [id number] SP [id number] [place]BS [place] 302/307 [id number] SP [id number] BCBS [place] 080/580 [id number] SP [id number] BCBS [place] 080/580 [id number] SP [id number] HMO BLUE [id number] SP [id number] BCBS [place] 080/580 [id number] SP [id number] BCBS [place] 080/580 [id number] SP [id number] MEDICARE [id number] SP [id number] BCBS [place] PPO 302/307 [id number] SP [id number] [place] 302/307 [id number] SP [id number] MEDICARE C [id number] S [id number] EXCELLUS BCBS B [id number] S LPG [id number] MEDICARE [id number] SP [id number] A MEDICARE C [id number] S [id number] A ANSI-Medicare Part B [id number] ANSI-Commercial [id number]-r788-702h-l16h-[id number]-d679-384r-a13o-[id number] ANSI-Medicare Part B [id number] ANSI-Commercial 70m5h0o6-t1n7-4977-rb69-[id number] 88d2b2z1-f4s6-2176-uu91-l11810p16yb0 ANSI-Commercial [id number]-gpfa-276n-[id number] 4sh1746w-yska-113e-[id number] ANSI-Medicare Part B [id number] ANSI-Medicare Part B [id number] ANSI-Commercial om39ok23-0u08-9gb8-[id number] kp32mk75-7h55-9vi6-[id number] ANSI-Commercial [id number]-[id number] bt7w68y2-966q-[id number] ANSI-Medicare Part B [id number] ANSI-Medicare Part B [id number] ANSI-Commercial [id number] ANSI-Commercial [id number] ANSI-Medicare Part B [id number] Problems, Conditions, and Diagnoses Code Display Name Description Problem Type Effective Dates Data Source(s) M53.3 [id number] Coccydynia Problem 12/12/2020 12:00:00 AM ED T eCW1 ([facility]) M46.1 [id number] Bilateral sacroiliitis Problem 12/12/2020 12:00:00 AM EDT eCW1 ([facility]) 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 08/21/2020 12 :00:00 AM EDT eCW1 ([facility]) Surgeries/Procedures Procedure Description Date Indications Data Source(s) Injection, methylprednisolone acetate, 80 mg 1 12:00:00 AM EDT eCW1 ([facility]) Injection, methylprednisolone acetate, 80 mg 0 12:00:00 AM EST eCW1 ([facility]) Results ID Date Data Source [facility] Spine,cervical w/o contrast 10/19/2020 12:00:00 AM ED T eCW1 ([facility]) Name Value Range Interpretation Code Description Data Naheed rce(s) Supporting Document(s) [facility] Spine,cervical w/o contrast eCW1 ([facility]) ID Date Data Source PLZ RIBS UNILATERAL W/O PA CHEST 08/21/2020 12:00:00 AM EDT eCW1 ([facility]) Name Value Range Interpretation Code Description Data Naheed rce(s) Supporting Document(s) PLZ RIBS UNILATERAL W/O PA [facility] eCW1 ([facility]) ID Date Data Source Ultrasound : Kidneys 04/18/2020 12:00:00 AM EST eCW1 ([facility]) Name Value Range Interpretation Code Description Data Naheed rce(s) Supporting Document(s) eCW1 ([facility]) ID Date Data Source INSULIN LEVEL 03/28/2020 12:00:00 AM EST eCW1 ([facility]) Name Value Range Interpretation Code Description Data Naheed rce(s) Supporting Document(s) 4.4 2.6-24.9 eCW1 ([facility]) ID Date Data Source VITAMIN D 25-HYDROXY 03/28/2020 12:00:00 AM EST eCW1 ([facility]) Name Value Range Interpretation Code Description Data Naheed rce(s) Supporting Document(s) 37.0 30.0-100.0 TOTAL 25(OH) VITAMIN D eC W1 ([facility]) ID Date Data Source TOTAL PROTEIN,RANDOM URINE 03/28/2020 12:00:00 AM EST eCW1 ( [facility]) Name Value Range Interpretation Code Description Data Naheed rce(s) Supporting Document(s) 8.0 0.0-12.0 eCW1 ([facility]) ID Date Data Source CREATININE,RANDOM URINE 03/28/2020 12:00:00 AM EST eCW1 ([facility]) Name Value Range Interpretation Code Description Data Naheed rce(s) Supporting Document(s) 56.1 eCW1 ([facility]) ID Date Data Source FREE T4 & TSH PANEL 03/28/2020 12:00:00 AM EST eCW1 ([facility]) Name Value Range Interpretation Code Description Data Naheed rce(s) Supporting Document(s) 2.220 0.358-3.740 THYROID STIMULATING HORM ONE eCW1 ([facility]) 0.99 0.76-1.46 FREE T4 eCW1 ([facility]) ID Date Data Source LIPID PANEL (CARDIAC RISK) 03/28/2020 12:00:00 AM EST eCW1 ( [facility]) Name Value Range Interpretation Code Description Data Naheed rce(s) Supporting Document(s) Cholesterol in HDL [Moles/volume] in Serum or Plasma 65 >40 HDL CHOLESTEROL eCW1 ([facility]) Triglyceride [Mass/volume] in Serum or Plasma by calculation 89 <150 TRIGLYCERIDES LEVEL eCW1 ([facility]) Cholesterol in LDL [Mass/volume] in Serum or Plasma by calculation 51 <100 LDL CHOLESTEROL eCW1 ([facility]) Cholesterol [Moles/volume] in Serum or Plasma 134 <200 CHOLESTEROL LEVEL eCW1 ([facility]) 2.061 <5 CHOLESTEROL RISK RATIO eCW1 ([facility]) 69 NON-HDL-C eCW1 ([facility]) ID Date Data Source [id number] 03/28/2020 12:00:00 AM EST eCW1 ([facility]) Name Value Range Interpretation Code Description Data Naheed rce(s) Supporting Document(s) Hemoglobin A1c/Hemoglobin.total in Blood 5.5 HEMOGLOBIN A1c eCW1 ([facility]) ID Date Data Source ERYTHROCYTE SEDIMENTATION RATE 03/28/2020 12:00:00 AM EST eC W1 ([facility]) Name Value Range Interpretation Code Description Data Naheed rce(s) Supporting Document(s) 10 0-30 ERYTHROCYTE SEDIMENTATION RATE eCW1 ([facility]) ID Date Data Source PTH INTACT 03/28/2020 12:00:00 AM EST eCW1 ([facility]) Name Value Range Interpretation Code Description Data Naheed rce(s) Supporting Document(s) 40.3 18.5-88.0 PTH INTACT eCW1 ([facility]) ID Date Data Source C REACTIVE PROTEIN QUANTITATIV (At [facility]) 03/28/2020 12:00 :00 AM EST eCW1 ([facility]) Name Value Range Interpretation Code Description Data Naheed rce(s) Supporting Document(s) 0.30 0.00-0.30 C REACTIVE PROTEIN QUANTI TATIV eCW1 ([facility]) ID Date Data Source Comprehensive Metabolic Profile (CMP) 03/28/2020 12:00:00 AM EST eCW1 ([facility]) Name Value Range Interpretation Code Description Data Naheed rce(s) Supporting Document(s) 86 70-100 GLUCOSE, FASTING eCW1 ([facility]ly [facility]) 0.76 0.55-1.30 CREATININE FOR GFR eCW1 ([facility]) 15 7-18 BLOOD UREA NITROGEN eCW1 ([facility] access hospital) 141 136-145 SODIUM LEVEL eCW1 ([facility]) 5.0 3.5-5.1 POTASSIUM SERUM eCW1 (Formerly [facility]) > 60.0 >32 GLOMERULAR FILTRATION RATE eCW 1 ([facility]) 108 98-107 CHLORIDE LEVEL eCW1 ([facility]) 34 12-78 ALT/SGPT eCW1 ([facility]) 20 7-37 AST/SGOT eCW1 ([facility]) 10.9 8.8-10.2 CALCIUM LEVEL eCW1 ([facility]) 32 45-117 ALKALINE PHOSPHATASE eCW1 (Formerly [facility]) 30 21-32 CARBON DIOXIDE LEVEL eCW1 (Formerly [facility]) 7.6 6.4-8.2 TOTAL PROTEIN eCW1 ([facility]) 0.4 0.2-1.0 BILIRUBIN,TOTAL eCW1 (Formerly [facility]) 3.8 3.2-5.2 ALBUMIN eCW1 ([facility]) 1.0 1.2-2.2 ALBUMIN/GLOBULIN RATIO eCW1 ([facility]) ID Date Data Source CBC with Differential 03/28/2020 12:00:00 AM EST eCW1 ([facility]) Name Value Range Interpretation Code Description Data Naheed rce(s) Supporting Document(s) 9.5 4.0-10.0 WHITE BLOOD COUNT eCW1 ([facility]) 42.1 36.0-47.0 HEMATOCRIT eCW1 ([facility]) 13.4 12.0-15.5 HEMOGLOBIN eCW1 ([facility]) 4.08 4.00-5.40 RED BLOOD COUNT eCW1 ([facility]ly [facility]) 31.8 32.0-36.5 MEAN CORPUSCULAR HGB CONC eCW1 ([facility]) 32.8 27.0-33.0 MEAN CORPUSCULAR HEMOGLOB IN eCW1 ([facility]) 15.1 11.5-14.5 RED CELL DISTRIBUTION WID TH eCW1 ([facility]) 103.2 80.0-96.0 MEAN CORPUSCULAR VOLUME e CW1 ([facility]) 346 150-450 PLATELET COUNT, AUTOMATED eCW1 ([facility]) 33.2 24.0-44.0 LYMPH % eCW1 ([facility]) 54.0 36.0-66.0 NEUTROPHILS % eCW1 ([facility]) 8.9 0.0-5.0 MONO % eCW1 ([facility]) 3.2 1.5-5.0 LYMPH # eCW1 ([facility]) 3.2 0.0-3.0 EOS % eCW1 ([facility]) 0.5 0.0-1.0 BASO % eCW1 ([facility]) 5.1 1.5-8.5 NEUTROPHILS # eCW1 ([facility]) 0.8 0.0-0.8 MONO # eCW1 ([facility]) 0.1 0.0-0.2 BASO # eCW1 ([facility]) 0.3 0.0-0.5 EOS # eCW1 ([facility]) ID Date Data Source URINE CULTURE 03/20/2020 12:00:00 AM EST eCW1 ([facility]ly [facility]) Name Value Range Interpretation Code Description Data Naheed rce(s) Supporting Document(s) URINE CULTURE eCW1 ([facility]) ID Date Data Source [id number] 03/02/2020 12:00:00 AM EST [facility] Name Value Range Interpretation Code Description Data Naheed rce(s) Supporting Document(s) SARS coronavirus 2 Ag [facility] This lab was ordered by [facility] and reported by [facility] ID Date Data Source PLZ SPINE CERVICAL W/AP/FLEX/EXT 01/31/2020 06:07:25 AM EDT eCW1 ([facility]) Name Value Range Interpretation Code Description Data Naheed rce(s) Supporting Document(s) PLZ SPINE CERVICAL W/AP/FLEX/E XT eCW1 ([facility]) ID Date Data Source PLZ HIP,AP,LAT, to include Pelvis 01/31/2020 06:06:50 AM EDT eCW1 ([facility]) Name Value Range Interpretation Code Description Data Naheed rce(s) Supporting Document(s) PLZ HIP,AP,LAT, to include Pel vis eCW1 ([facility]) Procedure Social History Code Duration Value Status Description Data Source(s ) Smoking 01/25/2021 12:00:00 AM EDT Never Smoker completed Never S moker eCW1 ([facility]) Smoking 01/25/2021 12:00:00 AM EDT Never Smoker completed Never S moker eCW1 ([facility]) Smoking 01/25/2021 12:00:00 AM EDT Never Smoker completed Never S moker eCW1 ([facility]) Smoking 01/25/2021 12:00:00 AM EDT Never Smoker completed Never S moker eCW1 ([facility]) Smoking 01/02/2021 12:00:00 AM EDT Never Smoker completed Never S moker eCW1 ([facility]) Smoking 01/02/2021 12:00:00 AM EDT Never Smoker completed Never S moker eCW1 ([facility]) Smoking 01/02/2021 12:00:00 AM EDT Never Smoker completed Never S moker eCW1 ([facility]) Smoking 01/02/2021 12:00:00 AM EDT Never Smoker completed Never S moker eCW1 ([facility]) Smoking 12/12/2020 12:00:00 AM EDT Never Smoker completed Never S moker eCW1 ([facility]) Smoking 12/12/2020 12:00:00 AM EDT Never Smoker completed Never S moker eCW1 ([facility]) Smoking 12/12/2020 12:00:00 AM EDT Never Smoker completed Never S moker eCW1 ([facility]) Smoking 12/12/2020 12:00:00 AM EDT Never Smoker completed Never S moker eCW1 ([facility]) Smoking 10/31/2020 12:00:00 AM EDT Never Smoker completed Never S moker eCW1 ([facility]) Smoking 10/31/2020 12:00:00 AM EDT Never Smoker completed Never S moker eCW1 ([facility]) Smoking 10/24/2020 12:00:00 AM EDT Never Smoker completed Never S moker eCW1 ([facility]) Smoking 10/24/2020 12:00:00 AM EDT Never Smoker completed Never S moker eCW1 ([facility]) Smoking 10/18/2020 12:00:00 AM EDT Never Smoker completed Never S moker eCW1 ([facility]) Smoking 10/10/2020 12:00:00 AM EDT Never Smoker completed Never S moker eCW1 ([facility]) Smoking 09/04/2020 12:00:00 AM EDT Never Smoker completed Never S moker eCW1 ([facility]) Smoking 08/21/2020 12:00:00 AM EDT Never Smoker completed Never S moker eCW1 ([facility]) Smoking 08/21/2020 12:00:00 AM EDT Never Smoker completed Never S moker eCW1 ([facility]) Smoking 08/21/2020 12:00:00 AM EDT Never Smoker completed Never S moker eCW1 ([facility]) Smoking 08/08/2020 12:00:00 AM EDT Never Smoker completed Never S moker eCW1 ([facility]) Smoking 04/05/2020 12:00:00 AM EST Never Smoker completed Never S moker eCW1 ([facility]) Smoking 04/05/2020 12:00:00 AM EST Never Smoker completed Never S moker eCW1 ([facility]) Smoking 04/05/2020 12:00:00 AM EST Never Smoker completed Never S moker eCW1 ([facility]) Smoking 04/05/2020 12:00:00 AM EST Never Smoker completed Never S moker eCW1 ([facility]) Smoking 04/05/2020 12:00:00 AM EST Never Smoker completed Never S moker eCW1 ([facility]) Smoking 04/05/2020 12:00:00 AM EST Never Smoker completed Never S moker eCW1 ([facility]) Smoking 04/05/2020 12:00:00 AM EST Never Smoker completed Never S moker eCW1 ([facility]) Smoking 04/05/2020 12:00:00 AM EST Never Smoker completed Never S moker eCW1 ([facility]) Smoking 04/05/2020 12:00:00 AM EST Never Smoker completed Never S moker eCW1 ([facility]) Smoking 03/28/2020 12:00:00 AM EST Never Smoker completed Never S moker eCW1 ([facility]) Smoking 03/28/2020 12:00:00 AM EST Never Smoker completed Never S moker eCW1 ([facility]) Smoking 03/28/2020 12:00:00 AM EST Never Smoker completed Never S moker eCW1 ([facility]) Smoking 03/28/2020 12:00:00 AM EST Never Smoker completed Never S moker eCW1 ([facility]) Smoking 03/28/2020 12:00:00 AM EST Never Smoker completed Never S moker eCW1 ([facility]) Smoking 03/20/2020 12:00:00 AM EST Never Smoker completed Never S moker eCW1 ([facility]) Smoking 03/20/2020 12:00:00 AM EST Never Smoker completed Never S moker eCW1 ([facility]) Smoking 03/20/2020 12:00:00 AM EST Never Smoker completed Never S moker eCW1 ([facility]) Smoking 03/20/2020 12:00:00 AM EST Never Smoker completed Never S moker eCW1 ([facility]) Smoking 02/14/2020 12:00:00 AM EST Never Smoker completed Never S moker eCW1 ([facility]) Smoking 02/14/2020 12:00:00 AM EST Never Smoker completed Never S moker eCW1 ([facility]) Smoking 01/28/2020 12:00:00 AM EDT Never Smoker completed Never S moker eCW1 ([facility]) Smoking 01/28/2020 12:00:00 AM EDT Never Smoker completed Never S moker eCW1 ([facility]) Smoking 01/28/2020 12:00:00 AM EDT Never Smoker completed Never S moker eCW1 ([facility]) Vital Signs ID Date Data Source UNK Name Value Range Interpretation Code Description Data Source(s) Body weight 65.77 kg 65.77 kg eCW1 ([facility]) Body weight 145 [lb_av] 145 [lb_av] eCW1 ([facility]) Body height 62 [in_i] 62 [in_i] eCW1 ([facility]) Body mass index (BMI) [Ratio] 26.52 kg/m2 26.52 kg/m2 eCW1 ([facility]) Heart rate 71 /min 71 /min eCW1 (Formerly [facility]) Respiratory rate 20 /min 20 /min eCW1 ([facility]) Body temperature 98.8 [degF] 98.8 [degF] eCW1 ( [facility]) Systolic blood pressure 120 mm[Hg] 120 mm[Hg] e CW1 ([facility]) Diastolic blood pressure 72 mm[Hg] 72 mm[Hg] eCW1 ([facility]) Body weight 139 [lb_av] 139 [lb_av] eCW1 ([facility]) Body weight 63.05 kg 63.05 kg eCW1 ([facility]) Body height 62 [in_i] 62 [in_i] eCW1 ([facility]) Body mass index (BMI) [Ratio] 25.42 kg/m2 25.42 kg/m2 W1 ([facility]) Heart rate 77 /min 77 /min eCW1 ([facility]) Respiratory rate 20 /min 20 /min eCW1 ([facility]) Body temperature 99.0 [degF] 99.0 [degF] eCW1 ( [facility]) Systolic blood pressure 124 mm[Hg] 124 mm[Hg] e CW1 ([facility]) Body weight 139 [lb_av] 139 [lb_av] eCW1 ([facility]) Diastolic blood pressure 68 mm[Hg] 68 mm[Hg] eCW1 ([facility]) Body weight 63.05 kg 63.05 kg eCW1 ([facility]) Body height 62 [in_i] 62 [in_i] eCW1 ([facility]) Body mass index (BMI) [Ratio] 25.42 kg/m2 25.42 kg/m2 eCW1 ([facility]) Heart rate 77 /min 77 /min eCW1 ([facility]) Respiratory rate 20 /min 20 /min eCW1 ([facility]) Body temperature 99.0 [degF] 99.0 [degF] eCW1 ( [facility]) Systolic blood pressure 124 mm[Hg] 124 mm[Hg] e CW1 ([facility]) Diastolic blood pressure 68 mm[Hg] 68 mm[Hg] eCW1 ([facility]) Body weight 139.8 [lb_av] 139.8 [lb_av] eCW1 ([facility]) Body weight 63.41 kg 63.41 kg eCW1 ([facility]) Body height 62 [in_i] 62 [in_i] eCW1 ([facility]) Body mass index (BMI) [Ratio] 25.57 kg/m2 25.57 kg/m2 eCW1 ([facility]) Heart rate 78 /min 78 /min eCW1 ([facility]) Respiratory rate 18 /min 18 /min eCW1 ([facility]) Body temperature 98.3 [degF] 98.3 [degF] eCW1 ( [facility]) Systolic blood pressure 122 mm[Hg] 122 mm[Hg] e CW1 ([facility]) Diastolic blood pressure 82 mm[Hg] 82 mm[Hg] eCW1 ([facility]) Body weight 141 [lb_av] 141 [lb_av] eCW1 ([facility]) Body height 62 [in_i] 62 [in_i] eCW1 ([facility]) Body mass index (BMI) [Ratio] 25.79 kg/m2 25.79 kg/m2 eCW1 ([facility]) Heart rate 72 /min 72 /min eCW1 ([facility]) Respiratory rate 18 /min 18 /min eCW1 ([facility]) Body temperature 97.8 [degF] 97.8 [degF] eCW1 ( [facility]) Systolic blood pressure 126 mm[Hg] 126 mm[Hg] e CW1 ([facility]) Diastolic blood pressure 76 mm[Hg] 76 mm[Hg] eCW1 ([facility]) Body weight 141 [lb_av] 141 [lb_av] eCW1 ([facility]) Body height 62 [in_i] 62 [in_i] eCW1 ([facility]) Body mass index (BMI) [Ratio] 25.79 kg/m2 25.79 kg/m2 eCW1 ([facility]) Heart rate 94 /min 94 /min eCW1 ([facility]) Respiratory rate 18 /min 18 /min eCW1 ([facility]) Body temperature 98.2 [degF] 98.2 [degF] eCW1 ( [facility]) Systolic blood pressure 128 mm[Hg] 128 mm[Hg] e CW1 ([facility]) Diastolic blood pressure 78 mm[Hg] 78 mm[Hg] eCW1 ([facility]) Body weight 141 [lb_av] 141 [lb_av] eCW1 ([facility]) Body height 62 [in_i] 62 [in_i] eCW1 ([facility]) Body mass index (BMI) [Ratio] 25.79 kg/m2 25.79 kg/m2 eCW1 ([facility]) Heart rate 71 /min 71 /min eCW1 ([facility]) Respiratory rate 18 /min 18 /min eCW1 ([facility]) Body temperature 98.0 [degF] 98.0 [degF] eCW1 ( [facility]) Systolic blood pressure 124 mm[Hg] 124 mm[Hg] e CW1 ([facility]) Diastolic blood pressure 78 mm[Hg] 78 mm[Hg] eCW1 ([facility]) Body weight 141 [lb_av] 141 [lb_av] eCW1 ([facility]) Body height 62 [in_i] 62 [in_i] eCW1 ([facility]) Body mass index (BMI) [Ratio] 25.79 kg/m2 25.79 kg/m2 eCW1 ([facility]) Heart rate 84 /min 84 /min eCW1 ([facility]) Respiratory rate 18 /min 18 /min eCW1 ([facility]) Body temperature 98.3 [degF] 98.3 [degF] eCW1 ( [facility]) Systolic blood pressure 118 mm[Hg] 118 mm[Hg] e CW1 ([facility]) Diastolic blood pressure 78 mm[Hg] 78 mm[Hg] eCW1 ([facility]) Heart rate 95 /min 95 /min eCW1 ([facility]) Body mass index (BMI) [Ratio] 25.97 kg/m2 25.97 kg/m2 eCW1 ([facility]) Body weight 142 [lb_av] 142 [lb_av] eCW1 ([facility]) Body height 62 [in_i] 62 [in_i] eCW1 ([facility]) Respiratory rate 18 /min 18 /min eCW1 ([facility]) Body temperature 98.1 [degF] 98.1 [degF] eCW1 ( [facility]) Systolic blood pressure 128 mm[Hg] 128 mm[Hg] e CW1 ([facility]) Diastolic blood pressure 78 mm[Hg] 78 mm[Hg] eCW1 ([facility]) Body weight 146 [lb_av] 146 [lb_av] eCW1 ([facility]) Body height 62 [in_i] 62 [in_i] eCW1 ([facility]) Body mass index (BMI) [Ratio] 26.70 kg/m2 26.70 kg/m2 eCW1 ([facility]) Heart rate 122 /min 122 /min eCW1 ([facility]) Respiratory rate 18 /min 18 /min eCW1 ([facility]) Body temperature 99.4 [degF] 99.4 [degF] eCW1 ( [facility]) Systolic blood pressure 128 mm[Hg] 128 mm[Hg] e CW1 ([facility]) Diastolic blood pressure 78 mm[Hg] 78 mm[Hg] eCW1 ([facility]) Body weight 147 [lb_av] 147 [lb_av] eCW1 ([facility]) Body height 62 [in_i] 62 [in_i] eCW1 ([facility]) Body mass index (BMI) [Ratio] 26.88 kg/m2 26.88 kg/m2 eCW1 ([facility]) Heart rate 82 /min 82 /min eCW1 ([facility]) Respiratory rate 18 /min 18 /min eCW1 ([facility]) Body temperature 98.3 [degF] 98.3 [degF] eCW1 ( [facility]) Systolic blood pressure 132 mm[Hg] 132 mm[Hg] e CW1 ([facility]) Diastolic blood pressure 80 mm[Hg] 80 mm[Hg] eCW1 ([facility]) Body weight 146 [lb_av] 146 [lb_av] eCW1 ([facility]) Body height 62 [in_i] 62 [in_i] eCW1 ([facility]) Body mass index (BMI) [Ratio] 26.70 kg/m2 26.70 kg/m2 eCW1 ([facility]) Heart rate 71 /min 71 /min eCW1 ([facility]) Respiratory rate 18 /min 18 /min eCW1 ([facility]) Body temperature 97.8 [degF] 97.8 [degF] eCW1 ( [facility]) Systolic blood pressure 124 mm[Hg] 124 mm[Hg] e CW1 ([facility]) Diastolic blood pressure 76 mm[Hg] 76 mm[Hg] eCW1 ([facility]) Heart rate 78 /min 78 /min eCW1 ([facility]) Body weight 145.8 [lb_av] 145.8 [lb_av] eCW1 ([facility]) Respiratory rate 20 /min 20 /min eCW1 ([facility]) Body height 62 [in_i] 62 [in_i] eCW1 ([facility]) Body mass index (BMI) [Ratio] 26.66 kg/m2 26.66 kg/m2 eCW1 ([facility]) Systolic blood pressure 120 mm[Hg] 120 mm[Hg] e CW1 ([facility]) Body temperature 96.4 [degF] 96.4 [degF] eCW1 ( [facility]) Diastolic blood pressure 78 mm[Hg] 78 mm[Hg] eCW1 ([facility]) Body weight 145.8 [lb_av] 145.8 [lb_av] eCW1 ([facility]) Body height 62 [in_i] 62 [in_i] eCW1 ([facility]) Body mass index (BMI) [Ratio] 26.66 kg/m2 26.66 kg/m2 eCW1 ([facility]) Heart rate 78 /min 78 /min eCW1 ([facility]) Respiratory rate 20 /min 20 /min eCW1 ([facility]) Body temperature 96.4 [degF] 96.4 [degF] eCW1 ( [facility]) Systolic blood pressure 120 mm[Hg] 120 mm[Hg] e CW1 ([facility]) Diastolic blood pressure 78 mm[Hg] 78 mm[Hg] eCW1 ([facility]) Body weight 143 [lb_av] 143 [lb_av] eCW1 ([facility]) Body height 62 [in_i] 62 [in_i] eCW1 ([facility]) Body mass index (BMI) [Ratio] 26.15 kg/m2 26.15 kg/m2 eCW1 ([facility]) Heart rate 111 /min 111 /min eCW1 ([facility]) Respiratory rate 18 /min 18 /min eCW1 ([facility]) Body temperature 99.4 [degF] 99.4 [degF] eCW1 ( [facility]) Systolic blood pressure 108 mm[Hg] 108 mm[Hg] e CW1 ([facility]) Diastolic blood pressure 70 mm[Hg] 70 mm[Hg] eCW1 ([facility]) Body weight 145 [lb_av] 145 [lb_av] eCW1 ([facility]) Body height 62 [in_i] 62 [in_i] eCW1 ([facility]) Body mass index (BMI) [Ratio] 26.52 kg/m2 26.52 kg/m2 eCW1 ([facility]) Heart rate 87 /min 87 /min eCW1 ([facility]) Respiratory rate 18 /min 18 /min eCW1 ([facility]) Body temperature [degF] eCW1 ([facility]) Systolic blood pressure 140 mm[Hg] 140 mm[Hg] e CW1 ([facility]) Diastolic blood pressure 82 mm[Hg] 82 mm[Hg] eCW1 ([facility]) Body weight 141 [lb_av] 141 [lb_av] eCW1 ([facility]) Body height 62 [in_i] 62 [in_i] eCW1 ([facility]) Body mass index (BMI) [Ratio] 25.79 kg/m2 25.79 kg/m2 eCW1 ([facility]) Heart rate 90 /min 90 /min eCW1 ([facility]) Respiratory rate 18 /min 18 /min eCW1 ([facility]) Body temperature 98.8 [degF] 98.8 [degF] eCW1 ( [facility]) Systolic blood pressure 138 mm[Hg] 138 mm[Hg] e CW1 ([facility]) Diastolic blood pressure 80 mm[Hg] 80 mm[Hg] eCW1 ([facility]) Body weight 145.4 [lb_av] 145.4 [lb_av] eCW1 ([facility]) Body height 62 [in_i] 62 [in_i] eCW1 ([facility]) Body mass index (BMI) [Ratio] 26.59 kg/m2 26.59 kg/m2 eCW1 ([facility]) Heart rate 84 /min 84 /min eCW1 ([facility]) Respiratory rate 17 /min 17 /min eCW1 ([facility]) Body temperature 97.7 [degF] 97.7 [degF] eCW1 ( [facility]) Systolic blood pressure 148 mm[Hg] 148 mm[Hg] e CW1 ([facility]) Diastolic blood pressure 94 mm[Hg] 94 mm[Hg] eCW1 ([facility]) Patient Treatment Plan of Care Planned Activity Planned Date Details Description Data Source (s) predniSONE 5 MG (21) 01/02/2021 12:00:00 AM EDT eCW1 ([facility]) Cholecalciferol 25 MCG (1000 UT) 01/02/2021 12:00:00 AM EDT eCW1 ([facility]) predniSONE 5 MG (21) 01/02/2021 12:00:00 AM EDT eCW1 ([facility]) Cholecalciferol 25 MCG (1000 UT) 01/02/2021 12:00:00 AM EDT eCW1 ([facility]) Cholecalciferol 25 MCG (1000 UT) 01/02/2021 12:00:00 AM EDT eCW1 ([facility]) predniSONE 5 MG (21) 01/02/2021 12:00:00 AM EDT eCW1 ([facility]) Cholecalciferol 25 MCG (1000 UT) 01/02/2021 12:00:00 AM EDT eCW1 ([facility]) predniSONE 5 MG (21) 01/02/2021 12:00:00 AM EDT eCW1 ([facility]) Cholecalciferol 25 MCG (1000 UT) 01/02/2021 12:00:00 AM EDT eCW1 ([facility]) predniSONE 5 MG (21) 01/02/2021 12:00:00 AM EDT eCW1 ([facility]) Cholecalciferol 25 MCG (1000 UT) 01/02/2021 12:00:00 AM EDT eCW1 ([facility]) predniSONE 5 MG (21) 01/02/2021 12:00:00 AM EDT eCW1 ([facility]) Triamcinolone Acetonide 0.001 MG/MG Oral Paste 10/31/2020 12:00:00 AM EDT eCW1 ([facility]) Triamcinolone Acetonide 0.001 MG/MG Oral Paste 10/31/2020 12:00:00 AM EDT eCW1 ([facility]) Bisacodyl 5 MG 10/10/2020 12:00:00 AM EDT eCW1 ([facility]) 12 HR diclofenac epolamine 15 MG/HR Transdermal Patch [Flector] 08/22/2020 12:00:00 AM EDT eCW1 ([facility]) 12 HR diclofenac epolamine 15 MG/HR Transdermal Patch [Flector] 08/22/2020 12:00:00 AM EDT eCW1 ([facility]) 12 HR diclofenac epolamine 15 MG/HR Transdermal Patch [Flector] 08/22/2020 12:00:00 AM EDT eCW1 ([facility]) Sennosides-Docusate Sodium 8.6-50 MG 08/21/2020 12:00:00 AM EDT eCW1 ([facility]) Sennosides-Docusate Sodium 8.6-50 MG 08/21/2020 12:00:00 AM EDT eCW1 ([facility]) Sennosides-Docusate Sodium 8.6-50 MG 08/21/2020 12:00:00 AM EDT eCW1 ([facility]) Sennosides-Docusate Sodium 8.6-50 MG 08/21/2020 12:00:00 AM EDT eCW1 ([facility]) Docusate Sodium 50 MG / sennosides, MCC 8.6 MG Oral Ta blet 03/31/2020 12:00:00 AM EST eCW1 ([facility]) Bisacodyl 10 MG Rectal Suppository [Dulcolax] 03/31/2020 12:00:00 A M EST eCW1 ([facility]) Docusate Sodium 50 MG / sennosides, MCC 8.6 MG Oral Ta blet 03/31/2020 12:00:00 AM EST eCW1 ([facility]) Bisacodyl 10 MG Rectal Suppository [Dulcolax] 03/31/2020 12:00:00 A M EST eCW1 ([facility]) Docusate Sodium 50 MG / sennosides, MCC 8.6 MG Oral Ta blet 03/31/2020 12:00:00 AM EST eCW1 ([facility]) Bisacodyl 10 MG Rectal Suppository [Dulcolax] 03/31/2020 12:00:00 A M EST eCW1 ([facility]) Docusate Sodium 50 MG / sennosides, MCC 8.6 MG Oral Ta blet 03/31/2020 12:00:00 AM EST eCW1 ([facility]) Bisacodyl 10 MG Rectal Suppository [Dulcolax] 03/31/2020 12:00:00 A M EST eCW1 ([facility]) Acetaminophen 325 MG / Hydrocodone Bitartrate 5 MG Ora l Tablet [[place]] 03/28/2020 12:00:00 AM EST eCW1 ([facility]) PredniSONE 5 MG (21) 03/28/2020 12:00:00 AM EST eCW1 ([facility]) Acetaminophen 325 MG / Hydrocodone Bitartrate 5 MG Ora l Tablet [[place]] 03/28/2020 12:00:00 AM EST eCW1 ([facility]) PredniSONE 5 MG (21) 03/28/2020 12:00:00 AM EST eCW1 ([facility]) Acetaminophen 325 MG / Hydrocodone Bitartrate 5 MG Ora l Tablet [[place]] 03/28/2020 12:00:00 AM EST eCW1 ([facility]) PredniSONE 5 MG (21) 03/28/2020 12:00:00 AM EST eCW1 ([facility]) Acetaminophen 325 MG / Hydrocodone Bitartrate 5 MG Ora l Tablet [[place]] 03/28/2020 12:00:00 AM EST eCW1 ([facility]) PredniSONE 5 MG (21) 03/28/2020 12:00:00 AM EST eCW1 ([facility]) Acetaminophen 325 MG / Hydrocodone Bitartrate 5 MG Ora l Tablet [[place]] 03/28/2020 12:00:00 AM EST eCW1 ([facility]) PredniSONE 5 MG (21) 03/28/2020 12:00:00 AM EST eCW1 ([facility]) tramadol hydrochloride 50 MG Oral Tablet 03/24/2020 12:00:00 AM EST eCW1 ([facility]) tramadol hydrochloride 50 MG Oral Tablet 03/24/2020 12:00:00 AM EST eCW1 ([facility]) Cephalexin 500 MG Oral Capsule [Keflex] 03/20/2020 12:00:00 AM EST eCW1 ([facility]) Cephalexin 500 MG Oral Capsule [Keflex] 03/20/2020 12:00:00 AM EST eCW1 ([facility]) Cephalexin 500 MG Oral Capsule [Keflex] 03/20/2020 12:00:00 AM EST eCW1 ([facility]) Cephalexin 500 MG Oral Capsule [Keflex] 03/20/2020 12:00:00 AM EST eCW1 ([facility])
[2021-02-09] MEDS ORDERED: LIDOCAINE W/EPINEPHRINE 1% 20ML VIAL SC ONE (23:45)
--- NOTE | 2021-02-10 00:59 | REPVR ---
PROCEDURE INFORMATION: Exam: CT Head Without Contrast Exam date and time: 02/10/2021 12:27 AM Age: 81 years old Clinical indication: Injury or trauma; Fall; Blunt trauma (contusions or hematomas); Additional info: Fall, plavix TECHNIQUE: Imaging protocol: Computed tomography of the head without contrast. Radiation optimization: All CT scans at this facility use at least one of these dose optimization techniques: automated exposure control; mA and/or kV adjustment per patient size (includes targeted exams where dose is matched to clinical indication); or iterative reconstruction. COMPARISON: CT Head without contrast 10/08/2020 7:25 PM FINDINGS: Brain: Very small acute subdural hematoma along the left cerebral convexity measuring 1 mm in maximal thickness (best seen on series 203, image 18). No significant mass effect. Mild nonspecific hypodensities of the periventricular and deep subcortical white matter, most likely secondary to chronic small vessel ischemic change. Maciel-white matter differentiation is normal. Cerebral ventricles: Mild prominence of the ventricles and sulci, most likely attributed to parenchymal volume loss. Paranasal sinuses: Visualized sinuses are unremarkable. No fluid levels. Mastoid air cells: Unremarkable. Bones/joints: No acute osseus lesion or fracture. Soft tissues: Left frontal and parietal scalp contusions. IMPRESSION: 1. Very small acute subdural hematoma along the left cerebral convexity measuring 1 mm in maximal thickness. 2. Left frontal and parietal scalp contusions. 3. Other chronic findings, as above. Electronically signed by: Andrew Bergeron On 02/10/2021 00:59:40 AM
--- NOTE | 2021-02-10 01:02 | REPVR ---
PROCEDURE INFORMATION: Exam: CT Cervical Spine Without Contrast Exam date and time: 02/10/2021 12:27 AM Age: 81 years old Clinical indication: Injury or trauma; Fall; Blunt trauma; Additional info: Fall, plavix TECHNIQUE: Imaging protocol: Computed tomography images of the cervical spine without contrast. Radiation optimization: All CT scans at this facility use at least one of these dose optimization techniques: automated exposure control; mA and/or kV adjustment per patient size (includes targeted exams where dose is matched to clinical indication); or iterative reconstruction. COMPARISON: CT Spine,cervical w/o contrast 10/19/2020 10:31 AM FINDINGS: Bones/joints: Vertebral body heights are maintained. Straightening of the cervical lordosis. No locked or perched facets. Multilevel facet arthropathy. No acute cervical spine fracture. The dens is intact. Atlanto-axial intervals are normal. Discs/Spinal canal/Neural foramina: Multilevel degenerative changes with intervertebral disc height loss and osteophyte formation, with multilevel areas of mild canal stenosis. Lungs: Lung apices are clear. Soft tissues: Unremarkable. IMPRESSION: No acute cervical spine fracture. Electronically signed by: Andrew Bergeron On 02/10/2021 01:02:04 AM
--- OUTSIDE RECORDS SUMMARY | 2021-02-10 01:06 | CCD ---
Author Author [facility] Organization [facility] Address Unknown Phone Unavailable Support Name Relationship Address Phone UNRULY OSHEA Next Of Kin Unknown Unavailable RADHA RODAS Next Of Kin [address] [place] [phone] [place]A Next Of Kin [phone] [place] [address] UE Next Of Kin Unknown Unavailable RE Next Of Kin Unknown ADELINA AMBROCIO Next Of Kin [address] [place] [address] GENOVEVA MASON Next Of Kin [address] [place] [address] Didier Ambrocio ECON [address] [place] [address] [phone] RADHA RODAS ECON [address] [place] [address] Re-disclosure Warning The records that you are [...] is protected by Article 27-F of the [facility] Public Health law. If you continue you may have access to information: Regarding HIV / AIDS; Provided by facilities licensed or operated by the [facility] Office of Mental Health; or Provided by the [facility] Office for People With Developmental Disabilities. If such information is present, then the following [facility] mandated warning applies: This information has been [...] law may result in a fine or residential sentence or both. A general authorization for the release of medical or other information is NOT sufficient authorization for further disc losure. Family History Family Member Name Family Member Gender Family Member Status Date o f Status Description Data Source(s) Unknown Unknown Problem MEDENT ([facility]) Unknown Male Problem MEDENT ([facility] () Unknown Female Problem MEDENT ([facility]) Unknown Female Problem MEDENT ([facility]) Unknown Female Problem MEDENT ([facility]) Unknown Female Problem MEDENT ([facility] ) Encounters Encounter Providers Location Date Indications Data Source(s ) Unknown [address] [facility], [facility] [address] 01/30/2021 12:00:00 AM EDT eCW1 ([facility]) Office Visit, Est Pt., Level 3 PC [address] [place] [address] 01/29/2021 12:00:00 AM EDT eCW1 ([facility]) Unknown [address] [facility] [address] 01/25/2021 12:00:00 AM EDT eCW1 ([facility]) Unknown [address] [facility] [address] 01/23/2021 12:00:00 AM EDT eCW1 ([facility]) Unknown [address] [facility] [place] [address] 01/11/2021 12:00:00 AM EDT eCW1 ([facility]) Outpatient [address] [facility] [address] 01/02/2021 12:00:00 AM EDT eCW1 ([facility]) [place] [address] [facility] [address] 01/02/2021 12:00:00 AM EDT eCW1 ([facility]) [place] [address] [facility] [address] 12/26/2020 12:00:00 AM EDT eCW1 ([facility]) [place] [address] [facility] [address] 12/22/2020 12:00:00 AM EDT eCW1 ([facility]) [place] [address] [facility] [address] 12/12/2020 12:00:00 AM EDT eCW1 ([facility]) [place] [address] [facility] [address] 12/12/2020 12:00:00 AM EDT eCW1 ([facility]) [place] [address] [facility] [address] 10/31/2020 12:00:00 AM EDT eCW1 ([facility]) [place] [address] [facility] [address] 10/24/2020 12:00:00 AM EDT eCW1 ([facility]) [place] [address] [facility] [address] 10/19/2020 12:00:00 AM EDT eCW1 ([facility]) [place] [address] [facility] [address] 10/18/2020 12:00:00 AM EDT eCW1 ([facility]) [place] [address] [facility] [address] 10/10/2020 12:00:00 AM EDT eCW1 ([facility]) Unknown [address] [facility] [address] 10/10/2020 12:00:00 AM EDT eCW1 ([facility]) [place] [address] [facility] [address] 09/04/2020 12:00:00 AM EDT eCW1 ([facility]) [place] [address] [facility] [address] 08/22/2020 12:00:00 AM EDT eCW1 ([facility]) Unknown [address] [facility] [address] 08/21/2020 12:00:00 AM EDT eCW1 ([facility]) [place]patient [address] [facility] [address] 08/21/2020 12:00:00 AM EDT eCW1 ([facility]) [place]patient [address] [facility] [address] 08/08/2020 12:00:00 AM EDT eCW1 ([facility]) Unknown [address] [facility] [address] 06/30/2020 12:00:00 AM EDT eCW1 ([facility]) Unknown [address] [facility] [address] 06/20/2020 12:00:00 AM EST eCW1 ([facility]) Unknown [address] [facility] [address] 06/01/2020 12:00:00 AM EST eCW1 ([facility]) Unknown [address] [facility] [address] 05/02/2020 12:00:00 AM EST eCW1 ([facility]) Unknown [address] [facility] [address] 04/26/2020 12:00:00 AM EST eCW1 ([facility]) Unknown [address] [facility] [address] 04/25/2020 12:00:00 AM EST eCW1 ([facility]) Unknown [address] [facility] [address] 04/13/2020 12:00:00 AM EST eCW1 ([facility]) Office Visit, Est Pt., Level 3 PC [address] [place] [address] 04/05/2020 12:00:00 AM EST eCW1 ([facility]) Unknown [address] [facility] [place] [address] 04/04/2020 12:00:00 AM EST eCW1 ([facility]) Unknown [address] [facility], [place] [address] 03/31/2020 12:00:00 AM EST eCW1 ([facility]) Unknown [address] [facility] Y [address] 03/31/2020 12:00:00 AM EST eCW1 ([facility]) Unknown [address] [facility] Y [address] 03/30/2020 12:00:00 AM EST eCW1 ([facility]) Outpatient [address] [facility], [place] [address] 03/28/2020 12:00:00 AM EST eCW1 ([facility]) Unknown [address] [facility] [place] [address] 03/24/2020 12:00:00 AM EST eCW1 ([facility]) Office Visit, Est Pt., Level 3 PC [address] [place] [address] 03/20/2020 12:00:00 AM EST eCW1 ([facility]) Unknown [address] [facility] Y [address] 03/20/2020 12:00:00 AM EST eCW1 ([facility]) Outpatient [address] [facility] Y [address] 03/07/2020 12:00:00 AM EST eCW1 ([facility]) Unknown [address] [facility] Y [address] 02/29/2020 12:00:00 AM EST eCW1 ([facility]) [place]patient [address] [facility] [address] 02/14/2020 12:00:00 AM EST eCW1 ([facility]) Unknown [address] [facility] [address] 02/07/2020 12:00:00 AM EDT eCW1 ([facility]) Office Visit, Est Pt., Level 3 PC [address] [place] [address] 01/28/2020 12:00:00 AM EDT eCW1 ([facility]) [place] [address] [facility] [address] 01/24/2020 12:00:00 AM EDT eCW1 ([facility]) Immunizations Vaccine Date Status Description Data Source(s) COVID-19 VACCINE Pfizer 06/19/2020 12:00:00 AM EST completed [facility] Vaccine Series Complete: YESThis Data wa s Submitted to [facility] Via efw-suhl. COVID-19 VACCINE Pfizer 05/29/2020 12:00:00 AM EST completed [facility] Vaccine Series Complete: NOThis Data was Submitted to [facility] Via efw-suhl. 03/28/2020 05:27:00 PM EST completed e CW1 ([facility]) 03/28/2020 05:27:00 PM EST completed e CW1 ([facility]) 03/28/2020 05:27:00 PM EST completed e CW1 ([facility]) 03/28/2020 05:27:00 PM EST completed e CW1 ([facility]) 03/28/2020 05:27:00 PM EST completed e CW1 ([facility]) 03/28/2020 05:27:00 PM EST completed e CW1 ([facility]) 03/28/2020 05:27:00 PM EST completed e CW1 ([facility]) 03/28/2020 05:27:00 PM EST completed e CW1 ([facility]) 03/28/2020 05:27:00 PM EST completed e CW1 ([facility]) 03/28/2020 05:27:00 PM EST completed e CW1 ([facility]) 03/28/2020 05:27:00 PM EST completed e CW1 ([facility]) 03/28/2020 05:27:00 PM EST completed e CW1 ([facility]) 03/28/2020 05:27:00 PM EST completed e CW1 ([facility]) 03/28/2020 05:27:00 PM EST completed e CW1 ([facility]) 03/28/2020 05:27:00 PM EST completed e CW1 ([facility]) 03/28/2020 05:27:00 PM EST completed e CW1 ([facility]) 03/28/2020 05:27:00 PM EST completed e CW1 ([facility]) 03/28/2020 05:27:00 PM EST completed e CW1 ([facility]) 03/28/2020 05:27:00 PM EST completed e CW1 ([facility]) 03/28/2020 05:27:00 PM EST completed e CW1 ([facility]) 03/28/2020 05:27:00 PM EST completed e CW1 ([facility]) 03/28/2020 05:27:00 PM EST completed e CW1 ([facility]) 03/28/2020 05:27:00 PM EST completed e CW1 ([facility]) 03/28/2020 05:27:00 PM EST completed e CW1 ([facility]) 03/28/2020 05:27:00 PM EST completed e CW1 ([facility]) 03/28/2020 05:27:00 PM EST completed e CW1 ([facility]) 03/28/2020 05:27:00 PM EST completed e CW1 ([facility]) 03/28/2020 05:27:00 PM EST completed e CW1 ([facility]) 03/28/2020 05:27:00 PM EST completed e CW1 ([facility]) 03/28/2020 05:27:00 PM EST completed e CW1 ([facility]) 03/28/2020 05:27:00 PM EST completed e CW1 ([facility]) 03/28/2020 05:27:00 PM EST completed e CW1 ([facility]) 03/28/2020 05:27:00 PM EST completed e CW1 ([facility]) 03/28/2020 05:27:00 PM EST completed e CW1 ([facility]) 03/28/2020 05:27:00 PM EST completed e CW1 ([facility]) 03/28/2020 05:27:00 PM EST completed e CW1 ([facility]) 03/28/2020 05:27:00 PM EST completed e CW1 ([facility]) pneumococcal polysaccharide PPV23 02/05/2020 01:59:00 PM EDT comple sarita eCW1 ([facility]) pneumococcal polysaccharide PPV23 02/05/2020 01:59:00 PM EDT comple sarita eCW1 ([facility]) pneumococcal polysaccharide PPV23 02/05/2020 01:59:00 PM EDT comple sarita eCW1 ([facility]) pneumococcal polysaccharide PPV23 02/05/2020 01:59:00 PM EDT comple sarita eCW1 ([facility]) pneumococcal polysaccharide PPV23 02/05/2020 01:59:00 PM EDT comple sarita eCW1 ([facility]) pneumococcal polysaccharide PPV23 02/05/2020 01:59:00 PM EDT comple sarita eCW1 ([facility]) pneumococcal polysaccharide PPV23 02/05/2020 01:59:00 PM EDT comple sarita eCW1 ([facility]) pneumococcal polysaccharide PPV23 02/05/2020 01:59:00 PM EDT comple sarita eCW1 ([facility]) pneumococcal polysaccharide PPV23 02/05/2020 01:59:00 PM EDT comple sarita eCW1 ([facility]) pneumococcal polysaccharide PPV23 02/05/2020 01:59:00 PM EDT comple sarita eCW1 ([facility]) pneumococcal polysaccharide PPV23 02/05/2020 01:59:00 PM EDT comple sarita eCW1 ([facility]) pneumococcal polysaccharide PPV23 02/05/2020 01:59:00 PM EDT comple sarita eCW1 ([facility]) pneumococcal polysaccharide PPV23 02/05/2020 01:59:00 PM EDT comple sarita eCW1 ([facility]) pneumococcal polysaccharide PPV23 02/05/2020 01:59:00 PM EDT comple sarita eCW1 ([facility]) pneumococcal polysaccharide PPV23 02/05/2020 01:59:00 PM EDT comple sarita eCW1 ([facility]) pneumococcal polysaccharide PPV23 02/05/2020 01:59:00 PM EDT comple sarita eCW1 ([facility]) pneumococcal polysaccharide PPV23 02/05/2020 01:59:00 PM EDT comple sarita eCW1 ([facility]) pneumococcal polysaccharide PPV23 02/05/2020 01:59:00 PM EDT comple sarita eCW1 ([facility]) pneumococcal polysaccharide PPV23 02/05/2020 01:59:00 PM EDT comple sarita eCW1 ([facility]) pneumococcal polysaccharide PPV23 02/05/2020 01:59:00 PM EDT comple sarita eCW1 ([facility]) pneumococcal polysaccharide PPV23 02/05/2020 01:59:00 PM EDT comple sarita eCW1 ([facility]) pneumococcal polysaccharide PPV23 02/05/2020 01:59:00 PM EDT comple sarita eCW1 ([facility]) pneumococcal polysaccharide PPV23 02/05/2020 01:59:00 PM EDT comple sarita eCW1 ([facility]) pneumococcal polysaccharide PPV23 02/05/2020 01:59:00 PM EDT comple sarita eCW1 ([facility]) pneumococcal polysaccharide PPV23 02/05/2020 01:59:00 PM EDT comple sarita eCW1 ([facility]) pneumococcal polysaccharide PPV23 02/05/2020 01:59:00 PM EDT comple sarita eCW1 ([facility]) pneumococcal polysaccharide PPV23 02/05/2020 01:59:00 PM EDT comple sarita eCW1 ([facility]) pneumococcal polysaccharide PPV23 02/05/2020 01:59:00 PM EDT comple sarita eCW1 ([facility]) pneumococcal polysaccharide PPV23 02/05/2020 01:59:00 PM EDT comple sarita eCW1 ([facility]) pneumococcal polysaccharide PPV23 02/05/2020 01:59:00 PM EDT comple sarita eCW1 ([facility]) pneumococcal polysaccharide PPV23 02/05/2020 01:59:00 PM EDT comple sarita eCW1 ([facility]) pneumococcal polysaccharide PPV23 02/05/2020 01:59:00 PM EDT comple sarita eCW1 ([facility]) pneumococcal polysaccharide PPV23 02/05/2020 01:59:00 PM EDT comple sarita eCW1 ([facility]) pneumococcal polysaccharide PPV23 02/05/2020 01:59:00 PM EDT comple sarita eCW1 ([facility]) pneumococcal polysaccharide PPV23 02/05/2020 01:59:00 PM EDT comple sarita eCW1 ([facility]) pneumococcal polysaccharide PPV23 02/05/2020 01:59:00 PM EDT comple sarita eCW1 ([facility]) pneumococcal polysaccharide PPV23 02/05/2020 01:59:00 PM EDT comple sarita eCW1 ([facility]) pneumococcal polysaccharide PPV23 02/05/2020 01:59:00 PM EDT comple sarita eCW1 ([facility]) pneumococcal polysaccharide PPV23 02/05/2020 01:59:00 PM EDT comple sarita eCW1 ([facility]) pneumococcal polysaccharide PPV23 02/05/2020 01:59:00 PM EDT comple sarita eCW1 ([facility]) pneumococcal polysaccharide PPV23 02/05/2020 01:59:00 PM EDT comple sarita eCW1 ([facility]) pneumococcal polysaccharide PPV23 02/05/2020 01:59:00 PM EDT comple sarita eCW1 ([facility]) pneumococcal polysaccharide PPV23 02/05/2020 01:59:00 PM EDT comple sarita eCW1 ([facility]) Medications Medication Brand Name Start Date Product Form Dose Route Admi nistrative Instructions Pharmacy Instructions Status Indications Reaction Description Data Source(s) Cholecalciferol 25 MCG (1000 UT) UNK 01/02/2021 12:00:00 AM ED T 1.0 {capsule} active Cholecalciferol 25 M CG (1000 UT) [facility] ([facility]) Cholecalciferol 25 MCG (1000 UT) UNK 01/02/2021 12:00:00 AM ED T 1.0 {capsule} active Cholecalciferol 25 M CG (1000 UT) [facility] ([facility]) predniSONE 5 MG (21) predniSONE 5 MG (21) 01/02/2021 12:00:00 AM EDT active predniSONE 5 MG (21) [facility] ([facility]) predniSONE 5 MG (21) predniSONE 5 MG (21) 01/02/2021 12:00:00 AM EDT active predniSONE 5 MG (21) [facility] ([facility]) Cholecalciferol 25 MCG (1000 UT) [facility] 01/02/2021 12:00:00 AM ED T 1.0 {capsule} active Cholecalciferol 25 M CG (1000 UT) [facility] ([facility]) predniSONE 5 MG (21) predniSONE 5 MG (21) 01/02/2021 12:00:00 AM EDT active predniSONE 5 MG (21) [facility] ([facility]) predniSONE 5 MG (21) predniSONE 5 MG (21) 01/02/2021 12:00:00 AM EDT active predniSONE 5 MG (21) [facility] ([facility]) Cholecalciferol 25 MCG (1000 UT) UNK 01/02/2021 12:00:00 AM ED T 1.0 {capsule} active Cholecalciferol 25 M CG (1000 UT) [facility] ([facility]) Cholecalciferol 25 MCG (1000 UT) UNK 01/02/2021 12:00:00 AM ED T 1.0 {capsule} active Cholecalciferol 25 M CG (1000 UT) [facility] ([facility]) Cholecalciferol 25 MCG (1000 UT) UNK 01/02/2021 12:00:00 AM ED T 1.0 {capsule} active Cholecalciferol 25 M CG (1000 UT) [facility] ([facility]) predniSONE 5 MG (21) predniSONE 5 MG (21) 01/02/2021 12:00:00 AM EDT active predniSONE 5 MG (21) eCW1 ([facility]) predniSONE 5 MG (21) predniSONE 5 MG (21) 01/02/2021 12:00:00 AM EDT active predniSONE 5 MG (21) eCW1 ([facility]) Cholecalciferol 25 MCG (1000 UT) UNK 01/02/2021 12:00:00 AM ED T 1.0 {capsule} active Cholecalciferol 25 M CG (1000 UT) eCW1 ([facility]) Cholecalciferol 25 MCG (1000 UT) UNK 01/02/2021 12:00:00 AM ED T 1.0 {capsule} active Cholecalciferol 25 M CG (1000 UT) eCW1 ([facility]) Triamcinolone Acetonide 0.001 MG/MG Oral Paste Triamci nolone Acetonide 0.1 % Triamcinolone Acetonide 0.1 % 10/31/2020 12:00:00 AM EDT active Triamcinolone Acetonide 0.1 % eCW1 ([facility]) Triamcinolone Acetonide 0.001 MG/MG Oral Paste Triamci nolone Acetonide 0.1 % Triamcinolone Acetonide 0.1 % 10/31/2020 12:00:00 AM EDT active Triamcinolone Acetonide 0.1 % eCW1 ([facility]) Triamcinolone Acetonide 0.001 MG/MG Oral Paste Triamci nolone Acetonide 0.1 % Triamcinolone Acetonide 0.1 % 10/31/2020 12:00:00 AM EDT active Triamcinolone Acetonide 0.1 % eCW1 ([facility]) Triamcinolone Acetonide 0.001 MG/MG Oral Paste Triamci nolone Acetonide 0.1 % Triamcinolone Acetonide 0.1 % 10/31/2020 12:00:00 AM EDT active Triamcinolone Acetonide 0.1 % eCW1 ([facility]) Triamcinolone Acetonide 0.001 MG/MG Oral Paste Triamci nolone Acetonide 0.1 % Triamcinolone Acetonide 0.1 % 10/31/2020 12:00:00 AM EDT active Triamcinolone Acetonide 0.1 % eCW1 ([facility]) Triamcinolone Acetonide 0.001 MG/MG Oral Paste Triamci nolone Acetonide 0.1 % Triamcinolone Acetonide 0.1 % 10/31/2020 12:00:00 AM EDT active Triamcinolone Acetonide 0.1 % eCW1 ([facility]) Bisacodyl 5 MG UNK 10/10/2020 12:00:00 AM EDT 1.0 {tablet_as _needed} active Bisacodyl 5 MG eCW1 ([facility]) Bisacodyl 5 MG UNK 10/10/2020 12:00:00 AM EDT 1.0 {tablet_as _needed} suspended Bisacodyl 5 MG eCW1 ([facility]) Bisacodyl 5 MG UNK 10/10/2020 12:00:00 AM EDT 1.0 {tablet_as _needed} suspended Bisacodyl 5 MG eCW1 ([facility]) Bisacodyl 5 MG UNK 10/10/2020 12:00:00 AM EDT 1.0 {tablet_as _needed} active Bisacodyl 5 MG eCW1 ([facility]) Bisacodyl 5 MG UNK 10/10/2020 12:00:00 AM EDT 1.0 {tablet_as _needed} active Bisacodyl 5 MG eCW1 ([facility]) Bisacodyl 5 MG UNK 10/10/2020 12:00:00 AM EDT 1.0 {tablet_as _needed} active Bisacodyl 5 MG eCW1 ([facility]) 12 HR diclofenac epolamine 15 MG/HR Transdermal Patch [Flector] Flector 1.3 % Flector 1.3 % 08/22/2020 12:00:00 AM EDT 1.0 {patch} active Flector 1.3 % eCW1 ([facility]) 12 HR diclofenac epolamine 15 MG/HR Transdermal Patch [Flector] Flector 1.3 % Flector 1.3 % 08/22/2020 12:00:00 AM EDT 1.0 {patch} active Flector 1.3 % eCW1 ([facility]) 12 HR diclofenac epolamine 15 MG/HR Transdermal Patch [Flector] Flector 1.3 % Flector 1.3 % 08/22/2020 12:00:00 AM EDT 1.0 {patch} active Flector 1.3 % eCW1 ([facility]) 12 HR diclofenac epolamine 15 MG/HR Transdermal Patch [Flector] Flector 1.3 % Flector 1.3 % 08/22/2020 12:00:00 AM EDT 1.0 {patch} active Flector 1.3 % eCW1 ([facility]) Sennosides-Docusate Sodium 8.6-50 MG UNK 08/21/2020 12:00:00 AM EDT active Sennosides-Docusate Sodium 8.6-5 0 MG eCW1 ([facility]) Sennosides-Docusate Sodium 8.6-50 MG UNK 08/21/2020 12:00:00 AM EDT active Sennosides-Docusate Sodium 8.6-5 0 MG eCW1 ([facility]) Sennosides-Docusate Sodium 8.6-50 MG UNK 08/21/2020 12:00:00 AM EDT active Sennosides-Docusate Sodium 8.6-5 0 MG eCW1 ([facility]) Sennosides-Docusate Sodium 8.6-50 MG UNK 08/21/2020 12:00:00 AM EDT active Sennosides-Docusate Sodium 8.6-5 0 MG eCW1 ([facility]) Senna-Docusate Sodium 8.6-50 MG Senna-Docusate Sodium 8.6-50 MG 03/31/2020 12:00:00 AM EST 1.0 {tablet} active Se nna-Docusate Sodium 8.6-50 MG eCW1 ([facility]) Senna-Docusate Sodium 8.6-50 MG Senna-Docusate Sodium 8.6-50 MG 03/31/2020 12:00:00 AM EST 1.0 {tablet} active Se nna-Docusate Sodium 8.6-50 MG eCW1 ([facility]) Bisacodyl 10 MG Rectal Suppository [Dulcolax] Dulcolax 10 MG Dulcolax 10 MG 03/31/2020 12:00:00 AM EST 1.0 {suppository_as_needed} active Dulcolax 10 MG eCW1 ([facility]) Docusate Sodium 50 MG / sennosides, SENIOR CARE 8.6 MG Oral Tablet Senna-Docusate Sodium 8.6-50 MG Senna-Docusate Sodium 8.6-50 MG 03/31/2020 12:00:00 AM EST 1.0 {tablet} active Senna-Docusate Sodium 8 .6-50 MG eCW1 ([facility]) Bisacodyl 10 MG Rectal Suppository [Dulcolax] Dulcolax 10 MG Dulcolax 10 MG 03/31/2020 12:00:00 AM EST 1.0 {suppository_as_needed} active Dulcolax 10 MG eCW1 ([facility]) Docusate Sodium 50 MG / sennosides, SENIOR CARE 8.6 MG Oral Tablet Senna-Docusate Sodium 8.6-50 MG Senna-Docusate Sodium 8.6-50 MG 03/31/2020 12:00:00 AM EST 1.0 {tablet} active Senna-Docusate Sodium 8 .6-50 MG eCW1 ([facility]) Senna-Docusate Sodium 8.6-50 MG Senna-Docusate Sodium 8.6-50 MG 03/31/2020 12:00:00 AM EST 1.0 {tablet} active Se nna-Docusate Sodium 8.6-50 MG eCW1 ([facility]) Senna-Docusate Sodium 8.6-50 MG Senna-Docusate Sodium 8.6-50 MG 03/31/2020 12:00:00 AM EST 1.0 {tablet} active Se nna-Docusate Sodium 8.6-50 MG eCW1 ([facility]) Senna-Docusate Sodium 8.6-50 MG Senna-Docusate Sodium 8.6-50 MG 03/31/2020 12:00:00 AM EST 1.0 {tablet} active Se nna-Docusate Sodium 8.6-50 MG eCW1 ([facility]) Bisacodyl 10 MG Rectal Suppository [Dulcolax] Dulcolax 10 MG Dulcolax 10 MG 03/31/2020 12:00:00 AM EST 1.0 {suppository_as_needed} active Dulcolax 10 MG eCW1 ([facility]) Bisacodyl 10 MG Rectal Suppository [Dulcolax] Dulcolax 10 MG Dulcolax 10 MG 03/31/2020 12:00:00 AM EST 1.0 {suppository_as_needed} active Dulcolax 10 MG eCW1 ([facility]) Senna-Docusate Sodium 8.6-50 MG Senna-Docusate Sodium 8.6-50 MG 03/31/2020 12:00:00 AM EST 1.0 {tablet} active Se nna-Docusate Sodium 8.6-50 MG eCW1 ([facility]) Senna-Docusate Sodium 8.6-50 MG Senna-Docusate Sodium 8.6-50 MG 03/31/2020 12:00:00 AM EST 1.0 {tablet} active Se nna-Docusate Sodium 8.6-50 MG eCW1 ([facility]) Bisacodyl 10 MG Rectal Suppository [Dulcolax] Dulcolax 10 MG Dulcolax 10 MG 03/31/2020 12:00:00 AM EST 1.0 {suppository_as_needed} active Dulcolax 10 MG eCW1 ([facility]) Bisacodyl 10 MG Rectal Suppository [Dulcolax] Dulcolax 10 MG Dulcolax 10 MG 03/31/2020 12:00:00 AM EST 1.0 {suppository_as_needed} active Dulcolax 10 MG eCW1 ([facility]) Docusate Sodium 50 MG / sennosides, SENIOR CARE 8.6 MG Oral Tablet Senna-Docusate Sodium 8.6-50 MG Senna-Docusate Sodium 8.6-50 MG 03/31/2020 12:00:00 AM EST 1.0 {tablet} active Senna-Docusate Sodium 8 .6-50 MG eCW1 ([facility]) Senna-Docusate Sodium 8.6-50 MG Senna-Docusate Sodium 8.6-50 MG 03/31/2020 12:00:00 AM EST 1.0 {tablet} active Se nna-Docusate Sodium 8.6-50 MG eCW1 ([facility]) Bisacodyl 10 MG Rectal Suppository [Dulcolax] Dulcolax 10 MG Dulcolax 10 MG 03/31/2020 12:00:00 AM EST 1.0 {suppository_as_needed} active Dulcolax 10 MG eCW1 ([facility]) Senna-Docusate Sodium 8.6-50 MG Senna-Docusate Sodium 8.6-50 MG 03/31/2020 12:00:00 AM EST 1.0 {tablet} active Se nna-Docusate Sodium 8.6-50 MG eCW1 ([facility]) Bisacodyl 10 MG Rectal Suppository [Dulcolax] Dulcolax 10 MG Dulcolax 10 MG 03/31/2020 12:00:00 AM EST 1.0 {suppository_as_needed} active Dulcolax 10 MG eCW1 ([facility]) Bisacodyl 10 MG Rectal Suppository [Dulcolax] Dulcolax 10 MG Dulcolax 10 MG 03/31/2020 12:00:00 AM EST 1.0 {suppository_as_needed} active Dulcolax 10 MG eCW1 ([facility]) Bisacodyl 10 MG Rectal Suppository [Dulcolax] Dulcolax 10 MG Dulcolax 10 MG 03/31/2020 12:00:00 AM EST 1.0 {suppository_as_needed} active Dulcolax 10 MG eCW1 ([facility]) Docusate Sodium 50 MG / sennosides, [facility] 8.6 MG Oral Tablet Senna-Docusate Sodium 8.6-50 MG Senna-Docusate Sodium 8.6-50 MG 03/31/2020 12:00:00 AM EST 1.0 {tablet} active Senna-Docusate Sodium 8 .6-50 MG eCW1 ([facility]) Bisacodyl 10 MG Rectal Suppository [Dulcolax] Dulcolax 10 MG Dulcolax 10 MG 03/31/2020 12:00:00 AM EST 1.0 {suppository_as_needed} active Dulcolax 10 MG eCW1 ([facility]) Bisacodyl 10 MG Rectal Suppository [Dulcolax] Dulcolax 10 MG Dulcolax 10 MG 03/31/2020 12:00:00 AM EST 1.0 {suppository_as_needed} active Dulcolax 10 MG eCW1 ([facility]) Bisacodyl 10 MG Rectal Suppository [Dulcolax] Dulcolax 10 MG Dulcolax 10 MG 03/31/2020 12:00:00 AM EST 1.0 {suppository_as_needed} active Dulcolax 10 MG eCW1 ([facility]) PredniSONE 5 MG (21) PredniSONE 5 MG (21) 03/28/2020 12:00:00 AM EST active PredniSONE 5 MG (21) eCW1 ([facility]) Acetaminophen 325 MG / Hydrocodone Glenny trate 5 MG Oral Tablet [Deming] Deming 5- 325 MG Deming 5-325 MG 03/28/2020 12:00:00 AM EST a ctive Deming 5- 325 MG eCW1 ([facility]) PredniSONE 5 MG (21) PredniSONE 5 MG (21) 03/28/2020 12:00:00 AM EST active PredniSONE 5 MG (21) eCW1 ([facility]) Acetaminophen 325 MG / Hydrocodone Glenny trate 5 MG Oral Tablet [Deming] Deming 5- 325 MG Deming 5-325 MG 03/28/2020 12:00:00 AM EST a ctive Deming 5- 325 MG eCW1 ([facility]) PredniSONE 5 MG (21) PredniSONE 5 MG (21) 03/28/2020 12:00:00 AM EST active PredniSONE 5 MG (21) eCW1 ([facility]) PredniSONE 5 MG (21) PredniSONE 5 MG (21) 03/28/2020 12:00:00 AM EST active PredniSONE 5 MG (21) eCW1 ([facility]) Acetaminophen 325 MG / Hydrocodone Glenny trate 5 MG Oral Tablet [Deming] Deming 5- 325 MG Deming 5-325 MG 03/28/2020 12:00:00 AM EST a ctive Deming 5- 325 MG eCW1 ([facility]) PredniSONE 5 MG (21) PredniSONE 5 MG (21) 03/28/2020 12:00:00 AM EST active PredniSONE 5 MG (21) eCW1 ([facility]) PredniSONE 5 MG (21) PredniSONE 5 MG (21) 03/28/2020 12:00:00 AM EST active PredniSONE 5 MG (21) eCW1 ([facility]) PredniSONE 5 MG (21) PredniSONE 5 MG (21) 03/28/2020 12:00:00 AM EST active PredniSONE 5 MG (21) eCW1 ([facility]) PredniSONE 5 MG (21) PredniSONE 5 MG (21) 03/28/2020 12:00:00 AM EST active PredniSONE 5 MG (21) eCW1 ([facility]) PredniSONE 5 MG (21) PredniSONE 5 MG (21) 03/28/2020 12:00:00 AM EST active PredniSONE 5 MG (21) eCW1 ([facility]) PredniSONE 5 MG (21) PredniSONE 5 MG (21) 03/28/2020 12:00:00 AM EST active PredniSONE 5 MG (21) eCW1 ([facility]) PredniSONE 5 MG (21) PredniSONE 5 MG (21) 03/28/2020 12:00:00 AM EST active PredniSONE 5 MG (21) eCW1 ([facility]) Acetaminophen 325 MG / Hydrocodone Glenny trate 5 MG Oral Tablet [Deming] Deming 5- 325 MG Deming 5-325 MG 03/28/2020 12:00:00 AM EST a ctive Deming 5- 325 MG eCW1 ([facility]) Acetaminophen 325 MG / Hydrocodone Glenny trate 5 MG Oral Tablet [Deming] Deming 5- 325 MG Deming 5-325 MG 03/28/2020 12:00:00 AM EST a ctive Deming 5- 325 MG eCW1 ([facility]) PredniSONE 5 MG (21) PredniSONE 5 MG (21) 03/28/2020 12:00:00 AM EST active PredniSONE 5 MG (21) eCW1 ([facility]) PredniSONE 5 MG (21) PredniSONE 5 MG (21) 03/28/2020 12:00:00 AM EST active PredniSONE 5 MG (21) eCW1 ([facility]) PredniSONE 5 MG (21) PredniSONE 5 MG (21) 03/28/2020 12:00:00 AM EST active PredniSONE 5 MG (21) eCW1 ([facility]) tramadol hydrochloride 50 MG Oral Tablet Tramadol HCl 50 MG Tramadol HCl 50 MG 03/24/2020 12:00:00 AM EST 1.0 {tablet_as_needed} active Tramadol HCl 50 MG eCW1 ([facility]) tramadol hydrochloride 50 MG Oral Tablet Tramadol HCl 50 MG Tramadol HCl 50 MG 03/24/2020 12:00:00 AM EST 1.0 {tablet_as_needed} active Tramadol HCl 50 MG eCW1 ([facility]) Cephalexin 500 MG Oral Capsule [Keflex] Keflex 500 MG Keflex 500 MG 03/20/2020 12:00:00 AM EST 1.0 {capsule} active K eflex 500 MG eCW1 ([facility]) Cephalexin 500 MG Oral Capsule [Keflex] Keflex 500 MG Keflex 500 MG 03/20/2020 12:00:00 AM EST 1.0 {capsule} active K eflex 500 MG eCW1 ([facility]) Cephalexin 500 MG Oral Capsule [Keflex] Keflex 500 MG Keflex 500 MG 03/20/2020 12:00:00 AM EST 1.0 {capsule} active K eflex 500 MG eCW1 ([facility]) Cephalexin 500 MG Oral Capsule [Keflex] Keflex 500 MG Keflex 500 MG 03/20/2020 12:00:00 AM EST 1.0 {capsule} active K eflex 500 MG eCW1 ([facility]) Insurance Providers Payer name Policy type / Coverage type Policy ID Covered alliance party ID Covered alliance party's relationship to chan Policy Chan Plan Information Bso Jeremy GRANDA Yoy,CAMILLE,ZFP Medigap Part B [id number] Self X [id number] Bso Jeremy GRANDA,Shahnaz,CAMILLE,ZFP Medigap Part B [id number] Self MEDICARE A [id number] Self [id number] A [id number] A MEDICARE A [id number] Self [id number] MEDICARE [id number] SP [id number] A BCBS [place] 080/580 [id number] SP [id number] [place] 190/690 [id number] SP [id number] [place]/307 [id number] SP [id number] EXCELLUS C [id number] Self [id number] [place]/307 [id number] SP [id number] [place] 302/307 [id number] SP [id number] [place] 190/690 [id number] SP [id number] BCBS [place] 080/580 [id number] SP [id number] [place] Primary [id number] Self 1 [id number] [place] Medicare Primary [id number] Self 1 [id number] BS [place] Medigap Part B [id number] Self Medicare [place] Medicare Primary [id number] Self Medicare [place] Medicare Primary [id number] Self 1 [id number] [place] Medicare Primary [id number] Self 1 [id number] [facility] Part B [id number] Self L [id number] ANS-Medicare Part B [id number] ANSI-Commercial [id number]-[id number] gbsx15bw-0bho-[id number] ANSI-Medicare Part B [id number] ANSI-Commercial [id number]-[id number]-[id number]-8203-7515-261s-[id number] ANSI-Commercial [id number]-[id number]-44x4-[id number] ANSI-Medicare Part B [id number] ANSI-Medicare Part B [id number] ANSI-Commercial [id number]-ev40-675k-[id number]-[id number] 4p6dlql4-kb16-577y-3w06-a9cikvr15b28 ANSI-Commercial [id number]-53rf-[id number] 27d10s12-5m2b-63yo-[id number] ANSI-Medicare Part B [id number] BC/BS [facility] Part B [id number] Self [id number] Medicare Part B Medicare Primary [id number] Self [id number] ANSI-Commercial [id number]-[id number]-[id number] k9az5m1d-k1g7-7o88-[id number] ANSI-Medicare Part B [id number] ANSI-Commercial [id number]-z7i0-2z01-ky92-n8qwpqp3d794 [id number]-b4b0-6p92-pa79-w9bwzaf0i330 ANSI-Medicare Part B [id number] ANSI-Commercial [id number]-lc4d-16z2-[id number] ygj70768-jo7d-56x3-[id number] ANSI-Medicare Part B [id number] ANSI-Medicare Part B [id number]-[id number] ANSI-Commercial [id number]-r3qe-[id number] y579n4t5-2957-1o42-v4cm-6fja0984651q ANSI-Medicare Part B [id number] ANSI-Commercial i39n94js-1925-2pyj-v52k-15ivl47yoa0n l12s30yu-9356-1qcp-t07g-46lsm14qdj8l ANSI-Commercial a30720f5-oy0c-79wt-qc67-1j8tj5g8r662 j31639z6-aw7r-58ua-qa78-7p7ya5h0x897 ANSI-Medicare Part B [id number]-5e4w-6rin6m118or1 ANSI-Commercial o6h6v982-59yd-29p4-vwn1-p218s245wg84 e8j6v564-47to-74u7-sfq5-u202e332ji55 ANSI-Medicare Part B [id number]-[id number] ANSI-Commercial [id number]-6n4x-1762-d3l8-[id number] 3259028m-2j6q-2418-u2n2-y3493l817554 ANSI-Medicare Part B [id number]-hiz3-07ue-cx71-q33p85f36z55 ANSI-Medicare Part B [id number]-[id number] ANSI-Commercial m0395348-4788-3oin-s817-r8o47o677w37 f1576092-4573-9xdq-p303-f0w41d026m90 ANSI-Commercial 578ao9dy-0474-9k30-g8u5-49644c5ln6sg 826gi4dd-0622-7h23-b5a6-94976t8ro6iq ANSI-Medicare Part B [id number]-br70-8i4546d4t26d ANSI-Medicare Part B [id number] [id number]-wpk1-1do4-7hcg-q2s45w57z43c ANSI-Commercial 6cdp9279-z51v-817z-z7qn-z637s7emtc96 8pmo9506-v77y-624o-n1hz-g862m2awuh00 ANSI-Medicare Part B [id number]-91qu-53972xho0du6 ANSI-Commercial 4s8rh757-9909-99w0-h45q-8ix20tf6450v 4y4ld786-8276-62k7-m46s-9tj68zq1635p ANSI-Medicare Part B [id number]-[id number]-o026-5nft-s611-56w1138o0t74 ANSI-Commercial 91yz61w7-3426-92m8-bmdg-r5ux74002s9w 43qn28r3-2676-63e0-tfeo-y8uo31511y0v ANSI-Medicare Part B [id number]-[id number] ANSI-Commercial s480b2j0-85j1-7m45-6a2o-4a913e4kl3l1 a037v0o5-02h4-9g53-0r9v-5v564x4qb7q0 ANSI-Medicare Part B [id number]-x638-9n06-97yx-0n46o84a028z ANSI-Commercial 3v934145-0957-3b34-0wju-869i150w896h 5x728866-8592-5a43-5bvw-341v326p756e ANSI-Commercial 7p3eg658-2u29-0652-5327-5535jmd58w63 5s0ct665-8z37-1323-7057-7382gnu17w01 ANSI-Medicare Part B [id number]-bd65-[id number] [place]/307 [id number] SP [id number] BCBS [place] 080/580 [id number] SP [id number] Medicare - [facility] Medicare Primary [id number] Self 1 [id number] [employer] BCBS Medigap Part B [id number] Self L [id number] BCBS/Blue Card Medigap Part B [id number] Self [id number] Medicare Natl Gov't Servi Medicare Primary [id number] Self [id number] [employer] C [id number] S [id number] MEDICARE [id number] SP [id number] A Medicare - [facility] Medicare Primary [id number] Self 1 [id number] [place]/307 [id number] SP [id number] [place]/307 [id number] SP [id number] BCBS [place] 080/580 [id number] SP [id number] BCBS [place] 080/580 [id number] SP [id number] HMO BLUE [id number] SP [id number] BC[place] 080/580 [id number] SP [id number] BCBS [place] 080/580 [id number] SP [id number] MEDICARE [id number] SP [id number] [place]/307 [id number] SP [id number] [place]/307 [id number] SP [id number] MEDICARE C [id number] S [id number] EXCELLUS BCBS B [id number] S [id number] MEDICARE [id number] SP [id number] A MEDICARE C [id number] S [id number] A ANSI-Medicare Part B [id number] ANSI-Commercial [id number]-k154-620o-s27j-[id number]-g627-592b-m90j-[id number] ANSI-Medicare Part B [id number] ANSI-Commercial 84b3e0q7-e4l2-5155-eh84-[id number] 68g4x8b8-r7b2-8519-le68-[id number] ANSI-Commercial [id number]-rhrw-842z-[id number] [id number]-zzfj-891e-[id number] ANSI-Medicare Part B [id number] ANSI-Medicare Part B [id number] ANSI-Commercial [id number]-[id number]-[id number] ANSI-Commercial [id number]-[id number] [id number]-[id number] ANSI-Medicare Part B [id number] ANSI-Medicare Part B [id number] ANSI-Commercial w221pbrr-4n8c-2k4y-[id number] b547yzxw-3s6s-8u8x-[id number] ANSI-Commercial [id number]-[id number] zn8l88w8-8pqd-[id number] ANSI-Medicare Part B [id number]-[id number] Problems, Conditions, and Diagnoses Code Display Name Description Problem Type Effective Dates Data Source(s) M53.3 [id number] Coccydynia Problem 12/12/2020 12:00:00 AM ED T eCW1 ([facility]) M46.1 [id number] Bilateral sacroiliitis Problem 12/12/2020 12:00:00 AM EDT eCW1 ([facility]) 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 08/21/2020 12 :00:00 AM EDT eCW1 ([facility]) Surgeries/Procedures Procedure Description Date Indications Data Source(s) Injection, methylprednisolone acetate, 80 mg 1 12:00:00 AM EDT eCW1 ([facility]) Injection, methylprednisolone acetate, 80 mg 0 12:00:00 AM EST eCW1 ([facility]) Results ID Date Data Source [facility] Spine,cervical w/o contrast 10/19/2020 12:00:00 AM ED T eCW1 ([facility]) Name Value Range Interpretation Code Description Data Naheed rce(s) Supporting Document(s) [facility] Spine,cervical w/o contrast eCW1 ([facility]) ID Date Data Source PLZ RIBS UNILATERAL W/O PA CHEST 08/21/2020 12:00:00 AM EDT eCW1 ([facility]) Name Value Range Interpretation Code Description Data Naheed rce(s) Supporting Document(s) PLZ RIBS UNILATERAL W/O PA WYATT ST eCW1 ([facility]) ID Date Data Source Ultrasound : Kidneys 04/18/2020 12:00:00 AM EST eCW1 ([facility]) Name Value Range Interpretation Code Description Data Naheed rce(s) Supporting Document(s) eCW1 ([facility]) ID Date Data Source INSULIN LEVEL 03/28/2020 12:00:00 AM EST eCW1 ([facility]) Name Value Range Interpretation Code Description Data Naheed rce(s) Supporting Document(s) 4.4 2.6-24.9 eCW1 ([facility]) ID Date Data Source VITAMIN D 25-HYDROXY 03/28/2020 12:00:00 AM EST eCW1 ([facility]) Name Value Range Interpretation Code Description Data Naheed rce(s) Supporting Document(s) 37.0 30.0-100.0 TOTAL 25(OH) VITAMIN D eC W1 ([facility]) ID Date Data Source TOTAL PROTEIN,RANDOM URINE 03/28/2020 12:00:00 AM EST eCW1 ( [facility]) Name Value Range Interpretation Code Description Data Naheed rce(s) Supporting Document(s) 8.0 0.0-12.0 eCW1 ([facility]) ID Date Data Source CREATININE,RANDOM URINE 03/28/2020 12:00:00 AM EST eCW1 ([facility]) Name Value Range Interpretation Code Description Data Naheed rce(s) Supporting Document(s) 56.1 eCW1 ([facility]) ID Date Data Source FREE T4 & TSH PANEL 03/28/2020 12:00:00 AM EST eCW1 ([facility]) Name Value Range Interpretation Code Description Data Naheed rce(s) Supporting Document(s) 2.220 0.358-3.740 THYROID STIMULATING HORM ONE eCW1 ([facility]) 0.99 0.76-1.46 FREE T4 eCW1 ([facility]) ID Date Data Source LIPID PANEL (CARDIAC RISK) 03/28/2020 12:00:00 AM EST eCW1 ( [facility]) Name Value Range Interpretation Code Description Data Naheed rce(s) Supporting Document(s) Cholesterol in HDL [Moles/volume] in Serum or Plasma 65 >40 HDL CHOLESTEROL eCW1 ([facility]) Triglyceride [Mass/volume] in Serum or Plasma by calculation 89 <150 TRIGLYCERIDES LEVEL eCW1 ([facility]) Cholesterol in LDL [Mass/volume] in Serum or Plasma by calculation 51 <100 LDL CHOLESTEROL eCW1 ([facility]) Cholesterol [Moles/volume] in Serum or Plasma 134 <200 CHOLESTEROL LEVEL eCW1 ([facility]) 2.061 <5 CHOLESTEROL RISK RATIO eCW1 ([facility]) 69 NON-HDL-C eCW1 ([facility]) ID Date Data Source [id number] 03/28/2020 12:00:00 AM EST eCW1 ([facility]) Name Value Range Interpretation Code Description Data Anheed rce(s) Supporting Document(s) Hemoglobin A1c/Hemoglobin.total in Blood 5.5 HEMOGLOBIN A1c eCW1 ([facility]) ID Date Data Source ERYTHROCYTE SEDIMENTATION RATE 03/28/2020 12:00:00 AM EST eC W1 ([facility]) Name Value Range Interpretation Code Description Data Naheed rce(s) Supporting Document(s) 10 0-30 ERYTHROCYTE SEDIMENTATION RATE eCW1 ([facility]) ID Date Data Source PTH INTACT 03/28/2020 12:00:00 AM EST eCW1 ([facility]) Name Value Range Interpretation Code Description Data Naheed rce(s) Supporting Document(s) 40.3 18.5-88.0 PTH INTACT eCW1 ([facility]) ID Date Data Source C REACTIVE PROTEIN QUANTITATIV (At [facility]) 03/28/2020 12:00 :00 AM EST eCW1 ([facility]) Name Value Range Interpretation Code Description Data Naheed rce(s) Supporting Document(s) 0.30 0.00-0.30 C REACTIVE PROTEIN QUANTI TATIV eCW1 ([facility]) ID Date Data Source Comprehensive Metabolic Profile (CMP) 03/28/2020 12:00:00 AM EST eCW1 ([facility]) Name Value Range Interpretation Code Description Data Naheed rce(s) Supporting Document(s) 86 70-100 GLUCOSE, FASTING eCW1 ([facility]) 0.76 0.55-1.30 CREATININE FOR GFR eCW1 ([facility]) 15 7-18 BLOOD UREA NITROGEN eCW1 ([facility]) 141 136-145 SODIUM LEVEL eCW1 ([facility]) 5.0 3.5-5.1 POTASSIUM SERUM eCW1 ([facility]) > 60.0 >32 GLOMERULAR FILTRATION RATE eCW 1 ([facility]) 108 98-107 CHLORIDE LEVEL eCW1 ([facility]) 34 12-78 ALT/SGPT eCW1 ([facility]) 20 7-37 AST/SGOT eCW1 ([facility]) 10.9 8.8-10.2 CALCIUM LEVEL eCW1 ([facility]) 32 45-117 ALKALINE PHOSPHATASE eCW1 ([facility]) 30 21-32 CARBON DIOXIDE LEVEL eCW1 ([facility]) 7.6 6.4-8.2 TOTAL PROTEIN eCW1 ([facility]) 0.4 0.2-1.0 BILIRUBIN,TOTAL eCW1 ([facility]) 3.8 3.2-5.2 ALBUMIN eCW1 ([facility]) 1.0 1.2-2.2 ALBUMIN/GLOBULIN RATIO eCW1 ([facility]) ID Date Data Source CBC with Differential 03/28/2020 12:00:00 AM EST eCW1 ([facility]) Name Value Range Interpretation Code Description Data Naheed rce(s) Supporting Document(s) 9.5 4.0-10.0 WHITE BLOOD COUNT eCW1 ([facility]) 42.1 36.0-47.0 HEMATOCRIT eCW1 ([facility]) 13.4 12.0-15.5 HEMOGLOBIN eCW1 ([facility]) 4.08 4.00-5.40 RED BLOOD COUNT eCW1 ([facility]) 31.8 32.0-36.5 MEAN CORPUSCULAR HGB CONC eCW1 ([facility]) 32.8 27.0-33.0 MEAN CORPUSCULAR HEMOGLOB IN eCW1 ([facility]) 15.1 11.5-14.5 RED CELL DISTRIBUTION WID TH eCW1 ([facility]) 103.2 80.0-96.0 MEAN CORPUSCULAR VOLUME e CW1 ([facility]) 346 150-450 PLATELET COUNT, AUTOMATED eCW1 ([facility]) 33.2 24.0-44.0 LYMPH % eCW1 (Formerly [facility]) 54.0 36.0-66.0 NEUTROPHILS % eCW1 ([facility]) 8.9 0.0-5.0 MONO % eCW1 (Formerly [facility]) 3.2 1.5-5.0 LYMPH # eCW1 (Formerly [facility]) 3.2 0.0-3.0 EOS % eCW1 ([facility]ly [facility]) 0.5 0.0-1.0 BASO % eCW1 (Formerly [facility]) 5.1 1.5-8.5 NEUTROPHILS # eCW1 ([facility]) 0.8 0.0-0.8 MONO # eCW1 ([facility]ly [facility]) 0.1 0.0-0.2 BASO # eCW1 ([facility]ly [facility]) 0.3 0.0-0.5 EOS # eCW1 (Formerly [facility]) ID Date Data Source URINE CULTURE 03/20/2020 12:00:00 AM EST eCW1 ([facility]) Name Value Range Interpretation Code Description Data Naheed rce(s) Supporting Document(s) URINE CULTURE eCW1 ([facility]) ID Date Data Source [id number] 03/02/2020 12:00:00 AM EST [facility] Name Value Range Interpretation Code Description Data Naheed rce(s) Supporting Document(s) SARS coronavirus 2 Ag [facility] This lab was ordered by [facility] and reported by [facility]. ID Date Data Source PLZ SPINE CERVICAL W/AP/FLEX/EXT 01/31/2020 06:07:25 AM EDT eCW1 ([facility]) Name Value Range Interpretation Code Description Data Naheed rce(s) Supporting Document(s) PLZ SPINE CERVICAL W/AP/FLEX/E XT eCW1 ([facility]) ID Date Data Source PLZ HIP,AP,LAT, to include Pelvis 01/31/2020 06:06:50 AM EDT eCW1 ([facility]) Name Value Range Interpretation Code Description Data Naheed rce(s) Supporting Document(s) PLZ HIP,AP,LAT, to include Pel vis eCW1 ([facility]) Procedure Social History Code Duration Value Status Description Data Source(s ) Smoking 01/25/2021 12:00:00 AM EDT Never Smoker completed Never S moker eCW1 ([facility]) Smoking 01/25/2021 12:00:00 AM EDT Never Smoker completed Never S moker eCW1 ([facility]) Smoking 01/25/2021 12:00:00 AM EDT Never Smoker completed Never S moker eCW1 ([facility]) Smoking 01/25/2021 12:00:00 AM EDT Never Smoker completed Never S moker eCW1 ([facility]) Smoking 01/02/2021 12:00:00 AM EDT Never Smoker completed Never S moker eCW1 ([facility]) Smoking 01/02/2021 12:00:00 AM EDT Never Smoker completed Never S moker eCW1 ([facility]) Smoking 01/02/2021 12:00:00 AM EDT Never Smoker completed Never S moker eCW1 ([facility]) Smoking 01/02/2021 12:00:00 AM EDT Never Smoker completed Never S moker eCW1 ([facility]) Smoking 12/12/2020 12:00:00 AM EDT Never Smoker completed Never S moker eCW1 ([facility]) Smoking 12/12/2020 12:00:00 AM EDT Never Smoker completed Never S moker eCW1 ([facility]) Smoking 12/12/2020 12:00:00 AM EDT Never Smoker completed Never S moker eCW1 ([facility]) Smoking 12/12/2020 12:00:00 AM EDT Never Smoker completed Never S moker eCW1 ([facility]) Smoking 10/31/2020 12:00:00 AM EDT Never Smoker completed Never S moker eCW1 ([facility]) Smoking 10/31/2020 12:00:00 AM EDT Never Smoker completed Never S moker eCW1 ([facility]) Smoking 10/24/2020 12:00:00 AM EDT Never Smoker completed Never S moker eCW1 ([facility]) Smoking 10/24/2020 12:00:00 AM EDT Never Smoker completed Never S moker eCW1 ([facility]) Smoking 10/18/2020 12:00:00 AM EDT Never Smoker completed Never S moker eCW1 ([facility]) Smoking 10/10/2020 12:00:00 AM EDT Never Smoker completed Never S moker eCW1 ([facility]) Smoking 09/04/2020 12:00:00 AM EDT Never Smoker completed Never S moker eCW1 ([facility]) Smoking 08/21/2020 12:00:00 AM EDT Never Smoker completed Never S moker eCW1 ([facility]) Smoking 08/21/2020 12:00:00 AM EDT Never Smoker completed Never S moker eCW1 ([facility]) Smoking 08/21/2020 12:00:00 AM EDT Never Smoker completed Never S moker eCW1 ([facility]) Smoking 08/08/2020 12:00:00 AM EDT Never Smoker completed Never S moker eCW1 ([facility]) Smoking 04/05/2020 12:00:00 AM EST Never Smoker completed Never S moker eCW1 ([facility]) Smoking 04/05/2020 12:00:00 AM EST Never Smoker completed Never S moker eCW1 ([facility]) Smoking 04/05/2020 12:00:00 AM EST Never Smoker completed Never S moker eCW1 ([facility]) Smoking 04/05/2020 12:00:00 AM EST Never Smoker completed Never S moker eCW1 ([facility]) Smoking 04/05/2020 12:00:00 AM EST Never Smoker completed Never S moker eCW1 ([facility]) Smoking 04/05/2020 12:00:00 AM EST Never Smoker completed Never S moker eCW1 ([facility]) Smoking 04/05/2020 12:00:00 AM EST Never Smoker completed Never S moker eCW1 ([facility]) Smoking 04/05/2020 12:00:00 AM EST Never Smoker completed Never S moker eCW1 ([facility]) Smoking 04/05/2020 12:00:00 AM EST Never Smoker completed Never S moker eCW1 ([facility]) Smoking 03/28/2020 12:00:00 AM EST Never Smoker completed Never S moker eCW1 ([facility]) Smoking 03/28/2020 12:00:00 AM EST Never Smoker completed Never S moker eCW1 ([facility]) Smoking 03/28/2020 12:00:00 AM EST Never Smoker completed Never S moker eCW1 ([facility]) Smoking 03/28/2020 12:00:00 AM EST Never Smoker completed Never S moker eCW1 ([facility]) Smoking 03/28/2020 12:00:00 AM EST Never Smoker completed Never S moker eCW1 ([facility]) Smoking 03/20/2020 12:00:00 AM EST Never Smoker completed Never S moker eCW1 ([facility]) Smoking 03/20/2020 12:00:00 AM EST Never Smoker completed Never S moker eCW1 ([facility]) Smoking 03/20/2020 12:00:00 AM EST Never Smoker completed Never S moker eCW1 ([facility]) Smoking 03/20/2020 12:00:00 AM EST Never Smoker completed Never S moker eCW1 ([facility]) Smoking 02/14/2020 12:00:00 AM EST Never Smoker completed Never S moker eCW1 ([facility]) Smoking 02/14/2020 12:00:00 AM EST Never Smoker completed Never S moker eCW1 ([facility]) Smoking 01/28/2020 12:00:00 AM EDT Never Smoker completed Never S moker eCW1 ([facility]) Smoking 01/28/2020 12:00:00 AM EDT Never Smoker completed Never S moker eCW1 ([facility]) Smoking 01/28/2020 12:00:00 AM EDT Never Smoker completed Never S moker eCW1 ([facility]) Vital Signs ID Date Data Source UNK Name Value Range Interpretation Code Description Data Source(s) Body weight 145 [lb_av] 145 [lb_av] eCW1 ([facility]) Body weight 65.77 kg 65.77 kg eCW1 ([facility]) Body height 62 [in_i] 62 [in_i] eCW1 ([facility]) Body mass index (BMI) [Ratio] 26.52 kg/m2 26.52 kg/m2 eCW1 ([facility]) Heart rate 71 /min 71 /min eCW1 ([facility]) Respiratory rate 20 /min 20 /min eCW1 ([facility]) Body temperature 98.8 [degF] 98.8 [degF] eCW1 ( [facility]) Systolic blood pressure 120 mm[Hg] 120 mm[Hg] e CW1 ([facility]) Diastolic blood pressure 72 mm[Hg] 72 mm[Hg] eCW1 ([facility]) Body weight 139 [lb_av] 139 [lb_av] eCW1 ([facility]) Body weight 139 [lb_av] 139 [lb_av] eCW1 ([facility]) Body weight 63.05 kg 63.05 kg eCW1 ([facility]) Body height 62 [in_i] 62 [in_i] eCW1 ([facility]) Body mass index (BMI) [Ratio] 25.42 kg/m2 25.42 kg/m2 eCW1 ([facility]) Heart rate 77 /min 77 /min eCW1 ([facility]) Respiratory rate 20 /min 20 /min eCW1 ([facility]) Body temperature 99.0 [degF] 99.0 [degF] eCW1 ( [facility]) Body weight 63.05 kg 63.05 kg eCW1 ([facility]) Body height 62 [in_i] 62 [in_i] eCW1 ([facility]) Body mass index (BMI) [Ratio] 25.42 kg/m2 25.42 kg/m2 eCW1 ([facility]) Heart rate 77 /min 77 /min eCW1 ([facility]) Systolic blood pressure 124 mm[Hg] 124 mm[Hg] e CW1 ([facility]) Diastolic blood pressure 68 mm[Hg] 68 mm[Hg] eCW1 ([facility]) Respiratory rate 20 /min 20 /min eCW1 ([facility]) Body temperature 99.0 [degF] 99.0 [degF] eCW1 ( [facility]) Systolic blood pressure 124 mm[Hg] 124 mm[Hg] e CW1 ([facility]) Diastolic blood pressure 68 mm[Hg] 68 mm[Hg] eCW1 ([facility]) Body weight 139.8 [lb_av] 139.8 [lb_av] eCW1 ([facility]) Body weight 63.41 kg 63.41 kg eCW1 ([facility]) Body height 62 [in_i] 62 [in_i] eCW1 ([facility]) Body mass index (BMI) [Ratio] 25.57 kg/m2 25.57 kg/m2 eCW1 ([facility]) Heart rate 78 /min 78 /min eCW1 ([facility]) Respiratory rate 18 /min 18 /min eCW1 ([facility]) Body temperature 98.3 [degF] 98.3 [degF] eCW1 ( [facility]) Systolic blood pressure 122 mm[Hg] 122 mm[Hg] e CW1 ([facility]) Diastolic blood pressure 82 mm[Hg] 82 mm[Hg] eCW1 ([facility]) Body weight 141 [lb_av] 141 [lb_av] eCW1 ([facility]) Body height 62 [in_i] 62 [in_i] eCW1 ([facility]) Body mass index (BMI) [Ratio] 25.79 kg/m2 25.79 kg/m2 eCW1 ([facility]) Heart rate 72 /min 72 /min eCW1 ([facility]) Respiratory rate 18 /min 18 /min eCW1 ([facility]) Body temperature 97.8 [degF] 97.8 [degF] eCW1 ( [facility]) Systolic blood pressure 126 mm[Hg] 126 mm[Hg] e CW1 ([facility]) Diastolic blood pressure 76 mm[Hg] 76 mm[Hg] eCW1 ([facility]) Body weight 141 [lb_av] 141 [lb_av] eCW1 ([facility]) Body height 62 [in_i] 62 [in_i] eCW1 ([facility]) Body mass index (BMI) [Ratio] 25.79 kg/m2 25.79 kg/m2 eCW1 ([facility]) Heart rate 94 /min 94 /min eCW1 ([facility]) Respiratory rate 18 /min 18 /min eCW1 ([facility]) Body temperature 98.2 [degF] 98.2 [degF] eCW1 ( [facility]) Systolic blood pressure 128 mm[Hg] 128 mm[Hg] e CW1 ([facility]) Diastolic blood pressure 78 mm[Hg] 78 mm[Hg] eCW1 ([facility]) Body weight 141 [lb_av] 141 [lb_av] eCW1 ([facility]) Body height 62 [in_i] 62 [in_i] eCW1 ([facility]) Body mass index (BMI) [Ratio] 25.79 kg/m2 25.79 kg/m2 eCW1 ([facility]) Heart rate 71 /min 71 /min eCW1 ([facility]) Respiratory rate 18 /min 18 /min eCW1 ([facility]) Body temperature 98.0 [degF] 98.0 [degF] eCW1 ( [facility]) Systolic blood pressure 124 mm[Hg] 124 mm[Hg] e CW1 ([facility]) Diastolic blood pressure 78 mm[Hg] 78 mm[Hg] eCW1 ([facility]) Body weight 141 [lb_av] 141 [lb_av] eCW1 ([facility]) Body height 62 [in_i] 62 [in_i] eCW1 ([facility]) Body mass index (BMI) [Ratio] 25.79 kg/m2 25.79 kg/m2 eCW1 ([facility]) Heart rate 84 /min 84 /min eCW1 ([facility]) Respiratory rate 18 /min 18 /min eCW1 ([facility]) Body temperature 98.3 [degF] 98.3 [degF] eCW1 ( [facility]) Systolic blood pressure 118 mm[Hg] 118 mm[Hg] e CW1 ([facility]) Diastolic blood pressure 78 mm[Hg] 78 mm[Hg] eCW1 ([facility]) Body weight 142 [lb_av] 142 [lb_av] eCW1 ([facility]) Body height 62 [in_i] 62 [in_i] eCW1 ([facility]) Body mass index (BMI) [Ratio] 25.97 kg/m2 25.97 kg/m2 eCW1 ([facility]) Heart rate 95 /min 95 /min eCW1 ([facility]) Respiratory rate 18 /min 18 /min eCW1 ([facility]) Body temperature 98.1 [degF] 98.1 [degF] eCW1 ( [facility]) Systolic blood pressure 128 mm[Hg] 128 mm[Hg] e CW1 ([facility]) Diastolic blood pressure 78 mm[Hg] 78 mm[Hg] eCW1 ([facility]) Body weight 146 [lb_av] 146 [lb_av] eCW1 ([facility]) Body height 62 [in_i] 62 [in_i] eCW1 ([facility]) Body mass index (BMI) [Ratio] 26.70 kg/m2 26.70 kg/m2 eCW1 ([facility]) Heart rate 122 /min 122 /min eCW1 ([facility]) Respiratory rate 18 /min 18 /min eCW1 ([facility]) Body temperature 99.4 [degF] 99.4 [degF] eCW1 ( [facility]) Systolic blood pressure 128 mm[Hg] 128 mm[Hg] e CW1 ([facility]) Diastolic blood pressure 78 mm[Hg] 78 mm[Hg] eCW1 ([facility]) Body weight 147 [lb_av] 147 [lb_av] eCW1 ([facility]) Body height 62 [in_i] 62 [in_i] eCW1 ([facility]) Body mass index (BMI) [Ratio] 26.88 kg/m2 26.88 kg/m2 eCW1 ([facility]) Heart rate 82 /min 82 /min eCW1 ([facility]) Respiratory rate 18 /min 18 /min eCW1 ([facility]) Body temperature 98.3 [degF] 98.3 [degF] eCW1 ( [facility]) Systolic blood pressure 132 mm[Hg] 132 mm[Hg] e CW1 ([facility]) Diastolic blood pressure 80 mm[Hg] 80 mm[Hg] eCW1 ([facility]) Body weight 146 [lb_av] 146 [lb_av] eCW1 ([facility]) Body height 62 [in_i] 62 [in_i] eCW1 ([facility]) Body mass index (BMI) [Ratio] 26.70 kg/m2 26.70 kg/m2 eCW1 ([facility]) Heart rate 71 /min 71 /min eCW1 ([facility]) Respiratory rate 18 /min 18 /min eCW1 ([facility]) Body temperature 97.8 [degF] 97.8 [degF] eCW1 ( [facility]) Systolic blood pressure 124 mm[Hg] 124 mm[Hg] e CW1 ([facility]) Diastolic blood pressure 76 mm[Hg] 76 mm[Hg] eCW1 ([facility]) Heart rate 78 /min 78 /min eCW1 ([facility]) Body weight 145.8 [lb_av] 145.8 [lb_av] eCW1 ([facility]) Body height 62 [in_i] 62 [in_i] eCW1 ([facility]) Respiratory rate 20 /min 20 /min eCW1 ([facility]) Body mass index (BMI) [Ratio] 26.66 kg/m2 26.66 kg/m2 eCW1 ([facility]) Systolic blood pressure 120 mm[Hg] 120 mm[Hg] e CW1 ([facility]) Body temperature 96.4 [degF] 96.4 [degF] eCW1 ( [facility]) Diastolic blood pressure 78 mm[Hg] 78 mm[Hg] eCW1 ([facility]) Body weight 145.8 [lb_av] 145.8 [lb_av] eCW1 ([facility]) Body height 62 [in_i] 62 [in_i] eCW1 ([facility]) Body mass index (BMI) [Ratio] 26.66 kg/m2 26.66 kg/m2 eCW1 ([facility]) Heart rate 78 /min 78 /min eCW1 ([facility]) Respiratory rate 20 /min 20 /min eCW1 ([facility]) Body temperature 96.4 [degF] 96.4 [degF] eCW1 ( [facility]) Systolic blood pressure 120 mm[Hg] 120 mm[Hg] e CW1 ([facility]) Diastolic blood pressure 78 mm[Hg] 78 mm[Hg] eCW1 ([facility]) Body weight 143 [lb_av] 143 [lb_av] eCW1 ([facility]) Body height 62 [in_i] 62 [in_i] eCW1 ([facility]) Body mass index (BMI) [Ratio] 26.15 kg/m2 26.15 kg/m2 eCW1 ([facility]) Heart rate 111 /min 111 /min eCW1 ([facility]) Respiratory rate 18 /min 18 /min eCW1 ([facility]) Body temperature 99.4 [degF] 99.4 [degF] eCW1 ( [facility]) Systolic blood pressure 108 mm[Hg] 108 mm[Hg] e CW1 ([facility]) Diastolic blood pressure 70 mm[Hg] 70 mm[Hg] eCW1 ([facility]) Body weight 145 [lb_av] 145 [lb_av] eCW1 ([facility]) Body height 62 [in_i] 62 [in_i] eCW1 ([facility]) Body mass index (BMI) [Ratio] 26.52 kg/m2 26.52 kg/m2 eCW1 ([facility]) Heart rate 87 /min 87 /min eCW1 ([facility]) Respiratory rate 18 /min 18 /min eCW1 ([facility]) Body temperature [degF] eCW1 ([facility]) Systolic blood pressure 140 mm[Hg] 140 mm[Hg] e CW1 ([facility]) Diastolic blood pressure 82 mm[Hg] 82 mm[Hg] eCW1 ([facility]) Body weight 141 [lb_av] 141 [lb_av] eCW1 ([facility]) Body height 62 [in_i] 62 [in_i] eCW1 ([facility]) Body mass index (BMI) [Ratio] 25.79 kg/m2 25.79 kg/m2 eCW1 ([facility]) Heart rate 90 /min 90 /min eCW1 ([facility]) Respiratory rate 18 /min 18 /min eCW1 ([facility]) Body temperature 98.8 [degF] 98.8 [degF] eCW1 ( [facility]) Systolic blood pressure 138 mm[Hg] 138 mm[Hg] e CW1 ([facility]) Diastolic blood pressure 80 mm[Hg] 80 mm[Hg] eCW1 ([facility]) Body weight 145.4 [lb_av] 145.4 [lb_av] eCW1 ([facility]) Body height 62 [in_i] 62 [in_i] eCW1 ([facility]) Body mass index (BMI) [Ratio] 26.59 kg/m2 26.59 kg/m2 eCW1 ([facility]) Heart rate 84 /min 84 /min eCW1 ([facility]) Respiratory rate 17 /min 17 /min eCW1 ([facility]) Body temperature 97.7 [degF] 97.7 [degF] eCW1 ( [facility]) Systolic blood pressure 148 mm[Hg] 148 mm[Hg] e CW1 ([facility]) Diastolic blood pressure 94 mm[Hg] 94 mm[Hg] eCW1 ([facility]) Patient Treatment Plan of Care Planned Activity Planned Date Details Description Data Source (s) predniSONE 5 MG (21) 01/02/2021 12:00:00 AM EDT eCW1 ([facility]) Cholecalciferol 25 MCG (1000 UT) 01/02/2021 12:00:00 AM EDT eCW1 ([facility]) predniSONE 5 MG (21) 01/02/2021 12:00:00 AM EDT eCW1 ([facility]) Cholecalciferol 25 MCG (1000 UT) 01/02/2021 12:00:00 AM EDT eCW1 ([facility]) Cholecalciferol 25 MCG (1000 UT) 01/02/2021 12:00:00 AM EDT eCW1 ([facility]) predniSONE 5 MG (21) 01/02/2021 12:00:00 AM EDT eCW1 ([facility]) Cholecalciferol 25 MCG (1000 UT) 01/02/2021 12:00:00 AM EDT eCW1 ([facility]) predniSONE 5 MG (21) 01/02/2021 12:00:00 AM EDT eCW1 ([facility]) Cholecalciferol 25 MCG (1000 UT) 01/02/2021 12:00:00 AM EDT eCW1 ([facility]) predniSONE 5 MG (21) 01/02/2021 12:00:00 AM EDT eCW1 ([facility]) Cholecalciferol 25 MCG (1000 UT) 01/02/2021 12:00:00 AM EDT eCW1 ([facility]) predniSONE 5 MG (21) 01/02/2021 12:00:00 AM EDT eCW1 ([facility]) Triamcinolone Acetonide 0.001 MG/MG Oral Paste 10/31/2020 12:00:00 AM EDT eCW1 ([facility]) Triamcinolone Acetonide 0.001 MG/MG Oral Paste 10/31/2020 12:00:00 AM EDT eCW1 ([facility]) Bisacodyl 5 MG 10/10/2020 12:00:00 AM EDT eCW1 ([facility]) 12 HR diclofenac epolamine 15 MG/HR Transdermal Patch [Flector] 08/22/2020 12:00:00 AM EDT eCW1 ([facility]) 12 HR diclofenac epolamine 15 MG/HR Transdermal Patch [Flector] 08/22/2020 12:00:00 AM EDT eCW1 ([facility]) 12 HR diclofenac epolamine 15 MG/HR Transdermal Patch [Flector] 08/22/2020 12:00:00 AM EDT eCW1 ([facility]) Sennosides-Docusate Sodium 8.6-50 MG 08/21/2020 12:00:00 AM EDT eCW1 ([facility]) Sennosides-Docusate Sodium 8.6-50 MG 08/21/2020 12:00:00 AM EDT eCW1 ([facility]) Sennosides-Docusate Sodium 8.6-50 MG 08/21/2020 12:00:00 AM EDT eCW1 ([facility]) Sennosides-Docusate Sodium 8.6-50 MG 08/21/2020 12:00:00 AM EDT eCW1 ([facility]) Docusate Sodium 50 MG / sennosides, SENIOR CARE 8.6 MG Oral Ta blet 03/31/2020 12:00:00 AM EST eCW1 ([facility]) Bisacodyl 10 MG Rectal Suppository [Dulcolax] 03/31/2020 12:00:00 A M EST eCW1 ([facility]) Docusate Sodium 50 MG / sennosides, SENIOR CARE 8.6 MG Oral Ta blet 03/31/2020 12:00:00 AM EST eCW1 ([facility]) Bisacodyl 10 MG Rectal Suppository [Dulcolax] 03/31/2020 12:00:00 A M EST eCW1 ([facility]) Docusate Sodium 50 MG / sennosides, SENIOR CARE 8.6 MG Oral Ta blet 03/31/2020 12:00:00 AM EST eCW1 ([facility]) Bisacodyl 10 MG Rectal Suppository [Dulcolax] 03/31/2020 12:00:00 A M EST eCW1 ([facility]) Docusate Sodium 50 MG / sennosides, SENIOR CARE 8.6 MG Oral Ta blet 03/31/2020 12:00:00 AM EST eCW1 ([facility]) Bisacodyl 10 MG Rectal Suppository [Dulcolax] 03/31/2020 12:00:00 A M EST eCW1 ([facility]) Acetaminophen 325 MG / Hydrocodone Bitartrate 5 MG Ora l Tablet [[place]] 03/28/2020 12:00:00 AM EST eCW1 ([facility]) PredniSONE 5 MG (21) 03/28/2020 12:00:00 AM EST eCW1 ([facility]) Acetaminophen 325 MG / Hydrocodone Bitartrate 5 MG Ora l Tablet [[place]] 03/28/2020 12:00:00 AM EST eCW1 ([facility]) PredniSONE 5 MG (21) 03/28/2020 12:00:00 AM EST eCW1 ([facility]) Acetaminophen 325 MG / Hydrocodone Bitartrate 5 MG Ora l Tablet [[place]] 03/28/2020 12:00:00 AM EST eCW1 ([facility]) PredniSONE 5 MG (21) 03/28/2020 12:00:00 AM EST eCW1 ([facility]) Acetaminophen 325 MG / Hydrocodone Bitartrate 5 MG Ora l Tablet [[place]] 03/28/2020 12:00:00 AM EST eCW1 ([facility]) PredniSONE 5 MG (21) 03/28/2020 12:00:00 AM EST eCW1 ([facility]) Acetaminophen 325 MG / Hydrocodone Bitartrate 5 MG Ora l Tablet [[place]] 03/28/2020 12:00:00 AM EST eCW1 ([facility]) PredniSONE 5 MG (21) 03/28/2020 12:00:00 AM EST eCW1 ([facility]) tramadol hydrochloride 50 MG Oral Tablet 03/24/2020 12:00:00 AM EST eCW1 ([facility]) tramadol hydrochloride 50 MG Oral Tablet 03/24/2020 12:00:00 AM EST eCW1 ([facility]) Cephalexin 500 MG Oral Capsule [Keflex] 03/20/2020 12:00:00 AM EST eCW1 ([facility]) Cephalexin 500 MG Oral Capsule [Keflex] 03/20/2020 12:00:00 AM EST eCW1 ([facility]) Cephalexin 500 MG Oral Capsule [Keflex] 03/20/2020 12:00:00 AM EST eCW1 ([facility]) Cephalexin 500 MG Oral Capsule [Keflex] 03/20/2020 12:00:00 AM EST eCW1 ([facility])
[2021-02-10 01:34] VITALS: BP 111/64
[2021-02-10 01:42] LABS: BASO % 0.3 % (0.0-1.0); EOS # 0.2 10^3/uL (0.0-0.5); HEMATOCRIT 39.2 % (36.0-47.0); HEMOGLOBIN 12.9 g/dl (12.0-15.5); LYMPH # 2.1 10^3/uL (1.5-5.0); LYMPH % 17.9 % (24.0-44.0); MEAN CORPUSCULAR HEMOGLOBIN 34.1 pg (27.0-33.0); MEAN CORPUSCULAR HGB CONC 32.9 g/dl (32.0-36.5); MEAN CORPUSCULAR VOLUME 103.7 fl (80.0-96.0); MONO # 1.2 10^3/uL (0.0-0.8); MONO % 10.4 % (2.0-8.0); NEUTROPHILS # 8.1 10^3/uL (1.5-8.5); PLATELET COUNT, AUTOMATED 348 10^3/uL (150-450); RED BLOOD COUNT 3.78 10^6/uL (4.00-5.40); WHITE BLOOD COUNT 11.8 10^3/uL (4.0-10.0)
[2021-02-10 01:53] LABS: INR 1.08; PROTHROMBIN TIME 14.4 SECONDS (12.7-14.5)
[2021-02-10 01:54] LABS: PARTIAL THROMBOPLASTIN TIME 29.3 SECONDS (25.9-37.0)
[2021-02-10 02:11] LABS: RSV AMPLIFICATION NEGATIVE (NEGATIVE)
[2021-02-10 02:19] LABS: ALT/SGPT 30 U/L (12-78); BILIRUBIN,TOTAL 0.2 MG/DL (0.2-1.0); BLOOD UREA NITROGEN 18 MG/DL (7-18); CALCIUM LEVEL 9.9 MG/DL (8.8-10.2); CARBON DIOXIDE LEVEL 32 MEQ/L (21-32); CHLORIDE LEVEL 108 MEQ/L (98-107); CREATININE FOR GFR 0.81 MG/DL (0.55-1.30); GLOMERULAR FILTRATION RATE > 60.0 (>32); GLUCOSE, FASTING 109 MG/DL (70-100); POTASSIUM SERUM 4.4 MEQ/L (3.5-5.1); SODIUM LEVEL 143 MEQ/L (136-145); TOTAL PROTEIN 6.6 GM/DL (6.4-8.2)
== END 2021-02-10 02:43 | disposition short-term general hospital (02) ==
LOC: M ED 23:21
DX: S01.81XA Laceration without foreign body of other part of head, initial encounter (principal); S06.350A Traumatic hemorrhage of left cerebrum without loss of consciousness, initial encounter; S00.03XA Contusion of scalp, initial encounter; W01.10XA Fall on same level from slipping, tripping and stumbling with subsequent striking against unspecified object, initial encounter; Y92.099 Unspecified place in other non-institutional residence as the place of occurrence of the external cause; Y93.89 Activity, other specified; Y99.9 Unspecified external cause status; I50.9 Heart failure, unspecified; G47.33 Obstructive sleep apnea (adult) (pediatric); E03.9 Hypothyroidism, unspecified; Z79.899 Other long term (current) drug therapy; Z88.8 Allergy status to other drugs, medicaments and biological substances

== ENCOUNTER → 2021-05-07 | Outpatient (CLI) | payer MEDICARE, BC ==
[~2021-05-07] MED LIST changes: -MONT10TA10 PO; +MONT10TA97 PO
[2021-05-07 14:30] LABS: ALBUMIN 3.5 GM/DL (3.2-5.2); ALT/SGPT 33 U/L (12-78); BILIRUBIN,TOTAL 0.4 MG/DL (0.2-1.0); BLOOD UREA NITROGEN 24 MG/DL (7-18); CALCIUM LEVEL 9.9 MG/DL (8.8-10.2); CARBON DIOXIDE LEVEL 28 MEQ/L (21-32); CHLORIDE LEVEL 112 MEQ/L (98-107); CREATININE FOR GFR 0.86 MG/DL (0.55-1.30); GLOMERULAR FILTRATION RATE > 60.0 (>32); GLUCOSE, FASTING 98 MG/DL (70-100); NT-PRO BNP 78 PG/ML (<450); POTASSIUM SERUM 5.1 MEQ/L (3.5-5.1); SODIUM LEVEL 145 MEQ/L (136-145); TOTAL 25(OH) VITAMIN D 37.3 NG/ML (30.0-100.0)
[2021-05-07 14:31] LABS: PTH INTACT 53.9 PG/ML (18.5-88.0)
[2021-05-07 14:53] LABS: HEMOGLOBIN A1c 5.6 %
== END ==
LOC: M PLALAB 05-04 12:06
PROVIDERS: ATTEND Family Medicine
DX: E55.9 Vitamin D deficiency, unspecified (principal); R73.01 Impaired fasting glucose; I10 Essential (primary) hypertension; M47.816 Spondylosis without myelopathy or radiculopathy, lumbar region

== ENCOUNTER → 2021-05-14 | Outpatient (CLI) | payer MEDICARE, BC | LOC: M LABSMTC 10:42 | PROVIDERS: ATTEND Family Medicine | DX: Z20.822 Contact with and (suspected) exposure to COVID-19 (principal) | CPT/HCPCS: C9803; U0003 ==

== ENCOUNTER 2021-05-26 08:52 | Emergency (ER) | payer MEDICARE, BC ==
[~2021-05-26] VITALS: Ht 157.5 cm; Wt 66.8 kg
[2021-05-26 10:14] LABS: BASO % 0.4 % (0.0-1.0); EOS # 0.1 10^3/uL (0.0-0.5); EOS % 0.6 % (0.0-3.0); HEMATOCRIT 42.7 % (36.0-47.0); LYMPH # 3.1 10^3/uL (1.5-5.0); LYMPH % 29.7 % (24.0-44.0); MEAN CORPUSCULAR HEMOGLOBIN 33.9 pg (27.0-33.0); MEAN CORPUSCULAR HGB CONC 32.8 g/dl (32.0-36.5); MEAN CORPUSCULAR VOLUME 103.4 fl (80.0-96.0); MONO # 1.5 10^3/uL (0.0-0.8); MONO % 13.8 % (2.0-8.0); NEUTROPHILS # 5.8 10^3/uL (1.5-8.5); NEUTROPHILS % 55.2 % (36.0-66.0); PLATELET COUNT, AUTOMATED 369 10^3/uL (150-450); RED BLOOD COUNT 4.13 10^6/uL (4.00-5.40); WHITE BLOOD COUNT 10.5 10^3/uL (4.0-10.0)
[2021-05-26 10:26] LABS: INR 0.92; PROTHROMBIN TIME 12.8 SECONDS (12.7-14.5)
[2021-05-26 10:27] LABS: PARTIAL THROMBOPLASTIN TIME 25.6 SECONDS (25.9-37.0)
[2021-05-26] MEDS ORDERED: ISOVUE-370 76% 100ML VIAL As Ordered ONE (10:29)
[2021-05-26] MEDS ORDERED: KETOROLAC 30 MG/ML 1ML VIAL IV ONE (12:40)
[2021-05-26] MEDS ORDERED: KETOROLAC 30 MG/ML 1ML VIAL As Ordered ONE (12:43)
[2021-05-26 13:53] VITALS: BP 150/108
== END 2021-05-26 13:56 | disposition home or self-care (01) ==
LOC: M ED 08:52
DX: S00.83XA Contusion of other part of head, initial encounter (principal); W01.10XA Fall on same level from slipping, tripping and stumbling with subsequent striking against unspecified object, initial encounter; Y92.002 Bathroom of unspecified non-institutional (private) residence as the place of occurrence of the external cause; Y93.9 Activity, unspecified; Y99.9 Unspecified external cause status; E04.1 Nontoxic single thyroid nodule; M50.30 Other cervical disc degeneration, unspecified cervical region; M46.92 Unspecified inflammatory spondylopathy, cervical region; G31.9 Degenerative disease of nervous system, unspecified; I50.9 Heart failure, unspecified; Z86.73 Personal history of transient ischemic attack (TIA), and cerebral infarction without residual deficits; E03.9 Hypothyroidism, unspecified; J45.909 Unspecified asthma, uncomplicated; G47.33 Obstructive sleep apnea (adult) (pediatric); Z88.8 Allergy status to other drugs, medicaments and biological substances; Z79.899 Other long term (current) drug therapy; Z79.890 Hormone replacement therapy
CPT/HCPCS: 70450; 70491; 72125; 80047; 85025; 85610; 85730; 93041; 96374; 99285; J1885; Q9967

== ENCOUNTER → 2021-10-08 | Outpatient (CLI) | payer MEDICARE, BC ==
[~2021-10-08] MED LIST changes: +ALBU2.5V10 INH; -ALBU83IN INH
== END ==
LOC: M RAD 11:25
PROVIDERS: ATTEND Physician Assistant Medical
DX: R22.42 Localized swelling, mass and lump, left lower limb (principal)

== ENCOUNTER → 2021-10-31 | Outpatient (CLI) | payer MEDICARE, BC ==
[2021-10-31 15:18] LABS: BASO # 0.1 10^3/uL (0.0-0.2); BASO % 0.8 % (0.0-1.0); EOS # 0.5 10^3/uL (0.0-0.5); EOS % 6.2 % (0.0-3.0); HEMATOCRIT 44.1 % (36.0-47.0); HEMOGLOBIN 14.2 g/dl (12.0-15.5); LYMPH # 2.8 10^3/uL (1.5-5.0); LYMPH % 36.6 % (24.0-44.0); MEAN CORPUSCULAR HEMOGLOBIN 33.6 pg (27.0-33.0); MEAN CORPUSCULAR HGB CONC 32.2 g/dl (32.0-36.5); MEAN CORPUSCULAR VOLUME 104.5 fl (80.0-96.0); MONO # 0.9 10^3/uL (0.0-0.8); MONO % 12.1 % (2.0-8.0); NEUTROPHILS # 3.3 10^3/uL (1.5-8.5); NEUTROPHILS % 44.2 % (36.0-66.0); PLATELET COUNT, AUTOMATED 315 10^3/uL (150-450); RED BLOOD COUNT 4.22 10^6/uL (4.00-5.40); WHITE BLOOD COUNT 7.6 10^3/uL (4.0-10.0)
[2021-10-31 15:46] LABS: ERYTHROCYTE SEDIMENTATION RATE 12 mm/hr (0-30)
[2021-10-31 16:07] LABS: ALBUMIN 3.3 GM/DL (3.2-5.2); ALT/SGPT 20 U/L (12-78); BILIRUBIN,TOTAL 0.5 MG/DL (0.2-1.0); BLOOD UREA NITROGEN 13 MG/DL (7-18); CALCIUM LEVEL 10.5 MG/DL (8.8-10.2); CARBON DIOXIDE LEVEL 30 MEQ/L (21-32); CHLORIDE LEVEL 107 MEQ/L (98-107); CHOLESTEROL LEVEL 122 MG/DL (<200); CHOLESTEROL RISK RATIO 2.178 (<5); CREATININE FOR GFR 0.79 MG/DL (0.55-1.30); FERRITIN 41 NG/ML (8-252); GLOMERULAR FILTRATION RATE > 60.0 (>32); GLUCOSE, FASTING 96 MG/DL (70-100); HDL CHOLESTEROL 56 MG/DL (>40); LDL CHOLESTEROL 53 MG/DL (<100); NON-HDL-C 66 MG/DL; NT-PRO BNP 153 PG/ML (<450); POTASSIUM SERUM 4.7 MEQ/L (3.5-5.1); SODIUM LEVEL 139 MEQ/L (136-145); THYROID STIMULATING HORMONE 0.307 uIU/ML (0.358-3.740); TOTAL PROTEIN 6.5 GM/DL (6.4-8.2); TRIGLYCERIDES LEVEL 64 MG/DL (<150)
== END ==
LOC: M PLALAB 11:41
PROVIDERS: ATTEND Family Medicine
DX: E78.2 Mixed hyperlipidemia (principal); I10 Essential (primary) hypertension; E03.9 Hypothyroidism, unspecified

== ENCOUNTER → 2021-11-22 | Outpatient (CLI) | payer MEDICARE, BC ==
[~2021-11-22] MED LIST changes: +DICL1GEL3; +GABA-1171; +LEVO75TA4; +NORT25CA2; +PERC5TAB12 PO; +ZOLP5TAB
== END ==
LOC: M PLAIMG 16:01
PROVIDERS: ATTEND Physician Assistant
DX: R05.3 Chronic cough (principal)

== ENCOUNTER → 2021-12-04 | Outpatient (CLI) | payer MEDICARE, BC | LOC: M WHC 14:19 | PROVIDERS: ATTEND Family Medicine | DX: Z12.31 Encounter for screening mammogram for malignant neoplasm of breast (principal); Z80.3 Family history of malignant neoplasm of breast; R92.8 Other abnormal and inconclusive findings on diagnostic imaging of breast; M85.851 Other specified disorders of bone density and structure, right thigh; M85.852 Other specified disorders of bone density and structure, left thigh; M81.0 Age-related osteoporosis without current pathological fracture ==

== ENCOUNTER → 2021-12-26 | Outpatient (CLI) | payer MEDICARE, BC ==
[~2021-12-26] MED LIST changes: +ALBU6.7H6 INH; -PROV108A INH
== END ==
LOC: M WHC 08:45
PROVIDERS: ATTEND Family Medicine
DX: R92.8 Other abnormal and inconclusive findings on diagnostic imaging of breast (principal)
CPT/HCPCS: 77065; G0279

== ENCOUNTER 2022-02-21 13:22 | Emergency (ER) | payer MEDICARE, BC ==
[~2022-02-21] VITALS: Ht 154.9 cm; Wt 63.6 kg
[~2022-02-21 13:22] MED LIST changes: +CLOP75TA99 PO; -PLAV1TAB2 PO
[2022-02-21] MEDS ORDERED: MORPHINE 4 MG/ML 1ML VIAL/SYRINGE IV ONE (15:35)
[2022-02-21] MEDS ORDERED: ONDANSETRON 4MG 2ML VIAL IV ONE (15:35)
[2022-02-21] MEDS ORDERED: ISOVUE-370 76% 100ML VIAL As Ordered ONE (16:26)
[2022-02-21 16:38] LABS: BASO # 0.1 10^3/uL (0.0-0.2); BASO % 0.4 % (0.0-1.0); EOS # 0.4 10^3/uL (0.0-0.5); HEMATOCRIT 41.6 % (36.0-47.0); HEMOGLOBIN 13.6 g/dl (12.0-15.5); LYMPH # 2.1 10^3/uL (1.5-5.0); LYMPH % 16.9 % (24.0-44.0); MEAN CORPUSCULAR HEMOGLOBIN 33.8 pg (27.0-33.0); MEAN CORPUSCULAR HGB CONC 32.7 g/dl (32.0-36.5); MEAN CORPUSCULAR VOLUME 103.5 fl (80.0-96.0); MONO # 0.8 10^3/uL (0.0-0.8); MONO % 6.7 % (2.0-8.0); NEUTROPHILS # 8.8 10^3/uL (1.5-8.5); NEUTROPHILS % 72.5 % (36.0-66.0); PLATELET COUNT, AUTOMATED 330 10^3/uL (150-450); RED BLOOD COUNT 4.02 10^6/uL (4.00-5.40); WHITE BLOOD COUNT 12.2 10^3/uL (4.0-10.0)
[2022-02-21] MEDS ORDERED: PERCOCET 5MG/325MG TAB PO ONE (17:45)
[2022-02-21] MEDS ORDERED: ROLLMIS8 XX (19:48)
[2022-02-21] MEDS ORDERED: ACE-45 XX (19:48)
[2022-02-21] MEDS ORDERED: PERC5TAB12 PO (19:48)
[2022-02-21] MEDS ORDERED: OXYCODONE/APAP 5MG/325MG(HOME DOSE PACK) PO ONE (19:55)
[2022-02-21 20:09] VITALS: BP 135/75
== END 2022-02-21 20:14 | disposition home or self-care (01) ==
LOC: EDBD 13:22 → M ED 14:35
DX: S32.019A Unspecified fracture of first lumbar vertebra, initial encounter for closed fracture (principal); S00.11XA Contusion of right eyelid and periocular area, initial encounter; M85.88 Other specified disorders of bone density and structure, other site; W01.198A Fall on same level from slipping, tripping and stumbling with subsequent striking against other object, initial encounter; Y92.099 Unspecified place in other non-institutional residence as the place of occurrence of the external cause; I10 Essential (primary) hypertension; E78.5 Hyperlipidemia, unspecified; J45.909 Unspecified asthma, uncomplicated; Z86.73 Personal history of transient ischemic attack (TIA), and cerebral infarction without residual deficits; E03.9 Hypothyroidism, unspecified; Z79.890 Hormone replacement therapy; Z79.899 Other long term (current) drug therapy; Z88.8 Allergy status to other drugs, medicaments and biological substances
CPT/HCPCS: 70450; 70486; 72125; 73502; 74177; 80047; 84132; 85025; 96374; 96375; 99284; J2270; J2405; Q9967

== ENCOUNTER 2022-02-27 12:08 | Emergency (ER) | payer MEDICARE, BC ==
[~2022-02-27] VITALS: Ht 154.9 cm; Wt 63.6 kg
[~2022-02-27 12:08] MED LIST changes: +ACE-45 XX; +ROLLMIS8 XX
[2022-02-27 14:39] LABS: BASO % 0.4 % (0.0-1.0); EOS # 0.3 10^3/uL (0.0-0.5); EOS % 3.5 % (0.0-3.0); HEMATOCRIT 44.1 % (36.0-47.0); LYMPH # 2.7 10^3/uL (1.5-5.0); LYMPH % 28.3 % (24.0-44.0); MEAN CORPUSCULAR HEMOGLOBIN 33.3 pg (27.0-33.0); MEAN CORPUSCULAR HGB CONC 31.7 g/dl (32.0-36.5); MEAN CORPUSCULAR VOLUME 104.8 fl (80.0-96.0); MONO # 0.8 10^3/uL (0.0-0.8); MONO % 8.5 % (2.0-8.0); NEUTROPHILS # 5.7 10^3/uL (1.5-8.5); NEUTROPHILS % 59.2 % (36.0-66.0); PLATELET COUNT, AUTOMATED 382 10^3/uL (150-450); RED BLOOD COUNT 4.21 10^6/uL (4.00-5.40); WHITE BLOOD COUNT 9.6 10^3/uL (4.0-10.0)
[2022-02-27 15:10] LABS: ALBUMIN 3.5 G/DL (3.2-5.2); BILIRUBIN,DIRECT 0.2 MG/DL (<0.4); BILIRUBIN,TOTAL 0.5 MG/DL (0.3-1.2); TOTAL PROTEIN 6.9 G/DL (5.7-8.2)
[2022-02-27 16:15] VITALS: BP 128/82
[2022-02-27] MEDS ORDERED: SENO8.6T5 PO (16:18)
[2022-02-27] MEDS ORDERED: MIRA3350 PO (16:18)
== END 2022-02-27 16:31 | disposition home or self-care (01) ==
LOC: M ED 12:08
DX: K59.00 Constipation, unspecified (principal); M54.9 Dorsalgia, unspecified; S00.83XA Contusion of other part of head, initial encounter; W01.0XXA Fall on same level from slipping, tripping and stumbling without subsequent striking against object, initial encounter; I50.9 Heart failure, unspecified; Z86.73 Personal history of transient ischemic attack (TIA), and cerebral infarction without residual deficits; E03.9 Hypothyroidism, unspecified; J45.909 Unspecified asthma, uncomplicated; Z88.8 Allergy status to other drugs, medicaments and biological substances; Z79.899 Other long term (current) drug therapy; Z79.01 Long term (current) use of anticoagulants; Z79.890 Hormone replacement therapy

== ENCOUNTER → 2022-03-21 | Outpatient (CLI) | payer MEDICARE, BC ==
[~2022-03-21] MED LIST changes: +SENO8.6T5 PO
== END ==
LOC: M RAD 15:32
PROVIDERS: ATTEND Family Medicine
DX: M25.551 Pain in right hip (principal)

== ENCOUNTER 2022-03-29 10:16 | Emergency (ER) | payer MEDICARE, BC ==
[~2022-03-29] VITALS: Ht 154.9 cm; Wt 64.0 kg
[2022-03-29 12:00] VITALS: BP 140/93
== END 2022-03-29 12:10 | disposition home or self-care (01) ==
LOC: M ED 10:16
DX: S00.03XA Contusion of scalp, initial encounter (principal); M70.61 Trochanteric bursitis, right hip; W18.30XA Fall on same level, unspecified, initial encounter; I10 Essential (primary) hypertension; G43.909 Migraine, unspecified, not intractable, without status migrainosus; E03.9 Hypothyroidism, unspecified; J45.909 Unspecified asthma, uncomplicated; G47.33 Obstructive sleep apnea (adult) (pediatric); Z88.8 Allergy status to other drugs, medicaments and biological substances; Z79.01 Long term (current) use of anticoagulants; Z79.51 Long term (current) use of inhaled steroids; Z79.811 Long term (current) use of aromatase inhibitors; Z79.899 Other long term (current) drug therapy

== ENCOUNTER 2022-04-19 13:31 | Emergency (ER) | payer MEDICARE, BC ==
[~2022-04-19] VITALS: Ht 154.9 cm; Wt 64.1 kg
[2022-04-19 15:32] LABS: HEMATOCRIT 41.5 % (36.0-47.0); HEMOGLOBIN 13.4 g/dl (12.0-15.5); MEAN CORPUSCULAR HEMOGLOBIN 33.8 pg (27.0-33.0); MEAN CORPUSCULAR HGB CONC 32.3 g/dl (32.0-36.5); MEAN CORPUSCULAR VOLUME 104.5 fl (80.0-96.0); PLATELET COUNT, AUTOMATED 325 10^3/uL (150-450); RED BLOOD COUNT 3.97 10^6/uL (4.00-5.40); WHITE BLOOD COUNT 9.6 10^3/uL (4.0-10.0)
[2022-04-19 15:57] LABS: BLOOD UREA NITROGEN 18 MG/DL (9-23); CALCIUM LEVEL 9.8 MG/DL (8.3-10.6); CARBON DIOXIDE LEVEL 24 MMOL/L (20-31); CHLORIDE LEVEL 110 MMOL/L (98-107); CREATININE FOR GFR 0.81 MG/DL (0.55-1.30); GLOMERULAR FILTRATION RATE > 60.0 (>32); GLUCOSE, FASTING 116 MG/DL (74-106); POTASSIUM SERUM 4.4 MMOL/L (3.5-5.1); SODIUM LEVEL 144 MMOL/L (136-145)
[2022-04-19 16:12] LABS: INR 0.93; PARTIAL THROMBOPLASTIN TIME 28.7 SECONDS (24.8-34.2); PROTHROMBIN TIME 12.7 SECONDS (12.5-14.5)
[2022-04-19 19:03] VITALS: BP 146/92
== END 2022-04-19 19:19 | disposition home or self-care (01) ==
LOC: M ED 13:31
DX: S40.021A Contusion of right upper arm, initial encounter (principal); Z79.01 Long term (current) use of anticoagulants; I10 Essential (primary) hypertension; J45.909 Unspecified asthma, uncomplicated; E78.5 Hyperlipidemia, unspecified; E03.9 Hypothyroidism, unspecified; Z86.73 Personal history of transient ischemic attack (TIA), and cerebral infarction without residual deficits; Z79.890 Hormone replacement therapy; Z79.899 Other long term (current) drug therapy; Z88.8 Allergy status to other drugs, medicaments and biological substances

== ENCOUNTER → 2022-05-16 | Outpatient (REF) | payer MEDICARE, BC | LOC: M SFHCPLAZ 17:03 | PROVIDERS: ATTEND Physician Assistant | DX: J02.9 Acute pharyngitis, unspecified (principal) ==

== ENCOUNTER → 2022-06-10 | Outpatient (CLI) | payer MEDICARE, BC ==
[2022-06-10 14:38] LABS: HEMOGLOBIN A1c 5.6 % (4.0-6.0)
[2022-06-10 14:40] LABS: ALBUMIN 3.7 G/DL (3.2-5.2); BLOOD UREA NITROGEN 21 MG/DL (9-23); CALCIUM LEVEL 10.3 MG/DL (8.3-10.6); CARBON DIOXIDE LEVEL 27 MMOL/L (20-31); CHLORIDE LEVEL 109 MMOL/L (98-107); CREATININE FOR GFR 0.85 MG/DL (0.55-1.30); GLOMERULAR FILTRATION RATE > 60.0 (>32); GLUCOSE, FASTING 97 MG/DL (74-106); MAGNESIUM LEVEL 2.1 MG/DL (1.8-2.4); PHOSPHORUS LEVEL 4.5 MG/DL (2.4-5.1); POTASSIUM SERUM 5.2 MMOL/L (3.5-5.1); SODIUM LEVEL 141 MMOL/L (136-145)
[2022-06-10 14:41] LABS: PTH INTACT 40.2 PG/ML (18.5-88.0)
[2022-06-10 14:42] LABS: FREE T4 1.22 NG/DL (0.89-1.76); THYROID STIMULATING HORMONE 1.823 uIU/ML (0.55-4.78)
[2022-06-17 06:07] LABS: IMMUNOTYPING SERUM IGA SO 289 mg/dL (64-422); IMMUNOTYPING SERUM IGM SO 57 mg/dL (26-217); PTH RELATED PEPTIDE < 2.0 pmol/L (.)
== END ==
LOC: M PLALAB 09:43
PROVIDERS: ATTEND Family Medicine
DX: E55.9 Vitamin D deficiency, unspecified (principal); E03.9 Hypothyroidism, unspecified; I10 Essential (primary) hypertension; D75.89 Other specified diseases of blood and blood-forming organs; Z79.899 Other long term (current) drug therapy

== ENCOUNTER → 2022-08-22 | Outpatient (REF) | payer MEDICARE, BC | LOC: M SFHCPLAZ 17:07 | PROVIDERS: ATTEND Physician Assistant | DX: R39.9 Unspecified symptoms and signs involving the genitourinary system (principal) ==

== ENCOUNTER → 2022-09-24 | Outpatient (REF) | payer MEDICARE, BC | LOC: M SFHCPLAZ 17:49 | PROVIDERS: ATTEND Physician Assistant | DX: R39.15 Urgency of urination (principal) ==

== ENCOUNTER → 2022-10-09 | Outpatient (CLI) | payer MEDICARE, BC ==
[2022-10-09 14:22] LABS: APPEARANCE, URINE CLEAR (CLEAR); BACTERIA, URINE AUTO NEGATIVE (NEGATIVE); BILIRUBIN, URINE AUTO NEGATIVE (NEGATIVE); BLOOD, URINE BLOOD NEGATIVE (NEGATIVE); COLOR, URINE YELLOW (YELLOW); GLUCOSE, URINE (UA) AUTO NEGATIVE (NEGATIVE); KETONE, URINE AUTO NEGATIVE (NEGATIVE); LEUKOCYTE ESTERASE, URINE AUTO TRACE (NEGATIVE); NITRITE, URINE AUTO NEGATIVE (NEGATIVE); PROTEIN, URINE AUTO NEGATIVE (NEGATIVE); RBC, URINE AUTO 1 /HPF (0-3); SPECIFIC GRAVITY URINE AUTO 1.013 (1.002-1.035); SQUAMOUS EPITHELIAL CELL UR AU 0 /HPF (0-6); UROBILINOGEN, URINE AUTO 0.2 mg/dL (0.0-2.0); WBC, URINE AUTO 1 /HPF (0-3)
[2022-10-09 14:42] LABS: BASO # 0.1 10^3/uL (0.0-0.2); BASO % 0.8 % (0.0-1.0); EOS # 0.3 10^3/uL (0.0-0.5); EOS % 3.8 % (0.0-3.0); HEMATOCRIT 43.1 % (36.0-47.0); LYMPH # 3.2 10^3/uL (1.5-5.0); MEAN CORPUSCULAR HEMOGLOBIN 33.8 pg (27.0-33.0); MEAN CORPUSCULAR HGB CONC 32.5 g/dl (32.0-36.5); MEAN CORPUSCULAR VOLUME 104.1 fl (80.0-96.0); MONO % 11.5 % (2.0-8.0); NEUTROPHILS # 4.3 10^3/uL (1.5-8.5); NEUTROPHILS % 47.7 % (36.0-66.0); PLATELET COUNT, AUTOMATED 316 10^3/uL (150-450); RED BLOOD COUNT 4.14 10^6/uL (4.00-5.40)
[2022-10-09 14:47] LABS: C REACTIVE PROTEIN QUANTITATIV < 0.40 MG/DL (<1.0)
[2022-10-09 14:48] LABS: ALBUMIN 3.6 G/DL (3.2-5.2); ALKALINE PHOSPHATASE 31 U/L (46-116); ALT/SGPT 11 U/L (7.0-40); AST/SGOT 16 U/L (<34); BILIRUBIN,TOTAL 0.6 MG/DL (0.3-1.2); BLOOD UREA NITROGEN 18 MG/DL (9-23); CALCIUM LEVEL 10.6 MG/DL (8.3-10.6); CARBON DIOXIDE LEVEL 28 MMOL/L (20-31); CHLORIDE LEVEL 108 MMOL/L (98-107); CREATININE FOR GFR 0.81 MG/DL (0.55-1.30); GLOMERULAR FILTRATION RATE > 60.0 (>32); GLUCOSE, FASTING 98 MG/DL (74-106); POTASSIUM SERUM 4.9 MMOL/L (3.5-5.1); SODIUM LEVEL 136 MMOL/L (136-145); TOTAL PROTEIN 6.9 G/DL (5.7-8.2)
[2022-10-09 14:59] LABS: ERYTHROCYTE SEDIMENTATION RATE 25 mm/hr (0-30)
[2022-10-09 15:28] LABS: HEMOGLOBIN A1c 5.6 % (4.0-6.0)
== END ==
LOC: M PLALAB 11:50
PROVIDERS: ATTEND Physician Assistant
DX: R39.15 Urgency of urination (principal); R73.01 Impaired fasting glucose

== ENCOUNTER → 2022-10-18 | Outpatient (CLI) | payer MEDICARE, BC | LOC: M RAD 11:56 | PROVIDERS: ATTEND Physician Assistant | DX: R39.15 Urgency of urination (principal) ==

== ENCOUNTER → 2022-12-05 | Outpatient (CLI) | payer MEDICARE, BC ==
[~2022-12-05] MED LIST changes: +DICL100G10; -DICL1GEL3
== END ==
LOC: M WHC 13:08
PROVIDERS: ATTEND Family Medicine
DX: Z12.31 Encounter for screening mammogram for malignant neoplasm of breast (principal)

== ENCOUNTER → 2022-12-18 | Outpatient (CLI) | payer MEDICARE, BC | LOC: M WUC 13:26 | PROVIDERS: ATTEND Physician Assistant Medical | DX: M19.012 Primary osteoarthritis, left shoulder (principal) ==

== ENCOUNTER → 2022-12-25 | Outpatient (CLI) | payer MEDICARE, BC | LOC: M PLAIMG 10:42 | PROVIDERS: ATTEND Physician Assistant Medical | DX: M25.512 Pain in left shoulder (principal); M19.012 Primary osteoarthritis, left shoulder; S46.912A Strain of unspecified muscle, fascia and tendon at shoulder and upper arm level, left arm, initial encounter; X58.XXXA Exposure to other specified factors, initial encounter; Y92.9 Unspecified place or not applicable; Y93.9 Activity, unspecified; Y99.9 Unspecified external cause status ==

== ENCOUNTER → 2023-01-24 | Outpatient (CLI) | payer MEDICARE, BC | LOC: M WHC 13:32 | PROVIDERS: ATTEND Family Medicine | DX: Z12.39 Encounter for other screening for malignant neoplasm of breast (principal) ==

== ENCOUNTER → 2023-03-04 | Outpatient (REF) | payer MEDICARE, BC ==
[2023-03-05 11:23] LABS: APPEARANCE, URINE HAZY (CLEAR); BACTERIA, URINE AUTO NEGATIVE (NEGATIVE); BILIRUBIN, URINE AUTO NEGATIVE (NEGATIVE); BLOOD, URINE BLOOD 2+ (NEGATIVE); COLOR, URINE YELLOW (YELLOW); GLUCOSE, URINE (UA) AUTO NEGATIVE (NEGATIVE); KETONE, URINE AUTO NEGATIVE (NEGATIVE); LEUKOCYTE ESTERASE, URINE AUTO 1+ (NEGATIVE); MUCUS, URINE SMALL (NEGATIVE); NITRITE, URINE AUTO NEGATIVE (NEGATIVE); PROTEIN, URINE AUTO NEGATIVE (NEGATIVE); RBC, URINE AUTO 3 /HPF (0-3); SPECIFIC GRAVITY URINE AUTO 1.015 (1.002-1.035); SQUAMOUS EPITHELIAL CELL UR AU 0 /HPF (0-6); UROBILINOGEN, URINE AUTO 0.2 mg/dL (0.0-2.0); WBC, URINE AUTO 26 /HPF (0-3)
== END ==
LOC: M SFHCPLAZ 10:06
PROVIDERS: ATTEND Physician Assistant
DX: R39.15 Urgency of urination (principal)

== ENCOUNTER → 2023-03-11 | Outpatient (CLI) | payer MEDICARE, BC ==
[2023-03-11 11:11] LABS: BASO # 0.1 10^3/uL (0.0-0.2); BASO % 0.5 % (0.0-1.0); EOS # 0.3 10^3/uL (0.0-0.5); EOS % 2.9 % (0.0-3.0); HEMATOCRIT 38.7 % (36.0-47.0); HEMOGLOBIN 12.7 g/dl (12.0-15.5); LYMPH # 2.7 10^3/uL (1.5-5.0); LYMPH % 27.3 % (24.0-44.0); MEAN CORPUSCULAR HEMOGLOBIN 34.9 pg (27.0-33.0); MEAN CORPUSCULAR HGB CONC 32.8 g/dl (32.0-36.5); MEAN CORPUSCULAR VOLUME 106.3 fl (80.0-96.0); MONO # 1.1 10^3/uL (0.0-0.8); MONO % 11.5 % (2.0-8.0); NEUTROPHILS # 5.7 10^3/uL (1.5-8.5); NEUTROPHILS % 57.5 % (36.0-66.0); PLATELET COUNT, AUTOMATED 315 10^3/uL (150-450); RED BLOOD COUNT 3.64 10^6/uL (4.00-5.40); WHITE BLOOD COUNT 9.8 10^3/uL (4.0-10.0)
[2023-03-11 11:12] LABS: HEMATOCRIT 39.4 % (36.0-47.0)
[2023-03-11 12:10] LABS: ALBUMIN 3.5 G/DL (3.2-5.2); ALKALINE PHOSPHATASE 26 U/L (46-116); ALT/SGPT 16 U/L (7.0-40); AST/SGOT 20 U/L (<34); BILIRUBIN,TOTAL 0.6 MG/DL (0.3-1.2); BLOOD UREA NITROGEN 15 MG/DL (9-23); CALCIUM LEVEL 10.2 MG/DL (8.3-10.6); CARBON DIOXIDE LEVEL 27 MMOL/L (20-31); CHLORIDE LEVEL 110 MMOL/L (98-107); CREATININE FOR GFR 0.83 MG/DL (0.55-1.30); GLOMERULAR FILTRATION RATE > 60.0 (>32); GLUCOSE, FASTING 93 MG/DL (74-106); POTASSIUM SERUM 5.2 MMOL/L (3.5-5.1); SODIUM LEVEL 146 MMOL/L (136-145); TOTAL PROTEIN 6.8 G/DL (5.7-8.2)
[2023-03-11 12:15] LABS: FREE T4 1.13 NG/DL (0.89-1.76); THYROID STIMULATING HORMONE 1.637 uIU/ML (0.55-4.78); TOTAL 25(OH) VITAMIN D 36.4 NG/ML (20.0-100.0)
[2023-03-11 12:16] LABS: VITAMIN B12 LEVEL 374 PG/ML (211-911)
[2023-03-11 13:17] LABS: PTH INTACT 51.6 PG/ML (18.5-88.0)
== END ==
LOC: M PLALAB 08:57
PROVIDERS: ATTEND Nurse Practitioner Family
DX: E03.9 Hypothyroidism, unspecified (principal); E53.8 Deficiency of other specified B group vitamins; E55.9 Vitamin D deficiency, unspecified; M25.551 Pain in right hip

== ENCOUNTER → 2023-03-19 | Outpatient (CLI) | payer MEDICARE, BC ==
[~2023-03-19] MED LIST changes: +HYDR-3713 PO
[2023-03-19 16:05] LABS: BASO % 0.4 % (0.0-1.0); EOS # 0.2 10^3/uL (0.0-0.5); EOS % 2.4 % (0.0-3.0); HEMATOCRIT 39.5 % (36.0-47.0); HEMOGLOBIN 12.8 g/dl (12.0-15.5); LYMPH # 3.2 10^3/uL (1.5-5.0); LYMPH % 38.7 % (24.0-44.0); MEAN CORPUSCULAR HEMOGLOBIN 34.1 pg (27.0-33.0); MEAN CORPUSCULAR HGB CONC 32.4 g/dl (32.0-36.5); MEAN CORPUSCULAR VOLUME 105.3 fl (80.0-96.0); MONO # 0.9 10^3/uL (0.0-0.8); MONO % 10.7 % (2.0-8.0); NEUTROPHILS # 3.9 10^3/uL (1.5-8.5); NEUTROPHILS % 47.7 % (36.0-66.0); PLATELET COUNT, AUTOMATED 383 10^3/uL (150-450); RED BLOOD COUNT 3.75 10^6/uL (4.00-5.40); WHITE BLOOD COUNT 8.3 10^3/uL (4.0-10.0)
[2023-03-19 16:20] LABS: ALBUMIN 3.4 G/DL (3.2-5.2); ALKALINE PHOSPHATASE 24 U/L (46-116); ALT/SGPT 12 U/L (7.0-40); AST/SGOT 17 U/L (<34); BILIRUBIN,TOTAL 0.4 MG/DL (0.3-1.2); BLOOD UREA NITROGEN 18 MG/DL (9-23); CALCIUM LEVEL 10.2 MG/DL (8.3-10.6); CARBON DIOXIDE LEVEL 26 MMOL/L (20-31); CHLORIDE LEVEL 110 MMOL/L (98-107); CREATININE FOR GFR 0.84 MG/DL (0.55-1.30); GLOMERULAR FILTRATION RATE > 60.0 (>32); GLUCOSE, FASTING 90 MG/DL (74-106); POTASSIUM SERUM 4.9 MMOL/L (3.5-5.1); SODIUM LEVEL 142 MMOL/L (136-145); TOTAL PROTEIN 7.1 G/DL (5.7-8.2)
[2023-03-19 17:56] LABS: APPEARANCE, URINE CLEAR (CLEAR); BACTERIA, URINE AUTO NEGATIVE (NEGATIVE); BILIRUBIN, URINE AUTO NEGATIVE (NEGATIVE); BLOOD, URINE BLOOD NEGATIVE (NEGATIVE); COLOR, URINE YELLOW (YELLOW); GLUCOSE, URINE (UA) AUTO NEGATIVE (NEGATIVE); KETONE, URINE AUTO NEGATIVE (NEGATIVE); LEUKOCYTE ESTERASE, URINE AUTO NEGATIVE (NEGATIVE); MUCUS, URINE SMALL (NEGATIVE); NITRITE, URINE AUTO NEGATIVE (NEGATIVE); PROTEIN, URINE AUTO NEGATIVE (NEGATIVE); RBC, URINE AUTO 1 /HPF (0-3); SPECIFIC GRAVITY URINE AUTO 1.013 (1.002-1.035); SQUAMOUS EPITHELIAL CELL UR AU 0 /HPF (0-6); UROBILINOGEN, URINE AUTO 0.2 mg/dL (0.0-2.0); WBC, URINE AUTO 1 /HPF (0-3)
== END ==
LOC: M PLALAB 14:24
PROVIDERS: ATTEND Nurse Practitioner Family
DX: I10 Essential (primary) hypertension (principal); M46.97 Unspecified inflammatory spondylopathy, lumbosacral region; M47.816 Spondylosis without myelopathy or radiculopathy, lumbar region; Z79.899 Other long term (current) drug therapy

== ENCOUNTER → 2023-03-28 | Outpatient (CLI) | payer MEDICARE, BC | LOC: M WHC 09:58 | PROVIDERS: ATTEND Family Medicine | DX: Z12.39 Encounter for other screening for malignant neoplasm of breast (principal) ==

== ENCOUNTER 2023-04-15 11:18 | Emergency (ER) | payer MEDICARE, BC ==
[~2023-04-15] VITALS: Ht 157.5 cm; Wt 58.8 kg
[2023-04-15 12:53] LABS: BASO % 0.1 % (0.0-1.0); EOS % 0.3 % (0.0-3.0); HEMOGLOBIN 12.5 g/dl (12.0-15.5); LYMPH # 2.8 10^3/uL (1.5-5.0); LYMPH % 23.8 % (24.0-44.0); MEAN CORPUSCULAR HEMOGLOBIN 33.9 pg (27.0-33.0); MEAN CORPUSCULAR HGB CONC 32.9 g/dl (32.0-36.5); MONO % 14.1 % (2.0-8.0); NEUTROPHILS # 7.2 10^3/uL (1.5-8.5); NEUTROPHILS % 61.3 % (36.0-66.0); PLATELET COUNT, AUTOMATED 268 10^3/uL (150-450); RED BLOOD COUNT 3.69 10^6/uL (4.00-5.40); WHITE BLOOD COUNT 11.7 10^3/uL (4.0-10.0)
[2023-04-15] MEDS ORDERED: NS 500 ML IV ONE (13:05)
[2023-04-15] MEDS ORDERED: ONDANSETRON 4MG 2ML VIAL IV ONE (13:05)
[2023-04-15] MEDS ORDERED: NS 1,000 ML IV SCH (13:05)
[2023-04-15 13:24] LABS: ALBUMIN 3.5 G/DL (3.2-5.2); ALKALINE PHOSPHATASE 14 U/L (46-116); ALT/SGPT 18 U/L (7.0-40); AST/SGOT 39 U/L (<34); BILIRUBIN,DIRECT 0.2 MG/DL (<0.4); BILIRUBIN,TOTAL 0.7 MG/DL (0.3-1.2); BLOOD UREA NITROGEN 18 MG/DL (9-23); CALCIUM LEVEL 9.8 MG/DL (8.3-10.6); CARBON DIOXIDE LEVEL 28 MMOL/L (20-31); CHLORIDE LEVEL 106 MMOL/L (98-107); CK-MB VALUE MASS < 1.0 NG/ML (<3.6); CPK CREATINE PHOSPHOKINASE 60 U/L (34-145); CREATININE FOR GFR 0.84 MG/DL (0.55-1.30); GLOMERULAR FILTRATION RATE > 60.0 (>32); GLUCOSE, FASTING 97 MG/DL (74-106); LIPASE 44 U/L (12-53); MB/CK RELATIVE INDEX 1.66 (< OR =4); POTASSIUM SERUM 5.2 MMOL/L (3.5-5.1); SODIUM LEVEL 141 MMOL/L (136-145); TOTAL PROTEIN 6.8 G/DL (5.7-8.2)
[2023-04-15] MEDS: MORPHINE 4 MG/ML 1ML VIAL IV PRN ×2 (13:31→13:34)
[2023-04-15 13:46] LABS: MONO # 1.6 10^3/uL (0.0-0.8)
[2023-04-15] MEDS ORDERED: ISOVUE-370 76% 100ML VIAL As Ordered ONE (14:20)
[2023-04-15 16:33] LABS: APPEARANCE, URINE CLEAR (CLEAR); BACTERIA, URINE AUTO NEGATIVE (NEGATIVE); BILIRUBIN, URINE AUTO NEGATIVE (NEGATIVE); BLOOD, URINE BLOOD 1+ (NEGATIVE); COLOR, URINE YELLOW (YELLOW); GLUCOSE, URINE (UA) AUTO NEGATIVE (NEGATIVE); KETONE, URINE AUTO NEGATIVE (NEGATIVE); LEUKOCYTE ESTERASE, URINE AUTO 2+ (NEGATIVE); MUCUS, URINE SMALL (NEGATIVE); NITRITE, URINE AUTO NEGATIVE (NEGATIVE); PROTEIN, URINE AUTO NEGATIVE (NEGATIVE); RBC, URINE AUTO 7 /HPF (0-3); SQUAMOUS EPITHELIAL CELL UR AU 0 /HPF (0-6); TRANSITIONAL EPITHELIAL AUTO <1 /HPF; UROBILINOGEN, URINE AUTO 0.2 mg/dL (0.0-2.0); WBC, URINE AUTO 12 /HPF (0-3)
[2023-04-15] MEDS ORDERED: ONDA4TAB6 PO (17:03)
[2023-04-15 17:12] VITALS: BP 156/105; TEMP 97.5; O2SAT 93
== END 2023-04-15 17:18 | disposition home or self-care (01) ==
LOC: M ED 11:18
DX: R10.9 Unspecified abdominal pain (principal); R00.1 Bradycardia, unspecified; E78.5 Hyperlipidemia, unspecified; I10 Essential (primary) hypertension; Z86.79 Personal history of other diseases of the circulatory system; Z88.1 Allergy status to other antibiotic agents; Z79.52 Long term (current) use of systemic steroids; Z79.02 Long term (current) use of antithrombotics/antiplatelets; Z79.83 Long term (current) use of bisphosphonates; Z79.899 Other long term (current) drug therapy
CPT/HCPCS: 74174; 80048; 80076; 81001; 82550; 82553; 83690; 84484; 85025; 93005; 93041; 94760; 96361; 96374; 96375; 99285; J2405; Q9967

== ENCOUNTER → 2023-06-03 | Outpatient (CLI) | payer MEDICARE, BC ==
[~2023-06-03] MED LIST changes: +IRBE75TA11 PO; -IRBE75TA4 PO; +ONDA4TAB6 PO
[2023-06-03 13:39] LABS: BASO # 0.1 10^3/uL (0.0-0.2); BASO % 0.5 % (0.0-1.0); EOS # 0.4 10^3/uL (0.0-0.5); EOS % 3.5 % (0.0-3.0); HEMATOCRIT 36.7 % (36.0-47.0); HEMOGLOBIN 11.7 g/dl (12.0-15.5); LYMPH # 2.4 10^3/uL (1.5-5.0); LYMPH % 21.7 % (24.0-44.0); MEAN CORPUSCULAR HEMOGLOBIN 33.3 pg (27.0-33.0); MEAN CORPUSCULAR HGB CONC 31.9 g/dl (32.0-36.5); MEAN CORPUSCULAR VOLUME 104.6 fl (80.0-96.0); MONO # 1.2 10^3/uL (0.0-0.8); MONO % 10.6 % (2.0-8.0); NEUTROPHILS # 7.1 10^3/uL (1.5-8.5); NEUTROPHILS % 63.4 % (36.0-66.0); PLATELET COUNT, AUTOMATED 345 10^3/uL (150-450); RED BLOOD COUNT 3.51 10^6/uL (4.00-5.40); WHITE BLOOD COUNT 11.2 10^3/uL (4.0-10.0)
[2023-06-03 13:48] LABS: HEMOGLOBIN A1c 5.6 % (4.0-6.0)
[2023-06-03 14:16] LABS: ALBUMIN 3.3 G/DL (3.2-5.2); ALKALINE PHOSPHATASE 25 U/L (46-116); ALT/SGPT 10 U/L (7.0-40); AST/SGOT 15 U/L (<34); BILIRUBIN,TOTAL 0.5 MG/DL (0.3-1.2); BLOOD UREA NITROGEN 13 MG/DL (9-23); CARBON DIOXIDE LEVEL 28 MMOL/L (20-31); CHLORIDE LEVEL 106 MMOL/L (98-107); CREATININE FOR GFR 0.77 MG/DL (0.55-1.30); GLOMERULAR FILTRATION RATE > 60.0 (>32); GLUCOSE, FASTING 93 MG/DL (74-106); POTASSIUM SERUM 4.5 MMOL/L (3.5-5.1); PTH INTACT 50.4 PG/ML (18.5-88.0); SODIUM LEVEL 139 MMOL/L (136-145); TOTAL PROTEIN 6.6 G/DL (5.7-8.2)
[2023-06-03 14:18] LABS: FERRITIN 23.7 NG/ML (7.3-270.7); FREE T4 1.02 NG/DL (0.89-1.76); THYROID STIMULATING HORMONE 1.671 uIU/ML (0.55-4.78)
[2023-06-03 14:19] LABS: VITAMIN B12 LEVEL 428 PG/ML (211-911)
== END ==
LOC: M PLALAB 11:43
PROVIDERS: ATTEND Family Medicine
DX: E78.2 Mixed hyperlipidemia (principal); E55.9 Vitamin D deficiency, unspecified; I10 Essential (primary) hypertension; E53.8 Deficiency of other specified B group vitamins; Z86.39 Personal history of other endocrine, nutritional and metabolic disease; Z79.899 Other long term (current) drug therapy

== ENCOUNTER → 2023-06-03 | Outpatient (REF) | payer MEDICARE, BC | LOC: M SFHCPLAZ 10:52 | PROVIDERS: ATTEND Family Medicine | DX: E78.2 Mixed hyperlipidemia (principal); E55.9 Vitamin D deficiency, unspecified; I10 Essential (primary) hypertension; E53.8 Deficiency of other specified B group vitamins ==

== ENCOUNTER → 2023-08-22 | Outpatient (REF) | payer MEDICARE, BC | LOC: M SFHCPLAZ 12:39 | PROVIDERS: ATTEND Physician Assistant | DX: R32 Unspecified urinary incontinence (principal) ==

== ENCOUNTER → 2023-09-02 | Outpatient (CLI) | payer MEDICARE, BC | LOC: M CLY 14:28 | PROVIDERS: ATTEND Physician Assistant Medical | DX: M54.16 Radiculopathy, lumbar region (principal); R29.6 Repeated falls; M47.816 Spondylosis without myelopathy or radiculopathy, lumbar region; M25.551 Pain in right hip; M25.552 Pain in left hip ==

== ENCOUNTER → 2023-09-02 | Outpatient (CLI) | payer MEDICARE, BC | LOC: M PLAIMG 14:14 | PROVIDERS: ATTEND Physician Assistant Medical | DX: M16.0 Bilateral primary osteoarthritis of hip (principal); M54.16 Radiculopathy, lumbar region; R29.6 Repeated falls; M47.816 Spondylosis without myelopathy or radiculopathy, lumbar region ==

== ENCOUNTER → 2023-09-04 | Outpatient (CLI) | payer MEDICARE, BC | LOC: M PLARAD 08:14 | PROVIDERS: ATTEND Physician Assistant Medical | DX: M54.16 Radiculopathy, lumbar region (principal); R29.6 Repeated falls; M47.816 Spondylosis without myelopathy or radiculopathy, lumbar region; M25.551 Pain in right hip; M25.552 Pain in left hip; M48.061 Spinal stenosis, lumbar region without neurogenic claudication; N28.1 Cyst of kidney, acquired ==

== ENCOUNTER → 2023-09-18 | Outpatient (CLI) | payer MEDICARE, BC ==
[~2023-09-18] MED LIST changes: +ONDA-282 PO; -ONDA4TAB6 PO
== END ==
LOC: M SOG 14:14
PROVIDERS: ATTEND Orthopaedic Surgery
DX: M47.816 Spondylosis without myelopathy or radiculopathy, lumbar region (principal); M70.62 Trochanteric bursitis, left hip

== ENCOUNTER → 2023-10-14 | Outpatient (REF) | payer MEDICARE, BC ==
[~2023-10-14] MED LIST changes: -FLUO0.0114 EXT; +FLUO0.0133 EXT
== END ==
LOC: M SFHCPLAZ 14:09
PROVIDERS: ATTEND Family Medicine
DX: I10 Essential (primary) hypertension (principal); E53.8 Deficiency of other specified B group vitamins; E55.9 Vitamin D deficiency, unspecified; E78.2 Mixed hyperlipidemia

== ENCOUNTER → 2023-10-14 | Outpatient (CLI) | payer MEDICARE, BC ==
[2023-10-14 15:54] LABS: BASO # 0.1 10^3/uL (0.0-0.2); BASO % 0.6 % (0.0-1.0); EOS # 0.2 10^3/uL (0.0-0.5); EOS % 2.6 % (0.0-3.0); HEMATOCRIT 36.6 % (36.0-47.0); HEMOGLOBIN 12.1 g/dl (12.0-15.5); LYMPH # 2.7 10^3/uL (1.5-5.0); LYMPH % 30.4 % (24.0-44.0); MEAN CORPUSCULAR HEMOGLOBIN 33.6 pg (27.0-33.0); MEAN CORPUSCULAR HGB CONC 33.1 g/dl (32.0-36.5); MEAN CORPUSCULAR VOLUME 101.7 fl (80.0-96.0); MONO % 10.9 % (2.0-8.0); NEUTROPHILS % 55.3 % (36.0-66.0); PLATELET COUNT, AUTOMATED 302 10^3/uL (150-450)
[2023-10-14 16:12] LABS: HEMOGLOBIN A1c 5.6 % (4.0-6.0)
[2023-10-14 16:29] LABS: FERRITIN 18.3 NG/ML (7.3-270.7)
[2023-10-14 16:45] LABS: ALBUMIN 3.6 G/DL (3.2-5.2); ALKALINE PHOSPHATASE 22 U/L (46-116); ALT/SGPT 10 U/L (7.0-40); AST/SGOT 10 U/L (<34); BILIRUBIN,TOTAL 0.6 MG/DL (0.3-1.2); BLOOD UREA NITROGEN 12 MG/DL (9-23); CALCIUM LEVEL 10.7 MG/DL (8.3-10.6); CARBON DIOXIDE LEVEL 28 MMOL/L (20-31); CHLORIDE LEVEL 108 MMOL/L (98-107); CHOLESTEROL LEVEL 123 MG/DL (<200); CHOLESTEROL RISK RATIO 2.43 (<5); CREATININE FOR GFR 0.81 MG/DL (0.55-1.30); GLOMERULAR FILTRATION RATE > 60.0 (>32); GLUCOSE, FASTING 93 MG/DL (74-106); HDL CHOLESTEROL 50.6 MG/DL (>40); LDL CHOLESTEROL 59.2 MG/DL (<100); NON-HDL-C 72.4 MG/DL; POTASSIUM SERUM 4.7 MMOL/L (3.5-5.1); SODIUM LEVEL 140 MMOL/L (136-145); TOTAL PROTEIN 6.6 G/DL (5.7-8.2); TRIGLYCERIDES LEVEL 66 MG/DL (<150)
[2023-10-14 16:58] LABS: PTH INTACT 46.8 PG/ML (18.5-88.0)
== END ==
LOC: M PLALAB 14:18
PROVIDERS: ATTEND Family Medicine
DX: K74.00 Hepatic fibrosis, unspecified (principal); I10 Essential (primary) hypertension; E53.8 Deficiency of other specified B group vitamins; E55.9 Vitamin D deficiency, unspecified; E78.2 Mixed hyperlipidemia; Z79.899 Other long term (current) drug therapy

== ENCOUNTER → 2023-10-30 | Outpatient (CLI) | payer MEDICARE, BC ==
[~2023-10-30] MED LIST changes: +ALBUTEROL SULFATE 2.5MG/0.5ML INH NEB SOLN INH PRN; +EPINEPHrine INJ 1 MG/ML 1ML AMP IM PRN; +NS 1,000 ML IV SCH; +diphenhydrAMINE 50MG/ML VIAL IV PRN; +methylPREDNISolone 125MG 2ML VIAL IV PRN
[2023-10-30 12:30] VITALS: BP 116/59; O2SAT 95
[2023-10-30] MEDS: FERRIC CARBOXYMALTOSE INJ 750 MG in NS 250 ML (>50kg) IV ONE (12:35)
[2023-10-30 13:45] VITALS: BP 100/70; O2SAT 98
== END ==
LOC: M INFU 11:50
PROVIDERS: ATTEND Family Medicine
DX: D50.9 Iron deficiency anemia, unspecified (principal); Z88.8 Allergy status to other drugs, medicaments and biological substances
CPT/HCPCS: 96365; J1439

== ENCOUNTER → 2023-12-03 | Outpatient (REF) | payer MEDICARE, BC ==
[~2023-12-03] MED LIST changes: -ALBUTEROL SULFATE 2.5MG/0.5ML INH NEB SOLN INH PRN; -EPINEPHrine INJ 1 MG/ML 1ML AMP IM PRN; -NS 1,000 ML IV SCH; -diphenhydrAMINE 50MG/ML VIAL IV PRN; -methylPREDNISolone 125MG 2ML VIAL IV PRN
== END ==
LOC: M SFHCPLAZ 17:09
PROVIDERS: ATTEND Physician Assistant Medical
DX: R35.0 Frequency of micturition (principal)

== ENCOUNTER → 2023-12-23 | Outpatient (REF) | payer MEDICARE, BC ==
[2023-12-23 18:11] LABS: APPEARANCE, URINE HAZY (CLEAR); BACTERIA, URINE AUTO NEGATIVE (NEGATIVE); BILIRUBIN, URINE AUTO NEGATIVE (NEGATIVE); BLOOD, URINE BLOOD NEGATIVE (NEGATIVE); CALCIUM OXALATE CRYSTALS LARGE; COLOR, URINE YELLOW (YELLOW); GLUCOSE, URINE (UA) AUTO NEGATIVE (NEGATIVE); KETONE, URINE AUTO NEGATIVE (NEGATIVE); LEUKOCYTE ESTERASE, URINE AUTO 2+ (NEGATIVE); MUCUS, URINE SMALL (NEGATIVE); NITRITE, URINE AUTO NEGATIVE (NEGATIVE); PROTEIN, URINE AUTO NEGATIVE (NEGATIVE); RBC, URINE AUTO 0 /HPF (0-3); SPECIFIC GRAVITY URINE AUTO 1.016 (1.002-1.035); SQUAMOUS EPITHELIAL CELL UR AU 0 /HPF (0-6); UROBILINOGEN, URINE AUTO 0.2 mg/dL (0.0-2.0); WBC, URINE AUTO 4 /HPF (0-3)
== END ==
LOC: M SFHCPLAZ 15:50
DX: R32 Unspecified urinary incontinence (principal)

== ENCOUNTER → 2023-12-24 | Outpatient (REF) | payer MEDICARE, BC ==
[2023-12-24 15:07] LABS: APPEARANCE, URINE HAZY (CLEAR); BACTERIA, URINE AUTO NEGATIVE (NEGATIVE); BILIRUBIN, URINE AUTO NEGATIVE (NEGATIVE); BLOOD, URINE BLOOD NEGATIVE (NEGATIVE); CALCIUM OXALATE CRYSTALS LARGE; COLOR, URINE YELLOW (YELLOW); GLUCOSE, URINE (UA) AUTO NEGATIVE (NEGATIVE); KETONE, URINE AUTO NEGATIVE (NEGATIVE); LEUKOCYTE ESTERASE, URINE AUTO NEGATIVE (NEGATIVE); MUCUS, URINE SMALL (NEGATIVE); NITRITE, URINE AUTO NEGATIVE (NEGATIVE); PROTEIN, URINE AUTO NEGATIVE (NEGATIVE); RBC, URINE AUTO 0 /HPF (0-3); SPECIFIC GRAVITY URINE AUTO 1.019 (1.002-1.035); SQUAMOUS EPITHELIAL CELL UR AU 0 /HPF (0-6); WBC, URINE AUTO 2 /HPF (0-3)
== END ==
LOC: M SFHCWAGY 14:46
DX: R30.0 Dysuria (principal)

== ENCOUNTER → 2024-03-17 | Outpatient (CLI) | payer MEDICARE, BC ==
[~2024-03-17] MED LIST changes: -ADV250INH INH; +ADVA1AER9 INH; +GABA-1172 PO; -GABA-282 PO
[2024-03-17 15:12] LABS: BASO # 0.1 10^3/uL (0.0-0.2); BASO % 0.7 % (0.0-1.0); EOS # 0.3 10^3/uL (0.0-0.5); EOS % 3.2 % (0.0-3.0); HEMATOCRIT 38.5 % (36.0-47.0); HEMOGLOBIN 12.6 g/dl (12.0-15.5); LYMPH # 2.6 10^3/uL (1.5-5.0); LYMPH % 31.4 % (24.0-44.0); MEAN CORPUSCULAR HEMOGLOBIN 34.3 pg (27.0-33.0); MEAN CORPUSCULAR HGB CONC 32.7 g/dl (32.0-36.5); MEAN CORPUSCULAR VOLUME 104.9 fl (80.0-96.0); MONO % 11.7 % (2.0-8.0); NEUTROPHILS # 4.4 10^3/uL (1.5-8.5); NEUTROPHILS % 52.8 % (36.0-66.0); PLATELET COUNT, AUTOMATED 290 10^3/uL (150-450); RED BLOOD COUNT 3.67 10^6/uL (4.00-5.40); WHITE BLOOD COUNT 8.3 10^3/uL (4.0-10.0)
[2024-03-17 15:36] LABS: ALBUMIN 3.2 G/DL (3.2-5.2); ALKALINE PHOSPHATASE 25 U/L (35-104); ALT/SGPT < 9 U/L (7.0-40); AST/SGOT 11 U/L (<34); BILIRUBIN,TOTAL 0.4 MG/DL (0.3-1.2); BLOOD UREA NITROGEN 17 MG/DL (9-23); CALCIUM LEVEL 10.4 MG/DL (8.3-10.6); CARBON DIOXIDE LEVEL 31 MMOL/L (20-31); CHLORIDE LEVEL 106 MMOL/L (98-107); CREATININE FOR GFR 0.91 MG/DL (0.55-1.30); GLOMERULAR FILTRATION RATE > 60.0 (>32); GLUCOSE, FASTING 111 MG/DL (74-106); POTASSIUM SERUM 4.2 MMOL/L (3.5-5.1); PTH INTACT 39.2 PG/ML (18.5-88.0); SODIUM LEVEL 139 MMOL/L (136-145); TOTAL PROTEIN 6.5 G/DL (5.7-8.2)
[2024-03-17 15:39] LABS: FERRITIN 165.1 NG/ML (7.3-270.7)
[2024-03-19 07:12] LABS: T P ELECTROPHORESIS SO 6.6 g/dL (6.1-8.1)
[2024-03-22 14:22] LABS: ALBUMIN SPEP 3.8 g/dL (3.8-4.8); ALPHA-1-GLOBULINS SO 0.2 g/dL (0.2-0.3); ALPHA-2-GLOBULINS SO 0.7 g/dL (0.5-0.9); BETA 2 GLOBULIN 0.4 g/dL (0.2-0.5); BETA-GLOBULIN SO 0.4 g/dL (0.4-0.6); GAMMA GLOBULINS SO 1.1 g/dL (0.8-1.7)
== END ==
LOC: M PLALAB 13:19
PROVIDERS: ATTEND Family Medicine
DX: E78.2 Mixed hyperlipidemia (principal); I10 Essential (primary) hypertension; E53.8 Deficiency of other specified B group vitamins; E55.9 Vitamin D deficiency, unspecified; D50.9 Iron deficiency anemia, unspecified

== ENCOUNTER 2024-05-13 10:15 | Observation (INO) | payer MEDICARE, BC ==
[~2024-05-13] VITALS: Ht 157.5 cm; Wt 56.8 kg
[~2024-05-13 10:15] MED LIST changes: -ADV500INH INH; +ADVA1AER10 INH; -GABA-1171; +GABA-1171 PO
[2024-05-13] MEDS ORDERED: ISOVUE-370 76% 100ML VIAL As Ordered ONE (11:04)
[2024-05-13 11:21] LABS: BASO # 0.1 10^3/uL (0.0-0.2); BASO % 0.7 % (0.0-1.0); EOS # 0.4 10^3/uL (0.0-0.5); EOS % 4.5 % (0.0-3.0); HEMATOCRIT 38.9 % (36.0-47.0); HEMOGLOBIN 12.8 g/dl (12.0-15.5); LYMPH # 1.8 10^3/uL (1.5-5.0); LYMPH % 20.3 % (24.0-44.0); MEAN CORPUSCULAR HEMOGLOBIN 34.3 pg (27.0-33.0); MEAN CORPUSCULAR HGB CONC 32.9 g/dl (32.0-36.5); MEAN CORPUSCULAR VOLUME 104.3 fl (80.0-96.0); MONO % 11.4 % (2.0-8.0); NEUTROPHILS # 5.5 10^3/uL (1.5-8.5); NEUTROPHILS % 62.9 % (36.0-66.0); PLATELET COUNT, AUTOMATED 283 10^3/uL (150-450); RED BLOOD COUNT 3.73 10^6/uL (4.00-5.40); WHITE BLOOD COUNT 8.7 10^3/uL (4.0-10.0)
[2024-05-13 11:33] LABS: INR 0.94; PARTIAL THROMBOPLASTIN TIME 28.4 SECONDS (24.8-34.2); PROTHROMBIN TIME 12.9 SECONDS (12.5-14.5)
[2024-05-13 11:49] LABS: ALBUMIN 3.2 G/DL (3.2-5.2); ALKALINE PHOSPHATASE 32 U/L (35-104); ALT/SGPT < 9 U/L (7.0-40); AST/SGOT 13 U/L (<34); BILIRUBIN,DIRECT 0.2 MG/DL (<0.4); BILIRUBIN,TOTAL 0.5 MG/DL (0.3-1.2); TOTAL PROTEIN 6.6 G/DL (5.7-8.2)
[2024-05-13] MEDS: NS (Normal Saline) 0.9% 1,000 ML IV ONE (13:15)
[2024-05-13] MEDS ORDERED: LEVO50TA5 PO (14:48)
[2024-05-13] MEDS ORDERED: ALBU8.5H INH (14:48)
[2024-05-13] MEDS ORDERED: OXYB-54 PO (14:49)
[2024-05-13] MEDS ORDERED: URSO300C3 PO (14:49)
[2024-05-13] MEDS ORDERED: TRAZ-252 PO (14:50)
[2024-05-13] MEDS ORDERED: HOME MED LIST COMPLETE! XX SCH (14:50)
[2024-05-13] MEDS ORDERED: IPRATROPIUM 0.5MG/ALBUTEROL 2.5MG INH SOL UD 3ML (DUONEB) NEB PRN (15:30)
[2024-05-13 16:37] LABS: ALKALINE PHOSPHATASE 26 U/L (35-104); ALT/SGPT < 9 U/L (7.0-40); AST/SGOT 13 U/L (<34); BILIRUBIN,TOTAL 0.5 MG/DL (0.3-1.2); BLOOD UREA NITROGEN 12 MG/DL (9-23); CALCIUM LEVEL 9.5 MG/DL (8.3-10.6); CARBON DIOXIDE LEVEL 31 MMOL/L (20-31); CHLORIDE LEVEL 109 MMOL/L (98-107); CREATININE FOR GFR 0.76 MG/DL (0.55-1.30); GLOMERULAR FILTRATION RATE > 60.0 (>32); GLUCOSE, FASTING 99 MG/DL (74-106); POTASSIUM SERUM 4.3 MMOL/L (3.5-5.1); SODIUM LEVEL 143 MMOL/L (136-145); TOTAL PROTEIN 6.2 G/DL (5.7-8.2)
[2024-05-13 16:39] LABS: HEMOGLOBIN A1c 5.3 % (4.0-6.0)
[2024-05-13 16:53] LABS: THYROID STIMULATING HORMONE 4.777 uIU/ML (0.55-4.78)
[2024-05-13 17:00] VITALS: BP 149/94; TEMP 97.7; O2SAT 94
[2024-05-13] MEDS: CLOPIDOGREL 75 MG TAB PO SCH (17:25)
[2024-05-13] MEDS: ASPIRIN 81MG ENTERIC TABLET PO SCH (17:25)
[2024-05-13 20:00] VITALS: BP 137/72; TEMP 97.3; O2SAT 95
[2024-05-13] MEDS: GABAPENTIN 100 MG CAP PO SCH (22:42)
[2024-05-13] MEDS: ATORVASTATIN 20 MG TAB PO SCH (22:42)
[2024-05-13] MEDS: ursodioL 300MG CAP PO SCH (22:43)
[2024-05-13] MEDS: traZODone 50 MG TAB PO SCH (22:43)
[2024-05-13] MEDS: MONTELUKAST 10 MG TAB PO SCH (22:43)
[2024-05-14 04:00] VITALS: BP 126/71; TEMP 97.5; O2SAT 94
[2024-05-14] MEDS: LEVOTHYROXINE 50MCG TABLET (0.05MG) PO SCH (05:32)
[2024-05-14 06:24] LABS: CHOLESTEROL RISK RATIO 2.76 (<5); HDL CHOLESTEROL 42.6 MG/DL (>40); NON-HDL-C 75.4 MG/DL
[2024-05-14 06:27] LABS: ALBUMIN 2.7 G/DL (3.2-5.2); ALKALINE PHOSPHATASE 23 U/L (35-104); ALT/SGPT < 9 U/L (7.0-40); AST/SGOT 17 U/L (<34); BILIRUBIN,TOTAL 0.5 MG/DL (0.3-1.2); BLOOD UREA NITROGEN 13 MG/DL (9-23); CALCIUM LEVEL 9.7 MG/DL (8.3-10.6); CARBON DIOXIDE LEVEL 26 MMOL/L (20-31); CHLORIDE LEVEL 109 MMOL/L (98-107); CREATININE FOR GFR 0.73 MG/DL (0.55-1.30); GLOMERULAR FILTRATION RATE > 60.0 (>32); GLUCOSE, FASTING 90 MG/DL (74-106); POTASSIUM SERUM 4.4 MMOL/L (3.5-5.1); SODIUM LEVEL 141 MMOL/L (136-145); TOTAL PROTEIN 5.5 G/DL (5.7-8.2)
[2024-05-14 08:00] VITALS: BP 128/84; TEMP 97.2; O2SAT 90
[2024-05-14] MEDS: oxyBUTYnin *DITROPAN XL* 5 MG TABCR PO SCH (09:40)
[2024-05-14] MEDS: PROPRANOLOL 10 MG TAB PO SCH (09:40)
[2024-05-14] MEDS: ENOXAPARIN 40MG/0.4ML SYRINGE (J1650 PER 10MG) SC SCH (09:44)
[2024-05-14 10:13] VITALS: BP 128/84
[2024-05-14] MEDS ORDERED: ASPI81TAEC PO (11:06)
== END 2024-05-14 12:19 | disposition home or self-care (01) ==
LOC: M ED 10:15 → INTOOBSV 13:12 → M ED INP 13:12 → M MSPAV 17:04
PROVIDERS: ADMIT Internal Medicine; ATTEND Internal Medicine
DX: G45.9 Transient cerebral ischemic attack, unspecified (principal); G43.909 Migraine, unspecified, not intractable, without status migrainosus; J45.909 Unspecified asthma, uncomplicated; E03.9 Hypothyroidism, unspecified; R00.1 Bradycardia, unspecified; Z86.73 Personal history of transient ischemic attack (TIA), and cerebral infarction without residual deficits; R26.81 Unsteadiness on feet; I10 Essential (primary) hypertension; G47.33 Obstructive sleep apnea (adult) (pediatric); Z91.198 Patient's noncompliance with other medical treatment and regimen for other reason; Q21.12 Patent foramen ovale; E78.5 Hyperlipidemia, unspecified; G25.81 Restless legs syndrome; Z79.82 Long term (current) use of aspirin; Z79.899 Other long term (current) drug therapy; Z79.02 Long term (current) use of antithrombotics/antiplatelets
CPT/HCPCS: 36415; 70450; 70496; 70498; 70551; 71045; 80047; 80053; 80061; 80076; 82607; 82746; 83036; 84443; 85025; 85610; 85730; 92526; 92610; 93005; 93041; 93306; 94760; 96372; 96374; 97161; 97165; 97535; 99285; G0378; J1650; Q9967

== ENCOUNTER → 2024-06-10 | Outpatient (CLI) | payer MEDICARE, BC ==
[~2024-06-10] MED LIST changes: +ALBU8.5H INH; +ASPI81TAEC PO; +LEVO50TA5 PO; +OXYB-54 PO; +TRAZ-252 PO; +URSO300C3 PO
[2024-06-10 15:12] LABS: BASO # 0.1 10^3/uL (0.0-0.2); BASO % 0.7 % (0.0-1.0); EOS # 0.4 10^3/uL (0.0-0.5); EOS % 4.6 % (0.0-3.0); HEMOGLOBIN 12.6 g/dl (12.0-15.5); LYMPH # 2.5 10^3/uL (1.5-5.0); MEAN CORPUSCULAR HEMOGLOBIN 34.1 pg (27.0-33.0); MEAN CORPUSCULAR HGB CONC 32.3 g/dl (32.0-36.5); MEAN CORPUSCULAR VOLUME 105.4 fl (80.0-96.0); MONO # 0.9 10^3/uL (0.0-0.8); MONO % 9.7 % (2.0-8.0); NEUTROPHILS # 5.4 10^3/uL (1.5-8.5); NEUTROPHILS % 57.8 % (36.0-66.0); PLATELET COUNT, AUTOMATED 284 10^3/uL (150-450); WHITE BLOOD COUNT 9.4 10^3/uL (4.0-10.0)
[2024-06-10 15:45] LABS: ALBUMIN 3.3 G/DL (3.2-5.2); ALKALINE PHOSPHATASE 28 U/L (35-104); ALT/SGPT 11 U/L (7.0-40); AST/SGOT 13 U/L (<34); BILIRUBIN,TOTAL 0.4 MG/DL (0.3-1.2); BLOOD UREA NITROGEN 16 MG/DL (9-23); CALCIUM LEVEL 9.9 MG/DL (8.3-10.6); CARBON DIOXIDE LEVEL 30 MMOL/L (20-31); CHLORIDE LEVEL 107 MMOL/L (98-107); CREATININE FOR GFR 0.82 MG/DL (0.55-1.30); GLOMERULAR FILTRATION RATE > 60.0 (>32); GLUCOSE, FASTING 107 MG/DL (74-106); POTASSIUM SERUM 4.1 MMOL/L (3.5-5.1); PTH INTACT 34.6 PG/ML (18.5-88.0); SODIUM LEVEL 143 MMOL/L (136-145); TOTAL PROTEIN 6.7 G/DL (5.7-8.2)
[2024-06-10 15:46] LABS: FERRITIN 111.8 NG/ML (7.3-270.7); TOTAL 25(OH) VITAMIN D 54.9 NG/ML (20.0-100.0)
== END ==
LOC: M PLALAB 13:17
PROVIDERS: ATTEND Family Medicine
DX: E55.9 Vitamin D deficiency, unspecified (principal); E78.2 Mixed hyperlipidemia; I10 Essential (primary) hypertension; E53.8 Deficiency of other specified B group vitamins; D50.9 Iron deficiency anemia, unspecified

== ENCOUNTER 2024-06-30 21:26 | Observation (INO) | payer MEDICARE, BC ==
[~2024-06-30] VITALS: Ht 157.5 cm; Wt 55.5 kg
[2024-06-30 22:30] LABS: HEMATOCRIT 35.5 % (36.0-47.0); HEMOGLOBIN 11.7 g/dl (12.0-15.5); MEAN CORPUSCULAR VOLUME 103.2 fl (80.0-96.0); PLATELET COUNT, AUTOMATED 194 10^3/uL (150-450); RED BLOOD COUNT 3.44 10^6/uL (4.00-5.40); WHITE BLOOD COUNT 9.4 10^3/uL (4.0-10.0)
[2024-06-30 23:01] LABS: BLOOD UREA NITROGEN 13 MG/DL (9-23); CALCIUM LEVEL 7.5 MG/DL (8.3-10.6); CARBON DIOXIDE LEVEL 19 MMOL/L (20-31); CHLORIDE LEVEL 115 MMOL/L (98-107); GLOMERULAR FILTRATION RATE > 60.0 (>32); GLUCOSE, FASTING 80 MG/DL (74-106); MAGNESIUM LEVEL 1.5 MG/DL (1.8-2.4); PHOSPHORUS LEVEL 2.9 MG/DL (2.4-5.1); POTASSIUM SERUM 3.4 MMOL/L (3.5-5.1); SODIUM LEVEL 146 MMOL/L (136-145)
[2024-06-30] MEDS: ACETAMINOPHEN 325 MG TAB PO ONE (23:28)
[2024-06-30] MEDS: MORPHINE 2 MG/ML 1ML VIAL IV PRN (23:28)
[2024-07-01 00:01] LABS: INR 1.12; PARTIAL THROMBOPLASTIN TIME 25.8 SECONDS (24.8-34.2); PROTHROMBIN TIME 14.7 SECONDS (12.5-14.5)
[2024-07-01] MEDS: MAG SULF 1GM/100ML (MAG RUN) 1 GM in IV 1 EA IV ONE (00:31)
[2024-07-01] MEDS: SILVER NITRATE APPLICATOR (1 = QTY 10) TOP ONE (00:35)
[2024-07-01] MEDS ORDERED: TRANEXAMIC ACID 100 MG/ML 10ML VIAL As Ordered ONE (00:43)
[2024-07-01] MEDS: POTASSIUM CHLORIDE 10MEQ SR TABLET PO ONE (00:45)
[2024-07-01] MEDS ORDERED: TRANEXAMIC ACID 650MG TABLET (LYSTEDA) PO ONE (00:45)
[2024-07-01] MEDS: TRANEXAMIC ACID INJection 1,000 MG in NS 100 ML IV ONE (01:05)
[2024-07-01] MEDS ORDERED: ONDANSETRON 4MG 2ML VIAL As Ordered ONE (02:01)
[2024-07-01] MEDS: ONDANSETRON 4MG 2ML VIAL IV ONE (02:15)
[2024-07-01] MEDS ORDERED: TRANEXAMIC ACID 100 MG/ML 10ML VIAL ONE (03:20)
[2024-07-01] MEDS: TRANEXAMIC ACID 100 MG/ML 10ML VIAL XX ONE (03:53)
[2024-07-01] MEDS: MORPHINE 2 MG/ML 1ML VIAL IV PRN (04:13)
[2024-07-01 06:49] LABS: HEMATOCRIT 32.1 % (36.0-47.0); HEMOGLOBIN 10.6 g/dl (12.0-15.5); MEAN CORPUSCULAR HEMOGLOBIN 34.4 pg (27.0-33.0); MEAN CORPUSCULAR VOLUME 104.2 fl (80.0-96.0); PLATELET COUNT, AUTOMATED 240 10^3/uL (150-450); RED BLOOD COUNT 3.08 10^6/uL (4.00-5.40); WHITE BLOOD COUNT 11.6 10^3/uL (4.0-10.0)
[2024-07-01 07:13] LABS: BLOOD UREA NITROGEN 21 MG/DL (9-23); CALCIUM LEVEL 9.7 MG/DL (8.3-10.6); CARBON DIOXIDE LEVEL 29 MMOL/L (20-31); CHLORIDE LEVEL 108 MMOL/L (98-107); CREATININE FOR GFR 0.78 MG/DL (0.55-1.30); GLOMERULAR FILTRATION RATE > 60.0 (>32); GLUCOSE, FASTING 104 MG/DL (74-106); POTASSIUM SERUM 4.6 MMOL/L (3.5-5.1); SODIUM LEVEL 141 MMOL/L (136-145)
[2024-07-01] MEDS: ACETAMINOPHEN 325 MG TAB PO PRN (08:28)
[2024-07-01] MEDS ORDERED: HOME MED LIST COMPLETE! XX SCH (08:45)
[2024-07-01] MEDS ORDERED: ASPI81TA26 PO (08:45)
[2024-07-01] MEDS ORDERED: ACET32TAB PO (13:11)
[2024-07-01 14:58] VITALS: BP 102/71; TEMP 98.2; O2SAT 98
== END 2024-07-01 14:52 | disposition home or self-care (01) ==
LOC: EDBD 21:26 → M ED 21:26 → M ED INP 21:27 → UNDOADMOB 07-01 04:57
PROVIDERS: ADMIT Student in an Organized Health Care Education/Training Program; ATTEND Student in an Organized Health Care Education/Training Program
DX: S80.01XA Contusion of right knee, initial encounter (principal); S01.511A Laceration without foreign body of lip, initial encounter; W19.XXXA Unspecified fall, initial encounter; Y92.89 Other specified places as the place of occurrence of the external cause; Y93.9 Activity, unspecified; Y99.9 Unspecified external cause status; I10 Essential (primary) hypertension; E03.9 Hypothyroidism, unspecified; E87.0 Hyperosmolality and hypernatremia; D64.9 Anemia, unspecified; Z86.73 Personal history of transient ischemic attack (TIA), and cerebral infarction without residual deficits; J45.909 Unspecified asthma, uncomplicated; Z79.51 Long term (current) use of inhaled steroids; Z79.01 Long term (current) use of anticoagulants; Z79.82 Long term (current) use of aspirin; Z79.899 Other long term (current) drug therapy
CPT/HCPCS: 36415; 70450; 70486; 72125; 73560; 80047; 80048; 83735; 84100; 85027; 85610; 85730; 96361; 96374; 96375; 96376; 97161; 97165; 97530; 99285; G0378; G0390; J2405; J3475

== ENCOUNTER 2024-07-02 00:51 | Emergency (ER) | payer MEDICARE, BC ==
[~2024-07-02 00:51] MED LIST changes: +ACET32TAB PO
[2024-07-02 04:13] VITALS: BP 115/63; TEMP 98.3; O2SAT 94
[2024-07-02] MEDS: traMADol 50 MG TAB (HOME DOSE PACK) PO ONE (04:35)
== END 2024-07-02 04:30 | disposition home or self-care (01) ==
LOC: M ED 00:51
DX: S60.212A Contusion of left wrist, initial encounter (principal); M79.602 Pain in left arm; W19.XXXA Unspecified fall, initial encounter; Y92.9 Unspecified place or not applicable; Y93.9 Activity, unspecified; Y99.9 Unspecified external cause status; Z79.899 Other long term (current) drug therapy; Z88.8 Allergy status to other drugs, medicaments and biological substances

== ENCOUNTER → 2024-07-16 | Outpatient (CLI) | payer MEDICARE, BC ==
[2024-07-16 17:35] LABS: BASO # 0.1 10^3/uL (0.0-0.2); BASO % 0.8 % (0.0-1.0); EOS # 0.4 10^3/uL (0.0-0.5); HEMATOCRIT 35.7 % (36.0-47.0); HEMOGLOBIN 11.5 g/dl (12.0-15.5); LYMPH # 3.2 10^3/uL (1.5-5.0); LYMPH % 36.6 % (24.0-44.0); MEAN CORPUSCULAR HGB CONC 32.2 g/dl (32.0-36.5); MEAN CORPUSCULAR VOLUME 105.6 fl (80.0-96.0); MONO # 1.2 10^3/uL (0.0-0.8); MONO % 13.3 % (2.0-8.0); NEUTROPHILS # 3.9 10^3/uL (1.5-8.5); NEUTROPHILS % 45.1 % (36.0-66.0); PLATELET COUNT, AUTOMATED 403 10^3/uL (150-450); RED BLOOD COUNT 3.38 10^6/uL (4.00-5.40); WHITE BLOOD COUNT 8.7 10^3/uL (4.0-10.0)
[2024-07-16 18:04] LABS: ALBUMIN 3.6 G/DL (3.2-5.2); ALKALINE PHOSPHATASE 45 U/L (35-104); ALT/SGPT 12 U/L (7.0-40); AST/SGOT 19 U/L (<34); BILIRUBIN,TOTAL 0.4 MG/DL (0.3-1.2); BLOOD UREA NITROGEN 17 MG/DL (9-23); CALCIUM LEVEL 10.1 MG/DL (8.3-10.6); CARBON DIOXIDE LEVEL 27 MMOL/L (20-31); CHLORIDE LEVEL 105 MMOL/L (98-107); CREATININE FOR GFR 0.83 MG/DL (0.55-1.30); FERRITIN 64.7 NG/ML (7.3-270.7); FREE T4 1.11 NG/DL (0.89-1.76); GLOMERULAR FILTRATION RATE > 60.0 (>32); GLUCOSE, FASTING 93 MG/DL (74-106); POTASSIUM SERUM 4.9 MMOL/L (3.5-5.1); PTH INTACT 41.1 PG/ML (18.5-88.0); SODIUM LEVEL 138 MMOL/L (136-145); THYROID STIMULATING HORMONE 4.759 uIU/ML (0.55-4.78); TOTAL 25(OH) VITAMIN D 43.5 NG/ML (20.0-100.0)
== END ==
LOC: M PLALAB 15:50
PROVIDERS: ATTEND Family Medicine
DX: E55.9 Vitamin D deficiency, unspecified (principal); E78.2 Mixed hyperlipidemia; I11.0 Hypertensive heart disease with heart failure; E53.8 Deficiency of other specified B group vitamins; E03.9 Hypothyroidism, unspecified; I50.32 Chronic diastolic (congestive) heart failure